=== PATIENT | female | born 1950 | race Caucasian/White ===

== ENCOUNTER 2018-07-28 22:23 | Inpatient (IN) | payer MEDICARE, OTHER ==
[2018-07-28] MEDS ORDERED: Promethazine HCl 25 MG/ML VIAL ONE (22:56)
[2018-07-28] MEDS ORDERED: Morphine 4 MG/ML VIAL ONE (22:56)
[2018-07-28 22:59] LABS: Bilirubin Negative (Negative); Blood, Urine Trace (Negative); Clarity Turbid (Clear); Glucose, Urine (Dipstick) >=1000 mg/dL (Negative); Leukocyte Trace (Negative); Nitrite Negative (Negative); Protein, Urine (Dipstick) Trace mg/dL (Neg-Trace); pH, Urine 5.5 (5.0-9.0)
[2018-07-28 23:00] LABS: Bacteria/HPF 1+ HPF (None Seen); Hyaline Casts/LPF 7-10 HYALINE CAST LPF (0-3 Hyaline); RBC/HPF 0-3 HPF (0-3); Renal Epithelial 0-3 HPF (0-3); Squamous Epithelial 0-3 HPF (0-3)
[2018-07-28 23:09] LABS: #Basophils 0.1 thou/uL (0.0-0.2); #Lymphocytes 1.3 thou/uL (1.20-3.40); #Monocytes 0.5 thou/uL (0.11-0.59); #Neutrophils 10.7 thou/uL (1.40-6.50); %Basophils 0.4 % (0.0-1.0); %Eosinophils 0.2 % (0.0-10.0); %Lymphocytes 10.3 % (21.0-51.0); %Monocytes 4.3 % (0.0-10.0); %Neutrophils 84.7 % (42.0-75.0); Hemoglobin 11.5 g/dL (12.0-16.0); Mean Corpuscular HGB CONC 31.6 g/dL (32.0-36.0); Mean Corpuscular Hemoglobin 25.3 pg (27.0-31.0); Mean Corpuscular Volume 80.1 fL (78.0-98.0); Mean Platelet Volume 7.9 fL (7.4-10.4); Platelet Count 161 thou/uL (130-400); RBC Distribution Width 13.6 % (11.5-14.5); Red Blood Cell (RBC) Count 4.56 mill/uL (4.20-5.40); White Blood Cell (WBC) Count 12.6 thou/uL (4.8-10.8)
[2018-07-28 23:23] LABS: ALT (SGPT) 26 U/L (8-55); AST (SGOT) 28 U/L (5-34); Albumin 3.9 g/dL (3.4-4.8); Alkaline Phosphatase 111 U/L (40-150); Anion Gap 18 mmol/L (10-20); BUN (Urea Nitrogen) 14 mg/dL (9.8-20.1); Bilirubin, Total 0.5 mg/dL (0.2-1.2); Calc. Creatinine Clearance 0 mL/min (70-130); Calcium 9.6 mg/dL (7.8-10.44); Carbon Dioxide 23 mmol/L (23-31); Chloride 99 mmol/L (98-107); Estimated GFR-MDRD 81; Glucose 312 mg/dL (80-115); Lipase 30 U/L (8-78); Potassium 4.5 mmol/L (3.5-5.1); Protein, Total 6.9 g/dL (6.0-8.3); Sodium 135 mmol/L (136-145)
[2018-07-29] MEDS ORDERED: cefTRIAXone\\ROCEPHIN 1 GM VIAL ONE (01:57)
[2018-07-29] MEDS ORDERED: Sodium Chloride 0.9% 100 ML ONE (01:58)
[2018-07-29] MEDS ORDERED: Prevnar 13-Val Conj/PF 0.5 ML SYRINGE IM ONE (06:15)
[2018-07-29] MEDS ORDERED: Sodium Chloride 0.65% Nasal 44 ML BOT EA NARE PRN (07:18)
[2018-07-29] MEDS ORDERED: Artificial Tears 18 DROP/0.9 ML EA EYE PRN (07:18)
[2018-07-29] MEDS ORDERED: Dextrose 5% in Water 1,000 ML IV PRN (07:18)
[2018-07-29] MEDS ORDERED: HumaLOG 300 UNITS/3 ML VIAL SC PRN (07:18)
[2018-07-29] MEDS ORDERED: Eucerin (Mineral Oil/Petrolatum,White) 30 gm Jar TOP PRN (07:18)
[2018-07-29] MEDS ORDERED: Dextrose 50% Abboject 50 ML SYRINGE SLOW IVP PRN (07:18)
[2018-07-29] MEDS ORDERED: Labetalol HCl 100 MG/20 ML VIAL SLOW IVP PRN (07:18)
[2018-07-29] MEDS ORDERED: Bisacodyl 10 MG SUPP PR PRN (07:18)
[2018-07-29] MEDS ORDERED: Acetaminophen 650 MG Suppository PR PRN (07:18)
[2018-07-29] MEDS ORDERED: hydrALAZINE 20 MG/ML VIAL SLOW IVP PRN (07:18)
[2018-07-29] MEDS ORDERED: Morphine 2 MG/ML SYRINGE SLOW IVP PRN (07:18)
--- NOTE | 2018-07-29 07:31 | CT ---
PRELIMINARY REPORT/[facility]/EMERGENCY AFTER HOURS PROCEDURE: EXAM: CT Abdomen and Pelvis With Contrast EXAM DATE/TIME: 07/29/2018 12:30 AM CLINICAL HISTORY: 68 years old, female; Pain and signs and symptoms; Bloating and nausea and vomiting; Abdominal pain; Generalized; Prior surgery; Surgery date: 6+ months; Surgery type: Lap band x2, daniel, failed hernia repair, keith oophorectomy TECHNIQUE: Imaging protocol: Axial computed tomography images of the abdomen and pelvis with intravenous contrast. Coronal reformatted images were created and reviewed. Radiation optimization: All CT scans at this facility use at least one of these dose optimization techniques: automated exposure control; mA and/or kV adjustment per patient size (includes targeted exams where dose is matched to clinical indication); or iterative reconstruction. Contrast material: isovue, gastro Contrast volume: 90 ml Contrast route: iv, oral COMPARISON: No relevant prior studies available. FINDINGS: Lower thorax: No consolidations. ABDOMEN: Liver: No mass. Gallbladder and bile ducts: Cholecystectomy. Trace amount of air in the common bile duct and central biliary ducts. Pancreas: No mass or ductal dilation. Spleen: No mass. Adrenals: No mass. Kidneys and ureters: No hydronephrosis. Stomach and bowel: There is oral contrast in the stomach and small bowel. Lap band around the proximal stomach in proper orientation without evidence of slippage. Dilated loops of small bowel up to 4.3 cm with air-fluid levels. Transition point is likely in a left lower paramidline hernia containing a loop of small bowel and a small amount of fluid. Appendix: No evidence of appendicitis. PELVIS: Bladder: Normal. Reproductive: The ovaries are not visualized. Normal appearance of the uterus. ABDOMEN and PELVIS: Intraperitoneal space: No free air or free fluid. Bones/joints: Subacute/chronic left lateral ninth rib fracture. Soft tissues: Normal appearance of the lap band tubing and port in the left anterior abdomen. Large central to right ventral hernia containing loops of small bowel. Vasculature: Mild atherosclerosis of the aorta without aneurysm. Lymph nodes: No lymphadenopathy. IMPRESSION: 1. Small bowel obstruction up to 4.3 cm with transition point likely within a left para midline ventr al hernia that contains a loop of small bowel and a small amount of fluid. There is an adjacent larger right ventral hernia containing loops of dilated and nondilated bowel. 2. Prior cholecystectomy. Trace pneumobilia. Please correlate with possible prior history of papillotomy. 3. Lap-band around the proximal stomach without evidence of slippage. Thank you for allowing us to participate in the care of your patient. Dictated and Authenticated by: Lashae Ch MD 07/29/2018 1:39 AM Central Time ([place] & [place]) FINAL REPORT CT ABDOMEN AND PELVIS WITH IV AND ORAL CONTRAST PERFORMED ON AN EMERGENCY BASIS: DATE: 07/29/18 TIME: 0043 HOURS HISTORY: Abdominal pain. FINDINGS/IMPRESSION: Agree with the preliminary report by Dr. Ch of [facility]. Small bowel obstruction at or n ear the large ventral abdominal wall hernia. Small amount of free fluid. Other incidental-type findings are as detailed in the original report. CODE QA. Transcribed Date/Time: 07/29/2018 7:58 AM
[2018-07-29] MEDS: Enoxaparin Sodium 40 MG/0.4 ML SYRINGE SC SCH (08:36)
[2018-07-29] MEDS ORDERED: Famotidine/PF 20 mg/2ml Vial SLOW IVP SCH (09:00)
[2018-07-29] MEDS ORDERED: Dofetilide 0.125 MG CAP PO SCH ×3 (10:00→22:50)
--- NOTE | 2018-07-29 11:19 | HP ---
PRIMARY CARE PHYSICIAN: Dr. Pavel Cosby. REASON FOR ADMISSION: Small bowel obstruction. HISTORY OF PRESENT ILLNESS: A 68-year-old female, who has underlying history of morbid obesity. She required two times gastric band surgery. She reports that first time gastric band surgery was complicated by MRSA infection required removal, and subsequently she had another gastric banding about 7 years ago. Since then, she lost almost 250 pounds. The patient also reports that about a week ago she went to [facility] in [place], where she had Watchman procedure done. She was taking Tikosyn as well as Xarelto since then, and during that admission, aspirin was discontinued. The patient reports that she was having frequent fall and that is why her primary care physician and legal support assistant recommended that procedure. Yesterday around 4 p.m., the patient was having acute onset of abdominal pain, which was underneath rib cage, as well as periumbilical diffuse and crampy associated with several times of nausea and vomiting. She was not able to keep anything down. She did not have any bowel movement entire day yesterday. She was also feeling hard feeling in her stomach and that is why she decided to come to emergency room last night around [address] of abdomen and pelvis, which showed small bowel obstruction. The patient reported that last night, she had very scant amount of bowel movement with gas. She denies any fever or chills. She denies any melena or hematochezia. She denies any abdominal distention, but still she is feeling mild soreness in the periumbilical region. The patient has underlying history of atrial fibrillation and that is why she was overnight admitted to telemetry floor. Routine blood test done in the emergency room, which showed leukocytosis and lactic acidosis. In the emergency room, the patient was given Rocephin IV fluid, morphine, and Phenergan, and subsequently, she was admitted to the hospital. REVIEW OF SYSTEMS: CONSTITUTIONAL: Negative for weight loss or gain, ability to conduct usual activities. SKIN: Negative for rash, itching. EYES: Negative for double vision, pain. ENT/MOUTH: Negative for nose bleeding, neck stiffness, pain, tenderness. CARDIOVASCULAR: Negative for palpitations, dyspnea on exertion, orthopnea. RESPIRATORY: Negative for shortness of breath, wheezing, cough, hemoptysis, fever or night sweats. GASTROINTESTINAL: Negative for poor appetite, abdominal pain, heartburn, nausea, vomiting, constipation, or diarrhea. GENITOURINARY: Negative for urgency, frequency, dysuria, nocturia. MUSCULOSKELETAL: Negative for pain, swelling. NEUROLOGIC/PSYCHIATRIC: Negative for anxiety, depression. ALLERGY/IMMUNOLOGIC: Negative for skin rash, bleeding tendency. Please see my HPI for pertinent positive and negative. All other review of systems reviewed and negative except as mentioned in HPI. PAST MEDICAL HISTORY: Morbid obesity; atrial fibrillation, status post Watchman procedure in June 2018; diabetes type 2; hypothyroidism; hypertension; and dyslipidemia. PAST PSYCHIATRIC HISTORY: Anxiety and depression. PAST SURGICAL HISTORY: Gastric lap banding x2, first removed due to MRSA infection, second was placed about 7 years ago; cholecystectomy; oophorectomy; and tonsillectomy. CURRENT HOME MEDICATIONS: 1. Amitriptyline 25 mg p.o. daily. 2. Zebeta 5 mg daily. 3. Cardizem CD 240 mg daily. 4. Dofetilide 500 mcg p.o. b.i.d. 5. Lasix 20 mg daily. 6. Lantus insulin as per home dose. 7. Synthroid 137 mcg p.o. daily. 8. Liothyronine 5 mcg daily. 9. Losartan 50 mg daily. 10. Magnesium oxide 400 mg daily. 11. Metformin 1000 mg b.i.d. 12. Paxil 20 mg daily. 13. Potassium chloride 20 mEq p.o. daily. 14. Xarelto 20 mg daily. 15. Zocor 40 mg p.o. nightly. EMERGENCY ROOM COURSE: The patient is given IV fluid 3 L, Rocephin 1 g, morphine, and Phenergan. SOCIAL HISTORY: The patient lives at home. No history of tobacco, alcohol, or illicit drug abuse. FAMILY HISTORY: No family history of coronary artery disease, stroke, or cancer. ALLERGIES: NO KNOWN DRUG ALLERGIES. PHYSICAL EXAMINATION: VITAL SIGNS: On arrival, blood pressure 153/77, pulse 89, respiratory rate 17, temperature 98.7, and saturation 98% on room air. Weight 113.4 kg. GENERAL: The patient is currently alert and awake, in no obvious acute distress. HEENT: Head; normocephalic, atraumatic. Eyes; pupils round and reactive to light. Extraocular muscle intact. ENT; oropharynx within normal limits. Moist mucous membranes. No oral lesion. No pharyngeal erythema. No exudate. NECK: Supple. No JVD. No thyromegaly. No carotid bruit. No jugular venous distention. LUNGS: Clear to auscultation without any rhonchi or rales. CARDIAC: S1 and S2. Appears regular without any significant murmur. No gallop. No rub. ABDOMEN: Bowel sound unable to hear, but morbid obesity limiting examination. The patient does have periumbilical ventral hernia. EXTREMITIES: Lower extremity, trace bilateral lower extremity edema noted. Good distal pulsation. SKIN: No skin rash. HEMATOLOGICAL SYSTEM: No lymphadenopathy. NEUROLOGIC: Nonfocal examination. The patient moves all 4 limbs. Plantar bilateral flexor. PSYCHIATRIC: Normal affect. SIGNIFICANT LABORATORY DATA: CT of abdomen and pelvis done in the emergency room showing small bowel obstruction up to 4.3 cm with transition point likely within left paramedian ventral hernia, prior cholecystectomy, lap band around proximal stomach without slippage. CBC; WBC 12.6, hemoglobin 11.5, and platelet 161 with left shift. BMP; sodium 135, potassium 4.5, chloride 99, carbon dioxide 23, anion gap 18, BUN 14, creatinine 0.72, glucose 312, calcium 9.6, and lactic acid 4.3. LFT; AST 28, ALT 26, alkaline phosphatase 111, albumin 3.9, and lipase 30. Urinalysis; glucosuria, ketonuria, leukocyte esterase 1+ bacteria. ASSESSMENT AND PLAN: Impression: 1. Acute small bowel obstruction. The patient does have ventral hernia, and currently based on CT of abdomen and pelvis, the patient does have small bowel obstruction. Clinical history is also supportive. The patient will be kept n.p.o. We will consult General Surgery for evaluation. Further plan will defer to them. We will monitor closely in hospital. 2. Lactic acidosis, likely due to underlying small bowel obstruction. The patient will get IV fluid and we will continue with repeating lactic acid level tomorrow. 3. Diabetes type 2, on insulin. We will hold on long-acting insulin. We will only provide short-acting insulin. In case, this patient will need surgery and the patient is n.p.o. at this point, we will also hold metformin as well. 4. Chronic atrial fibrillation, status post Watchman device. The patient is on dofetilide 500 mcg p.o. b.i.d., Cardizem CD 240 mg p.o. daily, and Zebeta 5 mg p.o. daily, which we will continue. The patient is on chronic anticoagulation with Xarelto, which we will hold in case this patient needs surgery. 5. Hypothyroidism. We will continue Synthroid 137 mcg p.o. daily and liothyronine 5 mcg p.o. daily. 6. Anxiety and depression. We will continue amitriptyline 25 mg p.o. daily and Losartan 50 mg p.o. daily. 7. Dyslipidemia. Continue Zocor 40 mg p.o. nightly. 8. Morbid obesity, status post gastric banding. Dietary instruction given. Weight loss education given. 9. Chronic diastolic heart failure, stage C. continue Lasix 20 mg p.o. daily. 10. Hypertension. Continue with Zebeta, Cardizem CD, Lasix, and losartan as per home dosage. 11. Deep venous thrombosis prophylaxis. We will continue with Lovenox 40 mg subcu daily. 12. Gastrointestinal prophylaxis, Pepcid 20 mg IV b.i.d. CODE STATUS: The patient is full code. The patient does not have any surrogate decision maker. DISPOSITION PLAN: Based on clinical course and Cardiology recommendation. Plan of care discussed with the patient in detail. Job ID: [id number]
[2018-07-29] MEDS ORDERED: Meropenem 2 GM in Sodium Chloride 0.9% 100 ML IVPB SCH (14:00)
--- NOTE | 2018-07-29 14:37 | HP ---
HISTORY OF PRESENT ILLNESS: A 68-year-old female, who presents to the hospitalist DNR. Consult submitted for incarcerated ventral hernia. She has had this ventral hernia for some time, it has been repaired twice by Dr. Alexander laparoscopically and recurred. She is followed by Dr. Pavel Cosby. The patient had a laparoscopic adjustable band, weighing 435 pounds prior after the band placement in 2005. She was down to 235 pounds, currently 270. She has had problems with atrial fibrillation, had an ablation with Dr. Villela, who is her digital campaign specialist. This was partially successful, but not completely and underwent a Watchman procedure 3 weeks ago. She reports having had a cardiac catheterization with Dr. Villela 4 weeks ago that was normal, requiring no intervention. She has suffered nausea, vomiting, and obstipation. CAT scan revealed an incarcerated ventral hernia with an obstruction. She has an open cholecystectomy wound and a band port in her midline. She has not had Xarelto in 48 hours. ALLERGIES: NONE. SOCIAL HISTORY: Tobacco, none. Alcohol, none. MEDICATIONS: At home include, 1. Zocor 40 a day. 2. Paxil 20 a day. 3. Amitriptyline 25 a day. 4. Insulin routinely. 5. Xarelto 20 mg a day, not consumed in 48 hours. 6. K-Dur 20 mEq a day. 7. Diltiazem 240 mg a day. 8. Magnesium oxide 400 mg a day. 9. Zebeta 5 mg a day. 10. Metformin 1000 mg b.i.d. 11. Losartan 50 mg a day. 12. Furosemide 20 mg a day . 13. Levothyroxine 137 mcg a day. PAST SURGICAL HISTORY: Laparoscopic adjustable band placement, weight reduction 435 to 235 pounds, currently 270 pounds. She has had incisional hernia repairs x2. She has had an open cholecystectomy many years ago. She is due for colonoscopy. PAST MEDICAL HISTORY: Diabetes mellitus, hypertension, obesity, atrial fibrillation. PHYSICAL EXAMINATION: VITAL SIGNS: Height 5 feet 8 inches, weight 270 pounds, 41 BMI, temperature 98.3, heart rate 77, blood pressure 128/67. HEAD, EYES, EARS, NOSE, AND THROAT: Unremarkable. LUNGS: Clear to auscultation. CARDIAC: Regular rate and rhythm. No murmur or gallop. ABDOMEN: Soft, obese, large pannus, incarcerated ventral hernia about the umbilicus. EXTREMITIES: Unremarkable. LABORATORY DATA: Sodium 135, potassium 4.5, BUN 14, creatinine 0.72, glucose 312 to 131. Hemoglobin 11, white count 12. ASSESSMENT: Incarcerated hernia with bowel obstruction. PLAN: Laparotomy today and procedure as indicated. She understands risks and benefits, and consents. Other medical problems as listed above. Job ID: [id number]
--- NOTE | 2018-07-29 14:49 | PQF ---
DATE: 07-29-18 ATTN: DR. REEMA SARAVIA Please exercise your independent, professional judgment in responding to the clarification form. Clinical indicators are provided on the bottom of this form for your review Please check appropriate box(s): [ ] UTI [ x ] Contaminated urine specimen without UTI [ ] Other diagnosis [ ] Unable to determine In addition, please specify: Present on Admission (POA): [ x ] Yes [ ] No [ ] Unable to determine For continuity of documentation, please document condition throughout progress notes and discharge summary. Thank You. CLINICAL INDICATORS - SIGNS / SYMPTOMS / LABS URINE: 07-28-18: URINE CLARITY: TURBID H URINE GLUCOSE: >=1000 H URINE KETONES: 15 H URINE BLOOD: TRACE H UR LEUKOCYTE ESTERASE: TRACE H URINE WBC: 7-10 H URINE BACTEREMIA: +1 H RISK FACTORS: H&P: HX MORBID OBESITY, A FIB, DM 2, HTN, HYPOTHYROIDISM, DYSLIPIDEMIA TREATMENT: ER: NS IVF, ROCEPHIN IV, NS IVF, NS IVF (This form is maintained as a part of the permanent medical record) 2014 [employer] All Rights Reserved [email or web address] Office: [phone] [facility]
[2018-07-29] MEDS ORDERED: PROPOFOL 200 MG/20 ML VIAL ONE (15:58)
[2018-07-29] MEDS ORDERED: Glycopyrrolate 0.2 MG/ML 5 ML SYRINGE ONE (15:58)
[2018-07-29] MEDS ORDERED: Ondansetron PF 4 MG/2 ML Vial ONE (15:58)
[2018-07-29] MEDS ORDERED: Succinylcholine Chloride 20 MG/ML 10 ml SYRINGE FS ONE (15:58)
[2018-07-29] MEDS ORDERED: Rocuronium Bromide 10 MG/ML (10ML VIAL) ONE (15:58)
[2018-07-29] MEDS ORDERED: Lidocaine 1% PF 5 ML VIAL ONE (15:58)
[2018-07-29] MEDS ORDERED: Fentanyl 250 MCG/5 ML VIAL ONE (16:26)
[2018-07-29] MEDS ORDERED: SUGAMMADEX SODIUM 500 MG/5 ML VIAL ONE (18:25)
[2018-07-29] MEDS ORDERED: Promethazine HCl 25 MG/ML VIAL SLOW IVP PRN (18:57)
[2018-07-29] MEDS ORDERED: Promethazine HCl 25 MG/ML VIAL IM PRN ×2 (18:57→19:12)
[2018-07-29] MEDS ORDERED: Ondansetron HCl/PF 4 MG/2 ML Vial IVP PRN (18:57)
[2018-07-29] MEDS ORDERED: Fentanyl 100 MCG/2 ML VIAL ONE (19:02)
[2018-07-29] MEDS ORDERED: diphenhydrAMINE 50 MG/ML VIAL IVP PRN (19:12)
[2018-07-29] MEDS ORDERED: diphenhydrAMINE 50 MG/ML VIAL IM PRN (19:12)
[2018-07-29] MEDS ORDERED: HYDROmorphone 10 mg/100 ml CADD IVPB PRN (19:12)
[2018-07-29] MEDS ORDERED: Naloxone HCl 0.4 mg/ml Vial IV PRN (19:12)
[2018-07-29] MEDS ORDERED: diphenhydrAMINE 25 MG CAP PO PRN (19:12)
[2018-07-29] MEDS ORDERED: Zolpidem Tartrate 5 MG TAB PO PRN (19:12)
[2018-07-29] MEDS ORDERED: Communication Order-Pharmacy FS SCH (19:15)
--- NOTE | 2018-07-29 19:50 | OP ---
DATE OF PROCEDURE: 07/29/2018 PREOPERATIVE DIAGNOSES: Incarcerated incisional hernia with bowel obstruction, recurrent; obesity, morbid, status post laparoscopic adjustable band, placed 13 years ago with loss of 450 pounds to 270. POSTOPERATIVE DIAGNOSES: Incarcerated incisional hernia with bowel obstruction, recurrent; obesity, morbid, status post laparoscopic adjustable band, placed 13 years ago with loss of 450 pounds to 270. PROCEDURES PERFORMED: Exploratory laparotomy; lysis of adhesions; removal of portions of mesh; extensive lysis of adhesions; repair of one enterotomy; 4 mm, two layers, suture complex incisional hernia repair without mesh; removal of portions of old mesh; Prevena dressing placed on the wound with skin closure with raul loosely. ANESTHESIA: General. Freeman catheter placed at the beginning of the procedure, left in place. DESCRIPTION OF PROCEDURE: The patient was taken to the operating room. Under general anesthesia, abdomen was prepared with ChloraPrep and draped in routine fashion. Incision was made above the umbilicus to below and carried down to the skin and subcutaneous tissue, and the hernia sac identified and dissected free from surrounding tissues. This hernia sac consisted of hernia sac and portions of eventrated mesh. This was dissected free down to healthy fascia. A portion of the mesh was removed in the midline. Extensive adhesiolysis undertaken freeing small bowel adhesions to the hernia sac and mesh and into the abdominal cavity. Adhesiolysis carried out from ligament of Treitz to the terminal ileum. Small bowel was run to and fro four times and a very small enterotomy closed. It was appreciated during the lysis of adhesions. This was closed in two layers with interrupted simple [id number] sutures of 3-0 silk and Lembert sutures of 3-0 silk. Small bowel was inspected. No other enterotomies noted. NG tube was palpated in good position in the stomach. Sponge and instrument counts were correct. Abdominal cavity was irrigated. Irrigant evacuated. Midline fascia closed with continuous locking sutures of #1 PDS incorporating the portion of the old mesh to reinforce fascial closure. The patient tolerated the procedure well. As the skin and subcutaneous tissue was copiously irrigated, meticulous hemostasis was obtained with cautery and skin approximated loosely with raul and Prevena dressing applied. The patient tolerated the procedure well. Job ID: [id number]
[2018-07-29] MEDS ORDERED: Promethazine HCl 25 MG/ML VIAL ONE (20:04)
[2018-07-29] MEDS ORDERED: Atorvastatin Calcium 20 MG TAB PO SCH (21:00)
[2018-07-29] MEDS ORDERED: Ondansetron ODT 8 MG TAB SL PRN (21:10)
[2018-07-29] MEDS ORDERED: Ondansetron PF 4 MG/2 ML Vial IVP SCH (21:15)
[2018-07-29] MEDS: Scopolamine 1.5 mg/72 hour Patch TD SCH (21:53)
[2018-07-29] MEDS: Lactated Ringer's 1,000 ML IV SCH (21:55)
[2018-07-29] MEDS ORDERED: Dofetilide 0.25 MG CAP PO SCH (22:45)
[2018-07-30] MEDS ORDERED: cefTRIAXone\\ROCEPHIN 2 GM in Sodium Chloride 0.9% 100 ML IVPB SCH (02:00)
[2018-07-30] MEDS: Lactated Ringer's 1,000 ML IV SCH ×5 (05:12→19:50)
[2018-07-30 05:52] LABS: #Monocytes 0.7 thou/uL (0.11-0.59); %Basophils 0.2 % (0.0-1.0); %Eosinophils 0.3 % (0.0-10.0); %Lymphocytes 20.9 % (21.0-51.0); %Monocytes 6.9 % (0.0-10.0); %Neutrophils 71.6 % (42.0-75.0); Hemoglobin 11.2 g/dL (12.0-16.0); Mean Corpuscular HGB CONC 30.9 g/dL (32.0-36.0); Mean Corpuscular Hemoglobin 25.9 pg (27.0-31.0); Mean Corpuscular Volume 83.7 fL (78.0-98.0); Mean Platelet Volume 8.2 fL (7.4-10.4); Platelet Count 193 thou/uL (130-400); Red Blood Cell (RBC) Count 4.32 mill/uL (4.20-5.40); White Blood Cell (WBC) Count 9.7 thou/uL (4.8-10.8)
[2018-07-30] MEDS ORDERED: Levothyroxine Sodium 112 MCG TAB PO SCH (06:00)
[2018-07-30] MEDS ORDERED: Levothyroxine Sodium 25 MCG TAB PO SCH (06:00)
[2018-07-30 06:01] LABS: Hemoglobin A1c 7.3 % (4.0-6.0)
[2018-07-30 06:04] LABS: Lactic Acid 1.4 mmol/L (0.5-2.2)
[2018-07-30 06:05] LABS: Phosphorus 3.8 mg/dL (2.3-4.7)
[2018-07-30 06:07] LABS: ALT (SGPT) 18 U/L (8-55); AST (SGOT) 20 U/L (5-34); Albumin 3.1 g/dL (3.4-4.8); Alkaline Phosphatase 95 U/L (40-150); Anion Gap 14 mmol/L (10-20); BUN (Urea Nitrogen) 11 mg/dL (9.8-20.1); Bilirubin, Total 0.5 mg/dL (0.2-1.2); Calc. Creatinine Clearance 170 mL/min (70-130); Calcium 8.4 mg/dL (7.8-10.44); Carbon Dioxide 22 mmol/L (23-31); Chloride 104 mmol/L (98-107); Estimated GFR-MDRD Greater than 90; Globulin 2.4 g/dL (2.4-3.5); Glucose 209 mg/dL (80-115); Magnesium 1.8 mg/dL (1.6-2.6); Potassium 4.7 mmol/L (3.5-5.1); Protein, Total 5.5 g/dL (6.0-8.3); Sodium 135 mmol/L (136-145)
[2018-07-30] MEDS: Diltiazem 125 MG in Sodium Chloride 0.9% 100 ML IVPB SCH ×2 (08:32→19:55)
[2018-07-30] MEDS: Enoxaparin Sodium 40 MG/0.4 ML SYRINGE SC SCH (08:41)
[2018-07-30] MEDS ORDERED: Acetaminophen 500 MG TAB PO PRN (08:54)
[2018-07-30] MEDS ORDERED: Ibuprofen 600 MG TAB PO PRN (08:54)
--- NOTE | 2018-07-30 08:59 | PRG ---
DATE OF SERVICE: 07/30/2018 SUBJECTIVE: Elyssa Lepe is doing well today. NG tube output has been very little. OBJECTIVE: VITAL SIGNS: Temperature 99.1 degrees, heart rate 157, respiratory rate 16, blood pressure 114/61. LUNGS: Clear to auscultation. CARDIAC: Sinus tachycardia, atrial fibrillation. ABDOMEN: Soft. Occasional bowel sounds. Prevena incisional VAC in place. This incisional VAC should be removed on Friday. If the wound is closed beneath, the Wound Care does not need to be consulted; if the canister fills, the canister cannot be replaced, call the operating room or Wound Care secondary if necessary for canister replacement. EXTREMITIES: Unremarkable. LABORATORY DATA: White count 9, hemoglobin 11.2. Basic metabolic profile normal. ASSESSMENT AND PLAN: 1. Chronic atrial fibrillation, status post ablation and Watchman's. We will remove her NG tube. Can resume her medications. I think that she can be anticoagulated beginning tomorrow. We will continue prophylactic Lovenox today. 2. Repair of chronic incisional hernia with chronic obstruction. The patient is doing well. Begin her diet, advance slowly. 3. The patient is mobile with a cane or walker at home. Begin mobility, out of bed, up in a chair as soon as possible. 4. Dr. Cox is covering for me over the [facility], Friday, Friday, Friday, and Friday. The patient should be ready to go home from a surgical standpoint in to 1 to 2 days if her diet progresses as expected. Job ID: [id number]
[2018-07-30] MEDS ORDERED: Non-Formulary Item 1 EACH (Rivaroxaban [Xarelto] 20 MG) PO SCH (09:00)
[2018-07-30] MEDS ORDERED: Furosemide 20 MG TAB PO SCH (09:00)
[2018-07-30] MEDS ORDERED: Liothyronine Sodium 5 MCG TAB PO SCH (09:00)
[2018-07-30] MEDS ORDERED: Bisoprolol Fumarate 5 MG TAB PO SCH (09:00)
[2018-07-30] MEDS ORDERED: Non-Formulary Item 1 EACH (Levothyroxine Sodium [Synthroid] 137 MCG) PO SCH (09:00)
[2018-07-30] MEDS ORDERED: Losartan 25 MG TAB PO SCH (09:00)
[2018-07-30] MEDS ORDERED: PARoxetine 20 MG TAB PO SCH (09:00)
[2018-07-30] MEDS ORDERED: Pantoprazole 40 MG VIAL IVP SCH (09:00)
[2018-07-30] MEDS ORDERED: Famotidine/PF 20 mg/2ml Vial SLOW IVP SCH (09:00)
[2018-07-30] MEDS ORDERED: Magnesium Oxide 400 MG TAB PO SCH (09:00)
[2018-07-30] MEDS ORDERED: Dofetilide 0.125 MG CAP PO SCH ×3 (09:00→21:00)
--- NOTE | 2018-07-30 09:30 | PDOC.PN ---
- Subjective Encounter Start Date: 07/30/18 Encounter Start Time: 07:20 -: old records requested/rev this morning pt has afib with RVR, NG tube removed, started on clear liquid diet , has wound vac in place - Objective Resuscitation Status - Order Detail: 07/29/18 07:14 Resuscitation Status Routine Resuscitation Status: FULL: Full Resuscitation MAR Reviewed: Yes Vital Signs & Weight: Vital Signs (12 hours) Temp Pulse Resp BP Pulse Ox 07/30/18 08:05 99.1 F 157 H 16 114/61 94 L 07/30/18 03:46 98.2 F 118 H 18 137/78 94 L Weight Admit Weight 270 lb 4 oz Weight 279 lb I&O: 07/29/18 07/30/18 07/31/18 06:59 06:59 06:59 Intake Total 1100 Output Total 400 Balance 700 Result Diagrams: 07/30/18 04:48 07/30/18 04:48 Additional Labs: Accuchecks 07/30/18 07/30/18 07/29/18 05:37 01:08 19:03 POC Glucose 249 H 194 H 135 H 07/29/18 11:08 POC Glucose 131 H Radiology Reviewed by me: Yes EKG Reviewed by me: Yes Phys Exam - Physical Examination Constitutional: NAD HEENT: PERRLA, moist MMs, sclera anicteric Neck: no JVD, supple Respiratory: no wheezing, no rales, no rhonchi Cardiovascular: no significant murmur, irregular Gastrointestinal: soft, non-tender, no distention, positive bowel sounds wound vac+ Musculoskeletal: no edema, pulses present Neurological: non-focal, normal sensation Lymphatic: no nodes Psychiatric: normal affect, A&O x 3 Skin: no rash, normal turgor Dx/Plan (1) Ventral hernia with obstruction Code(s): K43.6 - OTHER AND UNSP VENTRAL HERNIA WITH OBSTRUCTION, W/O GANGRENE Status: Acute (2) SBO (small bowel obstruction) Code(s): K56.609 - UNSP INTESTNL OBST, UNSP TO PARTIAL VERSUS COMPLETE OBST Status: Acute (3) Lactic acidosis Code(s): E87.2 - ACIDOSIS Status: Acute (4) Anxiety and depression Code(s): F41.9 - ANXIETY DISORDER, UNSPECIFIED; F32.9 - MAJOR DEPRESSIVE DISORDER, SINGLE EPISODE, UNSPECIFIED Status: Chronic (5) Atrial fibrillation Code(s): I48.91 - UNSPECIFIED ATRIAL FIBRILLATION Status: Chronic (6) Chronic anticoagulation Code(s): Z79.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 Status: Chronic (7) Diabetes type 2, controlled Code(s): E11.9 - TYPE 2 DIABETES MELLITUS WITHOUT COMPLICATIONS Status: Chronic (8) Hypertension Code(s): I10 - ESSENTIAL (PRIMARY) HYPERTENSION Status: Chronic (9) Hypothyroidism Code(s): E03.9 - HYPOTHYROIDISM, UNSPECIFIED Status: Chronic (10) Morbid obesity with BMI of 40.0-44.9, adult Code(s): E66.01 - MORBID (SEVERE) OBESITY DUE TO EXCESS CALORIES; Z68.41 - BODY MASS INDEX (BMI) 40.0-44.9, ADULT Status: Chronic - Plan cont current plan of care, plan discussed w/ family, DVT proph w/lovenox * start cardizem drip * consult cardiology * post operative care as per surgeon * medication reviewed as below * symptomatic treatment. Review of Systems - Review of Systems ENT: negative: Ear Pain, Ear Discharge, Nose Pain, Nose Discharge, Nose Congestion, Mouth Pain, Mouth Swelling, Throat Pain, Throat Swelling, Other Respiratory: negative: Cough, Dry, Shortness of Breath, Hemoptysis, SOB with Excertion, Pleuritic Pain, Sputum, Wheezing Cardiovascular: negative: chest pain, palpitations, orthopnea, paroxysmal nocturnal dyspnea, edema, light headedness, other Gastrointestinal: negative: Nausea, Vomiting, Abdominal Pain, Diarrhea, Constipation, Melena, Hematochezia, Other Genitourinary: negative: Dysuria, Frequency, Incontinence, Hematuria, Retention , Other Musculoskeletal: negative: Neck Pain, Shoulder Pain, Arm Pain, Back Pain, Hand Pain, Leg Pain, Foot Pain, Other - Medications/Allergies Allergies/Adverse Reactions: Allergies Allergy/AdvReac Type Severity Reaction Status Date / Time No Known Allergies Allergy Unverified 07/29/18 10:21 Medications: Current Medications Acetaminophen (Tylenol) 1,000 mg PO Q6H PRN PRN Reason: Moderate to Severe Pain (6-10) Amitriptyline HCl (Elavil) 25 mg PO DAILY [facility] Artificial Tears (Tears Naturale) 2 drop EA EYE PRN PRN PRN Reason: Dry Eyes Dextrose/Water (Dextrose 50%) 25 gm SLOW IVP PRN PRN PRN Reason: Hypoglycemia Diltiazem HCl (Cardizem Cd) 240 mg PO DAILY [facility] Diphenhydramine HCl (Benadryl) 25 mg IVP Q3H PRN PRN Reason: Itching Diphenhydramine HCl (Benadryl) 25 mg PO Q3H PRN PRN Reason: Itching Diphenhydramine HCl (Benadryl) 25 mg IM Q3H PRN PRN Reason: Itching Dofetilide (Tikosyn) 0.5 mg PO BID [facility] Enoxaparin Sodium (Lovenox) 40 mg SC 0900 [facility] Last Admin: 07/30/18 08:41 Dose: 40 mg Glucagon (Glucagon) 1 mg IM PRN PRN PRN Reason: Hypoglycemia Hydralazine HCl (Apresoline) 10 mg SLOW IVP Q4H PRN PRN Reason: SBP > 180 and HR < 70 Hydromorphone HCl (Dilaudid Cadd) 0 mg IVPB INF PRN PRN Reason: Pain Dextrose/Water (D5w) 1,000 mls @ 0 mls/hr IV .Q0M PRN PRN Reason: Hypoglycemia Meropenem 2 gm/ Sodium (Chloride) 100 mls @ 200 mls/hr IVPB WILLCALL [facility] Lactated Ringer's (Lactated Ringer's) 1,000 mls @ 125 mls/hr IV .Q8H [facility] Last Admin: 07/30/18 05:13 Dose: 1,000 mls Diltiazem HCl 125 mg/ Sodium (Chloride) 125 mls @ 5 mls/hr IVPB INF [facility]; Protocol Last Admin: 07/30/18 08:32 Dose: 125 mls Ibuprofen (Motrin) 600 mg PO Q6H PRN PRN Reason: Pain Insulin Human Lispro (Humalog) 0 units SC .MODERATE SLIDING SC PRN PRN Reason: Moderate Correctional Scale Insulin Human Lispro (Humalog) 0 units SC .BEDTIME SLIDING SC PRN PRN Reason: Bedtime Correctional Scale Labetalol HCl (Normodyne) 20 mg SLOW IVP Q4H PRN PRN Reason: SBP > 180 and HR >/= 70 Losartan Potassium (Cozaar) 50 mg PO DAILY [facility] Metformin HCl (Glucophage) 1,000 mg PO BID- [facility] Naloxone HCl (Narcan) 0.2 mg IV Q5MIN PRN PRN Reason: Opiate Reversal Non-Formulary Medication (Rivaroxaban [Xarelto]) 20 mg PO DAILY [facility] Ondansetron HCl (Zofran) 4 mg IVP Q6H PRN PRN Reason: Nausea/Vomiting Ondansetron HCl (Zofran Odt) 8 mg SL BIDPRN PRN PRN Reason: Nausea/Vomiting Paroxetine HCl (Paxil) 20 mg PO DAILY [facility] Polyethylene Glycol (Miralax) 17 gm PO DAILY [facility] Potassium Chloride (K-Dur) 20 meq PO DAILY [facility] Scopolamine (Transderm Scop) 1.5 mg TD Q3D [facility] Last Admin: 07/29/18 21:53 Dose: 1.5 mg Sodium Chloride ([place] Nasal [place] 0.65%) 0 ml EA NARE QIDPRN PRN PRN Reason: Nasal Congestion Sodium Chloride (Flush - Normal Saline) 10 ml IVF Q12HR [facility] Last Admin: 07/29/18 21:55 Dose: Not Given Sodium Chloride (Flush - Normal Saline) 10 ml IVF PRN PRN PRN Reason: Saline Flush Tramadol HCl (Ultram) 50 mg PO Q6H PRN PRN Reason: Pain Tramadol HCl (Ultram) 100 mg PO Q6H PRN PRN Reason: Pain Zolpidem Tartrate (Ambien) 5 mg PO HSPRN PRN PRN Reason: Insomnia
[2018-07-30] MEDS ORDERED: Metoprolol Tartrate 5 MG/5 ML VIAL IVP SCH ×2 (10:00→12:15)
[2018-07-30] MEDS: Dofetilide 0.125 MG CAP PO SCH ×2 (10:15→21:14)
[2018-07-30] MEDS: Losartan 25 MG TAB PO SCH (10:17)
[2018-07-30] MEDS: PARoxetine 20 MG TAB PO SCH (10:18)
[2018-07-30] MEDS: Amitriptyline HCl 25 MG TAB PO SCH (10:18)
[2018-07-30] MEDS: Potassium Chloride 20 MEQ TAB PO SCH (10:19)
[2018-07-30] MEDS: Polyethylene Glycol 3350 17 GM Packet PO SCH (10:19)
[2018-07-30] MEDS: HumaLOG 300 UNITS/3 ML VIAL SC PRN ×2 (10:52→17:41)
--- NOTE | 2018-07-30 13:59 | CON ---
DATE OF CONSULTATION: HISTORY OF PRESENT ILLNESS: This is a 68-year-old woman, who presented with acute abdominal discomfort and underwent emergent surgery. The patient has a history of atrial fibrillation and morbid obesity. She has previously undergone a laparoscopic band surgery. She recently underwent a Watchman procedure. She has been on Xarelto. She presented with acute abdominal discomfort and underwent emergent surgery. The patient this morning went into a rapid heart rhythm. The patient denies having any chest discomfort. PAST MEDICAL HISTORY: 1. Atrial fibrillation. 2. Hypertension. 3. Diabetes mellitus. 4. Morbid obesity. PAST SURGICAL HISTORY: Cholecystectomy and lap band surgery. SOCIAL HISTORY: She is a nonsmoker. FAMILY HISTORY: Strong family history of heart disease. ALLERGIES: NONE. REVIEW OF SYSTEMS: Ten-point system, otherwise unremarkable. PHYSICAL EXAMINATION: GENERAL: Obese woman, in no acute distress. VITAL SIGNS: Blood pressure 114/61. NECK: No jugular venous distention. LUNGS: Clear to auscultation. HEART: Irregular rate and rhythm. Normal S1 and S2. ABDOMEN: Markedly distended. She had a midline scar. EXTREMITIES: Showed no edema. VASCULAR: Radial pulses are 2+. LABORATORY RESULTS: Sodium was 135, potassium 4.7, chloride 104, bicarbonate 22 , BUN 11, and creatinine 0.62. DIAGNOSTIC DATA: Telemetry monitoring revealed rapid atrial fibrillation. IMPRESSION: 1. Status post hernia surgery. 2. Rapid atrial fibrillation. 3. Status post Watchman. 4. Morbid obesity. PLAN: This patient presents with rapid atrial fibrillation. The patient is being restarted on her Tikosyn. We will continue the patient on IV Cardizem. She will also receive IV Lopressor. We will follow this patient with you through her hospitalization. Job ID: [id number] [facility]
[2018-07-30] MEDS: metFORMIN 500 MG TAB PO SCH ×2 (17:36→18:35)
[2018-07-30] MEDS: Ondansetron PF 4 MG/2 ML Vial IVP PRN (20:05)
[2018-07-31] MEDS: Lactated Ringer's 1,000 ML IV SCH ×3 (05:20→20:33)
[2018-07-31] MEDS: metFORMIN 500 MG TAB PO SCH ×2 (08:43→19:06)
[2018-07-31] MEDS: Losartan 25 MG TAB PO SCH (08:50)
[2018-07-31] MEDS: Potassium Chloride 20 MEQ TAB PO SCH (08:50)
[2018-07-31] MEDS: Polyethylene Glycol 3350 17 GM Packet PO SCH (08:51)
[2018-07-31] MEDS: PARoxetine 20 MG TAB PO SCH (08:51)
[2018-07-31] MEDS ORDERED: traMADol HCl 50 MG TAB PO PRN ×2 (08:54)
[2018-07-31] MEDS ORDERED: Rivaroxaban 10 MG TAB PO SCH (09:00)
[2018-07-31] MEDS: Amitriptyline HCl 25 MG TAB PO SCH ×2 (09:03→20:27)
[2018-07-31] MEDS: Dofetilide 0.125 MG CAP PO SCH ×3 (09:03→22:57)
--- NOTE | 2018-07-31 10:00 | PDOC.PN ---
- Subjective Encounter Start Date: 07/31/18 Encounter Start Time: 08:30 Patient seen and examined. No new complaints. No overnight events last night she was hypotensive so cardizem drip was turned off and her rate is controlled, her pain is controlled - Objective Resuscitation Status - Order Detail: 07/29/18 07:14 Resuscitation Status Routine Resuscitation Status: FULL: Full Resuscitation MAR Reviewed: Yes Vital Signs & Weight: Vital Signs (12 hours) Temp Pulse Resp BP BP Pulse Ox 07/31/18 08:49 89 115/62 07/31/18 04:00 98.5 F 85 20 106/55 L 95 07/31/18 00:00 87 90/50 L Weight Admit Weight 270 lb 4 oz Weight 286 lb 7 oz I&O: 07/30/18 07/31/18 08/01/18 06:59 06:59 06:59 Intake Total 4902.6 Output Total 1175 Balance 3727.6 Result Diagrams: 07/30/18 04:48 07/30/18 04:48 Additional Labs: Accuchecks 07/31/18 07/30/18 07/30/18 05:33 20:30 17:14 POC Glucose 183 H 235 H 222 H 07/30/18 10:37 POC Glucose 281 H EKG Reviewed by me: Yes (afib) Phys Exam - Physical Examination Constitutional: NAD HEENT: PERRLA, moist MMs, sclera anicteric Neck: no JVD, supple Respiratory: no wheezing, no rales, no rhonchi Cardiovascular: no significant murmur, irregular Gastrointestinal: soft, non-tender, no distention, positive bowel sounds wound vac+ Musculoskeletal: no edema, pulses present Neurological: non-focal, normal sensation, moves all 4 limbs Lymphatic: no nodes Psychiatric: normal affect Skin: no rash, normal turgor Dx/Plan (1) Ventral hernia with obstruction Code(s): K43.6 - OTHER AND UNSP VENTRAL HERNIA WITH OBSTRUCTION, W/O GANGRENE Status: Acute (2) SBO (small bowel obstruction) Code(s): K56.609 - UNSP INTESTNL OBST, UNSP TO PARTIAL VERSUS COMPLETE OBST Status: Acute (3) Lactic acidosis Code(s): E87.2 - ACIDOSIS Status: Acute (4) Anxiety and depression Code(s): F41.9 - ANXIETY DISORDER, UNSPECIFIED; F32.9 - MAJOR DEPRESSIVE DISORDER, SINGLE EPISODE, UNSPECIFIED Status: Chronic (5) Atrial fibrillation Code(s): I48.91 - UNSPECIFIED ATRIAL FIBRILLATION Status: Chronic (6) Chronic anticoagulation Code(s): Z79.01 - LONGTERM (CURRENT) USE OF ANTICOAGULANTS Status: Chronic (7) Diabetes type 2, controlled Code(s): E11.9 - TYPE 2 DIABETES MELLITUS WITHOUT COMPLICATIONS Status: Chronic (8) Hypertension Code(s): I10 - ESSENTIAL (PRIMARY) HYPERTENSION Status: Chronic (9) Hypothyroidism Code(s): E03.9 - HYPOTHYROIDISM, UNSPECIFIED Status: Chronic (10) Morbid obesity with BMI of 40.0-44.9, adult Code(s): E66.01 - MORBID (SEVERE) OBESITY DUE TO EXCESS CALORIES; Z68.41 - BODY MASS INDEX (BMI) 40.0-44.9, ADULT Status: Chronic - Plan cont current plan of care, PT/OT, social work coordinator * monitor on tele for afib * medication reviewed as below * symptomatic treatment * continue PT and discharge planning * wound care * post operative care as per surgeon. Review of Systems - Review of Systems ENT: negative: Ear Pain, Ear Discharge, Nose Pain, Nose Discharge, Nose Congestion, Mouth Pain, Mouth Swelling, Throat Pain, Throat Swelling, Other Respiratory: negative: Cough, Dry, Shortness of Breath, Hemoptysis, SOB with Excertion, Pleuritic Pain, Sputum, Wheezing Cardiovascular: negative: chest pain, palpitations, orthopnea, paroxysmal nocturnal dyspnea, edema, light headedness, other Gastrointestinal: negative: Nausea, Vomiting, Abdominal Pain, Diarrhea, Constipation, Melena, Hematochezia, Other Genitourinary: negative: Dysuria, Frequency, Incontinence, Hematuria, Retention , Other Musculoskeletal: negative: Neck Pain, Shoulder Pain, Arm Pain, Back Pain, Hand Pain, Leg Pain, Foot Pain, Other - Medications/Allergies Allergies/Adverse Reactions: Allergies Allergy/AdvReac Type Severity Reaction Status Date / Time No Known Allergies Allergy Unverified 07/29/18 10:21 Medications: Current Medications Acetaminophen (Tylenol) 1,000 mg PO Q6H PRN PRN Reason: Moderate to Severe Pain (6-10) Amitriptyline HCl (Elavil) 25 mg PO 1900 [facility] Artificial Tears (Tears Naturale) 2 drop EA EYE PRN PRN PRN Reason: Dry Eyes Dextrose/Water (Dextrose 50%) 25 gm SLOW IVP PRN PRN PRN Reason: Hypoglycemia Diltiazem HCl (Cardizem Cd) 240 mg PO DAILY [facility] Last Admin: 07/31/18 08:49 Dose: 240 mg Diphenhydramine HCl (Benadryl) 25 mg IVP Q3H PRN PRN Reason: Itching Diphenhydramine HCl (Benadryl) 25 mg PO Q3H PRN PRN Reason: Itching Diphenhydramine HCl (Benadryl) 25 mg IM Q3H PRN PRN Reason: Itching Dofetilide (Tikosyn) 0.5 mg PO BID [facility] Last Admin: 07/30/18 21:14 Dose: 0.5 mg Glucagon (Glucagon) 1 mg IM PRN PRN PRN Reason: Hypoglycemia Hydralazine HCl (Apresoline) 10 mg SLOW IVP Q4H PRN PRN Reason: SBP > 180 and HR < 70 Hydromorphone HCl (Dilaudid Cadd) 0 mg IVPB INF PRN PRN Reason: Pain Dextrose/Water (D5w) 1,000 mls @ 0 mls/hr IV .Q0M PRN PRN Reason: Hypoglycemia Meropenem 2 gm/ Sodium (Chloride) 100 mls @ 200 mls/hr IVPB WILLCALL [facility] Lactated Ringer's (Lactated Ringer's) 1,000 mls @ 125 mls/hr IV .Q8H [facility] Last Admin: 07/31/18 05:20 Dose: 1,000 mls Ibuprofen (Motrin) 600 mg PO Q6H PRN PRN Reason: Pain Insulin Human Lispro (Humalog) 0 units SC .MODERATE SLIDING SC PRN PRN Reason: Moderate Correctional Scale Last Admin: 07/30/18 17:41 Dose: 4 unit Insulin Human Lispro (Humalog) 0 units SC .BEDTIME SLIDING SC PRN PRN Reason: Bedtime Correctional Scale Labetalol HCl (Normodyne) 20 mg SLOW IVP Q4H PRN PRN Reason: SBP > 180 and HR >/= 70 Losartan Potassium (Cozaar) 50 mg PO DAILY [facility] Last Admin: 07/31/18 08:50 Dose: 50 mg Metformin HCl (Glucophage) 1,000 mg PO BID-WM [facility] Last Admin: 07/31/18 08:43 Dose: 1,000 mg Naloxone HCl (Narcan) 0.2 mg IV Q5MIN PRN PRN Reason: Opiate Reversal Ondansetron HCl (Zofran) 4 mg IVP Q6H PRN PRN Reason: Nausea/Vomiting Last Admin: 07/30/18 20:05 Dose: 4 mg Ondansetron HCl (Zofran Odt) 8 mg SL BIDPRN PRN PRN Reason: Nausea/Vomiting Paroxetine HCl (Paxil) 20 mg PO DAILY [facility] Last Admin: 07/31/18 08:51 Dose: 20 mg Polyethylene Glycol (Miralax) 17 gm PO DAILY [facility] Last Admin: 07/31/18 08:51 Dose: 17 gm Potassium Chloride (K-Dur) 20 meq PO DAILY [facility] Last Admin: 07/31/18 08:50 Dose: 20 meq Rivaroxaban (Xarelto) 20 mg PO 1900 [facility] Scopolamine (Transderm Scop) 1.5 mg TD Q3D [facility] Last Admin: 07/29/18 21:53 Dose: 1.5 mg Sodium Chloride ([place] Nasal [place] 0.65%) 0 ml EA NARE QIDPRN PRN PRN Reason: Nasal Congestion Sodium Chloride (Flush - Normal Saline) 10 ml IVF Q12HR [facility] Last Admin: 07/31/18 08:52 Dose: 10 ml Sodium Chloride (Flush - Normal Saline) 10 ml IVF PRN PRN PRN Reason: Saline Flush Tramadol HCl (Ultram) 50 mg PO Q6H PRN PRN Reason: Pain Tramadol HCl (Ultram) 100 mg PO Q6H PRN PRN Reason: Pain Zolpidem Tartrate (Ambien) 5 mg PO HSPRN PRN PRN Reason: Insomnia
[2018-07-31] MEDS: Acetaminophen 500 MG TAB PO SCH ×3 (12:18→23:03)
[2018-07-31] MEDS: HumaLOG 300 UNITS/3 ML VIAL SC PRN (12:24)
[2018-07-31] MEDS: Ondansetron PF 4 MG/2 ML Vial IVP PRN (12:43)
[2018-07-31 12:59] VITALS: BMI 43.5
--- NOTE | 2018-07-31 15:09 | PRG ---
DATE OF SERVICE: 07/31/2018 SUBJECTIVE: Ms. Lepe is a 68-year-old morbidly obese woman, who is postoperative day #2, status post exploratory laparotomy, lysis of adhesions, partial excision of previous mesh repair, repair of enterotomy, and incisional hernia repair. The patient is awake and alert today. She reports adequate pain control. She is tolerating clear liquid diet. She is not having any bowel movement yet. OBJECTIVE: VITAL SIGNS: This morning include blood pressure 115/62, pulse 89, respiratory rate is 16, temperature is 97.9 degrees Fahrenheit, oxygen saturation 92% on room air. HEART: Reveals regular rate and rhythm. No murmurs or gallops auscultated. LUNGS: Clear to auscultation bilaterally. Breathing, regular and nonlabored. ABDOMEN: Soft and obese. The patient clearly has no peritoneal signs on examination. Incision is intact and clean. EXTREMITIES: Prevena incisional VAC dressing in place. NEUROLOGIC: Reveals no focal deficits present. IMPRESSION: 1. Postop day #2, status post exploratory laparotomy, repair of enterotomy, and incisional herniorrhaphy. 2. The patient has remained hemodynamically stable. PLAN: 1. 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 analgesics. 2. Increase activity per Physical and Occupational Therapy. 3. Above findings and plan discussed with the patient, who indicates understanding of information given. I have answered her questions. Job ID: [id number]
[2018-07-31] MEDS: Rivaroxaban 10 MG TAB PO SCH (20:27)
[2018-08-01] MEDS: Acetaminophen 500 MG TAB PO SCH ×3 (05:37→19:13)
[2018-08-01] MEDS ORDERED: Non-Formulary Item 1 EACH (Rivaroxaban [Xarelto] 20 MG) PO SCH (09:00)
[2018-08-01] MEDS: Polyethylene Glycol 3350 17 GM Packet PO SCH (09:50)
[2018-08-01] MEDS: Dofetilide 0.125 MG CAP PO SCH ×2 (09:55→22:01)
[2018-08-01] MEDS: Potassium Chloride 20 MEQ TAB PO SCH (09:56)
[2018-08-01] MEDS: metFORMIN 500 MG TAB PO SCH (09:57)
[2018-08-01] MEDS: Losartan 25 MG TAB PO SCH (09:57)
[2018-08-01] MEDS: PARoxetine 20 MG TAB PO SCH (09:57)
[2018-08-01] MEDS: HumaLOG 300 UNITS/3 ML VIAL SC PRN (09:59)
--- NOTE | 2018-08-01 14:20 | PDOC.PN ---
- Subjective Encounter Start Date: 08/01/18 Encounter Start Time: 14:18 Subjective: feels much better. 2-3 BMs since yesterday,soft -: no N/V/Abd pain.care discussed w daughter at bedside - Objective Resuscitation Status - Order Detail: 07/29/18 07:14 Resuscitation Status Routine Resuscitation Status: FULL: Full Resuscitation MAR Reviewed: Yes Vital Signs & Weight: Vital Signs (12 hours) Temp Pulse Pulse Pulse Resp BP BP 08/01/18 13:09 96 91 147/68 H 123/58 L 08/01/18 09:56 84 08/01/18 04:00 98.0 F 84 20 BP Pulse Ox 08/01/18 13:09 08/01/18 09:56 08/01/18 04:00 108/58 L 98 Weight Admit Weight 270 lb 4 oz Weight 285 lb 9.6 oz I&O: 07/31/18 08/01/18 08/02/18 06:59 06:59 06:59 Intake Total 4902.6 640 Output Total 1175 2550 Balance 3727.6 -1910 Result Diagrams: 07/30/18 04:48 07/30/18 04:48 Additional Labs: Accuchecks 08/01/18 08/01/18 07/31/18 11:04 05:38 20:32 POC Glucose 254 H 202 H 222 H 07/31/18 16:55 POC Glucose 223 H Phys Exam - Physical Examination Constitutional: NAD HEENT: PERRLA, moist MMs, sclera anicteric, oral pharynx no lesions Neck: no nodes, no JVD, supple, full ROM Respiratory: no wheezing, no rales, no rhonchi, clear to auscultation bilateral Cardiovascular: RRR, no significant murmur Gastrointestinal: soft, non-tender, no distention, positive bowel sounds midline wound vac in place.extensive brusing on sides of obese abdomen Musculoskeletal: no edema, pulses present Neurological: non-focal, normal sensation, moves all 4 limbs Psychiatric: normal affect, A&O x 3 Skin: no rash Dx/Plan (1) SBO (small bowel obstruction) Code(s): K56.609 - UNSP INTESTNL OBST, UNSP TO PARTIAL VERSUS COMPLETE OBST Status: Acute Comment: S/P Sx.POD #3 form Ex lap,adhesiolysis,eneterotomy & herniorraphy.wound Vac in place (2) Ventral hernia with obstruction Code(s): K43.6 - OTHER AND UNSP VENTRAL HERNIA WITH OBSTRUCTION, W/O GANGRENE Status: Acute Comment: SX as #1 (3) Atrial fibrillation Code(s): I48.91 - UNSPECIFIED ATRIAL FIBRILLATION Status: Chronic Qualifiers: Atrial fibrillation type: paroxysmal Qualified Code(s): I48.0 - Paroxysmal atrial fibrillation (4) Chronic anticoagulation Code(s): Z79.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 cont losartan.cont Cardiazem. restart Bisoprolol if BP better (7) Hypothyroidism Code(s): E03.9 - HYPOTHYROIDISM, UNSPECIFIED Status: Chronic Comment: stable (8) Morbid obesity with BMI of 40.0-44.9, adult Code(s): E66.01 - MORBID (SEVERE) OBESITY DUE TO EXCESS CALORIES; Z68.41 - BODY MASS INDEX (BMI) 40.0-44.9, ADULT Status: Chronic - Plan plan discussed w/ family, continue antibiotics, PT/OT, respiratory therapy, incentive spirometry, DVT proph w/SCDs DC Ibuprofen d/t risk of bleed w Xarelto & DIGNA. -: DC metformin given lacticacidosis on presentation.cont ISS -: cont Empiric ABx. No Cx obtained at admission.UA had bacteria too -: restart statin at home dose. -: am labs.HD stable. Home w HH in next 24-48 hrs if GS clears * .Pt may need rehab if too weak for home as discussed w family. Review of Systems - Review of Systems Constitutional: weakness, malaise. negative: fever, chills, sweats, other ENT: negative: Ear Pain, Ear Discharge, Nose Pain, Nose Discharge, Nose Congestion, Mouth Pain, Mouth Swelling, Throat Pain, Throat Swelling, Other Respiratory: negative: Cough, Dry, Shortness of Breath, Hemoptysis, SOB with Excertion, Pleuritic Pain, Sputum, Wheezing Cardiovascular: negative: chest pain, palpitations, orthopnea, paroxysmal nocturnal dyspnea, edema, light headedness, other Gastrointestinal: Abdominal Pain. negative: Nausea, Vomiting, Diarrhea, Constipation, Melena, Hematochezia, Other Genitourinary: negative: Dysuria, Frequency, Incontinence, Hematuria, Retention , Other Musculoskeletal: negative: Neck Pain, Shoulder Pain, Arm Pain, Back Pain, Hand Pain, Leg Pain, Foot Pain, Other Neurological: negative: Weakness, Numbness, Incoordination, Change in Speech, Confusion, Seizures, Other - Medications/Allergies Allergies/Adverse Reactions: Allergies Allergy/AdvReac Type Severity Reaction Status Date / Time No Known Allergies Allergy Unverified 07/29/18 10:21 Medications: Current Medications Acetaminophen (Tylenol) 1,000 mg PO Q6HR [facility] Last Admin: 08/01/18 12:23 Dose: 1,000 mg Amitriptyline HCl (Elavil) 25 mg PO 1900 [facility] Last Admin: 07/31/18 20:27 Dose: 25 mg Artificial Tears (Tears Naturale) 2 drop EA EYE PRN PRN PRN Reason: Dry Eyes Dextrose/Water (Dextrose 50%) 25 gm SLOW IVP PRN PRN PRN Reason: Hypoglycemia Diltiazem HCl (Cardizem Cd) 240 mg PO DAILY [facility] Last Admin: 08/01/18 09:56 Dose: 240 mg Diphenhydramine HCl (Benadryl) 25 mg IVP Q3H PRN PRN Reason: Itching Diphenhydramine HCl (Benadryl) 25 mg PO Q3H PRN PRN Reason: Itching Diphenhydramine HCl (Benadryl) 25 mg IM Q3H PRN PRN Reason: Itching Dofetilide (Tikosyn) 0.5 mg PO BID [facility] Last Admin: 08/01/18 09:55 Dose: 0.5 mg Glucagon (Glucagon) 1 mg IM PRN PRN PRN Reason: Hypoglycemia Hydralazine HCl (Apresoline) 10 mg SLOW IVP Q4H PRN PRN Reason: SBP > 180 and HR < 70 Dextrose/Water (D5w) 1,000 mls @ 0 mls/hr IV .Q0M PRN PRN Reason: Hypoglycemia Meropenem 2 gm/ Sodium (Chloride) 100 mls @ 200 mls/hr IVPB WILLCALL [facility] Insulin Human Lispro (Humalog) 0 units SC .MODERATE SLIDING SC PRN PRN Reason: Moderate Correctional Scale Last Admin: 08/01/18 09:59 Dose: 4 unit Insulin Human Lispro (Humalog) 0 units SC .BEDTIME SLIDING SC PRN PRN Reason: Bedtime Correctional Scale Last Admin: 07/31/18 20:37 Dose: 2 units Labetalol HCl (Normodyne) 20 mg SLOW IVP Q4H PRN PRN Reason: SBP > 180 and HR >/= 70 Losartan Potassium (Cozaar) 50 mg PO DAILY [facility] Last Admin: 08/01/18 09:57 Dose: 50 mg Naloxone HCl (Narcan) 0.2 mg IV Q5MIN PRN PRN Reason: Opiate Reversal Ondansetron HCl (Zofran) 4 mg IVP Q6H PRN PRN Reason: Nausea/Vomiting Last Admin: 07/31/18 12:43 Dose: 4 mg Ondansetron HCl (Zofran Odt) 8 mg SL BIDPRN PRN PRN Reason: Nausea/Vomiting Paroxetine HCl (Paxil) 20 mg PO DAILY [facility] Last Admin: 08/01/18 09:57 Dose: 20 mg Polyethylene Glycol (Miralax) 17 gm PO DAILY [facility] Last Admin: 08/01/18 09:50 Dose: Not Given Potassium Chloride (K-Dur) 20 meq PO DAILY [facility] Last Admin: 08/01/18 09:56 Dose: 20 meq Rivaroxaban (Xarelto) 20 mg PO 1900 [facility] Last Admin: 07/31/18 20:27 Dose: 20 mg Scopolamine (Transderm Scop) 1.5 mg TD Q3D [facility] Last Admin: 07/29/18 21:53 Dose: 1.5 mg Sodium Chloride ([place] Nasal [place] 0.65%) 0 ml EA NARE QIDPRN PRN PRN Reason: Nasal Congestion Sodium Chloride (Flush - Normal Saline) 10 ml IVF Q12HR [facility] Last Admin: 08/01/18 09:58 Dose: 10 ml Sodium Chloride (Flush - Normal Saline) 10 ml IVF PRN PRN PRN Reason: Saline Flush Tramadol HCl (Ultram) 50 mg PO Q6H PRN PRN Reason: Moderate Pain (4-6) Tramadol HCl (Ultram) 100 mg PO Q6H PRN PRN Reason: Severe Pain (7-10) Zolpidem Tartrate (Ambien) 5 mg PO HSPRN PRN PRN Reason: Insomnia
[2018-08-01] MEDS: Amitriptyline HCl 25 MG TAB PO SCH (20:11)
[2018-08-01] MEDS: Rivaroxaban 10 MG TAB PO SCH (20:11)
[2018-08-01] MEDS: Scopolamine 1.5 mg/72 hour Patch TD SCH (22:02)
--- NOTE | 2018-08-01 22:32 | PRG ---
DATE OF SERVICE: 08/01/2018 This is Samy Zhou PA-C dictating a report for Jerrell Cox DO. SUBJECTIVE: The patient remains on the telemetry floor. She is postop day 3 status post exploratory laparotomy, lysis of adhesions, partial excision of previous mesh repair, repair of enterotomy and incisional hernia repair. The patient did well overnight. States that her pain is controlled. She is tolerating a diet and her bowel function has returned OBJECTIVE: VITAL SIGNS: Temperature is 98.0, heart rate 88, blood pressure 108/59, respirations 16, oxygen saturation is 93% on room air. GENERAL: The patient is resting comfortably in bed. She is awake and conversant and appropriate. LUNGS: Clear to auscultation bilaterally. HEART: Regular rate and rhythm. ABDOMEN: Soft, flat, and nontender. Surgical site is clean, dry, and intact. EXTREMITIES: Neurovascularly intact. LABORATORY DATA: There are no labs or radiographs to review this morning. ASSESSMENT AND PLAN: Continue supportive care including physical and occupational therapy, diet and await placement decision most likely rehab. The patient was evaluated this morning with Dr. Cox. Job ID: [id number]
[2018-08-02] MEDS: Acetaminophen 500 MG TAB PO SCH ×4 (01:16→19:04)
[2018-08-02] MEDS: Levothyroxine Sodium 25 MCG TAB PO SCH (05:47)
[2018-08-02] MEDS: Levothyroxine Sodium 112 MCG TAB PO SCH (05:47)
[2018-08-02 05:54] LABS: #Eosinphils 0.2 thou/uL (0.0-0.7); #Lymphocytes 1.7 thou/uL (1.20-3.40); #Monocytes 0.4 thou/uL (0.11-0.59); #Neutrophils 4.2 thou/uL (1.40-6.50); %Basophils 0.7 % (0.0-1.0); %Eosinophils 2.8 % (0.0-10.0); %Lymphocytes 25.6 % (21.0-51.0); %Monocytes 6.2 % (0.0-10.0); %Neutrophils 64.7 % (42.0-75.0); Hemoglobin 7.8 g/dL (12.0-16.0); Mean Corpuscular HGB CONC 32.1 g/dL (32.0-36.0); Mean Corpuscular Hemoglobin 26.5 pg (27.0-31.0); Mean Corpuscular Volume 82.8 fL (78.0-98.0); Mean Platelet Volume 7.4 fL (7.4-10.4); Platelet Count 159 thou/uL (130-400); Red Blood Cell (RBC) Count 2.95 mill/uL (4.20-5.40); White Blood Cell (WBC) Count 6.5 thou/uL (4.8-10.8)
[2018-08-02] MEDS ORDERED: Levothyroxine 150 MCG TAB PO SCH (06:00)
[2018-08-02 06:09] LABS: Anion Gap 9 mmol/L (10-20); BUN (Urea Nitrogen) 13 mg/dL (9.8-20.1); Calc. Creatinine Clearance 199 mL/min (70-130); Calcium 8.9 mg/dL (7.8-10.44); Carbon Dioxide 28 mmol/L (23-31); Chloride 104 mmol/L (98-107); Estimated GFR-MDRD Greater than 90; Glucose 172 mg/dL (80-115); Potassium 4.7 mmol/L (3.5-5.1); Sodium 136 mmol/L (136-145)
[2018-08-02] MEDS: Dofetilide 0.125 MG CAP PO SCH ×2 (09:08→21:12)
[2018-08-02] MEDS: Furosemide 20 MG TAB PO SCH (09:11)
[2018-08-02] MEDS: PARoxetine 20 MG TAB PO SCH (09:11)
[2018-08-02] MEDS: Potassium Chloride 20 MEQ TAB PO SCH (09:11)
[2018-08-02] MEDS: Polyethylene Glycol 3350 17 GM Packet PO SCH (09:12)
[2018-08-02] MEDS: Bisoprolol Fumarate 5 MG TAB PO SCH (14:01)
[2018-08-02] MEDS: Losartan 25 MG TAB PO SCH (14:01)
--- NOTE | 2018-08-02 14:32 | PDOC.PN ---
- Subjective Encounter Start Date: 08/02/18 Encounter Start Time: 14:28 Subjective: feels much better. walked in hallway w PT -: denies any Abd pain. last BM last morning but passing gas -: no N/V - Objective Resuscitation Status - Order Detail: 07/29/18 07:14 Resuscitation Status Routine Resuscitation Status: FULL: Full Resuscitation MAR Reviewed: Yes Vital Signs & Weight: Vital Signs (12 hours) Temp Pulse Resp BP BP Pulse Ox 08/02/18 09:09 78 121/61 08/02/18 03:27 98.2 F 78 20 120/56 L 97 Weight Admit Weight 270 lb 4 oz Weight 281 lb 11.2 oz I&O: 08/01/18 08/02/18 08/03/18 06:59 06:59 06:59 Intake Total 640 500 Output Total 2550 2100 Balance -1910 -1600 Result Diagrams: 08/02/18 05:22 08/02/18 05:22 Additional Labs: Accuchecks 08/02/18 08/02/18 08/01/18 11:50 05:25 20:18 POC Glucose 235 H 174 H 233 H 08/01/18 17:14 POC Glucose 209 H Laboratory Tests 07/28/18 07/28/18 07/29/18 22:55 22:55 02:35 Hgb 11.5 L Lactic Acid 4.3 H* 3.0 H 07/30/18 07/30/18 08/02/18 04:48 04:48 05:22 Hgb 11.2 L 7.8 L Lactic Acid 1.4 Phys Exam - Physical Examination Constitutional: NAD HEENT: PERRLA, moist MMs, sclera anicteric, oral pharynx no lesions Neck: no nodes, no JVD, supple, full ROM Respiratory: no wheezing, no rales, no rhonchi, clear to auscultation bilateral Cardiovascular: RRR, no significant murmur Gastrointestinal: soft, non-tender, no distention, positive bowel sounds Musculoskeletal: no edema, pulses present Neurological: non-focal, normal sensation, moves all 4 limbs Psychiatric: normal affect, A&O x 3 Skin: no rash Dx/Plan (1) SBO (small bowel obstruction) Code(s): K56.609 - UNSP INTESTNL OBST, UNSP TO PARTIAL VERSUS COMPLETE OBST Status: Acute Comment: S/P Sx.POD #4 form Ex lap,adhesiolysis,eneterotomy & herniorraphy.wound Vac in place (2) Ventral hernia with obstruction Code(s): K43.6 - OTHER AND UNSP VENTRAL HERNIA WITH OBSTRUCTION, W/O GANGRENE Status: Acute Comment: SX as #1 (3) Atrial fibrillation Code(s): I48.91 - UNSPECIFIED ATRIAL FIBRILLATION Status: Chronic Qualifiers: Atrial fibrillation type: paroxysmal Qualified Code(s): I48.0 - Paroxysmal atrial fibrillation Comment: Rate controlled on CCB.Restart BB .Cont Tikosyn. On Xarelto.cont.on tele (4) Chronic anticoagulation Code(s): Z79.01 - QUALITY CONTROL REPRESENTATIVE (CURRENT) USE OF ANTICOAGULANTS Status: Chronic Comment: On Xarelto for a-fib (5) Diabetes type 2, controlled Code(s): E11.9 - TYPE 2 DIABETES MELLITUS WITHOUT COMPLICATIONS Status: Chronic Comment: ISS w accselwyn (6) Hypertension Code(s): I10 - ESSENTIAL (PRIMARY) HYPERTENSION Status: Chronic Comment: Controlled. cont losartan.cont Cardiazem. restart Bisoprolol if BP better (7) Hypothyroidism Code(s): E03.9 - HYPOTHYROIDISM, UNSPECIFIED Status: Chronic Comment: stable (8) Morbid obesity with BMI of 40.0-44.9, adult Code(s): E66.01 - MORBID (SEVERE) OBESITY DUE TO EXCESS CALORIES; Z68.41 - BODY MASS INDEX (BMI) 40.0-44.9, ADULT Status: Chronic - Plan continue antibiotics, PT/OT, respiratory therapy, incentive spirometry, out of bed/ambulate, DVT proph w/SCDs Cont woun dcare and empiric ABx. no Cx obtained since admission -: HD stable -: paulino MELTON tomorrow to Home if Ok w GS.Portable wound vac if needed -: for Ot,PT,wound care.pt has good family support -: AM labs. * . Review of Systems - Review of Systems Constitutional: weakness, malaise. negative: fever, chills, sweats, other Cardiovascular: negative: chest pain, palpitations, orthopnea, paroxysmal nocturnal dyspnea, edema, light headedness, other Gastrointestinal: negative: Nausea, Vomiting, Abdominal Pain, Diarrhea, Constipation, Melena, Hematochezia, Other Genitourinary: negative: Dysuria, Frequency, Incontinence, Hematuria, Retention , Other Musculoskeletal: negative: Neck Pain, Shoulder Pain, Arm Pain, Back Pain, Hand Pain, Leg Pain, Foot Pain, Other Skin: negative: Rash, Lesions, Jarod, Bruising, Other Neurological: negative: Weakness, Numbness, Incoordination, Change in Speech, Confusion, Seizures, Other - Medications/Allergies Allergies/Adverse Reactions: Allergies Allergy/AdvReac Type Severity Reaction Status Date / Time No Known Allergies Allergy Unverified 07/29/18 10:21 Medications: Current Medications Acetaminophen (Tylenol) 1,000 mg PO Q6HR [facility] Last Admin: 08/02/18 14:01 Dose: 1,000 mg Amitriptyline HCl (Elavil) 25 mg PO 1900 [facility] Last Admin: 08/01/18 20:11 Dose: 25 mg Artificial Tears (Tears Naturale) 2 drop EA EYE PRN PRN PRN Reason: Dry Eyes Bisoprolol Fumarate (Zebeta) 5 mg PO DAILY [facility] Last Admin: 08/02/18 14:01 Dose: 5 mg Dextrose/Water (Dextrose 50%) 25 gm SLOW IVP PRN PRN PRN Reason: Hypoglycemia Diltiazem HCl (Cardizem Cd) 240 mg PO DAILY [facility] Last Admin: 08/02/18 09:09 Dose: 240 mg Diphenhydramine HCl (Benadryl) 25 mg IVP Q3H PRN PRN Reason: Itching Diphenhydramine HCl (Benadryl) 25 mg PO Q3H PRN PRN Reason: Itching Diphenhydramine HCl (Benadryl) 25 mg IM Q3H PRN PRN Reason: Itching Dofetilide (Tikosyn) 0.5 mg PO BID [facility] Last Admin: 08/02/18 09:08 Dose: 0.5 mg Furosemide (Lasix) 20 mg PO DAILY [facility] Last Admin: 08/02/18 09:11 Dose: 20 mg Glucagon (Glucagon) 1 mg IM PRN PRN PRN Reason: Hypoglycemia Hydralazine HCl (Apresoline) 10 mg SLOW IVP Q4H PRN PRN Reason: SBP > 180 and HR < 70 Dextrose/Water (D5w) 1,000 mls @ 0 mls/hr IV .Q0M PRN PRN Reason: Hypoglycemia Meropenem 2 gm/ Sodium (Chloride) 100 mls @ 200 mls/hr IVPB WILLCALL [facility] Insulin Human Lispro (Humalog) 0 units SC .MODERATE SLIDING SC PRN PRN Reason: Moderate Correctional Scale Last Admin: 08/01/18 09:59 Dose: 4 unit Insulin Human Lispro (Humalog) 0 units SC .BEDTIME SLIDING SC PRN PRN Reason: Bedtime Correctional Scale Last Admin: 07/31/18 20:37 Dose: 2 units Labetalol HCl (Normodyne) 20 mg SLOW IVP Q4H PRN PRN Reason: SBP > 180 and HR >/= 70 Levothyroxine Sodium (Synthroid) 112 mcg PO 0600 [facility] Last Admin: 08/02/18 05:47 Dose: 112 mcg Levothyroxine Sodium (Synthroid) 25 mcg PO 0600 [facility] Last Admin: 08/02/18 05:47 Dose: 25 mcg Losartan Potassium (Cozaar) 50 mg PO DAILY [facility] Last Admin: 08/02/18 14:01 Dose: 50 mg Naloxone HCl (Narcan) 0.2 mg IV Q5MIN PRN PRN Reason: Opiate Reversal Ondansetron HCl (Zofran) 4 mg IVP Q6H PRN PRN Reason: Nausea/Vomiting Last Admin: 07/31/18 12:43 Dose: 4 mg Ondansetron HCl (Zofran Odt) 8 mg SL BIDPRN PRN PRN Reason: Nausea/Vomiting Paroxetine HCl (Paxil) 20 mg PO DAILY [facility] Last Admin: 08/02/18 09:11 Dose: 20 mg Polyethylene Glycol (Miralax) 17 gm PO DAILY [facility] Last Admin: 08/02/18 09:12 Dose: Not Given Potassium Chloride (K-Dur) 20 meq PO DAILY [facility] Last Admin: 08/02/18 09:11 Dose: 20 meq Rivaroxaban (Xarelto) 20 mg PO 1900 [facility] Last Admin: 08/01/18 20:11 Dose: 20 mg Scopolamine (Transderm Scop) 1.5 mg TD Q3D [facility] Last Admin: 08/01/18 22:02 Dose: 1.5 mg Sodium Chloride ([place] Nasal [place] 0.65%) 0 ml EA NARE QIDPRN PRN PRN Reason: Nasal Congestion Sodium Chloride (Flush - Normal Saline) 10 ml IVF Q12HR [facility] Last Admin: 08/02/18 09:14 Dose: 10 ml Sodium Chloride (Flush - Normal Saline) 10 ml IVF PRN PRN PRN Reason: Saline Flush Tramadol HCl (Ultram) 50 mg PO Q6H PRN PRN Reason: Moderate Pain (4-6) Tramadol HCl (Ultram) 100 mg PO Q6H PRN PRN Reason: Severe Pain (7-10) Zolpidem Tartrate (Ambien) 5 mg PO HSPRN PRN PRN Reason: Insomnia
[2018-08-02 14:35] LABS: Hemoglobin 8.6 g/dL (12.0-16.0)
--- NOTE | 2018-08-02 16:03 | PDOC.EVN ---
Event Note - Event Note Event Note: repeat H/H better. continue to monitor. No overt bleed.cont Xarelto for now
[2018-08-02] MEDS: Rivaroxaban 10 MG TAB PO SCH (21:12)
[2018-08-02] MEDS: Amitriptyline HCl 25 MG TAB PO SCH (21:12)
--- NOTE | 2018-08-02 23:06 | PRG ---
DATE OF SERVICE: 08/02/2018 SUBJECTIVE: This is a 68-year-old female, who remains on the telemetry floor. The patient is postop day #4 post exploratory laparotomy, lysis of adhesions, partial excision of previous mesh repair, repair of enterotomy and incisional hernia repair. The patient had no overnight events. Her pain remains well controlled. The patient continues to tolerate a diet, and denies any nausea or vomiting. The patient with return of bowel function. The patient is sitting up in the chair, in no distress. Voices no complaints. OBJECTIVE: VITAL SIGNS: Temperature 98.2, pulse 78, respirations 16, SpO2 of 97% on room air, blood pressure 121/61. GENERAL: The patient is awake, alert, sitting up in the chair, in no distress. LUNGS: Clear. Good inspiratory and expiratory effort. No respiratory distress. ABDOMEN: Soft, flat, and nontender. Surgical site is clean, dry, and intact with wound VAC in place. The patient with extensive bruising to abdomen. EXTREMITIES: Neurovascularly intact. Mild pedal edema. LABORATORY DATA: Hemoglobin 8.6, hematocrit 27.8, improved from yesterday. DIAGNOSTIC DATA: There are no diagnostics to review. IMPRESSION: Postop day #4, exploratory laparotomy, lysis of adhesions, partial excision of previous mesh repair, repair of enterotomy, and incisional hernia repair. PLAN: Continue supportive care including physical and occupational therapy. Continue regular diet. The patient is pending placement to rehab. The plan was discussed with Dr. Cox, who agrees. Job ID: [id number]
[2018-08-03] MEDS: Acetaminophen 500 MG TAB PO SCH ×3 (00:31→12:10)
[2018-08-03] MEDS: Levothyroxine Sodium 112 MCG TAB PO SCH (06:05)
[2018-08-03] MEDS: Levothyroxine Sodium 25 MCG TAB PO SCH (06:05)
[2018-08-03] MEDS: Bisoprolol Fumarate 5 MG TAB PO SCH (09:17)
[2018-08-03] MEDS: Losartan 25 MG TAB PO SCH (09:17)
[2018-08-03] MEDS: Dofetilide 0.125 MG CAP PO SCH (09:17)
[2018-08-03] MEDS: PARoxetine 20 MG TAB PO SCH (09:17)
[2018-08-03] MEDS: Furosemide 20 MG TAB PO SCH (09:17)
[2018-08-03] MEDS: Polyethylene Glycol 3350 17 GM Packet PO SCH (09:18)
[2018-08-03] MEDS: Potassium Chloride 20 MEQ TAB PO SCH (09:18)
[2018-08-03] MEDS: HumaLOG 300 UNITS/3 ML VIAL SC PRN ×2 (09:19→12:19)
[2018-08-03 12:12] VITALS: TEMP 98
[2018-08-03 12:13] VITALS: BP 111/61
--- NOTE | 2018-08-04 03:10 | DIS ---
DATE OF ADMISSION: 07/29/2018 DATE OF DISCHARGE: 08/03/2018 PRIMARY CARE PHYSICIAN: Dr. Pavel Cosby. DISCHARGE DISPOSITION: [facility] for SNF placement. DISCHARGE DIAGNOSES: 1. Small bowel obstruction status post surgery. 2. Ventral hernia with obstruction status post surgery. 3. Chronic atrial fibrillation, on chronic anticoagulation. 4. Chronic anticoagulation. 5. Diabetes mellitus type 2. 6. Hypertension. 7. Hypothyroidism. 8. Morbid obesity with body mass index of 42. DISCHARGE MEDICATIONS: New medications; 1. Omnicef 300 mg p.o. b.i.d. for 7 more days. 2. Florastor 250 daily for 10 days. Restart home medications as follows; 1. Synthroid 137 mcg daily. 2. Liothyronine 5 mcg daily. 3. Dofetilide 500 mcg b.i.d. 4. Lasix 20 mg daily. 5. Losartan 50 mg daily. 6. Metformin 1000 p.o. b.i.d. 7. Bisoprolol 5 mg daily. 8. Magnesium oxide 400 mg daily. 9. Diltiazem 240 mg daily. 10. Potassium chloride 20 mEq daily. 11. Xarelto 20 mg daily. 12. Lantus at home dosages. 13. Paxil 20 mg daily. 14. Zocor 40 mg daily. 15. Amitriptyline 25 mg daily. IN-HOUSE CONSULTATION: 1. General Surgery, Dr. Uribe and Dr. Cox. 2. Cardiology, Dr. Kendall. PROCEDURES DONE IN HOSPITAL: 1. CT scan of the abdomen and pelvis on 07/28/2018 in the emergency room, which shows findings of small bowel obstruction at 4.3 cm with transition point likely within the left paramidline ventral hernia that contains a loop of small bowel and a small amount of fluid. There is also edges enlarged right ventricle hernia containing loops dilated and nondilated bowel. Prior Lap-Band without evidence of slippage was seen. 2. Abdominal surgery by Dr. Uribe on 07/29/2018. She underwent exploratory laparotomy, lysis of adhesions, removal of portions of mesh, extensive lysis of adhesions. 3. Repair of one enterotomy, 4 mm, 2 layers. 4. Complex incisional hernia repair without mesh and removal of portions of old mesh. HISTORY OF PRESENTING ILLNESS: Ms. Lepe is a 68-year-old female with past medical history of chronic atrial fibrillation, on chronic anticoagulation, as well as morbid obesity. She is status post Watchman device in June 2018, also has a history of diabetes, hypothyroidism, hypertension, dyslipidemia, who presented to the ER with onset of abdominal pain associated with several bouts of nausea, vomiting, and severe constipation. In the emergency room, she had a CT scan of the abdomen and pelvis done, which showed small bowel obstruction and ventral hernia. General surgery was consulted and she was admitted to Medicine team for further evaluation. She was kept n.p.o. and was started on IV fluids. She was found to have lactic acidosis with lactic acid of 4.3 upon presentation. Please see admission history and physical for further details. The patient was otherwise hemodynamically stable upon presentation. H and P was dictated by Dr. Alfaro on 07/29/2018. HOSPITAL COURSE: The patient was seen by Dr. Uribe and was taken to OR the very next day. After the surgery as mentioned above, she had a fairly unremarkable hospital course. Cardiology was also consulted with regard to her resumption of Xarelto, which was held for the surgery. Dr. Kendall saw the patient and restarted her on all of her home medications including the Xarelto, dofetilide, as well as among others. She tolerated this very well. Her H and H was monitored and she had expected drop in her hemoglobin from 11.5 to 8.0 on the day of discharge. By the time of discharge, she is walking in the hallways with a walker and physical therapist. She is eating and drinking without any nausea, vomiting, and diarrhea. She is having irregular bowel movements. Her wound VAC has been removed and her wound sponge has also been removed. She has raul which are clean and healthy looking. She has been cleared for discharge from Cardiology and General Surgery perspective. She chose rehab instead of home with home health for discharge. This was arranged and she was discharged. She was seen and examined prior to discharge. PHYSICAL EXAMINATION: VITAL SIGNS: This morning, temperature 98, pulse of 74, respirations 18, saturating 96% on room air, blood pressure 111/61. GENERAL: No acute distress, sitting up in chair, eating breakfast. Awake, alert, and oriented x3. CHEST: Clear to auscultation bilaterally. Rate and rhythm are regular. ABDOMEN: , morbidly obese, soft, nontender, nondistended. Raul are healthy looking. She has some bruises in various stages of healing in both right and lower abdominal quadrants, which are stable. No hematoma is palpable. DISCHARGE PLAN: Discharge plan was discussed with the patient and her family and they verbalized understanding. They will follow up with primary care physician and General Surgery in the outpatient setting. TIME SPENT: Total time spent in the discharge 36 minutes. Job ID: [id number]
== END 2018-08-03 16:01 | DRG 336 ==
LOC: SCSER 22:23 → 2NO 07-29 02:08
PROVIDERS: ADMIT Emergency Medicine; ATTEND Emergency Medicine
PROC: 0WQF0ZZ Repair Abdominal Wall, Open Approach (ICD-10-PCS; principal; 2018-07-29)
PROC: 0DN80ZZ Release Small Intestine, Open Approach (ICD-10-PCS; 2018-07-29)
PROC: 0WPF0JZ Removal of Synthetic Substitute from Abdominal Wall, Open Approach (ICD-10-PCS; 2018-07-29)
PROC: 0WJG0ZZ Inspection of Peritoneal Cavity, Open Approach (ICD-10-PCS; 2018-07-29)
DX: K56.609 Unspecified intestinal obstruction, unspecified as to partial versus complete obstruction (principal); E87.2 Acidosis; Z68.41 Body mass index [BMI] 40.0-44.9, adult; I50.32 Chronic diastolic (congestive) heart failure; K43.0 Incisional hernia with obstruction, without gangrene; F41.9 Anxiety disorder, unspecified; F32.9 Major depressive disorder, single episode, unspecified; E78.5 Hyperlipidemia, unspecified; E66.01 Morbid (severe) obesity due to excess calories; E11.9 Type 2 diabetes mellitus without complications; Z79.4 Long term (current) use of insulin; E03.9 Hypothyroidism, unspecified; I48.2 Chronic atrial fibrillation; I11.0 Hypertensive heart disease with heart failure
CPT/HCPCS: 36415; 36416; 74177; 80048; 80053; 81003; 81015; 83036; 83605; 83690; 83735; 84100; 85014; 85018; 85025; 93005; 93010; 96361; 96365; 96372; 96375; C9113; J0696; J1650; J2001; J2185; J2270; J2405; J2550; J2704; J3010; J3490; J8499; Q0163; S0028

== ENCOUNTER 2018-08-10 16:09 | Inpatient (IN) | payer MEDICARE ==
[2018-08-10] MEDS ORDERED: traMADol HCl 50 MG TAB PO PRN (17:23)
[2018-08-10] MEDS ORDERED: Dextrose 5% in Water 1,000 ML IV PRN (17:24)
[2018-08-10] MEDS ORDERED: Insulin Regular 300 UNITS/3 ML VIAL SC PRN (17:24)
[2018-08-10] MEDS ORDERED: Dextrose 50% Abboject 50 ML SYRINGE IVP PRN (17:24)
[2018-08-10 17:37] VITALS: BMI 39.9
[2018-08-10] MEDS ORDERED: Prevnar 13-Val Conj/PF 0.5 ML SYRINGE IM ONE (18:15)
[2018-08-10 18:21] LABS: #Eosinphils 0.6 thou/uL (0.0-0.7); #Lymphocytes 2.3 thou/uL (1.20-3.40); #Monocytes 0.6 thou/uL (0.11-0.59); %Basophils 0.5 % (0.0-1.0); %Lymphocytes 24.2 % (21.0-51.0); %Monocytes 5.8 % (0.0-10.0); %Neutrophils 63.6 % (42.0-75.0); Hemoglobin 9.1 g/dL (12.0-16.0); Mean Corpuscular HGB CONC 30.2 g/dL (32.0-36.0); Mean Corpuscular Hemoglobin 25.2 pg (27.0-31.0); Mean Corpuscular Volume 83.4 fL (78.0-98.0); Mean Platelet Volume 6.5 fL (7.4-10.4); Platelet Count 371 thou/uL (130-400); RBC Distribution Width 15.1 % (11.5-14.5); Red Blood Cell (RBC) Count 3.62 mill/uL (4.20-5.40); White Blood Cell (WBC) Count 9.5 thou/uL (4.8-10.8)
[2018-08-10] MEDS ORDERED: Rivaroxaban 10 MG TAB PO SCH (18:30)
[2018-08-10 18:44] LABS: ALT (SGPT) 7 U/L (8-55); AST (SGOT) 13 U/L (5-34); Albumin 3.3 g/dL (3.4-4.8); Alkaline Phosphatase 118 U/L (40-150); Anion Gap 12 mmol/L (10-20); BUN (Urea Nitrogen) 8 mg/dL (9.8-20.1); Bilirubin, Total 0.4 mg/dL (0.2-1.2); Calc. Creatinine Clearance 149 mL/min (70-130); Calcium 9.1 mg/dL (7.8-10.44); Carbon Dioxide 26 mmol/L (23-31); Chloride 103 mmol/L (98-107); Estimated GFR-MDRD 85; Globulin 3.1 g/dL (2.4-3.5); Glucose 96 mg/dL (80-115); Potassium 4.2 mmol/L (3.5-5.1); Protein, Total 6.4 g/dL (6.0-8.3); Sodium 137 mmol/L (136-145)
[2018-08-10] MEDS ORDERED: Enoxaparin Sodium 40 MG/0.4 ML SYRINGE SC SCH (21:00)
[2018-08-10] MEDS: Dofetilide 0.125 MG CAP PO SCH (21:03)
[2018-08-10] MEDS: Insulin Glargine 50 UNITS in Pre-Filled Syringe 1 EACH SC SCH (21:04)
[2018-08-10] MEDS: Ferrous Sulfate 325 MG TAB PO SCH (21:04)
[2018-08-10] MEDS: Magnesium Oxide 400 MG TAB PO SCH (21:04)
[2018-08-10] MEDS: Amitriptyline HCl 25 MG TAB PO SCH (21:04)
[2018-08-10] MEDS: Atorvastatin Calcium 20 MG TAB PO SCH (21:04)
--- NOTE | 2018-08-11 00:07 | HP ---
HISTORY OF PRESENT ILLNESS: Elyssa Lepe is a 68-year-old female, who reports to my office today with wound problems related to recent laparotomy incarcerated incisional hernia repair. The patient initially admitted by the hospitalist, 07/29/2018, seen by me on the same day, undergoing 07/29/2018, exploratory laparotomy, lysis of adhesions, extensive adhesiolysis, repair of one enterotomy, suture complex incisional hernia repair without mesh, removal of portions old mesh. The patient has a history of incarcerated hernia with bowel obstructions in the past, has had a laparoscopic adjustable band placed 13 years ago, has lost 450 pounds to 270 pounds. She is now with a weight of 264 pounds. During that hospitalizations, the patient's hemoglobin dropped from 11.5, she was discharged with a hemoglobin of 8. She was discharged to [facility] in [place]. She was on Xarelto, has had a cardiac ablation for atrial fibrillation and a Watchman procedure and is followed by Dr. Villela in [place]. The patient postoperatively reported to the emergency room at [facility] for wound problems. She had drainage. There apparently, I am told her hemoglobin was stable at 8. Apparently, there was some separation of her wound and was re-stapled due to some bleeding. She was told this was probably a seroma. The patient is morbidly obese, 264 pounds, 5 feet 8 inches, despite her significant weight loss in the past years. The patient presents to my office today and on evaluation her raul removed and she has hematoma in her wound, and it has fallen apart. The fascia is intact in the depths of the wound. She is admitted for wound care to initiate a wound VAC and plan is to discharge back to [facility] or to home. The patient would like to go home from the hospital. As stated above, her Xarelto has been held and we will need to discuss that with Dr. Villela. The patient is also followed by Dr. Cosby. MEDICATIONS: 1. Amitriptyline 25 mg at bedtime. 2. Diltiazem 120 mg a day. 3. Dofetilide a day (Tikosyn). 4. Furosemide 20 mg a day. 5. Insulin glargine 100 units per meal injections b.i.d. 6. Levothyroxine 137 mcg a day. 7. Liothyronine 5 mcg a day. 8. Losartan 50 mg a day. 9. Mag oxide 400 mg daily. 10. Metformin 1000 mg. 11. Paroxetine 20 mg a day. 12. MiraLAX daily. 13. Potassium chloride 20 mEq daily. 14. Xarelto 20 mg a day, held. 15. Florastor 250 mg a day. 16. Simvastatin 40 mg a day. ALLERGIES: NONE. SOCIAL HISTORY: Tobacco, none. Alcohol, none. PAST SURGICAL HISTORY: Laparoscopic adjustable band placement for weight reduction from 430 pounds to 230 pounds. When I saw her in the hospital, she is 270 pounds, now 264 pounds. She has had incisional hernia repairs x2 at the [facility] by Dr. Alexander. She had open cholecystectomy many years ago. She is due for another colonoscopy. PAST MEDICAL HISTORY: Diabetes mellitus, hypertension, obesity, atrial fibrillation status post ablation and Watchman procedure. PHYSICAL EXAMINATION: VITAL SIGNS: 264 pounds, 5 feet 8 inches, 108/48, 87, 97.5 degrees. LUNGS: Clear to auscultation. CARDIAC: Regular rate and rhythm without murmur or gallop. ABDOMEN: Soft, obese, nontender. Midline wound raul removed and there is a large hematoma in the wound. There is no apparent infection. Hematoma evacuated as the wound fell apart after removing the raul wet-to-dry dressings applied. ASSESSMENT/PLAN: 1. Wound dehiscence, superficial fascia is intact. We will plan normal saline wet-to-dry dressing today, admit in to the hospital and consult Wound Care for wound VAC. The patient is interested in going home from the hospital and we will plan that for later in the week. If the patient needs to be in rehab or needs go to [facility] for a period time, that is acceptable. The patient's Xarelto has been held and we will discuss that with Dr. Villela. 2. Obesity. 3. Diabetes mellitus. Job ID: [id number]
[2018-08-11] MEDS: Levothyroxine Sodium 25 MCG TAB PO SCH (05:14)
[2018-08-11] MEDS: Levothyroxine Sodium 112 MCG TAB PO SCH (05:14)
[2018-08-11] MEDS: Acetaminophen 500 MG TAB PO PRN ×3 (05:21→19:10)
[2018-08-11 06:33] LABS: #Eosinphils 0.6 thou/uL (0.0-0.7); #Lymphocytes 2.1 thou/uL (1.20-3.40); #Monocytes 0.4 thou/uL (0.11-0.59); #Neutrophils 4.8 thou/uL (1.40-6.50); %Basophils 0.5 % (0.0-1.0); %Eosinophils 7.1 % (0.0-10.0); %Lymphocytes 26.6 % (21.0-51.0); %Monocytes 5.5 % (0.0-10.0); %Neutrophils 60.2 % (42.0-75.0); Hemoglobin 8.5 g/dL (12.0-16.0); Mean Corpuscular Hemoglobin 25.7 pg (27.0-31.0); Mean Corpuscular Volume 83.1 fL (78.0-98.0); Mean Platelet Volume 6.5 fL (7.4-10.4); Platelet Count 317 thou/uL (130-400); Red Blood Cell (RBC) Count 3.28 mill/uL (4.20-5.40)
[2018-08-11 07:01] LABS: Anion Gap 10 mmol/L (10-20); BUN (Urea Nitrogen) 7 mg/dL (9.8-20.1); Calc. Creatinine Clearance 149 mL/min (70-130); Calcium 8.6 mg/dL (7.8-10.44); Carbon Dioxide 26 mmol/L (23-31); Chloride 104 mmol/L (98-107); Estimated GFR-MDRD 85; Glucose 121 mg/dL (80-115); Potassium 4.4 mmol/L (3.5-5.1); Sodium 136 mmol/L (136-145)
[2018-08-11] MEDS: Liothyronine Sodium 5 MCG TAB PO SCH (07:08)
[2018-08-11] MEDS: metFORMIN 500 MG TAB PO SCH ×2 (08:04→17:27)
[2018-08-11] MEDS ORDERED: Prevnar 13-Val Conj/PF 0.5 ML SYRINGE IM ONE (09:00)
[2018-08-11] MEDS ORDERED: Dofetilide 0.125 MG CAP PO SCH (09:00)
[2018-08-11] MEDS ORDERED: Dofetilide 0.25 MG CAP PO SCH (09:00)
[2018-08-11] MEDS ORDERED: Rivaroxaban 10 MG TAB PO SCH (09:00)
[2018-08-11] MEDS: PARoxetine 20 MG TAB PO SCH (09:11)
[2018-08-11] MEDS: Dofetilide 0.125 MG CAP PO SCH ×2 (09:11→21:07)
[2018-08-11] MEDS: Magnesium Oxide 400 MG TAB PO SCH ×2 (09:12→21:07)
[2018-08-11] MEDS: Furosemide 20 MG TAB PO SCH ×2 (09:12→14:02)
[2018-08-11] MEDS: Potassium Chloride 20 MEQ TAB PO SCH (09:12)
[2018-08-11] MEDS: Saccharomyces boulardii 250 MG CAP PO SCH (09:12)
[2018-08-11] MEDS: Ferrous Sulfate 325 MG TAB PO SCH ×2 (09:12→21:07)
[2018-08-11] MEDS: Polyethylene Glycol 3350 17 GM Packet PO SCH (09:13)
[2018-08-11] MEDS: Losartan 25 MG TAB PO SCH (09:13)
[2018-08-11] MEDS ORDERED: Artificial Tear Sol 15 ML BOT EA EYE PRN (11:35)
--- NOTE | 2018-08-11 11:55 | PDOC.EVN ---
Event Note - Event Note Event Note: Consult #[id number]
[2018-08-11] MEDS ORDERED: Potassium Chloride 20 MEQ TAB PO SCH (12:00)
--- NOTE | 2018-08-11 16:33 | PRG ---
DATE OF SERVICE: 08/11/2018 SUBJECTIVE: Elyssa Lepe is doing well today. OBJECTIVE: VITAL SIGNS: Temperature 98.2, pulse rate 89, blood pressure 118/69. She has no complaints. LUNGS: Clear to auscultation. CARDIAC: Regular rate and rhythm. ABDOMEN: Soft, nontender. LABORATORY DATA: White count 8, hemoglobin 8.5, yesterday hemoglobin was 9.1. Basic metabolic profile is normal. ASSESSMENT AND PLAN: Morbid obesity, status post laparotomy for incarcerated bowel and repair of enterotomy with repair of recurrent incisional hernia without mesh and skin and subcutaneous tissue, superficial wound dehiscence. She had a large hematoma in the wound, but no active bleeding. At this point, I would recommend wound VAC, which has been applied. Once this is approved for home use and outpatient arrangements were made for changes at home with home health, she can be discharged home anticipated in next 24 to 48 hours. I have talked to Dr. Villela, and the patient is status post cardiac ablation for atrial fibrillation as well as a Watchman device and he would prefer that she stay on Xarelto and I think it is safe that we restart that and discontinue her Lovenox. Job ID: [id number]
[2018-08-11] MEDS: Rivaroxaban 10 MG TAB PO SCH (17:27)
--- NOTE | 2018-08-11 19:01 | CON ---
DATE OF CONSULTATION: 08/11/2018 CONSULTING PHYSICIAN: Junior Uribe MD. CONSULTED TEAM: Internal Medicine team. REASON FOR CONSULT: Medical management. CHIEF COMPLAINT: Abdominal surgical site wound dehiscence. HISTORY OF PRESENT ILLNESS: This is a 68-year-old female, who had a recent abdominal surgery done by the surgeon, discharged home, was feeling well. However, the patient noted that she was having some blood on the floor when she went to the restroom and noted that her incisional stitches were coming undone. Of note, the patient has had a significant amount of weight loss from 450 pounds to 264 pounds and remains morbidly obese with significant pressure at the surgical sites due to abdominal girth. The patient notes that she is feeling well currently, not bleeding any more. The patient denies any trauma to the area post surgical intervention and discharge. The patient was admitted to the hospital under surgical team for wound VAC evaluation and possible VAC placement. The patient at that point in time of evaluation, states that she has no complaints. No alleviating or aggravating factors. No other associated symptoms or issues. The patient is seen and examined. No family at bedside. All questions answered. ALLERGIES: NO KNOWN DRUG ALLERGIES. REVIEW OF SYSTEMS: All systems reviewed, pertinent positives in HPI. FAMILY HISTORY: Positive for hypertension, hyperlipidemia, and obesity. PAST MEDICAL HISTORY: Positive for paroxysmal atrial fibrillation, diabetes mellitus type 2, metabolic syndrome, hyperlipidemia, hypertension, borderline congestive heart failure, hypothyroidism, and depression. SOCIAL HISTORY: Nondrinker and nonsmoker. HOME MEDICATIONS: See MAR. PHYSICAL EXAMINATION: VITAL SIGNS: Blood pressure 132/78, pulse of 86, temperature 98.1, respiratory rate of 16, and O2 saturation 100% on room air. GENERAL: The patient is lying in bed, in no acute discomfort. Obese. HEENT: Pupils are equal, round, and reactive to light and accommodation. Oral cavity moist and pink. Extraocular muscles intact. NECK: Supple, mobile, nontender. Thyroid appreciated. PULMONARY: Clear to auscultation bilaterally. No rales, rhonchi, or wheezing appreciated. CARDIOVASCULAR: Regular rate and rhythm. S1 and S2. No murmurs, rubs, or gallops appreciated. ABDOMEN: Positive bowel sounds. Increased girth, rotund. Surgical site appears clean, dry. Slight dried blood at the lower end of the incisional area. No active bleeding noted. EXTREMITIES: 1+ pitting edema in bilateral lower extremities. 2+ peripheral pulses. No cyanosis or clubbing noted. NEUROLOGIC: Cranial nerves 2 through 12 intact. No loss of motor or sensory function. LABORATORY DATA: Reviewed. Images, reviewed. ASSESSMENT: 1. Diabetes mellitus type 2. 2. Hypertension. 3. Paroxysmal atrial fibrillation. 4. Hyperlipidemia. 5. Hypothyroidism. 6. Surgical site dehiscence. PLAN: At this point in time, we will resume home medications. The patient is on appropriate amount of Lantus with sugars running stable. Resume home blood pressure medication. Target blood pressure systolic, 120 to 140. We will resume home thyroid medications as well. The patient has had a Watchman procedure done about a month ago and has been on anticoagulation, Xarelto for a month. She erratically can have her Xarelto discontinued after 45 days per studies which were based on warfarin, so this is extrapolated of course. The patient has been on Xarelto for 30 days and will likely require 15 more days and then switch over to aspirin 81, Plavix 75 aspirin 325. The patient has a revenue cycle consultant outpatient and was advised to follow up with them regarding the switch. The patient's pain right now is well controlled. Wound Care evaluation is being completed for wound VAC placement, which is appropriate. Surgery Team following this. We will follow very closely with you. Repeat blood work for tomorrow. Case and plan discussed with the patient at length from a medical perspective. She understood and agreed with this plan. Thank you very much for the consultation. Job ID: [id number]
[2018-08-11] MEDS ORDERED: Simvastatin 40 MG TAB PO SCH (21:00)
[2018-08-11] MEDS ORDERED: Furosemide 20 MG TAB PO SCH (21:00)
[2018-08-11] MEDS ORDERED: DOFETILIDE 500 MCG PO SCH (21:00)
[2018-08-11] MEDS: Atorvastatin Calcium 20 MG TAB PO SCH (21:07)
[2018-08-11] MEDS: Amitriptyline HCl 25 MG TAB PO SCH (21:07)
[2018-08-11] MEDS: Insulin Glargine 50 UNITS in Pre-Filled Syringe 1 EACH SC SCH (21:10)
[2018-08-12] MEDS: Acetaminophen 500 MG TAB PO PRN (02:54)
[2018-08-12] MEDS ORDERED: Non-Formulary Item 1 EACH (Levothyroxine Sodium [Synthroid] 137 MCG) PO SCH (06:00)
[2018-08-12] MEDS: Levothyroxine Sodium 112 MCG TAB PO SCH (06:15)
[2018-08-12] MEDS: Levothyroxine Sodium 25 MCG TAB PO SCH (06:15)
[2018-08-12 06:54] LABS: #Eosinphils 0.6 thou/uL (0.0-0.7); #Lymphocytes 2.2 thou/uL (1.20-3.40); #Monocytes 0.6 thou/uL (0.11-0.59); #Neutrophils 5.4 thou/uL (1.40-6.50); %Basophils 0.2 % (0.0-1.0); %Lymphocytes 24.8 % (21.0-51.0); %Monocytes 6.8 % (0.0-10.0); %Neutrophils 61.2 % (42.0-75.0); Hemoglobin 8.8 g/dL (12.0-16.0); Mean Corpuscular HGB CONC 30.5 g/dL (32.0-36.0); Mean Corpuscular Hemoglobin 25.7 pg (27.0-31.0); Mean Corpuscular Volume 84.5 fL (78.0-98.0); Mean Platelet Volume 6.7 fL (7.4-10.4); Platelet Count 332 thou/uL (130-400); Red Blood Cell (RBC) Count 3.42 mill/uL (4.20-5.40); White Blood Cell (WBC) Count 8.8 thou/uL (4.8-10.8)
[2018-08-12 07:13] LABS: Anion Gap 11 mmol/L (10-20); BUN (Urea Nitrogen) 12 mg/dL (9.8-20.1); Calc. Creatinine Clearance 135 mL/min (70-130); Carbon Dioxide 28 mmol/L (23-31); Chloride 104 mmol/L (98-107); Estimated GFR-MDRD 76; Glucose 122 mg/dL (80-115); Potassium 4.6 mmol/L (3.5-5.1); Sodium 138 mmol/L (136-145)
[2018-08-12] MEDS: metFORMIN 500 MG TAB PO SCH ×2 (08:57→17:06)
[2018-08-12] MEDS: Dofetilide 0.125 MG CAP PO SCH ×2 (08:58→20:32)
[2018-08-12] MEDS: Potassium Chloride 20 MEQ TAB PO SCH (08:58)
[2018-08-12] MEDS: Multivit, Therapeutic 1 TAB PO SCH (08:58)
[2018-08-12] MEDS: Polyethylene Glycol 3350 17 GM Packet PO SCH (08:59)
[2018-08-12] MEDS: PARoxetine 20 MG TAB PO SCH (08:59)
[2018-08-12] MEDS ORDERED: Non-Formulary Item 1 EACH (Losartan Potassium [Losartan Potassium] 50 MG) PO SCH (09:00)
[2018-08-12] MEDS: Saccharomyces boulardii 250 MG CAP PO SCH (09:00)
[2018-08-12] MEDS ORDERED: PARoxetine 20 MG TAB PO SCH (09:00)
[2018-08-12] MEDS ORDERED: DILTIAZEM HCL 120 MG PO SCH (09:00)
[2018-08-12] MEDS: Ferrous Sulfate 325 MG TAB PO SCH ×2 (09:00→20:31)
[2018-08-12] MEDS ORDERED: Amitriptyline HCl 25 MG TAB PO SCH (09:00)
[2018-08-12] MEDS: Losartan 25 MG TAB PO SCH (09:01)
[2018-08-12] MEDS: Magnesium Oxide 400 MG TAB PO SCH ×2 (09:01→20:31)
[2018-08-12] MEDS: Liothyronine Sodium 5 MCG TAB PO SCH (09:01)
[2018-08-12] MEDS: Furosemide 20 MG TAB PO SCH ×2 (09:01→13:31)
--- NOTE | 2018-08-12 14:12 | PDOC.PN ---
- Subjective Encounter Start Date: 08/12/18 Encounter Start Time: 14:11 Patient seen and examined, no new issues or complaints, sister at bedside, all questions answered. - Objective Vital Signs & Weight: Vital Signs (12 hours) Temp Pulse Resp BP BP BP Pulse Ox 08/12/18 12:00 98.2 F 82 16 113/73 94 L 08/12/18 08:59 73 138/78 08/12/18 08:00 98.1 F 73 18 138/78 95 08/12/18 04:06 97.7 F 81 20 126/71 97 Weight Admit Weight 263 lb Weight 263 lb I&O: 08/11/18 08/12/18 08/13/18 06:59 06:59 06:59 Intake Total 500 1680 Balance 500 1680 Result Diagrams: 08/12/18 06:09 08/12/18 06:09 Additional Labs: Accuchecks 08/12/18 08/12/18 08/12/18 11:02 06:16 01:23 POC Glucose 140 H 127 H 164 H 08/11/18 08/11/18 20:38 15:30 POC Glucose 186 H 146 H Phys Exam - Physical Examination Constitutional: NAD obese HEENT: PERRLA, moist MMs, sclera anicteric Neck: no nodes, no JVD, supple Respiratory: no wheezing, no rales, no rhonchi Cardiovascular: RRR, no significant murmur, no rub Gastrointestinal: soft, non-tender, no distention, positive bowel sounds rotund wound vac in place Musculoskeletal: pulses present, edema present (trace) Dx/Plan (1) Diabetes type 2, controlled Code(s): E11.9 - TYPE 2 DIABETES MELLITUS WITHOUT COMPLICATIONS Status: Chronic Comment: DELTA rees (2) Hypertension Code(s): I10 - ESSENTIAL (PRIMARY) HYPERTENSION Status: Chronic Comment: Controlled. cont losartan.cont Cardiazem. restart Bisoprolol if BP better (3) Hypothyroidism Code(s): E03.9 - HYPOTHYROIDISM, UNSPECIFIED Status: Chronic Comment: stable (4) Morbid obesity with BMI of 40.0-44.9, adult Code(s): E66.01 - MORBID (SEVERE) OBESITY DUE TO EXCESS CALORIES; Z68.41 - BODY MASS INDEX (BMI) 40.0-44.9, ADULT Status: Chronic - Plan * wound vac in place * sugars are within acceptable limits * cont thyroid medications for now * Vitals stable * no changes in medical plan of care for now * surgery following for wound vac * case and plan d/w patient at length, she understood and agreed with this plan.
--- NOTE | 2018-08-12 14:56 | PRG ---
DATE OF SERVICE: 08/12/2018 Elyssa Lepe is doing well today. [facility] has been signed for wound care at home. She lives in [place]. She is going home instead of rehab. Her daughter wanted to keep her here until Friday, but since her wound VAC has been approved and [facility] has been signed, plan is to discharge home tomorrow, at noon. She will follow up in my office in 2 to 3 weeks. She will resume her home medications. Job ID: [id number]
[2018-08-12] MEDS: Rivaroxaban 10 MG TAB PO SCH (17:06)
[2018-08-12] MEDS: Insulin Regular 300 UNITS/3 ML VIAL SC PRN (17:09)
[2018-08-12] MEDS: Atorvastatin Calcium 20 MG TAB PO SCH (20:31)
[2018-08-12] MEDS: Amitriptyline HCl 25 MG TAB PO SCH (20:31)
[2018-08-12] MEDS: Insulin Glargine 50 UNITS in Pre-Filled Syringe 1 EACH SC SCH (20:33)
[2018-08-12 21:47] LABS: Hemoglobin 9.8 g/dL (12.0-16.0)
[2018-08-13] MEDS: Levothyroxine Sodium 25 MCG TAB PO SCH (06:13)
[2018-08-13] MEDS: Levothyroxine Sodium 112 MCG TAB PO SCH (06:13)
[2018-08-13 06:42] LABS: #Eosinphils 0.6 thou/uL (0.0-0.7); #Lymphocytes 2.5 thou/uL (1.20-3.40); #Monocytes 0.6 thou/uL (0.11-0.59); #Neutrophils 5.2 thou/uL (1.40-6.50); %Basophils 0.3 % (0.0-1.0); %Eosinophils 6.8 % (0.0-10.0); %Lymphocytes 28.1 % (21.0-51.0); %Monocytes 6.7 % (0.0-10.0); %Neutrophils 58.1 % (42.0-75.0); Hemoglobin 8.8 g/dL (12.0-16.0); Mean Corpuscular HGB CONC 30.8 g/dL (32.0-36.0); Mean Corpuscular Hemoglobin 25.4 pg (27.0-31.0); Mean Corpuscular Volume 82.4 fL (78.0-98.0); Mean Platelet Volume 6.8 fL (7.4-10.4); Platelet Count 342 thou/uL (130-400); RBC Distribution Width 15.1 % (11.5-14.5); Red Blood Cell (RBC) Count 3.47 mill/uL (4.20-5.40)
[2018-08-13 07:07] LABS: Anion Gap 9 mmol/L (10-20); BUN (Urea Nitrogen) 16 mg/dL (9.8-20.1); Calc. Creatinine Clearance 141 mL/min (70-130); Carbon Dioxide 28 mmol/L (23-31); Chloride 104 mmol/L (98-107); Estimated GFR-MDRD 80; Glucose 134 mg/dL (80-115); Iron 34 ug/dL (50-170); Iron Binding Capacity, Total 249 mcg/dL (265-497); Potassium 4.2 mmol/L (3.5-5.1); Sodium 137 mmol/L (136-145)
[2018-08-13] MEDS: Dofetilide 0.125 MG CAP PO SCH (08:49)
[2018-08-13] MEDS: Saccharomyces boulardii 250 MG CAP PO SCH (08:49)
[2018-08-13] MEDS: Potassium Chloride 20 MEQ TAB PO SCH (08:51)
[2018-08-13] MEDS: Polyethylene Glycol 3350 17 GM Packet PO SCH (08:52)
[2018-08-13] MEDS: PARoxetine 20 MG TAB PO SCH (08:52)
[2018-08-13] MEDS: Furosemide 20 MG TAB PO SCH ×2 (08:52→14:03)
[2018-08-13] MEDS: Liothyronine Sodium 5 MCG TAB PO SCH (08:52)
[2018-08-13] MEDS: Losartan 25 MG TAB PO SCH (08:53)
[2018-08-13] MEDS: metFORMIN 500 MG TAB PO SCH (08:53)
[2018-08-13] MEDS: Magnesium Oxide 400 MG TAB PO SCH (08:54)
[2018-08-13] MEDS: Multivit, Therapeutic 1 TAB PO SCH (08:54)
[2018-08-13] MEDS: Ferrous Sulfate 325 MG TAB PO SCH (08:55)
--- NOTE | 2018-08-13 10:04 | DIS ---
DATE OF ADMISSION: 08/10/2018 DATE OF DISCHARGE: 08/12/2018 DISCHARGE DIAGNOSES: 1. Skin and subcutaneous tissue superficial dehiscence without fascial dehiscence fascia intact. 2. Morbid obesity. 3. Diabetes. 4. Hypertension. 5. Status post, 07/29/2018, incisional hernia repair for incarcerated small bowel enterotomy. No mesh was used. Removal of portions of old mesh. 6. Chronic anticoagulation with Xarelto, which had been held after ER visit noted old hematoma draining from her wound. Discussion with Dr. Villela revealed that he felt that she should continue this and it was restarted in this hospitalization. 7. Chronic anemia. Hemoglobin is stable at 8.8 to 9.2. 8. Diabetes mellitus. 9. Hypertension. 10. Obesity. 11. Atrial fibrillation status post ablation and Watchman procedure. PRIMARY CARE PHYSICIAN: Dr. Cosby. PROCEDURE IN THIS HOSPITALIZATION: Wound care. Arrangement of [facility] Wound [facility] and wound VAC application. Follow up with Dr. Uribe in 2 weeks. HISTORY: A 68-year-old female, status post more than 200-pound weight loss after laparoscopic adjustable band weight reduction from [address] Dickson, and subsequently, at [facility], had 2 incisional hernia repairs laparoscopically failed. She reports now with incarcerated hernia, at last hospitalization undergoing the above-mentioned repair, discharged home postoperatively. She visited the emergency room for drainage, it was old hematoma. She was seen in my office in followup a few days later and she was admitted to the hospital for wound care. After removing her raul and the wound fell apart, fascia was intact, the patient has been discharged home at this time with followup with [facility] and follow up in my office in 2 to 3 weeks. Follow up with Dr. Pavel Cosby and Dr. Villela. MEDICATIONS: The patient will resume her home medications. 1. Amitriptyline. 2. Diltiazem. 3. Dofetilide. 4. Furosemide. 5. Insulin b.i.d. 100 units. 6. Levothyroxine 137 mcg a day. 7. Liothyronine 5 mcg a day. 8. Losartan 50 mg a day. 9. Magnesium oxide 400 mg a day. 10. Metformin 1000 mg a day. 11. Paroxetine 20 mg a day. 12. MiraLAX daily. 13. Potassium chloride 20 mEq a day. 14. Xarelto 20 mg a day. 15. Florastor 250 mg a day. 16. Simvastatin 40 mg a day. Job ID: [id number]
[2018-08-13] MEDS: Insulin Regular 300 UNITS/3 ML VIAL SC PRN (11:47)
--- NOTE | 2018-08-13 12:20 | PDOC.PN ---
- Subjective Encounter Start Date: 08/13/18 Encounter Start Time: 07:00 Patient seen and examined, no new issues or complaints, all questions answered. - Objective Vital Signs & Weight: Vital Signs (12 hours) Temp Pulse Resp BP Pulse Ox 08/13/18 11:53 98.0 F 99 14 125/78 99 08/13/18 08:51 427 H 08/13/18 08:31 98.2 F 89 16 147/79 H 98 08/13/18 04:20 98.2 F 94 16 110/66 98 08/13/18 00:35 98.4 F 100 16 106/66 96 Weight Admit Weight 263 lb Weight 263 lb I&O: 08/12/18 08/13/18 08/14/18 06:59 06:59 06:59 Intake Total 1680 1950 Balance 1680 1950 Result Diagrams: 08/13/18 06:11 08/13/18 06:11 Additional Labs: Accuchecks 08/13/18 08/13/18 08/12/18 10:49 06:00 20:32 POC Glucose 160 H 135 H 156 H 08/12/18 16:02 POC Glucose 173 H Phys Exam - Physical Examination Constitutional: NAD obese HEENT: PERRLA, moist MMs, sclera anicteric Neck: no nodes, no JVD, supple Respiratory: no wheezing, no rales, no rhonchi Cardiovascular: RRR, no significant murmur, no rub, gallop Gastrointestinal: soft, non-tender, positive bowel sounds wound vac in place Musculoskeletal: pulses present, edema present Dx/Plan (1) Diabetes type 2, controlled Code(s): E11.9 - TYPE 2 DIABETES MELLITUS WITHOUT COMPLICATIONS Status: Chronic Comment: DELTA rees (2) Hypertension Code(s): I10 - ESSENTIAL (PRIMARY) HYPERTENSION Status: Chronic Comment: Controlled. cont losartan.cont Cardiazem. restart Bisoprolol if BP better (3) Hypothyroidism Code(s): E03.9 - HYPOTHYROIDISM, UNSPECIFIED Status: Chronic Comment: stable (4) Morbid obesity with BMI of 40.0-44.9, adult Code(s): E66.01 - MORBID (SEVERE) OBESITY DUE TO EXCESS CALORIES; Z68.41 - BODY MASS INDEX (BMI) 40.0-44.9, ADULT Status: Chronic - Plan * cont current plan of care * sugars under control * weight loss advised, dietary options discussed * vitals stable * DC plans per surgery team, being managed appropriately * will follow * case and plan d/w patient at length, she understood and agreed with this plan.
[2018-08-13] MEDS: Acetaminophen 500 MG TAB PO PRN (15:26)
[2018-08-13 16:08] VITALS: BP 122/77; TEMP 97.8
== END 2018-08-13 16:48 | disposition home health service (06) | DRG 920 ==
LOC: SURG A 16:33
PROVIDERS: ADMIT Specialist; ATTEND Specialist
PROC: 2W13X6Z Compression of Abdominal Wall using Pressure Dressing (ICD-10-PCS; principal; 2018-08-11)
DX: T81.31XA Disruption of external operation (surgical) wound, not elsewhere classified, initial encounter (principal); Z68.41 Body mass index [BMI] 40.0-44.9, adult; E66.01 Morbid (severe) obesity due to excess calories; E11.9 Type 2 diabetes mellitus without complications; D64.9 Anemia, unspecified; I10 Essential (primary) hypertension; E03.9 Hypothyroidism, unspecified; I48.0 Paroxysmal atrial fibrillation; Z79.01 Long term (current) use of anticoagulants; Z79.899 Other long term (current) drug therapy; Z79.4 Long term (current) use of insulin; Z90.49 Acquired absence of other specified parts of digestive tract; Z98.84 Bariatric surgery status
CPT/HCPCS: 36415; 36416; 80048; 80053; 82728; 83540; 83550; 85025; 85379; 86850; 86900; 86901; 87045; 87046; 87324; 87449; 87899; 90471; 90670; 93005; 93010; 99211; G0009; G0463; J1815; J1825; J8499

== ENCOUNTER 2018-10-12 06:05 | Inpatient (IN) | payer MEDICARE ==
--- NOTE | 2018-10-08 08:49 | HP ---
HISTORY OF PRESENT ILLNESS: Elyssa Lepe is a 68-year-old female, who presented on 07/29/2018 to hospitalist service for incarcerated ventral hernia. This ventral hernia had been present for extended time, repaired twice by Dr. Alexander laparoscopically and recurred. She is followed by Dr. Pavel Cosby. She had a laparoscopic adjustable band, weighing 435 pounds prior to band placement in 2005. She has lost down to 325 pounds and today in my office, she is 248 pounds. She has a history of atrial fibrillation ablation and followed by Dr. Villela. She has been on Xarelto, but has been recently discontinued. She has had a Watchman procedure earlier this year. Normal cardiac catheterization recently this year. The patient has had a prior open cholecystectomy as well as a band port in her midline. The patient was taken to the operating room on 07/29/2018, where I performed exploratory laparotomy; extensive lysis of adhesions; repair of one enterotomy; 4 mm, 2 layers, suture complex incisional hernia repair without mesh; removal of portions of old mesh and Prevena dressing used. The patient has had a wound about the area where the umbilicus used to be that has had persistent drainage. She was seen in the office today on 10/06/2018 and exploration of the wound revealed that it had a small opening with undermining. The undermining ledges were opened in the office after alcohol prep. She tolerated this well without pain. Old PDS sutures were removed. A large segment of mesh was apparent and removed partially. Plan at this time is to explore her wound and debride the wound, remove foreign bodies and mesh to facilitate wound healing. [facility] in the meantime will continue wound care. ALLERGIES: NONE. SOCIAL HISTORY: Tobacco, none. Alcohol, none. PAST SURGICAL HISTORY: Laparoscopic adjustable band for weight reduction as described above, incisional hernia repairs x2 laparoscopically using mesh at [facility] with Dr. Alexander, open cholecystectomy many years ago, and recent operation as described above. PAST MEDICAL HISTORY: Diabetes mellitus; hypertension; obesity; atrial fibrillation, post ablation Watchman procedure; recent cardiac catheterization, normal; recent cardiac monitoring, normal, this is relatively discontinued. CURRENT MEDICATIONS: 1. Furosemide 20 mg a day. 2. Losartan potassium 50 mg a day. 3. Amitriptyline 25 mg a day. 4. twice a day. 5. Levothyroxine 5 mcg a day. 6. Metformin 1000 mg twice daily. 7. Zebeta 5 mg twice daily. 8. Cardizem 120 mg two tablets once a day. 9. Potassium chloride 20 mEq daily. 10. Xarelto, discontinued. 11. Paxil 20 mg a day. 12. MiraLAX daily. 13. Tramadol as needed for pain. 14. Florastor once a day 250 mg caps. 15. Artificial Tears. 16. Insulin 50 units subcu once a day at bedtime. 17. Levothyroxine once a day. 18. Magnesium oxide. 19. Simvastatin 40 mg a day. 20. Iron twice a day. REVIEW OF SYSTEMS: Noncontributory except as noted above. PHYSICAL EXAMINATION: VITAL SIGNS: Weight 248 pounds, height 68 inches, BMI 37.73, blood pressure 127/68, pulse 84, temperature 98.8 degrees. HEAD, EARS, EYES, NOSE AND THROAT: Unremarkable. LUNGS: Clear to auscultation. CARDIAC: Regular rate and rhythm. No murmur or gallop. ABDOMEN: Obese, soft. Large pannus. Some open wound midline where the umbilicus used to be. Undermining opened sharply after alcohol prep. Old PDS sutures removed. Mesh portions removed. ASSESSMENT: Nonhealing wound. PLAN: Exploration of wound. We would try to avoid laparotomy, but that is always a possibility. Plan is under general anesthesia, explore wound, debris, and mesh. Apply wound VAC. Hopefully, this could be an outpatient, but she will most likely require admission postoperatively and wound VAC care and arrangements. Job ID: [id number]
[2018-10-12] MEDS ORDERED: Fentanyl 100 MCG/2 ML VIAL ONE (06:17)
[2018-10-12] MEDS ORDERED: Bupivacaine HCl 0.5%/Epinephrine 1:200,000/PF 30 ml Vial ONE (06:27)
[2018-10-12] MEDS ORDERED: Lidocaine 2% PF 5 ML VIAL ONE (06:27)
[2018-10-12 06:52] LABS: #Eosinphils 0.2 thou/uL (0.0-0.7); #Lymphocytes 2.6 thou/uL (1.20-3.40); #Monocytes 0.6 thou/uL (0.11-0.59); #Neutrophils 5.1 thou/uL (1.40-6.50); %Basophils 0.2 % (0.0-1.0); %Eosinophils 2.5 % (0.0-10.0); %Lymphocytes 30.1 % (21.0-51.0); %Monocytes 7.4 % (0.0-10.0); %Neutrophils 59.8 % (42.0-75.0); Hemoglobin 9.7 g/dL (12.0-16.0); Mean Corpuscular Hemoglobin 24.3 pg (27.0-31.0); Mean Corpuscular Volume 78.3 fL (78.0-98.0); Mean Platelet Volume 7.7 fL (7.4-10.4); Platelet Count 205 thou/uL (130-400); RBC Distribution Width 15.3 % (11.5-14.5); Red Blood Cell (RBC) Count 4.02 mill/uL (4.20-5.40); White Blood Cell (WBC) Count 8.5 thou/uL (4.8-10.8)
[2018-10-12] MEDS ORDERED: Ketorolac Tromethamine 30 MG/ML VIAL ONE (06:59)
[2018-10-12 07:07] LABS: Anion Gap 13 mmol/L (10-20); BUN (Urea Nitrogen) 12 mg/dL (9.8-20.1); Calc. Creatinine Clearance 138 mL/min (70-130); Calcium 10.2 mg/dL (7.8-10.44); Carbon Dioxide 26 mmol/L (23-31); Chloride 100 mmol/L (98-107); Estimated GFR-MDRD 83; Glucose 169 mg/dL (80-115); Potassium 4.3 mmol/L (3.5-5.1); Sodium 135 mmol/L (136-145)
[2018-10-12] MEDS ORDERED: Ondansetron ODT 4 MG TAB PO PRN (09:42)
[2018-10-12] MEDS ORDERED: Dextrose 5% in Water 1,000 ML IV PRN (09:42)
[2018-10-12] MEDS ORDERED: Ondansetron PF 4 MG/2 ML Vial IVP PRN (09:42)
[2018-10-12] MEDS ORDERED: hydrALAZINE 20 MG/ML VIAL SLOW IVP PRN (09:42)
[2018-10-12] MEDS ORDERED: Lorazepam 2 MG/ML VIAL SLOW IVP PRN (09:42)
[2018-10-12] MEDS ORDERED: Dextrose 50% Abboject 50 ML SYRINGE SLOW IVP PRN (09:42)
[2018-10-12] MEDS ORDERED: HumaLOG 300 UNITS/3 ML VIAL SC PRN (09:42)
[2018-10-12] MEDS ORDERED: Ketorolac Tromethamine 30 MG/ML VIAL IVP PRN (09:48)
[2018-10-12] MEDS ORDERED: Promethazine HCl 25 MG/ML VIAL IM PRN (09:55)
[2018-10-12] MEDS ORDERED: Ondansetron HCl/PF 4 MG/2 ML Vial IVP PRN (09:55)
[2018-10-12] MEDS ORDERED: HYDROmorphone 2 MG/ML VIAL SLOW IVP PRN (09:55)
[2018-10-12] MEDS ORDERED: Promethazine HCl 25 MG/ML VIAL SLOW IVP PRN (09:55)
[2018-10-12] MEDS ORDERED: Sodium Chloride 0.9% (PF) 10 ML VIAL FS PRN (10:20)
[2018-10-12] MEDS: Acetaminophen 1,000 MG in Premix Bag 1 BAG IVPB SCH ×3 (12:04→23:31)
[2018-10-12] MEDS: Sodium Chloride 0.9% 1,000 ML IV SCH ×2 (12:04→20:12)
--- NOTE | 2018-10-12 12:35 | OP ---
DATE OF PROCEDURE: 10/12/2018 PREOPERATIVE DIAGNOSES: Morbid obesity, laparoscopic adjustable band status, nonhealing wound with infected previously placed mesh. POSTOPERATIVE DIAGNOSES: Morbid obesity, laparoscopic adjustable band status, nonhealing wound with infected previously placed mesh. PROCEDURE PERFORMED: Laparotomy. Lysis of adhesions. No enterotomy. Removal of infected mesh. Primary closure of skin, subcutaneous tissues. Debridement. Wound VAC application by Wound Care team. ANESTHESIA: General, local 0.5% Marcaine with epinephrine 30 mL mixed with 2% Xylocaine 10 mL, total volume mixture used, infiltrated about the wound for postoperative pain control. DESCRIPTION OF PROCEDURE: The patient was taken to the operating room where under general anesthesia, abdomen was prepared with with Betadine and draped in routine fashion in supine position. Midline incision was made about the open wound and carried superiorly and inferiorly in midline. Fascia opened. Bowel carefully dissected free from the mesh and surrounding bilaterally freeing it from the abdominal wall. All this required tedious dissection. Fascia then opened as much as necessary to remove infected mesh. Mesh and old suture granulomas were excised using cautery. Once this was completed, abdominal cavity was irrigated. Small bowel inspected closely and no enterotomy sustained. Abdominal cavity irrigated. Subcutaneous tissues irrigated, irrigant evacuated. Sponge, instrument, and needle counts were correct. Midline fascia was closed with continuous suture of interval #1 PDS. Skin and subcutaneous tissues debrided sharply removing infected all thinned out skin edges with the cutting current cautery. Once this was accomplished, fatty tissue freed circumferentially for mobility using cautery removed through the scar. Skin approximated in the midline with several raul and left open superiorly and inferiorly for Wound Care Team to place the wound VAC. The patient tolerated the procedure well. Job ID: [id number]
[2018-10-12] MEDS ORDERED: Lidocaine 1% PF 5 ML VIAL ONE (16:03)
[2018-10-12] MEDS ORDERED: Glycopyrrolate 0.2 MG/ML 5 ML SYRINGE ONE (16:03)
[2018-10-12] MEDS ORDERED: Rocuronium Bromide 10 MG/ML (10ML VIAL) ONE (16:03)
[2018-10-12] MEDS ORDERED: PHENYLEPHRINE-NS 100 MCG/ML 10 ML SYRINGE ONE (16:03)
[2018-10-12] MEDS ORDERED: Dexamethasone 20 MG/5 ML VIAL ONE (16:03)
[2018-10-12] MEDS ORDERED: Ondansetron PF 4 MG/2 ML Vial ONE (16:03)
[2018-10-12] MEDS ORDERED: PROPOFOL 200 MG/20 ML VIAL ONE (16:03)
[2018-10-12] MEDS ORDERED: ePHEDrine 50 MG/ML VIAL ONE (16:03)
[2018-10-12] MEDS ORDERED: Polyethylene Glycol 3350 17 GM Packet PO PRN (18:11)
[2018-10-12] MEDS ORDERED: Acetaminophen ER (8hr) 650 MG TAB PO PRN (18:15)
[2018-10-12] MEDS: Dofetilide 0.125 MG CAP PO SCH (20:01)
[2018-10-12] MEDS ORDERED: Enoxaparin Sodium 40 MG/0.4 ML SYRINGE SC SCH (21:00)
[2018-10-12] MEDS ORDERED: Atorvastatin Calcium 20 MG TAB PO SCH (21:00)
[2018-10-12] MEDS ORDERED: Insulin Glargine 46 UNITS in Pre-Filled Syringe 1 EACH SC SCH (21:00)
[2018-10-13 04:41] LABS: #Eosinphils 0.1 thou/uL (0.0-0.7); #Lymphocytes 1.2 thou/uL (1.20-3.40); #Monocytes 0.4 thou/uL (0.11-0.59); #Neutrophils 6.5 thou/uL (1.40-6.50); %Basophils 0.3 % (0.0-1.0); %Lymphocytes 14.9 % (21.0-51.0); %Neutrophils 78.8 % (42.0-75.0); Mean Corpuscular HGB CONC 31.2 g/dL (32.0-36.0); Mean Corpuscular Hemoglobin 24.8 pg (27.0-31.0); Mean Corpuscular Volume 79.5 fL (78.0-98.0); Mean Platelet Volume 7.7 fL (7.4-10.4); Platelet Count 149 thou/uL (130-400); RBC Distribution Width 15.1 % (11.5-14.5); White Blood Cell (WBC) Count 8.2 thou/uL (4.8-10.8)
[2018-10-13 04:58] LABS: Anion Gap 12 mmol/L (10-20); BUN (Urea Nitrogen) 15 mg/dL (9.8-20.1); Calc. Creatinine Clearance 138 mL/min (70-130); Calcium 8.8 mg/dL (7.8-10.44); Carbon Dioxide 25 mmol/L (23-31); Chloride 102 mmol/L (98-107); Estimated GFR-MDRD 83; Glucose 200 mg/dL (80-115); Potassium 5.1 mmol/L (3.5-5.1); Sodium 134 mmol/L (136-145)
[2018-10-13] MEDS: Sodium Chloride 0.9% 1,000 ML IV SCH (05:41)
[2018-10-13] MEDS: Acetaminophen 1,000 MG in Premix Bag 1 BAG IVPB SCH (05:41)
[2018-10-13] MEDS ORDERED: Levothyroxine Sodium 112 MCG TAB PO SCH (06:00)
[2018-10-13] MEDS ORDERED: Levothyroxine Sodium 50 MCG TAB PO SCH (06:00)
[2018-10-13] MEDS ORDERED: Liothyronine Sodium 5 MCG TAB PO SCH (06:00)
[2018-10-13] MEDS ORDERED: Levothyroxine Sodium 125 MCG TAB PO SCH (06:00)
[2018-10-13] MEDS ORDERED: Ferrous Sulfate 325 MG TAB PO SCH (08:00)
[2018-10-13] MEDS ORDERED: metFORMIN 500 MG TAB PO SCH (08:00)
[2018-10-13] MEDS: Dofetilide 0.125 MG CAP PO SCH (08:52)
[2018-10-13] MEDS ORDERED: PARoxetine 20 MG TAB PO SCH (09:00)
[2018-10-13] MEDS ORDERED: Magnesium Oxide 400 MG TAB PO SCH (09:00)
[2018-10-13] MEDS ORDERED: Lactinex Tablet PO SCH (09:00)
[2018-10-13] MEDS ORDERED: Bisoprolol Fumarate 5 MG TAB PO SCH (09:00)
[2018-10-13] MEDS ORDERED: Ascorbic Acid 500 mg Chewable Tablet PO SCH (09:00)
[2018-10-13] MEDS ORDERED: Furosemide 20 MG TAB PO SCH (09:00)
[2018-10-13] MEDS ORDERED: Clopidogrel Bisulfate 75 MG TAB PO SCH (09:00)
[2018-10-13] MEDS ORDERED: KRILL OIL 500 MG PO SCH (09:00)
[2018-10-13] MEDS ORDERED: Aspirin 81 mg Enteric Coated Tablet PO SCH (09:00)
[2018-10-13] MEDS ORDERED: Pantoprazole 40 MG VIAL IVP SCH (09:00)
[2018-10-13] MEDS ORDERED: Losartan 25 MG TAB PO SCH (09:00)
[2018-10-13] MEDS ORDERED: Multivitamin W/ Minerals 1 TAB PO SCH (09:00)
[2018-10-13 09:53] VITALS: BMI 37.5
[2018-10-13] MEDS ORDERED: Potassium Chloride 20 MEQ TAB PO SCH (12:00)
[2018-10-13 15:21] VITALS: BP 123/66; TEMP 97.5
--- NOTE | 2018-10-13 17:51 | DIS ---
DATE OF ADMISSION: 10/12/2018 DATE OF DISCHARGE: 10/13/2018 DISCHARGE DIAGNOSES: 1. Open wound abdomen with infected mesh and suture. 2. Morbid obesity. 3. History of chronic anticoagulation, but discontinued Xarelto recently, Watchman procedure previously, normal cardiac catheterization earlier this year. 4. History of laparoscopic adjustable band. 5. History of incisional hernia repairs x2 laparoscopically using mesh at [facility] with Dr. Alexander. 6. History of open cholecystectomy on 07/29/2018. 7. Recent exploratory laparotomy. 8. Lysis of adhesions. 9. Removal of portions of mesh. 10. Extensive adhesiolysis. 11. Repair of one enterotomy. 12. Complex incisional hernia repair without mesh, removal of portions of old mesh, Prevena dressing applied for an incarcerated incisional hernia with bowel obstruction. 13. Recent intentional weight loss from 450 pounds to 270 pounds with the adjustable band. HISTORY: A 68-year-old female, presented to my office with a nonhealing wound. Previously, I removed the suture. On this occasion, I appreciated the infected mesh and suture, that she was brought to the operating room, same-day admit for exploration of the wound. The patient underwent exploration leading to a laparotomy, adhesiolysis. There were no enterotomies. There was one serosal partial tear, closed with 3-0 Lembert silk. The old mesh and suture were removed, prolene. Wound closed without mesh. Wound VAC applied. The patient convalesced, tolerated her diet. She has been discharged home at this time removing her Freeman catheter and home with a wound VAC with home health wound VAC changes. She will see me in the office in 2 to 3 weeks. Job ID: [id number]
[2018-10-13] MEDS ORDERED: Amitriptyline HCl 25 MG TAB PO SCH (21:00)
== END 2018-10-13 17:54 | disposition home or self-care (01) | DRG 909 ==
LOC: SDC 06:05 → SURG B 09:42
PROVIDERS: ADMIT Specialist; ATTEND Specialist
PROC: 0WPF0JZ Removal of Synthetic Substitute from Abdominal Wall, Open Approach (ICD-10-PCS; principal; 2018-10-12)
DX: T85.79XA Infection and inflammatory reaction due to other internal prosthetic devices, implants and grafts, initial encounter (principal); I48.91 Unspecified atrial fibrillation; E11.9 Type 2 diabetes mellitus without complications; I10 Essential (primary) hypertension; E66.01 Morbid (severe) obesity due to excess calories; Z79.4 Long term (current) use of insulin; Z90.49 Acquired absence of other specified parts of digestive tract; Z79.899 Other long term (current) drug therapy; Z68.37 Body mass index [BMI] 37.0-37.9, adult; Y83.2 Surgical operation with anastomosis, bypass or graft as the cause of abnormal reaction of the patient, or of later complication, without mention of misadventure at the time of the procedure
CPT/HCPCS: 36415; 36416; 80048; 85025; C9113; J0131; J0670; J0690; J1100; J1650; J1815; J1885; J2001; J2405; J2704; J3010; J3490; J8499

== ENCOUNTER 2018-10-26 15:42 | Emergency (ER) | payer MEDICARE ==
[2018-10-26 16:27] LABS: #Basophils 0.1 thou/uL (0.0-0.2); #Eosinphils 0.2 thou/uL (0.0-0.7); #Lymphocytes 3.1 thou/uL (1.20-3.40); #Monocytes 0.7 thou/uL (0.11-0.59); #Neutrophils 6.6 thou/uL (1.40-6.50); %Basophils 0.7 % (0.0-1.0); %Eosinophils 1.7 % (0.0-10.0); %Lymphocytes 29.1 % (21.0-51.0); %Monocytes 6.1 % (0.0-10.0); %Neutrophils 62.4 % (42.0-75.0); Hemoglobin 10.4 g/dL (12.0-16.0); Mean Corpuscular HGB CONC 30.9 g/dL (32.0-36.0); Mean Corpuscular Hemoglobin 23.5 pg (27.0-31.0); Mean Corpuscular Volume 76.1 fL (78.0-98.0); Mean Platelet Volume 7.1 fL (7.4-10.4); Platelet Count 390 thou/uL (130-400); RBC Distribution Width 15.5 % (11.5-14.5); Red Blood Cell (RBC) Count 4.42 mill/uL (4.20-5.40); White Blood Cell (WBC) Count 10.6 thou/uL (4.8-10.8)
[2018-10-26 16:50] LABS: ALT (SGPT) 10 U/L (8-55); AST (SGOT) 15 U/L (5-34); Albumin 3.7 g/dL (3.4-4.8); Alkaline Phosphatase 163 U/L (40-150); Anion Gap 14 mmol/L (10-20); BUN (Urea Nitrogen) 11 mg/dL (9.8-20.1); Bilirubin, Total 0.4 mg/dL (0.2-1.2); Calc. Creatinine Clearance 0 mL/min (70-130); Carbon Dioxide 24 mmol/L (23-31); Chloride 100 mmol/L (98-107); Estimated GFR-MDRD 78; Glucose 150 mg/dL (80-115); Lipase 19 U/L (8-78); Potassium 5.1 mmol/L (3.5-5.1); Protein, Total 7.7 g/dL (6.0-8.3); Sodium 133 mmol/L (136-145)
== END 2018-10-26 18:55 | disposition left against medical advice (07) ==
LOC: ERS 15:42
DX: Z53.21 Procedure and treatment not carried out due to patient leaving prior to being seen by health care provider (principal)
CPT/HCPCS: 36415; 80053; 83605; 83690; 85025

== ENCOUNTER 2018-10-29 12:44 | Outpatient (CLI) | payer MEDICARE ==
--- NOTE | 2018-10-29 15:29 | HP ---
HISTORY OF PRESENT ILLNESS: Ms. Elyssa Lepe is a very pleasant 68-year-old, who presents to the [facility]ound Center for evaluation of a wound of the abdomen in the midline subsequent to laparotomy, lysis of adhesions, removal of infected mesh, primary closure, and debridement on 10/12/[address] Junior Uribe. Also at the time of surgery, negative-pressure therapy was initiated. Upon discharge from [facility], the patient received dressing changes of the wound VAC three times per week with the assistance of Home Health. The patient now presents to the Wound Center for assistance with wound VAC dressing changes. Previously on 07/29/2018, the patient underwent surgery for incarcerated incisional hernia with bowel obstruction on 07/29/2018, also by Dr. Uribe. The patient's medical history is significant for gastric lap banding x2 as well as incisional hernia repair x2. PAST MEDICAL HISTORY: 1. Hypothyroidism. 2. Obstructive sleep apnea. 3. Paroxysmal atrial fibrillation, status post ablation. 4. Diabetes mellitus. 5. Hypertension. 6. Anemia. PAST SURGICAL HISTORY: 1. Watchman procedure. 2. Gastric lap banding x2. 3. Cholecystectomy. 4. Oophorectomy. 5. Tonsillectomy. 6. Incisional hernia repair x2. 7. Surgery for incarcerated incisional hernia with bowel obstruction, 07/29/2018. 8. Laparotomy, lysis of adhesions, removal of infected mesh, primary closure, and debridement on 10/12/2018. MEDICATIONS: 1. Levothyroxine. 2. Liothyronine. 3. Dofetilide. 4. Losartan. 5. Lasix. 6. Metformin. 7. Magnesium oxide. 8. Bisoprolol. 9. Paroxetine. 10. Plavix. 11. Vitamin B12. 12. Metronidazole. 13. Potassium chloride. 14. Probiotic. 15. Vitamin C. 16. Multivitamin. 17. Vitamin D. 18. Iron. 19. Lantus. 20. Amitriptyline. 21. Aspirin. 22. Simvastatin. 23. Levofloxacin. 24. Tylenol. ALLERGIES: MORPHINE. SOCIAL HISTORY: Social history is negative for tobacco or EtOH use. FAMILY HISTORY: Family history is significant for diabetes mellitus. The patient's grandmother was diagnosed with diabetes mellitus. Family history is also significant for coronary artery disease. The patient's father was diagnosed with coronary artery disease. PHYSICAL EXAMINATION: VITAL SIGNS: Temperature 98.7, pulse 107, respirations 18, blood pressure 112/69. Accu-Chek 141. GENERAL: A 68-year-old female, lying on table in examination room, in no acute distress. HEENT: Normocephalic, atraumatic. NECK: No nuchal rigidity. CHEST: Clear to auscultation. CV: Regular rate and rhythm. ABDOMEN: Soft. A midline abdominal wound is present. The wound edges of the center of the wound are approximated with surgical raul. Granulation tissue is present within the margins of the superior and inferior aspects of the wound, purulent drainage is associated with the wound on exam today. Erythema of the skin surrounding the wound is present and appears to be secondary to irritation of the skin from the drape applied with the wound VAC. No maceration of the skin of the periwound is noted. EXTREMITIES: No clubbing or cyanosis. NEURO: Grossly nonfocal. ASSESSMENT AND PLAN: 1. Midline surgical wound of abdomen as described above. Negative-pressure therapy will be continued with dressing changes of the wound VAC two times per week here in the Wound Center. The patient will be seen by Dr. Uribe in 1 week. I will see Ms. Lepe again in 2 weeks. The patient has been reminded to continue metronidazole and levofloxacin as previously prescribed. CT scan of the abdomen and pelvis obtained on 10/27/2018 with contrast showed no measurable drainable abscess. The patient understands and is in agreement with the preceding treatment plan. 2. Hypothyroidism. 3. Obstructive sleep apnea. 4. Paroxysmal atrial fibrillation. 5. Diabetes mellitus. The patient's Accu-Chek in clinic today is 141. The patient has been told that for optimal wound healing, her blood glucoses should remain below 150. 6. Hypertension. 7. Anemia. Job ID: [id number]
== END 2018-10-29 12:45 | disposition home or self-care (01) ==
LOC: WCC 12:44
PROVIDERS: ATTEND Family Medicine
DX: T81.89XD Other complications of procedures, not elsewhere classified, subsequent encounter (principal); E03.9 Hypothyroidism, unspecified; G47.33 Obstructive sleep apnea (adult) (pediatric); I48.0 Paroxysmal atrial fibrillation; E11.9 Type 2 diabetes mellitus without complications; I10 Essential (primary) hypertension; D64.9 Anemia, unspecified
CPT/HCPCS: 97602; 99203; G0463

== ENCOUNTER 2018-11-05 15:09 | Outpatient (CLI) | payer MEDICARE ==
[~2018-11-05 15:09] MED LIST: Sodium Chloride 0.9% 15 ML NEB ONE
== END 2018-11-05 15:10 | disposition home or self-care (01) ==
LOC: WCC 15:09
PROVIDERS: ATTEND Family Medicine
DX: T81.89XD Other complications of procedures, not elsewhere classified, subsequent encounter (principal)
CPT/HCPCS: 97605; A4218

== ENCOUNTER 2018-11-10 10:51 | Outpatient (CLI) | payer MEDICARE ==
[2018-11-10] MEDS ORDERED: Sodium Chloride 0.9% 15 ML NEB ONE (18:00)
== END 2018-11-10 10:52 | disposition home or self-care (01) ==
LOC: WCC 10:51
PROVIDERS: ATTEND Family Medicine
DX: T81.89XD Other complications of procedures, not elsewhere classified, subsequent encounter (principal)
CPT/HCPCS: 97605; A4218

== ENCOUNTER 2018-11-16 14:23 | Outpatient (CLI) | payer MEDICARE ==
[2018-11-16] MEDS ORDERED: Sodium Chloride 0.9% 15 ML NEB ONE (15:00)
== END 2018-11-16 14:24 | disposition home or self-care (01) ==
LOC: WCC 14:23
PROVIDERS: ATTEND Family Medicine
DX: T81.89XD Other complications of procedures, not elsewhere classified, subsequent encounter (principal)
CPT/HCPCS: A4218

== ENCOUNTER 2018-11-24 14:31 | Outpatient (CLI) | payer MEDICARE ==
[2018-11-24] MEDS ORDERED: Sodium Chloride 0.9% 15 ML NEB ONE ×2 (18:00)
== END 2018-11-24 14:32 | disposition home or self-care (01) ==
LOC: WCC 14:31
PROVIDERS: ATTEND Family Medicine
DX: T81.89XD Other complications of procedures, not elsewhere classified, subsequent encounter (principal)
CPT/HCPCS: 97605; A4218

== ENCOUNTER 2018-11-27 15:06 | Outpatient (CLI) | payer MEDICARE | END 2018-11-27 15:07 | disposition home or self-care (01) | LOC: WCC 15:06 | PROVIDERS: ATTEND Family Medicine | DX: T81.89XD Other complications of procedures, not elsewhere classified, subsequent encounter (principal) | CPT/HCPCS: A4218 ==

== ENCOUNTER 2018-11-30 14:34 | Outpatient (CLI) | payer MEDICARE ==
[2018-11-30] MEDS ORDERED: Sodium Chloride 0.9% 15 ML NEB ONE (15:00)
== END 2018-11-30 14:35 | disposition home or self-care (01) ==
LOC: WCC 14:34
PROVIDERS: ATTEND Family Medicine
DX: T81.89XD Other complications of procedures, not elsewhere classified, subsequent encounter (principal)
CPT/HCPCS: 87045; 87046; 87177; 87427; 87449; A4218

== ENCOUNTER 2018-12-02 11:22 | Outpatient (CLI) | payer MEDICARE | END 2018-12-02 11:23 | disposition home or self-care (01) | LOC: WCC 11:22 | PROVIDERS: ATTEND Family Medicine | DX: T81.89XD Other complications of procedures, not elsewhere classified, subsequent encounter (principal) | CPT/HCPCS: 97605; A4218 ==

== ENCOUNTER 2018-12-03 15:56 | Outpatient (CLI) | payer MEDICARE | END 2018-12-03 15:57 | disposition home or self-care (01) | LOC: WCC 15:56 | PROVIDERS: ATTEND Family Medicine | DX: T81.89XD Other complications of procedures, not elsewhere classified, subsequent encounter (principal) | CPT/HCPCS: 97605; A4218 ==

== ENCOUNTER 2018-12-07 15:09 | Inpatient (IN) | payer MEDICARE ==
[~2018-12-07 15:09] MED LIST changes: +Heparin 1,000 UNITS/ML VIAL ONE; -Sodium Chloride 0.9% 15 ML NEB ONE
[2018-12-07 16:24] LABS: #Basophils 0.1 thou/uL (0.0-0.2); #Eosinphils 0.3 thou/uL (0.0-0.7); #Lymphocytes 2.3 thou/uL (1.20-3.40); #Monocytes 0.6 thou/uL (0.11-0.59); #Neutrophils 6.3 thou/uL (1.40-6.50); %Basophils 0.6 % (0.0-1.0); %Eosinophils 3.3 % (0.0-10.0); %Lymphocytes 24.3 % (21.0-51.0); %Monocytes 5.8 % (0.0-10.0); %Neutrophils 66.1 % (42.0-75.0); Hemoglobin 11.2 g/dL (12.0-16.0); Mean Corpuscular HGB CONC 31.3 g/dL (32.0-36.0); Mean Corpuscular Hemoglobin 23.7 pg (27.0-31.0); Mean Corpuscular Volume 75.9 fL (78.0-98.0); Mean Platelet Volume 8.3 fL (7.4-10.4); Platelet Count 212 thou/uL (130-400); RBC Distribution Width 16.7 % (11.5-14.5); Red Blood Cell (RBC) Count 4.71 mill/uL (4.20-5.40); White Blood Cell (WBC) Count 9.5 thou/uL (4.8-10.8)
[2018-12-07 16:53] LABS: ALT (SGPT) 9 U/L (8-55); AST (SGOT) 16 U/L (5-34); Albumin 4.1 g/dL (3.4-4.8); Alkaline Phosphatase 169 U/L (40-150); Anion Gap 16 mmol/L (10-20); BUN (Urea Nitrogen) 15 mg/dL (9.8-20.1); Bilirubin, Total 0.3 mg/dL (0.2-1.2); Calc. Creatinine Clearance 0 mL/min (70-130); Calcium 10.2 mg/dL (7.8-10.44); Carbon Dioxide 23 mmol/L (23-31); Chloride 102 mmol/L (98-107); Estimated GFR-MDRD 74; Globulin 3.6 g/dL (2.4-3.5); Glucose 148 mg/dL (80-115); Protein, Total 7.7 g/dL (6.0-8.3); Sodium 136 mmol/L (136-145)
[2018-12-07] MEDS ORDERED: Acetaminophen 500 MG TAB ONE (17:05)
[2018-12-07] MEDS ORDERED: ISOVUE-370 76%-LOCM 1 ML ONE (17:06)
[2018-12-07] MEDS ORDERED: Iopamidol 370 76% 50 ML VIAL FS ONE (17:06)
--- NOTE | 2018-12-07 17:54 | CT ---
CT Abdomen Pelvis W Con History: Abdominal fistula Comparison: CT abdomen pelvis October 27, 2018 Findings: Lung bases are clear. No pericardial effusion. Normal angle of the lap band. Liver is unremarkable. Portal vein is patent. Spleen is unremarkable. Normal proximal small bowel rot ation. Pancreas is unremarkable as well as the adrenal glands. No hydronephrosis. No retroperitoneal periaortic adenopathy. The lower midline abdominal wound contains enteric contrast is seen along the overlying bandage. Ther e is a loop of small bowel disease to the wound and likely the source of the contrast indicating an enterocutaneous fistula. There is also small focus of gas within the fistulous tract. No free intraperitoneal gas or fluid. Advanced degenerative changes of the lumbar spine. Impression: 1. 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 2. Exophytic renal hypodensity posterior cortex interpolar left kidney does measure fluid attenuation although some slightly heterogeneous. A nonemergent follow-up renal protocol CT or MRI in 6 months is recommended to evaluate for growth and enhancement characteristics.
[2018-12-07] MEDS ORDERED: Piperacillin/Tazobactam 4.5 GM VIAL ONE (19:09)
[2018-12-07] MEDS ORDERED: Dextrose 5% in Water 1,000 ML IV PRN (20:49)
[2018-12-07] MEDS ORDERED: Dextrose 50% Abboject 50 ML SYRINGE SLOW IVP PRN (20:49)
[2018-12-07 21:54] VITALS: BMI 35.2
[2018-12-07] MEDS: Famotidine/PF 20 mg/2ml Vial SLOW IVP SCH (22:23)
[2018-12-07] MEDS: Sodium Chloride 0.9% 1,000 ML IV SCH (22:24)
[2018-12-07] MEDS: Piperacillin/Tazobactam 3.375 GM in Sodium Chloride 0.9% 100 ML IVPB SCH (23:06)
[2018-12-07] MEDS: Nystatin Powder 15 GM BOT TOP SCH (23:06)
[2018-12-08] MEDS: Acetaminophen 325 MG TAB PO PRN ×2 (03:01→08:49)
[2018-12-08] MEDS: Piperacillin/Tazobactam 3.375 GM in Sodium Chloride 0.9% 100 ML IVPB SCH ×4 (05:30→23:42)
[2018-12-08] MEDS: Levothyroxine Sodium 25 MCG TAB PO SCH (05:31)
[2018-12-08] MEDS: Liothyronine Sodium 5 MCG TAB PO SCH (05:31)
[2018-12-08] MEDS: Levothyroxine Sodium 112 MCG TAB PO SCH (05:31)
[2018-12-08 06:29] LABS: #Eosinphils 0.3 thou/uL (0.0-0.7); #Lymphocytes 2.4 thou/uL (1.20-3.40); #Monocytes 0.5 thou/uL (0.11-0.59); #Neutrophils 4.3 thou/uL (1.40-6.50); %Basophils 0.2 % (0.0-1.0); %Eosinophils 4.6 % (0.0-10.0); %Lymphocytes 31.2 % (21.0-51.0); %Monocytes 6.5 % (0.0-10.0); %Neutrophils 57.4 % (42.0-75.0); Hemoglobin 10.2 g/dL (12.0-16.0); Mean Corpuscular HGB CONC 31.6 g/dL (32.0-36.0); Mean Corpuscular Volume 75.9 fL (78.0-98.0); Mean Platelet Volume 8.6 fL (7.4-10.4); Platelet Count 195 thou/uL (130-400); RBC Distribution Width 16.7 % (11.5-14.5); Red Blood Cell (RBC) Count 4.25 mill/uL (4.20-5.40); White Blood Cell (WBC) Count 7.5 thou/uL (4.8-10.8)
[2018-12-08 06:32] LABS: INR-International Normal Ratio 1.1; Prothrombin Time 13.7 SEC (12.0-14.7)
[2018-12-08 06:53] LABS: ALT (SGPT) 8 U/L (8-55); AST (SGOT) 13 U/L (5-34); Albumin 3.6 g/dL (3.4-4.8); Alkaline Phosphatase 144 U/L (40-150); Anion Gap 12 mmol/L (10-20); BUN (Urea Nitrogen) 13 mg/dL (9.8-20.1); Bilirubin, Total 0.4 mg/dL (0.2-1.2); Calc. Creatinine Clearance 123 mL/min (70-130); Calcium 9.2 mg/dL (7.8-10.44); Carbon Dioxide 24 mmol/L (23-31); Chloride 102 mmol/L (98-107); Estimated GFR-MDRD 78; Glucose 104 mg/dL (80-115); Potassium 4.2 mmol/L (3.5-5.1); Protein, Total 6.6 g/dL (6.0-8.3); Sodium 134 mmol/L (136-145)
--- NOTE | 2018-12-08 07:29 | HP ---
PRIMARY CARE PHYSICIAN: Dr. Pavel Astudillo. REASON FOR ADMISSION: Enterocutaneous fistula. HISTORY OF PRESENT ILLNESS: A 68-year-old female, who has complicated abdominal surgical history, back in July 2018, the patient had small bowel obstruction due to incarcerated incisional hernia, required surgery with exploratory laparotomy, lysis of adhesion and removal of portion of mesh as well as another incisional hernia was repaired and she had no other mesh which was removed at that time. After that surgery, the patient was relatively doing okay. She had another admission in our hospital in October 12, 2018. At that time, the patient required laparotomy, lysis of adhesion, removal of infected mesh, debridement was performed and wound VAC was applied. Subsequently, the patient was following wound care clinic. The patient started seeing Dr. Garcia and he recommended to remove wound VAC and the patient and family member were doing dressing as per wound care team recommendation. For the last 2 to 3 weeks, family member noticed that she had increased drainage. Initially, patient's family member thought that this could be normal as per wound care team told them, but today the patient had regular appointment with wound care clinic and the patient was having material drainage and it was suspected for enterocutaneous fistula. In September admission, they were trying to do CT scan to identify enterocutaneous fistula, but at that time, the patient did not have any enterocutaneous fistula as per October CAT scan. Today, in the emergency room patient had CT abdomen and pelvis and it is showing enterocutaneous fistula. The patient does not have any fever, chills. The patient has burning discomfort around the surgical site and wound site. The patient has increased erythema. The patient also had recently vaginal yeast infection after discharge from October admission. She denies any urinary tract infection symptoms, constipation, melena, hematochezia currently. Two weeks ago patient had followup visit with gynecologic doctor. At that time patient reported blood in stool and that is why patient was referred to [facility] where she had a stool study done. C. diff result is pending , but rest of the study came back negative. There was no full colonoscopy planned. PAST MEDICAL HISTORY: Morbid obesity; history of chronic anticoagulation, which was discontinued recently; history of paroxysmal atrial fibrillation; history of Watchman procedure; history of small-bowel obstruction that required surgery; history of incisional hernia repaired x2. PAST SURGICAL HISTORY: Laparoscopic adjustable band incisional hernia repair x2 by Dr. Alexander, open cholecystectomy in July 2018, laparotomy and removal of adhesion as well as removal of mesh in October 2018. Complex incisional hernia repair without mesh in October 2018. ALLERGY: Morphine. CURRENT HOME MEDICATION: 1. Vitamin C 500 mg daily. 2. Aspirin 81 mg daily. 3. Bisoprolol 5 mg daily. 4. Vitamin D3 3000 units p.o. daily. 5. Plavix 75 mg p.o. daily. 6. Tikosyn 500 mg twice daily. 7. Ferrous sulfate 2 tablets daily. 8. Lasix 20 mg daily. 9. Lantus insulin 46 units at bedtime. 10. Probiotics daily. 11. Synthroid 137 mcg 2 tablets daily. 12. Liothyronine 5 mcg p.o. daily. 13. Losartan 50 mg p.o. daily. 14. Magnesium oxide 400 mg p.o. daily. 15. Metformin 1000 mg twice daily. 16. Multivitamin one tablet p.o. daily. 17. Paxil 20 mg daily. 18. MiraLAX 17 g p.o. daily p.r.n. 19. Zocor 40 mg p.o. at bedtime. 20. Potassium chloride 20 mEq p.o. daily. PAST PSYCHIATRIC HISTORY: Anxiety and depression. FAMILY HISTORY: No strong family history of premature coronary artery disease, stroke, or cancer. SOCIAL HISTORY: The patient currently lives at home with family. No history of tobacco, alcohol, or illicit drug abuse. EMERGENCY ROOM COURSE: The patient has received Zosyn and Tylenol. REVIEW OF SYSTEM: All review of system reviewed and negative except as mentioned in HPI PHYSICAL EXAMINATION: VITAL SIGNS: Currently, blood pressure 106/70, pulse 93, respiratory rate 22, temperature 98.7 saturation 98% on room air, weight 105.6 kg. GENERAL: The patient is currently alert and oriented x3. No acute distress. HEENT: Head; normocephalic, atraumatic. Eyes; pupils round, reactive to light. Extraocular muscle intact. ENT; oropharynx within normal limits. Moist mucous membranes. No pharyngeal erythema. No exudate. No oral thrush. NECK: Supple. No JVD. No thyromegaly. No carotid bruit. LUNGS: Clear to auscultation without any rhonchi or rales. CARDIAC: S1, S2 appears regular without any significant murmur. No gallop. No rub. ABDOMEN: The patient has morbid obesity. The patient does have a midline laparotomy incision with 2 cm defect in superior portion, draining serous fluid with surrounding Arlene infection. EXTREMITIES: No edema. Good distal pulsation. NEUROLOGIC: Nonfocal examination. PSYCHIATRIC: Normal affect. SIGNIFICANT LABORATORY DATA: CT abdomen and pelvis done today showing enterocutaneous fistula, exophytic renal hypodensity, posterior cortex interpolar, left kidney. CBC: WBC 9.5, hemoglobin 11.2, MCV 75.9, platelet 212. Sodium 136, potassium 5.0, chloride 102, carbon dioxide 23, anion gap 16, BUN 15, creatinine 0.78, glucose 148, and calcium 10.2. LFT: AST 16, ALT 9, alkaline phosphatase 169, albumin 4.1. ASSESSMENT AND PLAN: 1. Enterocutaneous fistula. The patient has wound which is draining serous fluid and she has fistulous track. This is most likely consequence of previous surgeries for her hernia repair. The patient will require admission to the hospital. Dr. Garcia will be consulted. Wound Care Team will be consulted for wound care. This patient needs almost every hourly dressing. Wound care, we will defer to Wound Care Team. We will start empiric antibiotic therapy with Zosyn. The patient should be n.p.o. to heal enterocutaneous fistula and that is why we will perform peripherally inserted central catheter line tomorrow and start total parenteral nutrition as patient has yeast infection in abdominal wall and she is at high risk for fungus infection. Given total parenteral nutrition as well as chronic abdominal wound , she will benefit from antifungal therapy as well. While in the hospital, she will remain n.p.o. and during that period we will control electrolytes and diabetes. Surgical part, we will defer to surgeon. 2. Exophytic renal hypodensity seen on CT abdomen and pelvis. At this point this issue will be addressed again as an outpatient basis with renal mass protocol. 3. Diabetes type 2. The patient will be n.p.o. and that is why we will hold on long-acting insulin, but we will cover with insulin as per sliding scale. As the patient had contrast study so that is why we will hold on metformin therapy. 4. Hypertension. Currently blood pressure is on lower side and that is why we will hold on blood pressure medication. If blood pressure permits then we will resume losartan and bisoprolol and Lasix. 5. Hypothyroidism. Continue levothyroxine 137 mcg 2 tablets daily and liothyronine 5 mcg p.o. daily. 6. Paroxysmal atrial fibrillation. Currently the patient is on Plavix, which we will continue. The patient will also continue Tikosyn 500 mcg p.o. b.i.d. 7. Anxiety and depression. We will continue Paxil 20 mg p.o. daily. 8. Dyslipidemia. Continue Zocor 40 mg p.o. at bedtime. 9. Deep venous thrombosis prophylaxis. While in hospital we will continue Lovenox 40 mg subcutaneously daily. 10. Gastrointestinal prophylaxis. The patient will continue Pepcid 20 mg IV b.i.d. 11. Code status addressed with the patient. The patient is full code. The patient's daughter is surrogate decision maker. 12. While in hospital we will also send stool for Clostridium difficile. 13. Tinea infection of her jimi-abdominal wound. We will just treat locally with nystatin powder. Job ID: [id number] MTDD
[2018-12-08] MEDS: Bisoprolol Fumarate 5 MG TAB PO SCH (08:36)
[2018-12-08] MEDS: Ascorbic Acid 500 mg Chewable Tablet PO SCH (08:36)
[2018-12-08] MEDS: Ferrous Sulfate 325 MG TAB PO SCH (08:36)
[2018-12-08] MEDS: PARoxetine 20 MG TAB PO SCH (08:37)
[2018-12-08] MEDS: Aspirin 81 mg Enteric Coated Tablet PO SCH (08:37)
[2018-12-08] MEDS: Dofetilide 0.125 MG CAP PO SCH ×2 (08:37→19:55)
[2018-12-08] MEDS: Magnesium Oxide 400 MG TAB PO SCH (08:38)
[2018-12-08] MEDS: Nystatin Powder 15 GM BOT TOP SCH ×2 (08:39→19:56)
[2018-12-08] MEDS: Famotidine/PF 20 mg/2ml Vial SLOW IVP SCH ×2 (08:39→19:56)
[2018-12-08] MEDS: Enoxaparin Sodium 40 MG/0.4 ML SYRINGE SC SCH (08:39)
[2018-12-08] MEDS: Saccharomyces boulardii 250 MG CAP PO SCH (08:39)
[2018-12-08] MEDS: Potassium Chloride 20 MEQ TAB PO SCH (12:01)
[2018-12-08] MEDS: Sodium Chloride 0.9% 1,000 ML IV SCH ×3 (12:01→23:43)
--- NOTE | 2018-12-08 12:16 | SPC ---
Ultrasound and Fluoroscopic guided left upper extremity PICC placement HISTORY: Needs long-term IV access for TPN administration. FINDINGS: Informed consent obtained prior to the procedure. An appropriate access site was determined with ultrasound guidance. The area was then meticulously pr epped and draped in usual sterile fashion. Skin overlying the left basilic vein anesthetized with 1% buffered lidocaine. Utilizing direct sonogr aphic guidance, vascular access is obtained via the left basilic vein, and an 0.018in guidewire was advanced to the cavoatrial junction. Intravascular length is calculated at 44 cm, and the PICC is cut accordingly. Needle is removed and replaced with a peel-away sheath. The PICC was advanced over the wire. Wire and peel-away sheath were removed. The tip of the catheter overlies the cavoatrial junction. The catheter was accessed and aspirated/flushed easily. Exposure data: 0.1 minutes of fluoroscopic time 775 mGy square centimeter FINDINGS: Technically successful placement of a 44 centimeter dual-lumen 5 Mongolian left upper extremity PICC oxana lawson IMPRESSION: Successful ultrasound guided placement of a left upper extremity PICC.
--- NOTE | 2018-12-08 13:35 | CON ---
DATE OF CONSULTATION: 12/08/2018 CHIEF COMPLAINT: Fistula. HISTORY OF PRESENT ILLNESS: This is a 68-year-old female, who presents with enterocutaneous fistula. I had seen her last week in the office for second opinion on her chronic nonhealing wound. At that point, she had a tunnel on the inferior aspect of her wound. There was some old PDS suture at the base that I removed. She developed bleeding yesterday that led to more enteric contents. They called the office, were told to go to the emergency room. CT scan in the emergency room reveals obvious enterocutaneous fistula. The patient is hemodynamically stable. No signs of bacteremia or sepsis. She has no abdominal pain. She has severe skin discomfort from the drainage. PAST MEDICAL HISTORY: See previous H and P. PAST SURGICAL HISTORY: See previous H and P. PHYSICAL EXAMINATION: VITAL SIGNS: She is afebrile. Vital signs are stable. ABDOMEN: Soft, nontender, except in the area of the wound. There is severe redness and excoriated skin. There is an ostomy bag in place. There are enteric contents in the ostomy bag. IMAGING STUDIES: CT scan as above shows enterocutaneous fistula. ASSESSMENT: Enterocutaneous fistula. PLAN: Admit n.p.o., prolonged bowel rest with TPN. We will follow with you. We will have wound care see her to try to get an ostomy device to fit the enterocutaneous fistula to control the drainage better. Job ID: [id number]
--- NOTE | 2018-12-08 16:23 | PDOC.HOSPP ---
- Subjective Encounter Date: 12/08/18 Encounter Time: 16:15 Subjective: f/u for enterocutaneous fistula on current NPO status, wound care and s/p LUE PICC line placement for TPN. Feels ok overall. - Objective Vital Signs & Weight: Vital Signs (12 hours) Temp Pulse Resp BP Pulse Ox 12/08/18 12:25 97.8 F 73 18 100/63 100 12/08/18 08:00 97.9 F 72 16 102/64 93 L Weight Admit Weight 232 lb Weight 232 lb I&O: 12/07/18 12/08/18 12/09/18 06:59 06:59 06:59 Intake Total 900 Balance 900 Result Diagrams: 12/08/18 05:51 12/08/18 05:51 Additional Labs: Accuchecks 12/08/18 12/08/18 12/08/18 12:05 04:58 00:14 POC Glucose 115 H 114 H 102 Microbiology 12/08/18 01:10 Stool C. difficile GDH Antigen & Toxins - Final Laboratory Tests 12/07/18 12/07/18 16:04 16:04 Hgb 11.2 L Alkaline Phosphatase 169 H Radiology Reviewed by me: Yes (CT abd/pel - + enterocutaneous fistula) Hospitalist ROS - Medication Medications: Active Medications Generic Name Dose Route Start Last Admin Trade Name Freq PRN Reason Stop Dose Admin Acetaminophen 650 mg 12/07/18 20:49 12/08/18 08:49 Tylenol PO 650 mg Q4H PRN Administration Headache/Fever/Mild Pain (1-3) Ascorbic Acid 500 mg 12/08/18 09:00 12/08/18 08:36 Vitamin C PO 500 mg DAILY TRAVON Administration Aspirin 81 mg 12/08/18 09:00 12/08/18 08:37 Ecotrin PO 81 mg DAILY TRAVON Administration Bisoprolol Fumarate 5 mg 12/08/18 09:00 12/08/18 08:36 Zebeta PO 5 mg DAILY TRAVON Administration Cholecalciferol 3,000 units 12/08/18 09:00 12/08/18 08:37 Vitamin D3 PO 3,000 units DAILY TRAVON Administration Dofetilide 0.5 mg 12/08/18 09:00 12/08/18 08:37 Tikosyn PO 0.5 mg BID TRAVON Administration Enoxaparin Sodium 40 mg 12/08/18 09:00 12/08/18 08:39 Lovenox SC 40 mg 0900 TRAVON Administration Famotidine 20 mg 12/07/18 21:00 12/08/18 08:39 Pepcid SLOW IVP 20 mg Q12HR TRAVON Administration Ferrous Sulfate 650 mg 12/08/18 09:00 12/08/18 08:36 Feosol PO 650 mg DAILY TRAVON Administration Piperacillin Sod/Tazobactam 100 mls @ 200 mls/hr 12/07/18 23:59 12/08/18 12: 01 Sod 3.375 gm/ Sodium Chloride IVPB 100 mls Q6HR TRAVON Administration Sodium Chloride 1,000 mls @ 100 mls/hr 12/07/18 20:49 12/08/18 12:01 Normal Saline 0.9% IV 1,000 mls .Q10H TRAVON Administration Levothyroxine Sodium 224 mcg 12/08/18 06:00 12/08/18 05:31 Synthroid PO 224 mcg 0600 TRAVON Administration Levothyroxine Sodium 50 mcg 12/08/18 06:00 12/08/18 05:31 Synthroid PO 50 mcg 0600 TRAVON Administration Liothyronine Sodium 5 mcg 12/08/18 06:00 12/08/18 05:31 Cytomel PO 5 mcg 0600 TRAVON Administration Magnesium Oxide 400 mg 12/08/18 09:00 12/08/18 08:38 Magnesium Oxide PO 400 mg DAILY TRAVON Administration Nystatin 1 gm 12/07/18 21:00 12/08/18 08:39 Mycostatin Powder TOP 1 applic BID TRAVON Administration Paroxetine HCl 20 mg 12/08/18 09:00 12/08/18 08:37 Paxil PO 20 mg DAILY TRAVON Administration Potassium Chloride 20 meq 12/08/18 12:00 12/08/18 12:01 K-Dur PO 20 meq 1200 TRAVON Administration Saccharomyces Boulardii 250 mg 12/08/18 09:00 12/08/18 08:39 Florastor PO 250 mg DAILY TRAVON Administration - Exam General Appearance: NAD, awake alert Eye: PERRL, anicteric sclera ENT: normocephalic atraumatic, no oropharyngeal lesions Neck: supple, symmetric, no JVD, no thyromegaly, no lymphadenopathy Heart: RRR, no murmur, no gallops, no rubs, normal peripheral pulses Respiratory: CTAB, no wheezes, no rales, no ronchi, normal chest expansion Gastrointestinal: soft, non-distended, normal bowel sounds Gastrointestinal - other findings: obese, midline incision with superior defect , + ostomy in place Extremities: no cyanosis, no clubbing Skin: normal turgor Neurological: CN's grossly intact, no focal deficits, no new deficit Psychiatric: normal affect, normal behavior, A&O x 3 Hosp A/P (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 OF INTESTINE Status: Acute Plan: NPO, plan for TPN, local WCT and monitor drainage, Nystatin powder peripherally for edel (2) Diabetes type 2, controlled Code(s): E11.9 - TYPE 2 DIABETES MELLITUS WITHOUT COMPLICATIONS Status: Chronic Plan: ISS, serial accuchecks, Metformin, ADA (3) Microcytic anemia Code(s): D50.9 - IRON DEFICIENCY ANEMIA, UNSPECIFIED Status: Chronic Plan: Chronic, no active blood loss, Feosol 650mg daily (4) Hypothyroidism Code(s): E03.9 - HYPOTHYROIDISM, UNSPECIFIED Status: Chronic Plan: Levothyroxine 274mcg daily - Plan plan discussed w/ family, continue antibiotics, social service worker, out of bed/ ambulate Stable currently s/p LUE PICC line placement for TPN WCT for local care and ostomy mgmt Nystatin pwd topically Continue Zosyn AM lab: BMP, Mg++, PO3, H/H
[2018-12-08] MEDS ORDERED: Pharmacy to MANAGE TPN ELECTROLYTES IVPB PRN (19:44)
[2018-12-08] MEDS: Atorvastatin Calcium 20 MG TAB PO SCH (19:55)
[2018-12-08] MEDS: Amitriptyline HCl 25 MG TAB PO SCH (21:16)
[2018-12-09] MEDS: Levothyroxine Sodium 25 MCG TAB PO SCH (05:01)
[2018-12-09] MEDS: Piperacillin/Tazobactam 3.375 GM in Sodium Chloride 0.9% 100 ML IVPB SCH ×3 (05:01→17:35)
[2018-12-09] MEDS: Levothyroxine Sodium 112 MCG TAB PO SCH (05:01)
[2018-12-09] MEDS: Liothyronine Sodium 5 MCG TAB PO SCH (05:01)
[2018-12-09 05:16] LABS: Hemoglobin 10.3 g/dL (12.0-16.0); Platelet Count 204 thou/uL (130-400)
[2018-12-09 05:37] LABS: Anion Gap 13 mmol/L (10-20); BUN (Urea Nitrogen) 10 mg/dL (9.8-20.1); Calc. Creatinine Clearance 135 mL/min (70-130); Calcium 9.2 mg/dL (7.8-10.44); Carbon Dioxide 22 mmol/L (23-31); Chloride 104 mmol/L (98-107); Estimated GFR-MDRD 88; Glucose 107 mg/dL (80-115); Potassium 4.4 mmol/L (3.5-5.1); Sodium 135 mmol/L (136-145)
[2018-12-09] MEDS: Bisoprolol Fumarate 5 MG TAB PO SCH (08:31)
[2018-12-09] MEDS: Magnesium Oxide 400 MG TAB PO SCH (08:31)
[2018-12-09] MEDS: Ferrous Sulfate 325 MG TAB PO SCH (08:31)
[2018-12-09] MEDS: Ascorbic Acid 500 mg Chewable Tablet PO SCH (08:32)
[2018-12-09] MEDS: Dofetilide 0.125 MG CAP PO SCH ×2 (08:32→20:28)
[2018-12-09] MEDS: Saccharomyces boulardii 250 MG CAP PO SCH (08:32)
[2018-12-09] MEDS: Aspirin 81 mg Enteric Coated Tablet PO SCH (08:32)
[2018-12-09] MEDS: PARoxetine 20 MG TAB PO SCH (08:32)
[2018-12-09] MEDS: Enoxaparin Sodium 40 MG/0.4 ML SYRINGE SC SCH (08:33)
[2018-12-09] MEDS: Famotidine/PF 20 mg/2ml Vial SLOW IVP SCH ×2 (08:34→20:28)
[2018-12-09] MEDS: Nystatin Powder 15 GM BOT TOP SCH ×2 (08:38→20:28)
[2018-12-09] MEDS: Potassium Chloride 20 MEQ TAB PO SCH (12:16)
[2018-12-09] MEDS: Octreotide Acetate 100 MCG/ML VIAL SLOW IVP SCH ×2 (14:55→21:44)
[2018-12-09] MEDS: Multivitamins, Adult 10 ML, Multitrace-5 5 ML in D15W-AA 5% with Lytes 2,000 ML, Fat Em... IV SCH (14:56)
[2018-12-09] MEDS: Sodium Chloride 0.9% 1,000 ML IV SCH ×2 (15:07→22:19)
--- NOTE | 2018-12-09 16:02 | PDOC.GSPN ---
Surgery Progress Note: Subj - Subjective Narrative: Having leakage of the around the ostomy bag. She has no pain, nausea Surgery Progress Note: Obj - Vital signs Vital signs: Vital Signs - Most Recent Temp Pulse Resp BP Pulse Ox 98.6 F 66 20 132/67 96 12/09/18 08:00 12/09/18 08:00 12/09/18 08:00 12/09/18 08:00 12/09/18 08:00 - Physical Exam General: no distress Abdomen: soft, non tender, nondistended Wound: ostomy/colostomy (bag on the EC fistula site) Surgery Progress Note: Results - Labs Result Diagrams: 12/09/18 05:00 12/09/18 05:00 Lab results: Laboratory Results - last 24 hr 12/09/18 12/09/18 12/09/18 05:00 05:00 05:00 Hgb 10.3 L Hct 32.0 L Plt Count 204 Sodium 135 L Potassium 4.4 Chloride 104 Carbon Dioxide 22 L Anion Gap 13 BUN 10 Creatinine 0.67 Estimated GFR (MDRD) 88 Glucose 107 POC Glucose Calcium 9.2 Phosphorus 4.0 Magnesium 2.0 Triglycerides 211 H 12/09/18 12/09/18 05:13 11:14 Hgb Hct Plt Count Sodium Potassium Chloride Carbon Dioxide Anion Gap BUN Creatinine Estimated GFR (MDRD) Glucose POC Glucose 103 134 H Calcium Phosphorus Magnesium Triglycerides Surgery Progress Note: A/P - Problem (1) Enterocutaneous fistula Current Visit: Yes Code(s): K63.2 - FISTULA OF INTESTINE Status: Acute - Plan Plan: Treat with TPN, octreotide and bowel rest -I recommend waiting at least two weeks to re-assess and decide on any surgical procedure -She has mesh still in the wound. This chronic foreign body will probably prevent spontaneous closure. However, waiting for the surrounding inflammatory change to improve would improve outcome. -Will discuss with wound care. Wound vac may be better fistula control
--- NOTE | 2018-12-09 16:11 | PDOC.PALCO ---
Palliative Care Consult - Consult Details Requesting Physician: Dr Alfaro Reason for Consult: symptom management, advance directives assistance Family Members Present: none - Pertinent HPI Patient with extensive abdominal surgical/wound history who presented to her wound care appointment and it was identified that she was having material drainage and suspected for enterocutaneous fistula and was sent to the emergency room. Enterocutaneous fistula was confirmed and patient was admitted. Palliative care consult for assistance with advance directives and symptom management. Initial visit by Faisal Cooper RN with palliative care. - Pertinent PMH Morbid obesity, depression and anxiety, paroxysmal atrial fibrillation, watchman procedure, small bowel obstruction requiring surgery, incisional hernia repair x 2. - Social History Smoking Status: Never smoker Smoking: no tobacco exposure Alcohol Use: none Drug Use History: none Living Situation: with family/parents (lives with family) - Medications MAR Reviewed: Yes - Allergies Allergies/Adverse Reactions: Allergies Allergy/AdvReac Type Severity Reaction Status Date / Time morphine Allergy Verified 12/07/18 21:33 piroxicam Allergy Verified 12/07/18 21:33 - Subjective States "I feel better today" continues with depression and mild weakness ROS: 10 point review negative as per patient with the exception of above. - Objective Vital Signs: Vital Signs - Most Recent Temp Pulse Resp BP Pulse Ox 98.6 F 66 20 132/67 96 12/09/18 08:00 12/09/18 08:00 12/09/18 08:00 12/09/18 08:00 12/09/18 08:00 Palliative Performance Scale: 50 - Physical Exam Constitutional: NAD HEENT: PERRLA, moist MMs, sclera anicteric Respiratory: unlabored breathing Cardiovascular: RRR, no significant murmur Psychiatric: A&O x 3 Deviation from normal: States depression is mild - Problem List (1) Palliative care encounter Code(s): Z51.5 - ENCOUNTER FOR PALLIATIVE CARE Current Visit: Yes Status: Acute (2) Anxiety and depression Code(s): F41.9 - ANXIETY DISORDER, UNSPECIFIED; F32.9 - MAJOR DEPRESSIVE DISORDER, SINGLE EPISODE, UNSPECIFIED Current Visit: No Status: Chronic (3) Morbid obesity with BMI of 40.0-44.9, adult Code(s): E66.01 - MORBID (SEVERE) OBESITY DUE TO EXCESS CALORIES; Z68.41 - BODY MASS INDEX (BMI) 40.0-44.9, ADULT Current Visit: No Status: Chronic - Plan/Recommendations Plan: *Increase Paxil *Communicate to Dr Lucas Astudillo office as he is her primary care and additional antidepressant may be indicated in the future. *Patient requested follow up visit with Palliative Care to discuss discharge and placement options. Will communicate to Faisal Cooper and Team, also communicated to CM on unit. [60] minutes spent on this encounter with >50% of the time in counseling and coordination of care. Thank you for this very appropriate consult.
--- NOTE | 2018-12-09 16:55 | PDOC.HOSPP ---
- Subjective Encounter Date: 12/09/18 Encounter Time: 16:45 Subjective: f/u for enterocutaneous fistula receiving TPN, bowel rest, Octreotide and Zosyn. Feels ok overall. - Objective Vital Signs & Weight: Vital Signs (12 hours) Temp Pulse Resp BP BP Pulse Ox 12/09/18 16:00 98.4 F 103 H 19 181/99 H 12/09/18 08:00 98.6 F 66 20 132/67 96 Weight Admit Weight 232 lb Weight 232 lb I&O: 12/08/18 12/09/18 12/10/18 06:59 06:59 06:59 Intake Total 900 Balance 900 Result Diagrams: 12/09/18 05:00 12/09/18 05:00 Additional Labs: Accuchecks 12/09/18 12/09/18 12/09/18 16:17 11:14 05:13 POC Glucose 146 H 134 H 103 12/09/18 12/08/18 12/08/18 00:29 19:21 16:46 POC Glucose 108 112 H 119 H Microbiology 12/08/18 01:10 Stool C. difficile GDH Antigen & Toxins - Final Laboratory Tests 12/07/18 12/07/18 12/09/18 16:04 16:04 05:00 Hgb 11.2 L Phosphorus 4.0 Magnesium 2.0 Alkaline Phosphatase 169 H Triglycerides 12/09/18 05:00 Hgb Phosphorus Magnesium Alkaline Phosphatase Triglycerides 211 H Hospitalist ROS - Medication Medications: Active Medications Generic Name Dose Route Start Last Admin Trade Name Freq PRN Reason Stop Dose Admin Acetaminophen 650 mg 12/07/18 20:49 12/08/18 08:49 Tylenol PO 650 mg Q4H PRN Administration Headache/Fever/Mild Pain (1-3) Amitriptyline HCl 25 mg 12/08/18 21:00 12/08/18 21:16 Elavil PO 25 mg HS TRAVON Administration Ascorbic Acid 500 mg 12/08/18 09:00 12/09/18 08:32 Vitamin C PO 500 mg DAILY TRAVON Administration Aspirin 81 mg 12/08/18 09:00 12/09/18 08:32 Ecotrin PO 81 mg DAILY TRAVON Administration Atorvastatin Calcium 20 mg 12/08/18 21:00 12/08/18 19:55 Lipitor PO 20 mg HS TRAVON Administration Bisoprolol Fumarate 5 mg 12/08/18 09:00 12/09/18 08:31 Zebeta PO 5 mg DAILY TRAVON Administration Cholecalciferol 3,000 units 12/08/18 09:00 12/09/18 08:32 Vitamin D3 PO 3,000 units DAILY TRAVON Administration Dofetilide 0.5 mg 12/08/18 09:00 12/09/18 08:32 Tikosyn PO 0.5 mg BID TRAVON Administration Enoxaparin Sodium 40 mg 12/08/18 09:00 12/09/18 08:33 Lovenox SC 40 mg 0900 TRAVON Administration Famotidine 20 mg 12/07/18 21:00 12/09/18 08:34 Pepcid SLOW IVP 20 mg Q12HR TRAVON Administration Ferrous Sulfate 650 mg 12/08/18 09:00 12/09/18 08:31 Feosol PO 650 mg DAILY TRAVON Administration Piperacillin Sod/Tazobactam 100 mls @ 200 mls/hr 12/07/18 23:59 12/09/18 12: 15 Sod 3.375 gm/ Sodium Chloride IVPB 100 mls Q6HR TRAVON Administration Sodium Chloride 1,000 mls @ 100 mls/hr 12/07/18 20:49 12/09/18 15:07 Normal Saline 0.9% IV 1,000 mls .Q10H TRAVON Administration Multivitamins 10 ml/ Chromium/ 2,265 mls @ 94.375 mls/hr 12/09/18 14:00 12/09 14:56 Copper/Manganese/Seleni/Zn 5 IV 2,265 mls ml/ Amino Acids/Electrolytes/ 1400 TRAVON Administration Fat Emulsion Intravenous Levothyroxine Sodium 224 mcg 12/08/18 06:00 12/09/18 05:01 Synthroid PO 224 mcg 0600 TRAVON Administration Levothyroxine Sodium 50 mcg 12/08/18 06:00 12/09/18 05:01 Synthroid PO 50 mcg 0600 TRAVON Administration Liothyronine Sodium 5 mcg 12/08/18 06:00 12/09/18 05:01 Cytomel PO 5 mcg 0600 TRAVON Administration Magnesium Oxide 400 mg 12/08/18 09:00 12/09/18 08:31 Magnesium Oxide PO 400 mg DAILY TRAVON Administration Nystatin 1 gm 12/07/18 21:00 12/09/18 08:38 Mycostatin Powder TOP 1 applic BID TRAVON Administration Octreotide Acetate 100 mcg 12/09/18 15:00 12/09/18 14:55 Sandostatin SLOW IVP 100 mcg TID TRAVON Administration Potassium Chloride 20 meq 12/08/18 12:00 12/09/18 12:16 K-Dur PO 20 meq 1200 TRAVON Administration Saccharomyces Sarinadii 250 mg 12/08/18 09:00 12/09/18 08:32 Florastor PO 250 mg DAILY TRAVON Administration - Exam General Appearance: NAD, awake alert Eye: PERRL, anicteric sclera ENT: normocephalic atraumatic, no oropharyngeal lesions Neck: supple, symmetric, no JVD, no thyromegaly Heart: RRR, no murmur, no gallops, no rubs, normal peripheral pulses Respiratory: CTAB, no rales, no ronchi, normal chest expansion, no tachypnea Gastrointestinal: soft, normal bowel sounds Gastrointestinal - other findings: midline surgical wound with superior defect, +ostomy bag in place Extremities: no cyanosis, no clubbing, no edema Skin: normal turgor Neurological: CN's grossly intact, no focal deficits, no new deficit Musculoskeletal: normal tone, normal strength Psychiatric: normal affect, normal behavior, A&O x 3 Hosp A/P (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 OF INTESTINE Status: Acute Plan: Continue NPO, TPN, Octreotide and consider wound vac application (2) Acute metabolic encephalopathy Code(s): G93.41 - METABOLIC ENCEPHALOPATHY Status: Acute Plan: Suspect delirium multifactorial given presentation and co-morbid status, re- orientation techniques, limit psychotropes and pain meds (3) Diabetes type 2, controlled Code(s): E11.9 - TYPE 2 DIABETES MELLITUS WITHOUT COMPLICATIONS Status: Chronic Plan: Continue Lantus 46u daily, ISS, serial accuchecks (4) Microcytic anemia Code(s): D50.9 - IRON DEFICIENCY ANEMIA, UNSPECIFIED Status: Chronic Plan: Continue Feosol 650mg daily (5) Hypothyroidism Code(s): E03.9 - HYPOTHYROIDISM, UNSPECIFIED Status: Chronic - Plan plan discussed w/ family, continue antibiotics, PT/OT, 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
[2018-12-09] MEDS: metFORMIN 500 MG TAB PO SCH (17:35)
[2018-12-09] MEDS: Atorvastatin Calcium 20 MG TAB PO SCH (20:28)
[2018-12-09] MEDS: Amitriptyline HCl 25 MG TAB PO SCH (20:28)
[2018-12-09] MEDS ORDERED: INSULIN GLARGINE HUM REC ANLOG 46 UNIT SC SCH (21:00)
[2018-12-09] MEDS: PRE FILLED SC SCH (21:43)
[2018-12-09] MEDS: INSULIN GLARGINE SC SCH (21:43)
[2018-12-09] MEDS: HumaLOG 300 UNITS/3 ML VIAL SC PRN (21:43)
[2018-12-10] MEDS: Piperacillin/Tazobactam 3.375 GM in Sodium Chloride 0.9% 100 ML IVPB SCH ×4 (00:31→18:02)
[2018-12-10] MEDS: HumaLOG 300 UNITS/3 ML VIAL SC PRN ×3 (01:00→16:15)
[2018-12-10] MEDS: Levothyroxine Sodium 112 MCG TAB PO SCH (05:28)
[2018-12-10] MEDS: Liothyronine Sodium 5 MCG TAB PO SCH (05:28)
[2018-12-10] MEDS: Levothyroxine Sodium 25 MCG TAB PO SCH (05:28)
[2018-12-10 05:44] LABS: Band 2 % (5-11); Eosinophils 10 % (0-10); Hemoglobin 9.4 g/dL (12.0-16.0); Lymphocytes 26 % (21-51); MDiff Complete? YES; Mean Corpuscular HGB CONC 31.2 g/dL (32.0-36.0); Mean Corpuscular Hemoglobin 23.5 pg (27.0-31.0); Mean Corpuscular Volume 75.3 fL (78.0-98.0); Mean Platelet Volume 8.4 fL (7.4-10.4); Monocytes 4 % (0-10); Neutrophil 58 % (42-75); Platelet Count 177 thou/uL (130-400); Platelet Morphology Comment Appears Adequate; RBC Distribution Width 16.4 % (11.5-14.5); Red Blood Cell (RBC) Count 3.99 mill/uL (4.20-5.40); White Blood Cell (WBC) Count 6.8 thou/uL (4.8-10.8)
[2018-12-10 05:57] LABS: Anion Gap 9 mmol/L (10-20); BUN (Urea Nitrogen) 15 mg/dL (9.8-20.1); Calc. Creatinine Clearance 128 mL/min (70-130); Carbon Dioxide 23 mmol/L (23-31); Chloride 104 mmol/L (98-107); Estimated GFR-MDRD 82; Glucose 265 mg/dL (80-115); Magnesium 1.9 mg/dL (1.6-2.6); Potassium 4.4 mmol/L (3.5-5.1); Sodium 132 mmol/L (136-145)
[2018-12-10] MEDS: Saccharomyces boulardii 250 MG CAP PO SCH (08:50)
[2018-12-10] MEDS: metFORMIN 500 MG TAB PO SCH ×2 (08:50→16:01)
[2018-12-10] MEDS: Ferrous Sulfate 325 MG TAB PO SCH (08:50)
[2018-12-10] MEDS: Magnesium Oxide 400 MG TAB PO SCH (08:50)
[2018-12-10] MEDS: PARoxetine 20 MG TAB PO SCH (08:52)
[2018-12-10] MEDS: Aspirin 81 mg Enteric Coated Tablet PO SCH (08:53)
[2018-12-10] MEDS: Losartan 25 MG TAB PO SCH (08:53)
[2018-12-10] MEDS: Dofetilide 0.125 MG CAP PO SCH ×2 (08:53→20:50)
[2018-12-10] MEDS: Clopidogrel Bisulfate 75 MG TAB PO SCH (08:53)
[2018-12-10] MEDS: Bisoprolol Fumarate 5 MG TAB PO SCH (08:53)
[2018-12-10] MEDS: Ascorbic Acid 500 mg Chewable Tablet PO SCH (08:53)
[2018-12-10] MEDS: Sodium Chloride 0.9% 1,000 ML IV SCH (08:53)
[2018-12-10] MEDS: Enoxaparin Sodium 40 MG/0.4 ML SYRINGE SC SCH (08:54)
[2018-12-10] MEDS: Famotidine/PF 20 mg/2ml Vial SLOW IVP SCH ×2 (08:54→20:50)
[2018-12-10] MEDS: Nystatin Powder 15 GM BOT TOP SCH ×2 (08:55→20:54)
[2018-12-10] MEDS: Octreotide Acetate 100 MCG/ML VIAL SLOW IVP SCH ×3 (09:38→20:50)
[2018-12-10] MEDS: Lactinex Tablet PO SCH (11:46)
[2018-12-10] MEDS: Potassium Chloride 20 MEQ TAB PO SCH (11:47)
[2018-12-10] MEDS ORDERED: (Krill Oil [Krill Oil] 500 MG) PO SCH (12:00)
--- NOTE | 2018-12-10 12:25 | PDOC.HOSPP ---
- Subjective Encounter Date: 12/10/18 Encounter Time: 12:15 Subjective: f/u for enterocutaneous fistula on current NPO, Zosyn and wound vac application. Ambulated in halls today. No fever. Less confusion. - Objective Vital Signs & Weight: Vital Signs (12 hours) Temp Pulse Resp BP Pulse Ox 12/10/18 08:00 96 12/10/18 07:18 98.0 F 85 20 132/81 96 Weight Admit Weight 232 lb Weight 232 lb I&O: 12/09/18 12/10/18 12/11/18 06:59 06:59 06:59 Intake Total 1420 4172 Output Total 400 500 Balance 1020 3672 Result Diagrams: 12/10/18 05:15 12/10/18 05:15 Additional Labs: Accuchecks 12/10/18 12/10/18 12/09/18 05:20 00:12 20:35 POC Glucose 265 H 270 H 244 H 12/09/18 16:17 POC Glucose 146 H Microbiology 12/08/18 01:10 Stool C. difficile GDH Antigen & Toxins - Final Laboratory Tests 12/07/18 12/07/18 12/09/18 16:04 16:04 05:00 Hgb 11.2 L Phosphorus 4.0 Magnesium 2.0 Alkaline Phosphatase 169 H Triglycerides 12/09/18 05:00 Hgb Phosphorus Magnesium Alkaline Phosphatase Triglycerides 211 H Hospitalist ROS - Medication Medications: Active Medications Generic Name Dose Route Start Last Admin Trade Name Freq PRN Reason Stop Dose Admin Acetaminophen 650 mg 12/07/18 20:49 12/08/18 08:49 Tylenol PO 650 mg Q4H PRN Administration Headache/Fever/Mild Pain (1-3) Acidophilus 1 tab 12/10/18 12:00 12/10/18 11:46 Floranex PO 1 tab 1200 TRAVON Administration Amitriptyline HCl 25 mg 12/08/18 21:00 12/09/18 20:28 Elavil PO 25 mg HS TRAVON Administration Ascorbic Acid 500 mg 12/08/18 09:00 12/10/18 08:53 Vitamin C PO 500 mg DAILY TRAVON Administration Aspirin 81 mg 12/08/18 09:00 12/10/18 08:53 Ecotrin PO 81 mg DAILY TRAVON Administration Atorvastatin Calcium 20 mg 12/08/18 21:00 12/09/18 20:28 Lipitor PO 20 mg HS TRAVON Administration Bisoprolol Fumarate 5 mg 12/08/18 09:00 12/10/18 08:53 Zebeta PO 5 mg DAILY TRAVON Administration Cholecalciferol 3,000 units 12/08/18 09:00 12/10/18 08:51 Vitamin D3 PO 3,000 units DAILY TRAVON Administration Clopidogrel Bisulfate 75 mg 12/10/18 09:00 12/10/18 08:53 Plavix PO 75 mg 0900 TRAVON Administration Dofetilide 0.5 mg 12/08/18 09:00 12/10/18 08:53 Tikosyn PO 0.5 mg BID TRAVON Administration Enoxaparin Sodium 40 mg 12/08/18 09:00 12/10/18 08:54 Lovenox SC 40 mg 0900 [facility] Administration Famotidine 20 mg 12/07/18 21:00 12/10/18 08:54 Pepcid SLOW IVP 20 mg Q12HR TRAVON Administration Ferrous Sulfate 650 mg 12/08/18 09:00 12/10/18 08:50 Feosol PO 650 mg DAILY TRAVON Administration Piperacillin Sod/Tazobactam 100 mls @ 200 mls/hr 12/07/18 23:59 12/10/18 11: 47 Sod 3.375 gm/ Sodium Chloride IVPB 100 mls Q6HR TRAVON Administration Sodium Chloride 1,000 mls @ 50 mls/hr 12/07/18 20:49 12/10/18 08:53 Normal Saline 0.9% IV Not Given .Q20H [facility] Multivitamins 10 ml/ Chromium/ 2,265 mls @ 94.375 mls/hr 12/09/18 14:00 12/09 14:56 Copper/Manganese/Seleni/Zn 5 IV 2,265 mls ml/ Amino Acids/Electrolytes/ 1400 TRAVON Administration Fat Emulsion Intravenous Insulin Glargine 46 units/ 0.46 mls @ 0 mls/hr 12/09/18 21:00 12/09/18 21:43 Miscellaneous Medication SC 0.46 mls HS TRAVON Administration Insulin Human Lispro 0 units 12/07/18 20:49 12/10/18 05:28 Humalog SC 6 unit .MODERATE SLIDING SC PRN Administration Moderate Correctional Scale Insulin Human Lispro 0 units 12/07/18 20:49 12/10/18 01:00 Humalog SC 3 unit .BEDTIME SLIDING SC PRN Administration Bedtime Correctional Scale Levothyroxine Sodium 224 mcg 12/08/18 06:00 12/10/18 05:28 Synthroid PO 224 mcg 0600 TRAVON Administration Levothyroxine Sodium 50 mcg 12/08/18 06:00 12/10/18 05:28 Synthroid PO 50 mcg 0600 TRAVON Administration Liothyronine Sodium 5 mcg 12/08/18 06:00 12/10/18 05:28 Cytomel PO 5 mcg 0600 TRAVON Administration Losartan Potassium 50 mg 12/10/18 09:00 12/10/18 08:53 Cozaar PO 50 mg 0900 TRAVON Administration Magnesium Oxide 400 mg 12/08/18 09:00 12/10/18 08:50 Magnesium Oxide PO 400 mg DAILY TRAVON Administration Metformin HCl 1,000 mg 12/09/18 17:00 12/10/18 08:50 Glucophage PO 1,000 mg BID-WM TRAVON Administration Nystatin 1 gm 12/07/18 21:00 12/10/18 08:55 Mycostatin Powder TOP 1 applic BID TRAVON Administration Octreotide Acetate 100 mcg 12/09/18 15:00 12/10/18 09:38 Sandostatin SLOW IVP 100 mcg TID TRAVON Administration Paroxetine HCl 30 mg 12/10/18 09:00 12/10/18 08:52 Paxil PO 30 mg DAILY TRAVON Administration Potassium Chloride 20 meq 12/08/18 12:00 12/10/18 11:47 K-Dur PO 20 meq 1200 TRAVON Administration Saccharomyces Boulardii 250 mg 12/08/18 09:00 12/10/18 08:50 Florastor PO 250 mg DAILY TRAVON Administration - Exam General Appearance: NAD, awake alert Eye: PERRL, anicteric sclera ENT: normocephalic atraumatic, no oropharyngeal lesions Neck: supple, symmetric, no JVD, no thyromegaly, no lymphadenopathy Heart: RRR, no murmur, no gallops, no rubs, normal peripheral pulses Respiratory: CTAB, no wheezes, no rales, no ronchi Gastrointestinal: soft, non-distended, normal bowel sounds Gastrointestinal - other findings: wound vac in place Extremities: no cyanosis, no clubbing, no edema Skin: normal turgor Neurological: CN's grossly intact, no focal deficits, no new deficit Musculoskeletal: normal tone Psychiatric: normal affect, A&O x 3 Hosp A/P (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 OF INTESTINE Status: Acute Plan: Continue Wound vac, Zosyn, Octreotide, NPO, TPN and WCT, may need surgical intervention for definitive closure (2) Acute metabolic encephalopathy Code(s): G93.41 - METABOLIC ENCEPHALOPATHY Status: Acute Plan: Mild, improved, serial monitoring (3) Diabetes type 2, controlled Code(s): E11.9 - TYPE 2 DIABETES MELLITUS WITHOUT COMPLICATIONS Status: Chronic (4) Microcytic anemia Code(s): D50.9 - IRON DEFICIENCY ANEMIA, UNSPECIFIED Status: Chronic (5) Hypothyroidism Code(s): E03.9 - HYPOTHYROIDISM, UNSPECIFIED Status: Chronic - Plan plan discussed w/ family, continue antibiotics, 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
[2018-12-10] MEDS ORDERED: Lidocaine 1% w/Epinephrine 1:100K 20 ML VIAL ONE (12:47)
--- NOTE | 2018-12-10 13:24 | PDOC.GSPN ---
Surgery Progress Note: Subj - Subjective Narrative: Wound vac placed this am. Already leaking. No pain Surgery Progress Note: Obj - Vital signs Vital signs: Vital Signs - Most Recent Temp Pulse Resp BP Pulse Ox 98.0 F 85 20 132/81 96 12/10/18 07:18 12/10/18 07:18 12/10/18 07:18 12/10/18 07:18 12/10/18 08:00 - Physical Exam General: no distress Abdomen: soft, appropriately tender Wound: other (the fistula tract is opened up after injection of lidocaine. The underlying pocket is unroofed.) Surgery Progress Note: Results - Labs Result Diagrams: 12/10/18 05:15 12/10/18 05:15 Lab results: Laboratory Results - last 24 hr 12/10/18 12/10/18 12/10/18 05:15 05:15 05:20 WBC 6.8 RBC 3.99 L Hgb 9.4 L Hct 30.0 L MCV 75.3 L MCH 23.5 L MCHC 31.2 L RDW 16.4 H Plt Count 177 MPV 8.4 Neutrophils % (Manual) 58 Band Neuts % (Manual) 2 L Lymphocytes % (Manual) 26 Monocytes % (Manual) 4 Eosinophils % (Manual) 10 Plt Morphology Comment Appears Adequate Sodium 132 L Potassium 4.4 Chloride 104 Carbon Dioxide 23 Anion Gap 9 L BUN 15 Creatinine 0.71 Estimated GFR (MDRD) 82 Glucose 265 H POC Glucose 265 H Calcium 9.0 Phosphorus 3.0 Magnesium 1.9 12/10/18 11:47 WBC RBC Hgb Hct MCV MCH MCHC RDW Plt Count MPV Neutrophils % (Manual) Band Neuts % (Manual) Lymphocytes % (Manual) Monocytes % (Manual) Eosinophils % (Manual) Plt Morphology Comment Sodium Potassium Chloride Carbon Dioxide Anion Gap BUN Creatinine Estimated GFR (MDRD) Glucose POC Glucose 195 H Calcium Phosphorus Magnesium Surgery Progress Note: A/P - Problem (1) Enterocutaneous fistula Current Visit: Yes Code(s): K63.2 - FISTULA OF INTESTINE Status: Acute - Plan Plan: EC fistula on octreotide, tpn, npp -Hopefully being able to pack wound with more sponge will allow for better fistula drainage control. -2 weeks npo/tpn and re-assess
[2018-12-10] MEDS: Multivitamins, Adult 10 ML, Multitrace-5 5 ML in D15W-AA 5% with Lytes 2,000 ML, Fat Em... IV SCH (14:43)
[2018-12-10] MEDS: Atorvastatin Calcium 20 MG TAB PO SCH (20:49)
[2018-12-10] MEDS: Amitriptyline HCl 25 MG TAB PO SCH (20:50)
[2018-12-10] MEDS: PRE FILLED SC SCH (20:55)
[2018-12-10] MEDS: INSULIN GLARGINE SC SCH (20:55)
[2018-12-11] MEDS: Piperacillin/Tazobactam 3.375 GM in Sodium Chloride 0.9% 100 ML IVPB SCH ×4 (00:52→17:42)
[2018-12-11] MEDS: HumaLOG 300 UNITS/3 ML VIAL SC PRN ×3 (00:52→12:10)
[2018-12-11] MEDS: Sodium Chloride 0.9% 1,000 ML IV SCH ×2 (05:31→23:00)
[2018-12-11] MEDS: Levothyroxine Sodium 25 MCG TAB PO SCH (05:32)
[2018-12-11] MEDS: Liothyronine Sodium 5 MCG TAB PO SCH (05:32)
[2018-12-11] MEDS: Levothyroxine Sodium 112 MCG TAB PO SCH (05:32)
[2018-12-11 06:19] LABS: Anion Gap 12 mmol/L (10-20); BUN (Urea Nitrogen) 16 mg/dL (9.8-20.1); Calc. Creatinine Clearance 142 mL/min (70-130); Calcium 8.7 mg/dL (7.8-10.44); Carbon Dioxide 20 mmol/L (23-31); Chloride 106 mmol/L (98-107); Estimated GFR-MDRD Greater than 90; Glucose 179 mg/dL (80-115); Magnesium 1.8 mg/dL (1.6-2.6); Potassium 4.2 mmol/L (3.5-5.1); Sodium 134 mmol/L (136-145)
--- NOTE | 2018-12-11 07:51 | PDOC.GSPN ---
Surgery Progress Note: Subj - Subjective Narrative: She has no complaints. The wound vac seems to be holding. Surgery Progress Note: Obj - Vital signs Vital signs: Vital Signs - Most Recent Temp Pulse Resp BP Pulse Ox 98.6 F 82 17 139/83 98 12/11/18 07:05 12/11/18 07:05 12/11/18 07:05 12/11/18 07:05 12/11/18 07:05 - Physical Exam General: no distress Abdomen: soft, appropriately tender Wound: wound vac (There is blood under the dressing) Surgery Progress Note: Results - Labs Result Diagrams: 12/10/18 05:15 12/11/18 05:40 Lab results: Laboratory Results - last 24 hr 12/10/18 12/10/18 12/11/18 19:18 23:53 05:40 Sodium 134 L Potassium 4.2 Chloride 106 Carbon Dioxide 20 L Anion Gap 12 BUN 16 Creatinine 0.64 Estimated GFR (MDRD) Greater than 90 Glucose 179 H POC Glucose 235 H 235 H Calcium 8.7 Phosphorus 3.0 Magnesium 1.8 12/11/18 05:42 Sodium Potassium Chloride Carbon Dioxide Anion Gap BUN Creatinine Estimated GFR (MDRD) Glucose POC Glucose 199 H Calcium Phosphorus Magnesium Surgery Progress Note: A/P - Problem (1) Enterocutaneous fistula Current Visit: Yes Code(s): K63.2 - FISTULA OF INTESTINE Status: Acute - Plan Plan: EC fistula on octreotide, tpn, npp -Hopefully being able to pack wound with more sponge will allow for better fistula drainage control. -2 weeks npo/tpn and re-assess -Dr. Uribe covering this weekend prn
[2018-12-11] MEDS: Losartan 25 MG TAB PO SCH (09:43)
[2018-12-11] MEDS: metFORMIN 500 MG TAB PO SCH ×2 (09:43→17:42)
[2018-12-11] MEDS: Magnesium Oxide 400 MG TAB PO SCH (09:43)
[2018-12-11] MEDS: Ascorbic Acid 500 mg Chewable Tablet PO SCH (09:43)
[2018-12-11] MEDS: Ferrous Sulfate 325 MG TAB PO SCH (09:44)
[2018-12-11 09:45] LABS: Hemoglobin 9.1 g/dL (12.0-16.0); Mean Corpuscular HGB CONC 30.7 g/dL (32.0-36.0); Mean Corpuscular Hemoglobin 23.3 pg (27.0-31.0); Mean Corpuscular Volume 75.9 fL (78.0-98.0); Mean Platelet Volume 8.8 fL (7.4-10.4); Platelet Count 182 thou/uL (130-400); RBC Distribution Width 16.3 % (11.5-14.5); White Blood Cell (WBC) Count 6.3 thou/uL (4.8-10.8)
[2018-12-11] MEDS: Bisoprolol Fumarate 5 MG TAB PO SCH (09:45)
[2018-12-11] MEDS: Saccharomyces boulardii 250 MG CAP PO SCH (09:45)
[2018-12-11] MEDS: PARoxetine 20 MG TAB PO SCH (09:45)
[2018-12-11] MEDS: Octreotide Acetate 100 MCG/ML VIAL SLOW IVP SCH ×3 (09:47→20:06)
[2018-12-11] MEDS: Dofetilide 0.125 MG CAP PO SCH ×2 (09:47→20:05)
[2018-12-11] MEDS: Famotidine/PF 20 mg/2ml Vial SLOW IVP SCH ×2 (09:47→20:06)
[2018-12-11] MEDS: Enoxaparin Sodium 40 MG/0.4 ML SYRINGE SC SCH (09:48)
[2018-12-11] MEDS: Nystatin Powder 15 GM BOT TOP SCH ×2 (09:48→20:06)
[2018-12-11] MEDS: Aspirin 81 mg Enteric Coated Tablet PO SCH (09:49)
[2018-12-11] MEDS: Clopidogrel Bisulfate 75 MG TAB PO SCH (09:49)
[2018-12-11 11:02] LABS: Eosinophils 13 % (0-10); Hypochromia SLIGHT = 6-15 cells (100X) (0-5/hpf); Lymphocytes 32 % (21-51); MDiff Complete? YES; Microcytosis SLIGHT = 6-15 cells (100X) (0-5/hpf); Monocytes 7 % (0-10); Neutrophil 48 % (42-75); Platelet Morphology Comment Appears Adequate; Polychromasia SLIGHT = 2-3 cells (100X) (0-2/hpf)
[2018-12-11] MEDS: Potassium Chloride 20 MEQ TAB PO SCH (11:59)
[2018-12-11] MEDS: Lactinex Tablet PO SCH (11:59)
--- NOTE | 2018-12-11 14:31 | PDOC.HOSPP ---
- Subjective Encounter Date: 12/11/18 Encounter Time: 14:30 Subjective: f/u for EC fistula on TPN, wound vac, Octreotide and NPO. No new complaints. Ambulated in halls. - Objective Vital Signs & Weight: Vital Signs (12 hours) Temp Pulse Resp BP Pulse Ox 12/11/18 10:00 98 12/11/18 07:05 98.6 F 82 17 139/83 98 Weight Admit Weight 232 lb Weight 232 lb I&O: 12/10/18 12/11/18 12/12/18 06:59 06:59 06:59 Intake Total 4172 6525 Output Total 500 Balance 3672 6525 Result Diagrams: 12/11/18 05:40 12/11/18 05:40 Additional Labs: Accuchecks 12/11/18 12/11/18 12/10/18 11:24 05:42 23:53 POC Glucose 226 H 199 H 235 H 12/10/18 12/10/18 19:18 16:16 POC Glucose 235 H 245 H Microbiology 12/08/18 01:10 Stool C. difficile GDH Antigen & Toxins - Final Laboratory Tests 12/07/18 12/07/18 12/09/18 16:04 16:04 05:00 Hgb 11.2 L Phosphorus 4.0 Magnesium 2.0 Alkaline Phosphatase 169 H Triglycerides 12/09/18 12/09/18 12/10/18 05:00 05:00 05:15 Hgb 10.3 L 9.4 L Phosphorus Magnesium Alkaline Phosphatase Triglycerides 211 H Hospitalist ROS - Medication Medications: Active Medications Generic Name Dose Route Start Last Admin Trade Name Vicenteq PRN Reason Stop Dose Admin Acetaminophen 650 mg 12/07/18 20:49 12/08/18 08:49 Tylenol PO 650 mg Q4H PRN Administration Headache/Fever/Mild Pain (1-3) Acidophilus 1 tab 12/10/18 12:00 12/11/18 11:59 Floranex PO 1 tab 1200 TRAVON Administration Amitriptyline HCl 25 mg 12/08/18 21:00 12/10/18 20:50 Elavil PO 25 mg HS TRAVON Administration Ascorbic Acid 500 mg 12/08/18 09:00 12/11/18 09:43 Vitamin C PO 500 mg DAILY TRAVON Administration Aspirin 81 mg 12/08/18 09:00 12/11/18 09:49 Ecotrin PO Not Given DAILY [facility] Atorvastatin Calcium 20 mg 12/08/18 21:00 12/10/18 20:49 Lipitor PO 20 mg HS TRAVON Administration Bisoprolol Fumarate 5 mg 12/08/18 09:00 12/11/18 09:45 Zebeta PO 5 mg DAILY TRAVON Administration Cholecalciferol 3,000 units 12/08/18 09:00 12/11/18 09:43 Vitamin D3 PO 3,000 units DAILY TRAVON Administration Clopidogrel Bisulfate 75 mg 12/10/18 09:00 12/11/18 09:49 Plavix PO Not Given 0900 TRAVON Dofetilide 0.5 mg 12/08/18 09:00 12/11/18 09:47 Tikosyn PO 0.5 mg BID TRAVON Administration Enoxaparin Sodium 40 mg 12/08/18 09:00 12/11/18 09:48 Lovenox SC Not Given 0900 [facility] Famotidine 20 mg 12/07/18 21:00 12/11/18 09:47 Pepcid SLOW IVP 20 mg Q12HR TRAVON Administration Ferrous Sulfate 650 mg 12/08/18 09:00 12/11/18 09:44 Feosol PO 650 mg DAILY TRAVON Administration Piperacillin Sod/Tazobactam 100 mls @ 200 mls/hr 12/07/18 23:59 12/11/18 11: 59 Sod 3.375 gm/ Sodium Chloride IVPB 100 mls Q6HR TRAVON Administration Sodium Chloride 1,000 mls @ 50 mls/hr 12/07/18 20:49 12/11/18 05:31 Normal Saline 0.9% IV 1,000 mls .Q20H TRAVON Administration Insulin Glargine 46 units/ 0.46 mls @ 0 mls/hr 12/09/18 21:00 12/10/18 20:55 Miscellaneous Medication SC 0.46 mls HS TRAVON Administration Insulin Human Lispro 0 units 12/07/18 20:49 12/11/18 12:10 Humalog SC 4 unit .MODERATE SLIDING SC PRN Administration Moderate Correctional Scale Insulin Human Lispro 0 units 12/07/18 20:49 12/11/18 00:52 Humalog SC 2 unit .BEDTIME SLIDING SC PRN Administration Bedtime Correctional Scale Levothyroxine Sodium 224 mcg 12/08/18 06:00 12/11/18 05:32 Synthroid PO 224 mcg 0600 TRAVON Administration Levothyroxine Sodium 50 mcg 12/08/18 06:00 12/11/18 05:32 Synthroid PO 50 mcg 0600 [facility] Administration Liothyronine Sodium 5 mcg 12/08/18 06:00 12/11/18 05:32 Cytomel PO 5 mcg 0600 TRAVON Administration Losartan Potassium 50 mg 12/10/18 09:00 12/11/18 09:43 Cozaar PO 50 mg 0900 TRA[facility] Administration Magnesium Oxide 400 mg 12/08/18 09:00 12/11/18 09:43 Magnesium Oxide PO 400 mg DAILY TRAVON Administration Metformin HCl 1,000 mg 12/09/18 17:00 12/11/18 09:43 Glucophage PO 1,000 mg BID-WM TRAVON Administration Nystatin 1 gm 12/07/18 21:00 12/11/18 09:48 Mycostatin Powder TOP 1 applic BID TRAVON Administration Octreotide Acetate 100 mcg 12/09/18 15:00 12/11/18 09:47 Sandostatin SLOW IVP 100 mcg TID TRAVON Administration Paroxetine HCl 30 mg 12/10/18 09:00 12/11/18 09:45 Paxil PO 30 mg DAILY TRA[facility]ON Administration Potassium Chloride 20 meq 12/08/18 12:00 12/11/18 11:59 K-Dur PO 20 meq 1200 TRAVON Administration Saccharomyces Boulardii 250 mg 12/08/18 09:00 12/11/18 09:45 Florastor PO 250 mg DAILY TRAVON Administration - Exam General Appearance: NAD, awake alert Eye: PERRL, anicteric sclera ENT: normocephalic atraumatic, no oropharyngeal lesions Neck: supple, symmetric, no JVD, no thyromegaly, no lymphadenopathy Heart: RRR, no murmur, no gallops, no rubs, normal peripheral pulses Respiratory: CTAB, no wheezes, no rales, no ronchi Gastrointestinal: soft, non-distended, normal bowel sounds Gastrointestinal - other findings: wound vac in place, obese Extremities: no cyanosis, no clubbing, no edema Skin: normal turgor Neurological: CN's grossly intact, no focal deficits, no new deficit Musculoskeletal: normal tone, normal strength Psychiatric: normal affect, normal behavior, A&O x 3 Hosp A/P (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 OF INTESTINE Status: Acute Plan: EC fistula tx with NPO, Octreotide, TPN and wound vac for drainage control (2) Acute metabolic encephalopathy Code(s): G93.41 - METABOLIC ENCEPHALOPATHY Status: Acute Plan: Resolved (3) Diabetes type 2, controlled Code(s): E11.9 - TYPE 2 DIABETES MELLITUS WITHOUT COMPLICATIONS Status: Chronic Plan: ISS, increase Lantus 50u sc HS, serial accuchecks (4) Microcytic anemia Code(s): D50.9 - IRON DEFICIENCY ANEMIA, UNSPECIFIED Status: Chronic (5) Hypothyroidism Code(s): E03.9 - HYPOTHYROIDISM, UNSPECIFIED Status: Chronic - Plan continue antibiotics, 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
[2018-12-11] MEDS: [UNRECOGNIZED DRUG - OTHER] IV SCH (17:43)
[2018-12-11] MEDS: SODIUM CHLORIDE IV SCH (17:43)
[2018-12-11] MEDS: POTASSIUM CHLORIDE IV SCH (17:43)
[2018-12-11] MEDS: SODIUM ACETATE IV SCH (17:43)
[2018-12-11] MEDS: Multivitamins, Adult 10 ML, Multitrace-5 5 ML in D15W-AA 5% with Lytes 2,000 ML, Fat Em... IV SCH (19:39)
[2018-12-11] MEDS: Amitriptyline HCl 25 MG TAB PO SCH (20:05)
[2018-12-11] MEDS: Atorvastatin Calcium 20 MG TAB PO SCH (20:05)
[2018-12-11] MEDS: Acetaminophen 325 MG TAB PO PRN (20:12)
[2018-12-11] MEDS: Insulin Glargine 50 UNITS in Pre-Filled Syringe 1 EACH SC SCH (22:30)
[2018-12-12] MEDS: Levothyroxine Sodium 112 MCG TAB PO SCH (05:24)
[2018-12-12] MEDS: Acetaminophen 325 MG TAB PO PRN ×2 (05:24→09:09)
[2018-12-12] MEDS: Levothyroxine Sodium 25 MCG TAB PO SCH (05:24)
[2018-12-12] MEDS: Piperacillin/Tazobactam 3.375 GM in Sodium Chloride 0.9% 100 ML IVPB SCH ×5 (05:24→23:41)
[2018-12-12] MEDS: Liothyronine Sodium 5 MCG TAB PO SCH (05:25)
[2018-12-12] MEDS: HumaLOG 300 UNITS/3 ML VIAL SC PRN ×2 (05:26→12:34)
[2018-12-12] MEDS: Sodium Chloride 0.9% 1,000 ML IV SCH ×2 (05:30→23:48)
[2018-12-12 06:30] LABS: Anion Gap 11 mmol/L (10-20); BUN (Urea Nitrogen) 18 mg/dL (9.8-20.1); Calc. Creatinine Clearance 144 mL/min (70-130); Carbon Dioxide 24 mmol/L (23-31); Chloride 108 mmol/L (98-107); Estimated GFR-MDRD Greater than 90; Glucose 209 mg/dL (80-115); Magnesium 1.9 mg/dL (1.6-2.6); Phosphorus 3.5 mg/dL (2.3-4.7); Potassium 4.5 mmol/L (3.5-5.1); Sodium 138 mmol/L (136-145)
[2018-12-12 06:39] LABS: Eosinophils 7 % (0-10); Hemoglobin 9.1 g/dL (12.0-16.0); Lymphocytes 32 % (21-51); MDiff Complete? YES; Mean Corpuscular HGB CONC 32.2 g/dL (32.0-36.0); Mean Corpuscular Hemoglobin 24.2 pg (27.0-31.0); Mean Corpuscular Volume 75.3 fL (78.0-98.0); Mean Platelet Volume 8.5 fL (7.4-10.4); Monocytes 5 % (0-10); Neutrophil 56 % (42-75); Platelet Count 168 thou/uL (130-400); RBC Distribution Width 16.4 % (11.5-14.5); Red Blood Cell (RBC) Count 3.74 mill/uL (4.20-5.40); White Blood Cell (WBC) Count 7.1 thou/uL (4.8-10.8)
[2018-12-12] MEDS: Dofetilide 0.125 MG CAP PO SCH ×2 (09:07→20:57)
[2018-12-12] MEDS: Aspirin 81 mg Enteric Coated Tablet PO SCH (09:08)
[2018-12-12] MEDS: metFORMIN 500 MG TAB PO SCH ×2 (09:08→17:52)
[2018-12-12] MEDS: Bisoprolol Fumarate 5 MG TAB PO SCH (09:08)
[2018-12-12] MEDS: Losartan 25 MG TAB PO SCH (09:08)
[2018-12-12] MEDS: Ascorbic Acid 500 mg Chewable Tablet PO SCH (09:09)
[2018-12-12] MEDS: Magnesium Oxide 400 MG TAB PO SCH (09:09)
[2018-12-12] MEDS: Ferrous Sulfate 325 MG TAB PO SCH ×2 (09:09→14:05)
[2018-12-12] MEDS: Clopidogrel Bisulfate 75 MG TAB PO SCH (09:09)
[2018-12-12] MEDS: PARoxetine 20 MG TAB PO SCH (09:09)
[2018-12-12] MEDS: Famotidine/PF 20 mg/2ml Vial SLOW IVP SCH ×2 (09:10→21:04)
[2018-12-12] MEDS: Nystatin Powder 15 GM BOT TOP SCH ×2 (09:10→21:05)
[2018-12-12] MEDS: Enoxaparin Sodium 40 MG/0.4 ML SYRINGE SC SCH (09:10)
[2018-12-12] MEDS: Octreotide Acetate 100 MCG/ML VIAL SLOW IVP SCH ×3 (09:10→21:11)
[2018-12-12] MEDS: Saccharomyces boulardii 250 MG CAP PO SCH (09:10)
--- NOTE | 2018-12-12 09:49 | PDOC.HOSPP ---
- Subjective Encounter Date: 12/12/18 Encounter Time: 09:45 Subjective: f/u for EC fistula. pt slept well with no overnight events. reports leaking wound vac yesterday evening that was fixed by the nursing staff. pt has no new complaint and is requesting information about the plan moving forward, specifically if she will complete her x2 wk course of TPN and abx in the hospital or snf or at home with home health assistance. - Objective Vital Signs & Weight: Vital Signs (12 hours) Temp Pulse Resp BP Pulse Ox 12/12/18 07:05 97.9 F 67 17 136/73 98 Weight Admit Weight 105.233 kg Weight 105.233 kg I&O: 12/11/18 12/12/18 12/13/18 06:59 06:59 06:59 Intake Total 6525 1989 Balance 6525 1989 Result Diagrams: 12/12/18 05:15 12/12/18 05:15 Additional Labs: Accuchecks 12/12/18 12/11/18 12/11/18 04:23 19:00 16:43 POC Glucose 198 H 121 H 146 H 12/11/18 11:24 POC Glucose 226 H Microbiology 12/08/18 01:10 Stool C. difficile GDH Antigen & Toxins - Final Laboratory Tests 12/07/18 12/07/18 12/09/18 16:04 16:04 05:00 Hgb 11.2 L Phosphorus 4.0 Magnesium 2.0 Alkaline Phosphatase 169 H Triglycerides 12/09/18 12/09/18 12/10/18 05:00 05:00 05:15 Hgb 10.3 L 9.4 L Phosphorus Magnesium Alkaline Phosphatase Triglycerides 211 H Hospitalist ROS - Review of Systems Constitutional: denies: fever, chills Respiratory: denies: shortness of breath Cardiovascular: denies: chest pain, edema Gastrointestinal: reports: nausea (x1 episode at the begining of her hospitalization), diarrhea (alternating diarrhea and constipation. last BM x1 day ago.), constipation. denies: abdominal pain Skin: reports: rash (redness around wound) - Medication Medications: Active Medications Generic Name Dose Route Start Last Admin Trade Name Freq PRN Reason Stop Dose Admin Acetaminophen 650 mg 12/07/18 20:49 12/12/18 09:09 Tylenol PO 650 mg Q4H PRN Administration Headache/Fever/Mild Pain (1-3) Acidophilus 1 tab 12/10/18 12:00 12/11/18 11:59 Floranex PO 1 tab 1200 TRAVON Administration Amitriptyline HCl 25 mg 12/08/18 21:00 12/11/18 20:05 Elavil PO 25 mg HS TRAVON Administration Ascorbic Acid 500 mg 12/08/18 09:00 12/12/18 09:09 Vitamin C PO 500 mg DAILY TRAVON Administration Aspirin 81 mg 12/08/18 09:00 12/12/18 09:08 Ecotrin PO 81 mg DAILY TRAVON Administration Atorvastatin Calcium 20 mg 12/08/18 21:00 12/11/18 20:05 Lipitor PO 20 mg HS TRAVON Administration Bisoprolol Fumarate 5 mg 12/08/18 09:00 12/12/18 09:08 Zebeta PO 5 mg DAILY TRAVON Administration Cholecalciferol 3,000 units 12/08/18 09:00 12/12/18 09:08 Vitamin D3 PO 3,000 units DAILY TRAVON Administration Clopidogrel Bisulfate 75 mg 12/10/18 09:00 12/12/18 09:09 Plavix PO 75 mg 0900 TRVAON Administration Dofetilide 0.5 mg 12/08/18 09:00 12/12/18 09:07 Tikosyn PO 0.5 mg BID TRAVON Administration Enoxaparin Sodium 40 mg 12/08/18 09:00 12/12/18 09:10 Lovenox SC 40 mg 0900 TRAVON Administration Famotidine 20 mg 12/07/18 21:00 12/12/18 09:10 Pepcid SLOW IVP 20 mg Q12HR TRAVON Administration Ferrous Sulfate 650 mg 12/08/18 09:00 12/12/18 09:09 Feosol PO Not Given DAILY [facility] Piperacillin Sod/Tazobactam 100 mls @ 200 mls/hr 12/07/18 23:59 12/12/18 05: 24 Sod 3.375 gm/ Sodium Chloride IVPB 100 mls Q6HR TRAVON Administration Sodium Chloride 1,000 mls @ 50 mls/hr 12/07/18 20:49 12/12/18 05:30 Normal Saline 0.9% IV 1,000 mls .Q20H TRAVON Administration Sodium Acetate 60 meq/ Sodium 2,346.7021 mls @ 97.779 mls/hr 12/11/18 14:00 12/11/18 17:43 Chloride 30 meq/ Potassium IV 2,346.7021 mls Chloride 20 meq/ Potassium 1400 TRAVON Administration Phosphate 30 mmol/ Calcium Gluconate 10 meq/ Magnesium Sulfate 10 meq/ Multivitamins 10 ml/ Chromium/Copper/ Manganese/Seleni/Zn 5 ml/ Amino Acids/Dextrose/ Fat Emulsion Intravenous Insulin Glargine 50 units/ 0.5 mls @ 0 mls/hr 12/11/18 21:00 12/11/18 22:30 Miscellaneous Medication SC 0.5 mls HS TRAVON Administration As Directed Insulin Human Lispro 0 units 12/07/18 20:49 12/12/18 05:26 Humalog SC 2 unit .MODERATE SLIDING SC PRN Administration Moderate Correctional Scale Insulin Human Lispro 0 units 12/07/18 20:49 12/11/18 00:52 Humalog SC 2 unit .BEDTIME SLIDING SC PRN Administration Bedtime Correctional Scale Levothyroxine Sodium 224 mcg 12/08/18 06:00 12/12/18 05:24 Synthroid PO 224 mcg 0600 TRAVON Administration Levothyroxine Sodium 50 mcg 12/08/18 06:00 12/12/18 05:24 Synthroid PO 50 mcg 0600 TRAVON Administration Liothyronine Sodium 5 mcg 12/08/18 06:00 12/12/18 05:25 Cytomel PO 5 mcg 0600 TRAVON Administration Losartan Potassium 50 mg 12/10/18 09:00 12/12/18 09:08 Cozaar PO 50 mg 0900 TRAVON Administration Magnesium Oxide 400 mg 12/08/18 09:00 12/12/18 09:09 Magnesium Oxide PO 400 mg DAILY TRAVON Administration Metformin HCl 1,000 mg 12/09/18 17:00 12/12/18 09:08 Glucophage PO 1,000 mg BID-WM TRVAON Administration Nystatin 1 gm 12/07/18 21:00 12/12/18 09:10 Mycostatin Powder TOP 1 applic BID TARVON Administration Octreotide Acetate 100 mcg 12/09/18 15:00 12/12/18 09:10 Sandostatin SLOW IVP 100 mcg TID TRAVON Administration Paroxetine HCl 30 mg 12/10/18 09:00 12/12/18 09:09 Paxil PO 30 mg DAILY TRAVON Administration Potassium Chloride 20 meq 12/08/18 12:00 08/30/19 11:59 K-Dur PO 20 meq 1200 TRAVON Administration Saccharomyces Jonatan 250 mg 12/08/18 09:00 12/12/18 09:10 Florastor PO 250 mg DAILY TRAVON Administration - Exam General Appearance: NAD, awake alert General - other findings: talkative Eye: PERRL, anicteric sclera ENT: normocephalic atraumatic, no oropharyngeal lesions, moist mucosa Neck: supple, symmetric, no JVD, no thyromegaly, no lymphadenopathy Heart: RRR, no murmur, no gallops, no rubs, normal peripheral pulses Respiratory: CTAB, no wheezes, no rales, no ronchi, normal chest expansion Gastrointestinal: soft, non-tender, non-distended, no hepatomegaly, no splenomegaly Gastrointestinal - other findings: EC fistula with wound vac applied. 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 Surgery consulted and following. (2) Acute metabolic encephalopathy Code(s): G93.41 - METABOLIC ENCEPHALOPATHY Status: Acute Plan: resolved. (3) Diabetes type 2, controlled Code(s): E11.9 - TYPE 2 DIABETES MELLITUS WITHOUT COMPLICATIONS Status: Chronic (4) Microcytic anemia Code(s): D50.9 - IRON DEFICIENCY ANEMIA, UNSPECIFIED Status: Chronic Plan: ISS (moderate), serial accuchecks (5) Hypothyroidism Code(s): E03.9 - HYPOTHYROIDISM, UNSPECIFIED Status: Chronic Plan: Continue Levothyroxine 274mcg daily - Plan plan discussed w/ family, continue antibiotics, PT/OT, social group worker, out of bed/ambulate Stable currently Continue TPN, NPO, Octreotide WCT for wound vac application and mgmt OOB/ambulate CM for SNF vs options
[2018-12-12] MEDS: Lactinex Tablet PO SCH (12:31)
[2018-12-12] MEDS: Potassium Chloride 20 MEQ TAB PO SCH (12:31)
[2018-12-12] MEDS: SODIUM CHLORIDE IV SCH (14:06)
[2018-12-12] MEDS: POTASSIUM CHLORIDE IV SCH (14:06)
[2018-12-12] MEDS: [UNRECOGNIZED DRUG - OTHER] IV SCH (14:06)
[2018-12-12] MEDS: SODIUM ACETATE IV SCH (14:06)
[2018-12-12] MEDS: Atorvastatin Calcium 20 MG TAB PO SCH (20:57)
[2018-12-12] MEDS: Amitriptyline HCl 25 MG TAB PO SCH (20:57)
[2018-12-12] MEDS: Insulin Glargine 50 UNITS in Pre-Filled Syringe 1 EACH SC SCH (21:09)
[2018-12-13] MEDS: Levothyroxine Sodium 112 MCG TAB PO SCH (05:48)
[2018-12-13] MEDS: Liothyronine Sodium 5 MCG TAB PO SCH (05:48)
[2018-12-13] MEDS: Levothyroxine Sodium 25 MCG TAB PO SCH (05:48)
[2018-12-13] MEDS: Piperacillin/Tazobactam 3.375 GM in Sodium Chloride 0.9% 100 ML IVPB SCH ×4 (05:49→23:29)
[2018-12-13] MEDS: HumaLOG 300 UNITS/3 ML VIAL SC PRN ×3 (05:51→17:24)
[2018-12-13 06:56] LABS: ALT (SGPT) 8 U/L (8-55); AST (SGOT) 10 U/L (5-34); Albumin 3.3 g/dL (3.4-4.8); Alkaline Phosphatase 145 U/L (40-150); Anion Gap 9 mmol/L (10-20); BUN (Urea Nitrogen) 18 mg/dL (9.8-20.1); Bilirubin, Total 0.2 mg/dL (0.2-1.2); Calc. Creatinine Clearance 140 mL/min (70-130); Calcium 8.8 mg/dL (7.8-10.44); Carbon Dioxide 23 mmol/L (23-31); Chloride 107 mmol/L (98-107); Estimated GFR-MDRD Greater than 90; Globulin 2.8 g/dL (2.4-3.5); Glucose 203 mg/dL (80-115); Potassium 4.2 mmol/L (3.5-5.1); Protein, Total 6.1 g/dL (6.0-8.3); Sodium 135 mmol/L (136-145)
[2018-12-13] MEDS: Octreotide Acetate 100 MCG/ML VIAL SLOW IVP SCH ×3 (09:07→20:59)
[2018-12-13] MEDS: Aspirin 81 mg Enteric Coated Tablet PO SCH (09:08)
[2018-12-13] MEDS: Ascorbic Acid 500 mg Chewable Tablet PO SCH (09:08)
[2018-12-13] MEDS: Famotidine/PF 20 mg/2ml Vial SLOW IVP SCH ×2 (09:08→20:53)
[2018-12-13] MEDS: Saccharomyces boulardii 250 MG CAP PO SCH (09:08)
[2018-12-13] MEDS: metFORMIN 500 MG TAB PO SCH ×2 (09:08→17:23)
[2018-12-13] MEDS: Clopidogrel Bisulfate 75 MG TAB PO SCH (09:09)
[2018-12-13] MEDS: PARoxetine 20 MG TAB PO SCH (09:09)
[2018-12-13] MEDS: Magnesium Oxide 400 MG TAB PO SCH (09:09)
[2018-12-13] MEDS: Losartan 25 MG TAB PO SCH (09:09)
[2018-12-13] MEDS: Bisoprolol Fumarate 5 MG TAB PO SCH (09:09)
[2018-12-13] MEDS: Nystatin Powder 15 GM BOT TOP SCH ×2 (09:10→20:57)
[2018-12-13] MEDS: Enoxaparin Sodium 40 MG/0.4 ML SYRINGE SC SCH (09:10)
[2018-12-13] MEDS: Dofetilide 0.125 MG CAP PO SCH ×2 (09:19→20:52)
[2018-12-13] MEDS: Lactinex Tablet PO SCH (12:07)
[2018-12-13] MEDS: Potassium Chloride 20 MEQ TAB PO SCH (12:07)
[2018-12-13] MEDS: Ferrous Sulfate 325 MG TAB PO SCH (14:34)
[2018-12-13] MEDS: SODIUM ACETATE IV SCH (14:35)
[2018-12-13] MEDS: POTASSIUM CHLORIDE IV SCH (14:35)
[2018-12-13] MEDS: [UNRECOGNIZED DRUG - OTHER] IV SCH (14:35)
[2018-12-13] MEDS: SODIUM CHLORIDE IV SCH (14:35)
--- NOTE | 2018-12-13 15:31 | PDOC.HOSPP ---
- Subjective Encounter Date: 12/13/18 Encounter Time: 15:30 Subjective: f/u for enterocutaneous fistula tx with wound vac, TPN, NPO and Zosyn. Feels ok overall and ambulating in halls. No fever or chills. - Objective Vital Signs & Weight: Vital Signs (12 hours) Temp Pulse Resp BP Pulse Ox 12/13/18 08:00 96 12/13/18 07:20 98.0 F 84 18 135/70 96 Weight Admit Weight 232 lb Weight 232 lb I&O: 12/12/18 12/13/18 12/14/18 06:59 06:59 06:59 Intake Total 1989 Balance 1989 Result Diagrams: 12/12/18 05:15 12/13/18 06:33 Additional Labs: Accuchecks 12/13/18 12/13/18 12/12/18 11:52 05:38 19:32 POC Glucose 166 H 219 H 152 H 12/12/18 15:19 POC Glucose 149 H Microbiology 12/08/18 01:10 Stool C. difficile GDH Antigen & Toxins - Final Laboratory Tests 12/07/18 12/07/18 12/09/18 16:04 16:04 05:00 Hgb 11.2 L Phosphorus 4.0 Magnesium 2.0 Alkaline Phosphatase 169 H Triglycerides 12/09/18 12/09/18 12/10/18 05:00 05:00 05:15 Hgb 10.3 L 9.4 L Phosphorus Magnesium Alkaline Phosphatase Triglycerides 211 H Hospitalist ROS - Medication Medications: Active Medications Generic Name Dose Route Start Last Admin Trade Name Freq PRN Reason Stop Dose Admin Acetaminophen 650 mg 12/07/18 20:49 12/12/18 09:09 Tylenol PO 650 mg Q4H PRN Administration Headache/Fever/Mild Pain (1-3) Acidophilus 1 tab 12/10/18 12:00 12/13/18 12:07 Floranex PO 1 tab 1200 TRAVON Administration Amitriptyline HCl 25 mg 12/08/18 21:00 12/12/18 20:57 Elavil PO 25 mg HS TRAVON Administration Ascorbic Acid 500 mg 12/08/18 09:00 12/13/18 09:08 Vitamin C PO 500 mg DAILY TRAVON Administration Aspirin 81 mg 12/08/18 09:00 12/13/18 09:08 Ecotrin PO 81 mg DAILY TRAVON Administration Atorvastatin Calcium 20 mg 12/08/18 21:00 12/12/18 20:57 Lipitor PO 20 mg HS TRAVON Administration Bisoprolol Fumarate 5 mg 12/08/18 09:00 12/13/18 09:09 Zebeta PO 5 mg DAILY TRAVON Administration Cholecalciferol 3,000 units 12/08/18 09:00 12/13/18 09:08 Vitamin D3 PO 3,000 units DAILY TRAVON Administration Clopidogrel Bisulfate 75 mg 12/10/18 09:00 12/13/18 09:09 Plavix PO 75 mg 0900 TRAVON Administration Dofetilide 0.5 mg 12/08/18 09:00 12/13/18 09:19 Tikosyn PO Not Given BID TRAVON Enoxaparin Sodium 40 mg 12/08/18 09:00 12/13/18 09:10 Lovenox SC 40 mg 0900 TRAVON Administration Famotidine 20 mg 12/07/18 21:00 12/13/18 09:08 Pepcid SLOW IVP 20 mg Q12HR TRAVON Administration Ferrous Sulfate 650 mg 12/12/18 14:00 12/13/18 14:34 Feosol PO 650 mg 1400 TRAVON Administration Piperacillin Sod/Tazobactam 100 mls @ 200 mls/hr 12/07/18 23:59 12/13/18 12: 07 Sod 3.375 gm/ Sodium Chloride IVPB 100 mls Q6HR TRAVON Administration Sodium Chloride 1,000 mls @ 50 mls/hr 12/07/18 20:49 12/12/18 23:48 Normal Saline 0.9% IV 1,000 mls .Q20H TRAVON Administration Sodium Acetate 60 meq/ Sodium 2,346.7021 mls @ 97.779 mls/hr 12/11/18 14:00 12/13/18 14:35 Chloride 30 meq/ Potassium IV 2,346.7021 mls Chloride 20 meq/ Potassium 1400 TRAVON Administration Phosphate 30 mmol/ Calcium Gluconate 10 meq/ Magnesium Sulfate 10 meq/ Multivitamins 10 ml/ Chromium/Copper/ Manganese/Seleni/Zn 5 ml/ Amino Acids/Dextrose/ Fat Emulsion Intravenous Insulin Glargine 50 units/ 0.5 mls @ 0 mls/hr 12/11/18 21:00 12/12/18 21:09 Miscellaneous Medication SC 0.5 mls HS TRAVON Administration As Directed Insulin Human Lispro 0 units 12/07/18 20:49 12/13/18 12:09 Humalog SC 2 unit .MODERATE SLIDING SC PRN Administration Moderate Correctional Scale Insulin Human Lispro 0 units 12/07/18 20:49 12/11/18 00:52 Humalog SC 2 unit .BEDTIME SLIDING SC PRN Administration Bedtime Correctional Scale Levothyroxine Sodium 224 mcg 12/08/18 06:00 12/13/18 05:48 Synthroid PO 224 mcg 0600 TRAVON Administration Levothyroxine Sodium 50 mcg 12/08/18 06:00 12/13/18 05:48 Synthroid PO 50 mcg 0600 TRAVON Administration Liothyronine Sodium 5 mcg 12/08/18 06:00 12/13/18 05:48 Cytomel PO 5 mcg 0600 TRAVON Administration Losartan Potassium 50 mg 12/10/18 09:00 12/13/18 09:09 Cozaar PO 50 mg 0900 TRAVON Administration Magnesium Oxide 400 mg 12/08/18 09:00 12/13/18 09:09 Magnesium Oxide PO 400 mg DAILY TRAVON Administration Metformin HCl 1,000 mg 12/09/18 17:00 12/13/18 09:08 Glucophage PO 1,000 mg BID-WM TRAVON Administration Nystatin 1 gm 12/07/18 21:00 12/13/18 09:10 Mycostatin Powder TOP 1 applic BID TRAVON Administration Octreotide Acetate 100 mcg 12/09/18 15:00 12/13/18 14:35 Sandostatin SLOW IVP 100 mcg TID TRAVON Administration Paroxetine HCl 30 mg 12/10/18 09:00 12/13/18 09:09 Paxil PO 30 mg DAILY TRAVON Administration Potassium Chloride 20 meq 12/08/18 12:00 12/13/18 12:07 K-Dur PO 20 meq 1200 TRAVON Administration Saccharomyces Boulardii 250 mg 12/08/18 09:00 12/13/18 09:08 Florastor PO 250 mg DAILY TRAVON Administration - Exam General Appearance: NAD, awake alert Eye: PERRL, anicteric sclera ENT: normocephalic atraumatic, no oropharyngeal lesions Neck: supple, symmetric, no JVD, no thyromegaly Heart: RRR, no murmur, no gallops, no rubs, normal peripheral pulses Respiratory: CTAB, no wheezes, no rales, no ronchi, normal chest expansion Gastrointestinal: soft, non-tender, non-distended, normal bowel sounds, no palpable masses Gastrointestinal - other findings: wound vac in place, obese Extremities: no cyanosis, no clubbing, no edema Skin: normal turgor Neurological: CN's grossly intact, no focal deficits, no new deficit Musculoskeletal: normal tone, normal strength Psychiatric: normal affect, normal behavior, A&O x 3 Hosp A/P (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 OF INTESTINE Status: Acute Plan: Continue NPO, TPN, wound vac application and Zosyn, continue Florastor (2) Acute metabolic encephalopathy Code(s): G93.41 - METABOLIC ENCEPHALOPATHY Status: Acute Plan: Resolved (3) Diabetes type 2, controlled Code(s): E11.9 - TYPE 2 DIABETES MELLITUS WITHOUT COMPLICATIONS Status: Chronic Plan: Continue Lantus, ISS (4) Microcytic anemia Code(s): D50.9 - IRON DEFICIENCY ANEMIA, UNSPECIFIED Status: Chronic (5) Hypothyroidism Code(s): E03.9 - HYPOTHYROIDISM, UNSPECIFIED Status: Chronic - Plan plan discussed w/ family, continue antibiotics, PT/OT, older adult social work specialist, out of bed/ambulate Stable currently Continue TPN, NPO, Octreotide WCT for wound vac application and mgmt OOB/ambulate CM for SNF vs HH options Continue Zosyn another 48h Florastor 250mg daily
[2018-12-13] MEDS: Sodium Chloride 0.9% 1,000 ML IV SCH ×2 (15:42→23:29)
[2018-12-13] MEDS: Amitriptyline HCl 25 MG TAB PO SCH (20:51)
[2018-12-13] MEDS: Atorvastatin Calcium 20 MG TAB PO SCH (20:51)
[2018-12-13] MEDS: Insulin Glargine 50 UNITS in Pre-Filled Syringe 1 EACH SC SCH (20:56)
[2018-12-14] MEDS: Levothyroxine Sodium 112 MCG TAB PO SCH (05:42)
[2018-12-14] MEDS: Liothyronine Sodium 5 MCG TAB PO SCH (05:43)
[2018-12-14] MEDS: Levothyroxine Sodium 25 MCG TAB PO SCH (05:43)
[2018-12-14] MEDS: Piperacillin/Tazobactam 3.375 GM in Sodium Chloride 0.9% 100 ML IVPB SCH ×4 (05:44→23:18)
[2018-12-14] MEDS: HumaLOG 300 UNITS/3 ML VIAL SC PRN ×2 (05:45→17:07)
[2018-12-14] MEDS: metFORMIN 500 MG TAB PO SCH ×2 (08:16→17:06)
[2018-12-14] MEDS: PARoxetine 20 MG TAB PO SCH (08:17)
[2018-12-14] MEDS: Magnesium Oxide 400 MG TAB PO SCH (08:18)
[2018-12-14] MEDS: Saccharomyces boulardii 250 MG CAP PO SCH (08:18)
[2018-12-14] MEDS: Losartan 25 MG TAB PO SCH (08:19)
[2018-12-14] MEDS: Aspirin 81 mg Enteric Coated Tablet PO SCH (08:19)
[2018-12-14] MEDS: Enoxaparin Sodium 40 MG/0.4 ML SYRINGE SC SCH (08:19)
[2018-12-14] MEDS: Famotidine/PF 20 mg/2ml Vial SLOW IVP SCH ×2 (08:20→20:30)
[2018-12-14] MEDS: Bisoprolol Fumarate 5 MG TAB PO SCH (08:20)
[2018-12-14] MEDS: Ascorbic Acid 500 mg Chewable Tablet PO SCH (08:27)
[2018-12-14] MEDS: Clopidogrel Bisulfate 75 MG TAB PO SCH (08:28)
[2018-12-14] MEDS: Dofetilide 0.125 MG CAP PO SCH ×2 (08:28→20:29)
[2018-12-14] MEDS: Nystatin Powder 15 GM BOT TOP SCH ×2 (08:30→20:30)
[2018-12-14] MEDS: Octreotide Acetate 100 MCG/ML VIAL SLOW IVP SCH ×3 (10:42→20:30)
[2018-12-14] MEDS: Acetaminophen 325 MG TAB PO PRN (10:48)
[2018-12-14] MEDS: Sodium Chloride 0.9% 1,000 ML IV SCH (11:04)
[2018-12-14] MEDS: Lactinex Tablet PO SCH (12:02)
[2018-12-14] MEDS: Potassium Chloride 20 MEQ TAB PO SCH (12:02)
[2018-12-14] MEDS: SODIUM ACETATE IV SCH (15:05)
[2018-12-14] MEDS: SODIUM CHLORIDE IV SCH (15:05)
[2018-12-14] MEDS: POTASSIUM CHLORIDE IV SCH (15:05)
[2018-12-14] MEDS: [UNRECOGNIZED DRUG - OTHER] IV SCH (15:05)
[2018-12-14] MEDS: Ferrous Sulfate 325 MG TAB PO SCH (15:24)
--- NOTE | 2018-12-14 16:25 | PDOC.HOSPP ---
- Subjective Encounter Date: 12/14/18 Encounter Time: 16:30 Subjective: f/u for enterocutaneous fistula with wound vac, Zosyn, NPO and TPN. Feels ok overall. Trying to decide disposition site HH vs SNF/Swing bed or Inpt rehab. - Objective Vital Signs & Weight: Vital Signs (12 hours) Temp Pulse Resp BP Pulse Ox 12/14/18 08:00 100 12/14/18 07:35 97.9 F 59 L 20 144/70 H 100 Weight Admit Weight 232 lb Weight 232 lb Result Diagrams: 12/12/18 05:15 12/13/18 06:33 Additional Labs: Accuchecks 12/14/18 12/14/18 12/13/18 11:36 05:44 19:59 POC Glucose 187 H 191 H 170 H 12/13/18 15:45 POC Glucose 172 H Microbiology 12/08/18 01:10 Stool C. difficile GDH Antigen & Toxins - Final Laboratory Tests 12/07/18 12/07/18 12/09/18 16:04 16:04 05:00 Hgb 11.2 L Phosphorus 4.0 Magnesium 2.0 Alkaline Phosphatase 169 H Triglycerides 12/09/18 12/09/18 12/10/18 05:00 05:00 05:15 Hgb 10.3 L 9.4 L Phosphorus Magnesium Alkaline Phosphatase Triglycerides 211 H Hospitalist ROS - Medication Medications: Active Medications Generic Name Dose Route Start Last Admin Trade Name Freq PRN Reason Stop Dose Admin Acetaminophen 650 mg 12/07/18 20:49 12/14/18 10:48 Tylenol PO 650 mg Q4H PRN Administration Headache/Fever/Mild Pain (1-3) Acidophilus 1 tab 12/10/18 12:00 12/14/18 12:02 Floranex PO 1 tab 1200 TRAVON Administration Amitriptyline HCl 25 mg 12/08/18 21:00 12/13/18 20:51 Elavil PO 25 mg HS TRAVON Administration Ascorbic Acid 500 mg 12/08/18 09:00 12/14/18 08:27 Vitamin C PO 500 mg DAILY TRAVON Administration Aspirin 81 mg 12/08/18 09:00 12/14/18 08:19 Ecotrin PO 81 mg DAILY TRAVON Administration Atorvastatin Calcium 20 mg 12/08/18 21:00 12/13/18 20:51 Lipitor PO 20 mg HS TRAVON Administration Bisoprolol Fumarate 5 mg 12/08/18 09:00 12/14/18 08:20 Zebeta PO 5 mg DAILY TRAVON Administration Cholecalciferol 3,000 units 12/08/18 09:00 12/14/18 08:27 Vitamin D3 PO 3,000 units DAILY TRAVON Administration Clopidogrel Bisulfate 75 mg 12/10/18 09:00 12/14/18 08:28 Plavix PO 75 mg 0900 TRAVON Administration Dofetilide 0.5 mg 12/08/18 09:00 12/14/18 08:28 Tikosyn PO 0.5 mg BID TRAVON Administration Enoxaparin Sodium 40 mg 12/08/18 09:00 12/14/18 08:19 Lovenox SC 40 mg 0900 TRAVON Administration Famotidine 20 mg 12/07/18 21:00 12/14/18 08:20 Pepcid SLOW IVP 20 mg Q12HR TRAVON Administration Ferrous Sulfate 650 mg 12/12/18 14:00 12/14/18 15:24 Feosol PO 650 mg 1400 TRAVON Administration Piperacillin Sod/Tazobactam 100 mls @ 200 mls/hr 12/07/18 23:59 12/14/18 12: 02 Sod 3.375 gm/ Sodium Chloride IVPB 100 mls Q6HR TRAVON Administration Sodium Chloride 1,000 mls @ 50 mls/hr 12/07/18 20:49 12/14/18 11:04 Normal Saline 0.9% IV Not Given .Q20H TRAVON Sodium Acetate 60 meq/ Sodium 2,346.7021 mls @ 97.779 mls/hr 12/11/18 14:00 12/14/18 15:05 Chloride 30 meq/ Potassium IV 2,346.7021 mls Chloride 20 meq/ Potassium 1400 TRAVON Administration Phosphate 30 mmol/ Calcium Gluconate 10 meq/ Magnesium Sulfate 10 meq/ Multivitamins 10 ml/ Chromium/Copper/ Manganese/Seleni/Zn 5 ml/ Amino Acids/Dextrose/ Fat Emulsion Intravenous Insulin Glargine 50 units/ 0.5 mls @ 0 mls/hr 12/11/18 21:00 12/13/18 20:56 Miscellaneous Medication SC 0.5 mls HS TRAVON Administration As Directed Insulin Human Lispro 0 units 12/07/18 20:49 12/14/18 05:45 Humalog SC 2 unit .MODERATE SLIDING SC PRN Administration Moderate Correctional Scale Insulin Human Lispro 0 units 12/07/18 20:49 12/11/18 00:52 Humalog SC 2 unit .BEDTIME SLIDING SC PRN Administration Bedtime Correctional Scale Levothyroxine Sodium 224 mcg 12/08/18 06:00 12/14/18 05:42 Synthroid PO 224 mcg 0600 TRAVON Administration Levothyroxine Sodium 50 mcg 12/08/18 06:00 12/14/18 05:43 Synthroid PO 50 mcg 0600 TRAVON Administration Liothyronine Sodium 5 mcg 12/08/18 06:00 12/14/18 05:43 Cytomel PO 5 mcg 0600 TRAVON Administration Losartan Potassium 50 mg 12/10/18 09:00 12/14/18 08:19 Cozaar PO 50 mg 0900 TRAVON Administration Magnesium Oxide 400 mg 12/08/18 09:00 12/14/18 08:18 Magnesium Oxide PO 400 mg DAILY TRAVON Administration Metformin HCl 1,000 mg 12/09/18 17:00 12/14/18 08:16 Glucophage PO 1,000 mg BID-WM TRAVON Administration Nystatin 1 gm 12/07/18 21:00 12/14/18 08:30 Mycostatin Powder TOP 1 applic BID TRAVON Administration Octreotide Acetate 100 mcg 12/09/18 15:00 12/14/18 15:25 Sandostatin SLOW IVP 100 mcg TID TRAVON Administration Paroxetine HCl 30 mg 12/10/18 09:00 12/14/18 08:17 Paxil PO 30 mg DAILY TRAVON Administration Potassium Chloride 20 meq 12/08/18 12:00 12/14/18 12:02 K-Dur PO 20 meq 1200 TRAVON Administration Saccharomyces Boulardii 250 mg 12/08/18 09:00 12/14/18 08:18 Florastor PO 250 mg DAILY TRAVON Administration - Exam General Appearance: NAD, awake alert Eye: PERRL, anicteric sclera ENT: normocephalic atraumatic, no oropharyngeal lesions Neck: supple, symmetric, no JVD, no thyromegaly Heart: RRR, no murmur, no gallops, no rubs, normal peripheral pulses Respiratory: CTAB, no wheezes, no rales, no ronchi, normal chest expansion Gastrointestinal - other findings: wound vac in place Extremities: no cyanosis, no clubbing, no edema Skin: normal turgor Neurological: CN's grossly intact, no focal deficits, no new deficit Musculoskeletal: normal tone, normal strength Psychiatric: normal affect, normal behavior, A&O x 3 Hosp A/P (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 OF INTESTINE Status: Acute Plan: Continue wound vac drainage, NPO, TPN for consevative mgmt, plan for NPO and TPN x 2 weeks per surgery (2) Acute metabolic encephalopathy Code(s): G93.41 - METABOLIC ENCEPHALOPATHY Status: Acute Plan: Resolved (3) Diabetes type 2, controlled Code(s): E11.9 - TYPE 2 DIABETES MELLITUS WITHOUT COMPLICATIONS Status: Chronic (4) Microcytic anemia Code(s): D50.9 - IRON DEFICIENCY ANEMIA, UNSPECIFIED Status: Chronic (5) Hypothyroidism Code(s): E03.9 - HYPOTHYROIDISM, UNSPECIFIED Status: Chronic - Plan plan discussed w/ family, continue antibiotics, PT/OT, social media sr strategy manager, out of bed/ambulate Stable currently Continue TPN, NPO, Octreotide WCT for wound vac application and mgmt OOB/ambulate CM for SNF/HH/Rehab options Continue Zosyn another 48h Florastor 250mg daily
[2018-12-14] MEDS: Amitriptyline HCl 25 MG TAB PO SCH (20:28)
[2018-12-14] MEDS: Atorvastatin Calcium 20 MG TAB PO SCH (20:29)
[2018-12-14] MEDS: Insulin Glargine 50 UNITS in Pre-Filled Syringe 1 EACH SC SCH (20:43)
[2018-12-15] MEDS: Liothyronine Sodium 5 MCG TAB PO SCH (05:43)
[2018-12-15] MEDS: Sodium Chloride 0.9% 1,000 ML IV SCH (05:43)
[2018-12-15] MEDS: Levothyroxine Sodium 112 MCG TAB PO SCH (05:43)
[2018-12-15] MEDS: Levothyroxine Sodium 25 MCG TAB PO SCH (05:43)
[2018-12-15] MEDS: Piperacillin/Tazobactam 3.375 GM in Sodium Chloride 0.9% 100 ML IVPB SCH ×3 (05:44→17:36)
[2018-12-15] MEDS: HumaLOG 300 UNITS/3 ML VIAL SC PRN ×2 (05:45→18:41)
[2018-12-15] MEDS: metFORMIN 500 MG TAB PO SCH ×2 (08:21→16:38)
[2018-12-15] MEDS: Saccharomyces boulardii 250 MG CAP PO SCH (08:21)
[2018-12-15] MEDS: Aspirin 81 mg Enteric Coated Tablet PO SCH (08:22)
[2018-12-15] MEDS: Magnesium Oxide 400 MG TAB PO SCH (08:22)
[2018-12-15] MEDS: Clopidogrel Bisulfate 75 MG TAB PO SCH (08:23)
[2018-12-15] MEDS: PARoxetine 20 MG TAB PO SCH (08:23)
[2018-12-15] MEDS: Bisoprolol Fumarate 5 MG TAB PO SCH (08:24)
[2018-12-15] MEDS: Ascorbic Acid 500 mg Chewable Tablet PO SCH (08:25)
[2018-12-15] MEDS: Dofetilide 0.125 MG CAP PO SCH ×2 (08:26→20:28)
[2018-12-15] MEDS: Losartan 25 MG TAB PO SCH (08:27)
[2018-12-15] MEDS: Famotidine/PF 20 mg/2ml Vial SLOW IVP SCH ×2 (08:28→20:25)
[2018-12-15] MEDS: Enoxaparin Sodium 40 MG/0.4 ML SYRINGE SC SCH (08:32)
[2018-12-15] MEDS: Octreotide Acetate 100 MCG/ML VIAL SLOW IVP SCH ×3 (08:32→20:26)
[2018-12-15] MEDS: Nystatin Powder 15 GM BOT TOP SCH ×2 (08:33→20:26)
--- NOTE | 2018-12-15 08:41 | PDOC.GSPN ---
Surgery Progress Note: Subj - Subjective Narrative: Pt is a 68 yo F, f/u enterocutaneous fistula with a wound vac. She feels ok. Reports diarrhea 5-6 times yesterday, along with a stomach ache. No pain or bowel movements today, slept well through the night. She is ambulatory. She denies nausea, vomiting, SOB, chest pain. Starting using the incentive spirometer. She reports that there has not been drainage from wound vac since Friday evening. Surgery Progress Note: Obj - Vital signs Vital signs: Vital Signs - Most Recent Temp Pulse Resp BP Pulse Ox 97.8 F 76 18 140/77 94 L 12/15/18 07:19 12/15/18 07:19 12/15/18 07:19 12/15/18 07:12/15/18 07:19 - Physical Exam General: no distress Cardiovascular: regular rate and rhythm Respiratory: clear to auscultation Abdomen: appropriately tender Wound: wound vac (no blood under dressing) Surgery Progress Note: Results - Labs Result Diagrams: 12/12/18 05:15 12/13/18 06:33 Lab results: Laboratory Results - last 24 hr 12/14/18 12/15/18 20:24 05:44 POC Glucose 172 H 202 H Surgery Progress Note: A/P - Problem (1) Enterocutaneous fistula Current Visit: Yes Code(s): K63.2 - FISTULA OF INTESTINE Status: Acute Assessment and Plan: Continue wound care and TPN Addendum - Physician - Physician Attestation Date/Time: 12/15/18 1038 To skilled or rehab on tpn. Plan would be TPN, bowel rest for two weeks. Already has minimal output in vac so I suspect this fistula will close without further surgery I personally performed or re-performed the physical examination and medical decision making. I have verified all student documentation or findings, including history, physical exam and/or medical decision making.
[2018-12-15] MEDS: Potassium Chloride 20 MEQ TAB PO SCH (12:04)
[2018-12-15] MEDS: Lactinex Tablet PO SCH (12:05)
[2018-12-15] MEDS ORDERED: SODIUM CHLORIDE IV SCH (14:00)
[2018-12-15] MEDS ORDERED: POTASSIUM PHOSPHATE IV SCH (14:00)
[2018-12-15] MEDS ORDERED: POTASSIUM CHLORIDE IV SCH (14:00)
[2018-12-15] MEDS ORDERED: [UNRECOGNIZED DRUG - OTHER] IV SCH (14:00)
[2018-12-15] MEDS: Ferrous Sulfate 325 MG TAB PO SCH (14:41)
[2018-12-15] MEDS: [UNRECOGNIZED DRUG - OTHER] IV SCH (14:48)
[2018-12-15] MEDS: SODIUM ACETATE IV SCH (14:48)
[2018-12-15] MEDS: POTASSIUM CHLORIDE IV SCH (14:48)
[2018-12-15] MEDS: SODIUM CHLORIDE IV SCH (14:48)
--- NOTE | 2018-12-15 14:56 | PDOC.HOSPP ---
- Subjective Encounter Date: 12/15/18 Encounter Time: 14:50 Subjective: f/u for EC fistula tx with wound vac, NPO, TPN, Octreotide and Zosyn. Feels ok overall. - Objective Vital Signs & Weight: Vital Signs (12 hours) Temp Pulse Resp BP Pulse Ox 12/15/18 08:00 94 L 12/15/18 07:19 97.8 F 76 18 140/77 94 L Weight Admit Weight 232 lb Weight 232 lb I&O: 12/14/18 12/15/18 12/16/18 06:59 06:59 06:59 Intake Total 1419 Balance 1419 Result Diagrams: 12/12/18 05:15 12/13/18 06:33 Additional Labs: Accuchecks 12/15/18 12/15/18 12/14/18 11:43 05:44 20:24 POC Glucose 183 H 202 H 172 H 12/14/18 16:54 POC Glucose 195 H Hospitalist ROS - Medication Medications: Active Medications Generic Name Dose Route Start Last Admin Trade Name Freq PRN Reason Stop Dose Admin Acetaminophen 650 mg 12/07/18 20:49 12/14/18 10:48 Tylenol PO 650 mg Q4H PRN Administration Headache/Fever/Mild Pain (1-3) Acidophilus 1 tab 12/10/18 12:00 12/15/18 12:05 Floranex PO 1 tab 1200 TRAVON Administration Amitriptyline HCl 25 mg 12/08/18 21:00 12/14/18 20:28 Elavil PO 25 mg HS TRAVON Administration Ascorbic Acid 500 mg 12/08/18 09:00 12/15/18 08:25 Vitamin C PO 500 mg DAILY TRAVON Administration Aspirin 81 mg 12/08/18 09:00 12/15/18 08:22 Ecotrin PO 81 mg DAILY TRAVON Administration Atorvastatin Calcium 20 mg 12/08/18 21:00 12/14/18 20:29 Lipitor PO 20 mg HS TRAVON Administration Bisoprolol Fumarate 5 mg 12/08/18 09:00 12/15/18 08:24 Zebeta PO 5 mg DAILY TRAVON Administration Cholecalciferol 3,000 units 12/08/18 09:00 12/15/18 08:23 Vitamin D3 PO 3,000 units DAILY TRAVON Administration Clopidogrel Bisulfate 75 mg 12/10/18 09:00 12/15/18 08:23 Plavix PO 75 mg 0900 TRAVON Administration Dofetilide 0.5 mg 12/08/18 09:00 12/15/18 08:26 Tikosyn PO 0.5 mg BID TRAVON Administration Enoxaparin Sodium 40 mg 12/08/18 09:00 12/15/18 08:32 Lovenox SC 40 mg 0900 TRAVON Administration Famotidine 20 mg 12/07/18 21:00 12/15/18 08:28 Pepcid SLOW IVP 20 mg Q12HR TRAVON Administration Ferrous Sulfate 650 mg 12/12/18 14:00 12/15/18 14:41 Feosol PO 650 mg 1400 TRAVON Administration Piperacillin Sod/Tazobactam 100 mls @ 200 mls/hr 12/07/18 23:59 12/15/18 12: 05 Sod 3.375 gm/ Sodium Chloride IVPB 100 mls Q6HR TRAVON Administration Sodium Chloride 1,000 mls @ 50 mls/hr 12/07/18 20:49 12/15/18 05:43 Normal Saline 0.9% IV 1,000 mls .Q20H TRAVON Administration Insulin Glargine 50 units/ 0.5 mls @ 0 mls/hr 12/11/18 21:00 12/14/18 20:43 Miscellaneous Medication SC 0.5 mls HS TRAVON Administration As Directed Sodium Chloride 90 meq/ 2,331.7021 mls @ 97.154 mls/hr 12/15/18 14:00 14:41 Potassium Chloride 20 meq/ IV 2,331.7021 mls Potassium Phosphate 30 mmol/ 1400 TRAVON Administration Calcium Gluconate 10 meq/ Magnesium Sulfate 10 meq/ Multivitamins 10 ml/ Chromium/ Copper/Manganese/Seleni/Zn 5 ml/ Amino Acids/Dextrose/ Fat Emulsion Intravenous Insulin Human Lispro 0 units 12/07/18 20:49 12/15/18 05:45 Humalog SC 4 unit .MODERATE SLIDING SC PRN Administration Moderate Correctional Scale Insulin Human Lispro 0 units 12/07/18 20:49 12/11/18 00:52 Humalog SC 2 unit .BEDTIME SLIDING SC PRN Administration Bedtime Correctional Scale Levothyroxine Sodium 224 mcg 12/08/18 06:00 12/15/18 05:43 Synthroid PO 224 mcg 0600 TRAVON Administration Levothyroxine Sodium 50 mcg 12/08/18 06:00 12/15/18 05:43 Synthroid PO 50 mcg 0600 TRAVON Administration Liothyronine Sodium 5 mcg 12/08/18 06:00 12/15/18 05:43 Cytomel PO 5 mcg 0600 TRAVON Administration Losartan Potassium 50 mg 12/10/18 09:00 12/15/18 08:27 Cozaar PO 50 mg 0900 TRAVON Administration Magnesium Oxide 400 mg 12/08/18 09:00 12/15/18 08:22 Magnesium Oxide PO 400 mg DAILY TRAVON Administration Metformin HCl 1,000 mg 12/09/18 17:00 12/15/18 08:21 Glucophage PO 1,000 mg BID-WM TRAVON Administration Nystatin 1 gm 12/07/18 21:00 12/15/18 08:33 Mycostatin Powder TOP 1 applic BID TRAVON Administration Octreotide Acetate 100 mcg 12/09/18 15:00 12/15/18 08:32 Sandostatin SLOW IVP 100 mcg TID TRAVON Administration Paroxetine HCl 30 mg 12/10/18 09:00 12/15/18 08:23 Paxil PO 30 mg DAILY TRAVON Administration Potassium Chloride 20 meq 12/08/18 12:00 12/15/18 12:04 K-Dur PO 20 meq 1200 TRAVON Administration Saccharomyces Boulardii 250 mg 12/08/18 09:00 12/15/18 08:21 Florastor PO 250 mg DAILY TRAVON Administration - Exam General Appearance: NAD, awake alert Eye: PERRL, anicteric sclera ENT: normocephalic atraumatic, no oropharyngeal lesions Neck: supple, symmetric, no JVD, no thyromegaly, no lymphadenopathy Heart: RRR, no murmur, no gallops, no rubs, normal peripheral pulses Respiratory: CTAB, no wheezes, no rales, no ronchi, normal chest expansion Gastrointestinal: soft, non-distended, normal bowel sounds Gastrointestinal - other findings: Obese with wound vac in place Extremities: no cyanosis, no clubbing Skin: normal turgor, no lesions Neurological: CN's grossly intact, no focal deficits, no new deficit Musculoskeletal: normal tone, normal strength Psychiatric: normal affect, normal behavior, A&O x 3 Hosp A/P (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 OF INTESTINE Status: Acute Plan: Continue wound vac, Zosyn, NPO and TPN, drainage decreasing progressively (2) Acute metabolic encephalopathy Code(s): G93.41 - METABOLIC ENCEPHALOPATHY Status: Acute Plan: Resolving (3) Diabetes type 2, controlled Code(s): E11.9 - TYPE 2 DIABETES MELLITUS WITHOUT COMPLICATIONS Status: Chronic (4) Microcytic anemia Code(s): D50.9 - IRON DEFICIENCY ANEMIA, UNSPECIFIED Status: Chronic Plan: Monitor H/H trend, Feosol 650mg daily (5) Hypothyroidism Code(s): E03.9 - HYPOTHYROIDISM, UNSPECIFIED Status: Chronic Plan: Continue Levothyroxine 274mcg daily - Plan continue antibiotics, 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
[2018-12-15 20:04] VITALS: BP 127/77; TEMP 98.5
[2018-12-15] MEDS: Atorvastatin Calcium 20 MG TAB PO SCH (20:25)
[2018-12-15] MEDS: Insulin Glargine 50 UNITS in Pre-Filled Syringe 1 EACH SC SCH (20:25)
[2018-12-15] MEDS: Amitriptyline HCl 25 MG TAB PO SCH (20:27)
--- NOTE | 2018-12-15 20:57 | DIS ---
DATE OF ADMISSION: 12/07/2018 DATE OF DISCHARGE: 12/15/2018 DISCHARGE DIAGNOSES: 1. Enterocutaneous fistula. 2. Acute metabolic encephalopathy, resolved. 3. Diabetes mellitus type 2, insulin requiring, stable. 4. Microcytic anemia. Stable. 5. Hypothyroidism. 6. Deconditioning. CONSULTATIONS: Dr. Garcia with General Surgery Service. PERTINENT LABORATORY AND X-RAY FINDINGS: Sodium ranged between 132 to 138, phosphorus ranged between 3.0 to 4.0, magnesium level ranged between 1.8 to 2.0. LFTs within normal limits. Albumin ranged between 3.6 to 4.1, triglycerides 211. CBC showed a hemoglobin ranged between 9.1 to 11.2, MCV 75. C difficile antigen and toxin dated 12/08/2018, negative. CT of the abdomen and pelvis dated 12/07/2018, showed enterocutaneous fistula from adhesed mid small bowel loop with a fistulous tract containing small volume of gas. Exophytic renal hypodensity noted of the left kidney. HOSPITAL COURSE: The patient was initially admitted to the medical floor after presenting with history of small bowel obstruction, status post incarcerated incisional hernia with repair and exploratory laparotomy and lysis of adhesions with removal of portion of mesh. The patient developed enterocutaneous fistula, confirmed on CT imaging of the abdomen as stated previously. The patient apparently had been noted increased drainage from the abdominal wound with associated maceration to the superficial abdominal wall. The patient was evaluated by the General Surgery Service with recommendations for n.p.o. status and initiation of TPN as well as aggressive wound care with wound vacuum application. The patient did receive empiric antibiotic therapy with Zosyn throughout the hospital course in addition to octreotide. The patient's drainage had improved and decreased dramatically by the time of discharge, as well as overall improvement in superficial erythema of the abdominal wall. Due to the patient's complex wound and need for TPN up to 2 weeks, the patient underwent a PICC line placement to the left upper extremity in preparation for long-term IV administration as well as TPN. Due to the patient's overall comorbid status and medical needs, the patient was deemed an appropriate candidate for ongoing inpatient rehabilitation. I have examined the patient at the time of discharge and discussed followup instructions. The patient verbalized understanding and in agreement, ready for discharge to inpatient rehabilitation on 12/15/2018. DISCHARGE MEDICATIONS: 1. Amitriptyline 25 mg 1 to 2 tablets p.o. at bedtime. 2. Vitamin C 500 mg p.o. daily. 3. Enteric-coated aspirin 81 mg p.o. at bedtime. 4. Bisoprolol fumarate 5 mg p.o. daily. 5. Vitamin D3 2000 units p.o. daily. 6. Plavix 75 mg p.o. daily. 7. Dofetilide 500 mcg p.o. b.i.d. 8. Ferrous sulfate 650 mg p.o. daily. 9. Lantus SoloSTAR 46 units subcutaneously at bedtime. 10. Krill oil 500 mg p.o. daily. 11. Levothyroxine 274 mcg daily. 12. Liothyronine 5 mcg p.o. daily. 13. Losartan 50 mg p.o. daily. 14. Magnesium oxide 400 mg p.o. b.i.d. 15. Metformin 1000 mg p.o. b.i.d. 16. Paxil 20 mg p.o. daily. 17. K-Dur 20 mEq p.o. daily. 18. Zocor 40 mg p.o. at bedtime. 19. Octreotide 100 mcg slow IV push t.i.d. FOLLOWUP: The patient will follow up with Dr. Pavel Cosby after discharge from inpatient rehabilitation. The patient will follow up with Dr. Garcia with General Surgery Service within 2 weeks of discharge. CONDITION ON DISCHARGE: Fair. ACTIVITY: Ad marcin. Rolling walker with standby assistance. DIET: TPN daily x2 weeks. CODE STATUS: Full. SPECIAL INSTRUCTIONS: Wound VAC application with daily wound checks by Wound Care Services. DISPOSITION: Discharged to [facility] on 12/15/2018. TIME SPENT: Total time preparing and coordinating discharge, 38 minutes. Job ID: [id number]
--- NOTE | 2018-12-17 05:53 | PQF ---
CRISTAL MELLO CHARLES DO [id number] -A- [id number] CLINICAL DOCUMENTATION CLARIFICATION FORM: POST DISCHARGE Addendum to original discharge summary date: ____ Late entry note date: __ Please query Dr. Garcia regarding EC fistula as it relates to prior hernia repair. Thank you, Dr. Ivy DATE: 12-17-2018 ATTN:Dereck Osullivan Please exercise your independent, professional judgment in responding to the clarification form. Clinical indicators are provided on the bottom of this form for your review Can you please specify if the eneterocutaneous fistula of the intestine is a complication of the previous hernia repair? Please check appropriate box(s): [ ] eneterocutaneous fistula is a complication of the previous hernia repair? [ ] eneterocutaneous fistula is not a complication of the previous hernia repair? [ ] Other diagnosis please specify: [ ] Unable to determine CLINICAL INDICATORS: HP 12/[address] Alfaro Reason for admission: enterecutaneous fistula HP 12/[address] Alfaro has complicated abdominal surgical history back in July 2018 HP 12/[address] Alfaro has SBO due to incarcerated incisional hernia HP 12/[address] Alfaro This is most likely consequence of previous surgeries for her hernia repair DS 12/[address] Ivy history of small bowel obstruction, status post incarcerated incisional hernia wiuth repair and exploratory laparotomy and lysis of adhesions with removal portion of mesh. The patient developed enterocutaneous fistula, confirmed on CT RISK FACTORS: HP 12/07 Dr. Alfaro -History removal of infected mesh HP 12/07 Dr. Alfaro Morbid Obesity HP 12/[address] Alfaro- complicated abdominal surgical history HP 12/[address] Alfaro- DM HP 12/[address] Alfaro- Tinea Infection of her jimi abdominal wound TREATMENT: 12/07 Imaging- CT scan 12/08- PICC placement 12/08- TPN 12/07 MAR- Zosyn IV 4.5 gm (This form is maintained as a part of the permanent medical record) 2014 [email or web address]. All Rights Reserved Rebeka [email or web address] [not provided] MTDD
--- NOTE | 2018-12-17 19:26 | PQF ---
CRISTAL MELLO BRYAN DAVID MD [id number] [facility] [id number] CLINICAL DOCUMENTATION CLARIFICATION FORM: POST DISCHARGE Addendum to original discharge summary date: ____ Late entry note date: __ DATE:12-17-2018 ATTN:Stevie Lane Please exercise your independent, professional judgment in responding to the clarification form. Clinical indicators are provided on the bottom of this form for your review Can you please specify if the eneterocutaneous fistula of the intestine is a complication of the previous hernia repair? Please check appropriate box(s): [ ] eneterocutaneous fistula is a complication of the previous hernia repair? [ ] eneterocutaneous fistula is not a complication of the previous hernia repair? [ ] Other diagnosis please specify: [ ] Unable to determine CLINICAL INDICATORS: HP 12/[address] Alfaro Reason for admission: enterecutaneous fistula HP 12/[address] Alfaro has complicated abdominal surgical history back in July 2018 HP 12/[address] Alfaro has SBO due to incarcerated incisional hernia HP 12/[address] Alfaro This is most likely consequence of previous surgeries for her hernia repair PN 12/[address] Garcia Having leakage of the around the ostomy bag PN 12/[address] Garcia I recommend waiting at least two weeks to re assess and decide on any surgical procedure, she has still mesh in the wound. This chronic foreign body will probably prevent spontaneous closure PN 12/[address] Garcia waiting for the sorrounding inflammatory change to improve would improve outcome DS 12/[address] Ivy history of small bowel obstruction, status post incarcerated incisional hernia with repair and exploratory laparotomy and lysis of adhesions with removal portion of mesh. The patient developed enterocutaneous fistula, confirmed on CT RISK FACTORS: HP 12/07 Dr. Alfaro -History removal of infected mesh HP 12/07 Dr. Alfaro Morbid Obesity HP 12/[address] Alfaro- complicated abdominal surgical history HP 12/[address] Alfaro- DM HP 12/[address] Alfaro- Tinea Infection of her jimi abdominal wound TREATMENT: 12/07 Imaging- CT scan 12/08- PICC placement 12/08- TPN 12/07 MAR- Zosyn IV 4.5 gm (This form is maintained as a part of the permanent medical record) 2014 [email or web address]. All Rights Reserved Rebeka [email or web address] [not provided] MTDD
== END 2018-12-15 20:47 | DRG 393 ==
LOC: ERS 15:09 → T4-A 21:10
PROVIDERS: ADMIT Internal Medicine; ATTEND Internal Medicine
PROC: 02HV33Z Insertion of Infusion Device into Superior Vena Cava, Percutaneous Approach (ICD-10-PCS; principal; 2018-12-08)
PROC: B518YZA Fluoroscopy of Superior Vena Cava using Other Contrast, Guidance (ICD-10-PCS; 2018-12-08)
PROC: B548ZZA Ultrasonography of Superior Vena Cava, Guidance (ICD-10-PCS; 2018-12-08)
PROC: 3E0436Z Introduction of Nutritional Substance into Central Vein, Percutaneous Approach (ICD-10-PCS; 2018-12-08)
DX: K63.2 Fistula of intestine (principal); G93.41 Metabolic encephalopathy; I10 Essential (primary) hypertension; E03.9 Hypothyroidism, unspecified; I48.0 Paroxysmal atrial fibrillation; F41.9 Anxiety disorder, unspecified; F32.9 Major depressive disorder, single episode, unspecified; E66.01 Morbid (severe) obesity due to excess calories; E78.5 Hyperlipidemia, unspecified; D50.9 Iron deficiency anemia, unspecified; Z79.02 Long term (current) use of antithrombotics/antiplatelets; Z79.4 Long term (current) use of insulin; Z79.82 Long term (current) use of aspirin; Z79.899 Other long term (current) drug therapy; Z68.35 Body mass index [BMI] 35.0-35.9, adult; Z93.3 Colostomy status
CPT/HCPCS: 36415; 36416; 36569; 74177; 80048; 80053; 83735; 84100; 84478; 85007; 85014; 85018; 85025; 85027; 85049; 85610; 87324; 87449; 96365; 97602; A4218; C1751; J1644; J1650; J1815; J2001; J2354; J2543; J3475; J3490; J8499; Q9966; Q9967; S0028

== ENCOUNTER 2018-12-23 10:13 | Inpatient (IN) | payer MEDICARE ==
[2018-12-23] MEDS ORDERED: Fentanyl 100 MCG/2 ML VIAL SLOW IVP PRN ×2 (13:05)
[2018-12-23] MEDS ORDERED: hydrALAZINE 20 MG/ML VIAL SLOW IVP PRN (13:05)
[2018-12-23] MEDS ORDERED: Ondansetron PF 4 MG/2 ML Vial IVP PRN (13:05)
[2018-12-23] MEDS ORDERED: Dextrose 5% in Water 1,000 ML IV PRN (13:05)
[2018-12-23] MEDS ORDERED: Promethazine HCl 25 MG/ML VIAL IM PRN (13:05)
[2018-12-23] MEDS ORDERED: Acetaminophen 1,000 MG in Premix Bag 1 BAG IVPB PRN (13:05)
[2018-12-23] MEDS ORDERED: Dextrose 50% Abboject 50 ML SYRINGE SLOW IVP PRN (13:05)
[2018-12-23 13:32] LABS: #Eosinphils 0.3 thou/uL (0.0-0.7); #Lymphocytes 3.3 thou/uL (1.20-3.40); #Monocytes 0.6 thou/uL (0.11-0.59); #Neutrophils 5.4 thou/uL (1.40-6.50); %Basophils 0.2 % (0.0-1.0); %Eosinophils 3.6 % (0.0-10.0); %Lymphocytes 34.1 % (21.0-51.0); %Monocytes 6.1 % (0.0-10.0); Hemoglobin 10.4 g/dL (12.0-16.0); Mean Corpuscular HGB CONC 31.7 g/dL (32.0-36.0); Mean Corpuscular Hemoglobin 24.2 pg (27.0-31.0); Mean Corpuscular Volume 76.5 fL (78.0-98.0); Mean Platelet Volume 9.3 fL (7.4-10.4); Platelet Count 179 thou/uL (130-400); RBC Distribution Width 16.9 % (11.5-14.5); Red Blood Cell (RBC) Count 4.31 mill/uL (4.20-5.40); White Blood Cell (WBC) Count 9.6 thou/uL (4.8-10.8)
[2018-12-23] MEDS ORDERED: Octreotide Acetate 100 MCG/ML VIAL SC SCH (14:00)
[2018-12-23 14:01] LABS: ALT (SGPT) 10 U/L (8-55); AST (SGOT) 17 U/L (5-34); Albumin 3.7 g/dL (3.4-4.8); Alkaline Phosphatase 142 U/L (40-150); Anion Gap 12 mmol/L (10-20); BUN (Urea Nitrogen) 21 mg/dL (9.8-20.1); Bilirubin, Total 0.3 mg/dL (0.2-1.2); Calc. Creatinine Clearance 0 mL/min (70-130); Calcium 9.6 mg/dL (7.8-10.44); Carbon Dioxide 23 mmol/L (23-31); Chloride 104 mmol/L (98-107); Estimated GFR-MDRD 89; Globulin 3.3 g/dL (2.4-3.5); Glucose 132 mg/dL (80-115); Magnesium 1.8 mg/dL (1.6-2.6); Phosphorus 3.9 mg/dL (2.3-4.7); Potassium 4.5 mmol/L (3.5-5.1); Sodium 134 mmol/L (136-145)
[2018-12-23] MEDS: D5 1/2 NS w/20 mEq KCL 1,000 ML IV SCH ×2 (15:59→23:20)
[2018-12-23] MEDS: Enoxaparin Sodium 40 MG/0.4 ML SYRINGE SC SCH (21:36)
[2018-12-23] MEDS: POTASSIUM ACETATE IV SCH (22:54)
[2018-12-23] MEDS: SODIUM ACETATE IV SCH (22:54)
[2018-12-23] MEDS: [UNRECOGNIZED DRUG - OTHER] IV SCH (22:54)
[2018-12-23] MEDS: FAT EMULSION IV SCH (22:54)
[2018-12-24] MEDS: Octreotide Acetate 100 MCG/ML VIAL SC SCH ×3 (01:34→18:23)
[2018-12-24] MEDS ORDERED: LEVOTHYROXINE SODIUM PO SCH (06:00)
[2018-12-24] MEDS: Levothyroxine Sodium 25 MCG TAB PO SCH (06:37)
[2018-12-24] MEDS: Levothyroxine Sodium 112 MCG TAB PO SCH (06:37)
[2018-12-24] MEDS: Liothyronine Sodium 5 MCG TAB PO SCH (06:37)
[2018-12-24] MEDS: HumaLOG 300 UNITS/3 ML VIAL SC PRN ×2 (06:41→16:28)
[2018-12-24 08:46] LABS: ALT (SGPT) 10 U/L (8-55); AST (SGOT) 15 U/L (5-34); Albumin 3.6 g/dL (3.4-4.8); Alkaline Phosphatase 150 U/L (40-150); Anion Gap 11 mmol/L (10-20); BUN (Urea Nitrogen) 17 mg/dL (9.8-20.1); Bilirubin, Total 0.3 mg/dL (0.2-1.2); Calc. Creatinine Clearance 133 mL/min (70-130); Calcium 9.2 mg/dL (7.8-10.44); Carbon Dioxide 24 mmol/L (23-31); Chloride 102 mmol/L (98-107); Estimated GFR-MDRD 89; Globulin 3.1 g/dL (2.4-3.5); Glucose 217 mg/dL (80-115); Magnesium 1.9 mg/dL (1.6-2.6); Phosphorus 3.1 mg/dL (2.3-4.7); Potassium 4.4 mmol/L (3.5-5.1); Protein, Total 6.7 g/dL (6.0-8.3); Sodium 133 mmol/L (136-145)
[2018-12-24] MEDS: Bisoprolol Fumarate 5 MG TAB PO SCH (10:05)
[2018-12-24] MEDS: Losartan 25 MG TAB PO SCH (10:05)
[2018-12-24] MEDS: PARoxetine 20 MG TAB PO SCH (10:06)
[2018-12-24] MEDS: Pantoprazole 40 MG VIAL IVP SCH (10:06)
--- NOTE | 2018-12-24 10:30 | HP ---
CHIEF COMPLAINT: Enterocutaneous fistula. HISTORY OF PRESENT ILLNESS: This is a 68-year-old female with a history of diabetes mellitus, hypertension, morbid obesity, who presents with a history of enterocutaneous fistula. She has had mesh infection and mesh debridements and abdominal washout by Dr. Uribe. She had an open wound postop healing with wound VAC, but developed one small tunnel, this became an enterocutaneous fistula, previously admitted to mt and sent over to rehab; however, her wound care has become too complicated with difficulty controlling the drainage. She is readmitted to the hospital here. PAST MEDICAL HISTORY: Includes hypertension, diabetes mellitus type 2, history of atrial fibrillation, history of Watchman procedure, incisional hernia repair. PAST SURGICAL HISTORY: Multiple surgical history includes laparoscopic gastric band, cholecystectomy, lysis of adhesions, removal of infected mesh, complex hernia repair. SOCIAL HISTORY: Lives at home with family. No smoking, alcohol, or other drugs. REVIEW OF SYSTEMS: Ten-system review of systems otherwise negative unless described above. PHYSICAL EXAMINATION: HEENT: Sclerae are anicteric. Oropharynx is clear. NECK: No lymphadenopathy. CHEST: Clear. HEART: Regular rate. ABDOMEN: Soft, nontender, nondistended. The previous severe excoriated skin around the fistula is much improved. She has wound VAC from the rehab that is not hooked up to the device as of yet. EXTREMITIES: No ischemia or edema to extremities. LABORATORY DATA: White blood cell count is 9, hemoglobin 10, platelet count is 179. Creatinine 0.66. ASSESSMENT: 1. Known enterocutaneous fistula. 2. Diabetes mellitus. 3. Morbid obesity. 4. Atrial fibrillation. PLAN: Readmit. Continue TPN, wound VAC. Job ID: [id number]
[2018-12-24] MEDS ORDERED: ISOVUE-370 76%-LOCM 1 ML ONE (12:33)
--- NOTE | 2018-12-24 13:00 | CT ---
CT Abdomen Pelvis W Con History: Fistula Comparison: CT abdomen and pelvis December 07, 2018 Findings: Lung bases are clear. No pericardial effusion. Similar appearance of the lap band. The liver, pancreas, spleen and adrenal glands are unremarkable. No hydronephrosis. Hypodensity inferior pole left kidney is unremarkable. No free intraperitoneal gas or fluid. Moderate facet arthrosis and degenerative disc space height los s throughout the lumbar spine. There is a enteric contrast extending through the anterior lower abdominal soft tissue wound similar to the prior examination. Impression: 1. Unchanged entercutaneous fistula. 2. Pneumatosis of the cecal apex. Correlation with lactic acid levels. Pneumatosis is not always an o minous imaging finding. 3. Air-fluid levels in the small bowel consistent with ileus. No overt dilatation.
--- NOTE | 2018-12-24 16:45 | PDOC.GSPN ---
Surgery Progress Note: Subj - Subjective Narrative: c/o burning that is mild in RLQ. Wound vac seems to be holding Surgery Progress Note: Obj - Vital signs Vital signs: Vital Signs - Most Recent Temp Pulse Resp BP Pulse Ox 98.6 F 84 18 113/69 95 12/24/18 07:46 12/24/18 07:46 12/24/18 07:46 12/24/18 07:46 12/24/18 08:00 - Physical Exam General: no distress Cardiovascular: regular rate and rhythm Respiratory: clear to auscultation Abdomen: soft, non tender, nondistended Wound: other (The wound vac at the fistula site seems to be holding) Surgery Progress Note: Results - Labs Result Diagrams: 12/23/18 13:20 12/24/18 08:06 Lab results: Laboratory Results - last 24 hr 12/24/18 12/24/18 12/24/18 04:34 08:06 11:17 Sodium 133 L Potassium 4.4 Chloride 102 Carbon Dioxide 24 Anion Gap 11 BUN 17 Creatinine 0.66 Estimated GFR (MDRD) 89 Glucose 217 H POC Glucose 289 H 189 H Calcium 9.2 Phosphorus 3.1 Magnesium 1.9 Total Bilirubin 0.3 AST 15 ALT 10 Alkaline Phosphatase 150 Serum Total Protein 6.7 Albumin 3.6 Globulin 3.1 Albumin/Globulin Ratio 1.2 12/24/18 16:18 Sodium Potassium Chloride Carbon Dioxide Anion Gap BUN Creatinine Estimated GFR (MDRD) Glucose POC Glucose 252 H Calcium Phosphorus Magnesium Total Bilirubin AST ALT Alkaline Phosphatase Serum Total Protein Albumin Globulin Albumin/Globulin Ratio Surgery Progress Note: A/P - Problem (1) Enterocutaneous fistula Current Visit: No Code(s): K63.2 - FISTULA OF INTESTINE Status: Acute - Plan Plan: Doing well. Stable with current management -change tpn per nutrition recs -cont vac management of fistula -suspect a few more weeks of current treatment then re assess
--- NOTE | 2018-12-24 18:12 | CON ---
DATE OF CONSULTATION: PRIMARY CARE PROVIDER: Pavel Cosby MDb CHIEF COMPLAINT: Management of medical comorbidities. HISTORY OF PRESENT ILLNESS: Ms. Lepe is a pleasant 68-year-old lady, who was seen at [facility] on December 24, 2018. She is admitted under the Surgical Service. Hospitalist Service has been consulted for management of medical comorbidities. Ms. Lepe was hospitalized at this facility from December 07 to December 15 of this year for enterocutaneous fistula, acute metabolic encephalopathy, and diabetes mellitus type 2, insulin dependent. She was discharged to [facility] with abdominal wound VAC. She reports that over the last 3 days she has had discharge from the wound VAC. There was difficulty managing her wound VAC at inpatient rehab. She was therefore readmitted to the hospital. She denies any chest pain or shortness of breath. She denies any fevers or chills. She reports mild right lower quadrant discomfort. She denies any nausea or vomiting. REVIEW OF SYSTEMS: All systems were reviewed and found to be negative except for the pertinent positives mentioned above. PAST MEDICAL HISTORY: Morbid obesity, chronic anticoagulation, paroxysmal atrial fibrillation, Watchman procedure, small bowel obstruction that required surgery, incisional hernia, enterocutaneous fistula, abdominal wound requiring wound VAC. PAST SURGICAL HISTORY: Laparoscopic adjustable band incisional hernia repair x2, open cholecystectomy, laparotomy and removal of adhesions as well as removal of mesh and complex incisional hernia repair without mesh. ALLERGIES: MORPHINE. CURRENT MEDICATIONS: As described by Dr. Ivy in his discharge summary dated December 15, 2018. FAMILY HISTORY: No family history of premature coronary artery disease. SOCIAL HISTORY: No history of tobacco use, alcohol use, or recreational drug use. PSYCHIATRIC HISTORY: Anxiety and depression. PHYSICAL EXAMINATION: GENERAL: On examination, Ms. Lepe is awake and alert, not in acute distress. VITAL SIGNS: Blood pressure is 113/69, pulse 84, respiratory rate 18, and oxygen saturation 95% on room air. She is afebrile. EYES: No scleral icterus. No conjunctival pallor. ENT: Moist mucosal membranes. No oropharyngeal erythema or exudates. NECK: Supple, nontender. Trachea is midline. RESPIRATORY: Accessory muscles of breathing are not active. Chest wall movements are symmetric bilaterally. Lungs are clear to auscultation without wheeze, rhonchi, or crepitations. CARDIOVASCULAR: S1 and S2 are heard, regular. Peripheral pulses palpable. ABDOMEN: Soft, nontender. The patient has abdominal wound with wound VAC, bowel sounds are heard. NEUROLOGIC: Cranial nerves II through XII are intact. MUSCULOSKELETAL: Moving all 4 extremities. SKIN: Abdominal wounds present. LYMPHATIC: No cervical lymphadenopathy. PSYCHIATRIC: Normal mood. Normal affect. The patient is oriented to person, place, and time. DIAGNOSTIC DATA: Ms. Lepe's labs and investigations were reviewed. She has mild hyponatremia with sodium 133, normal potassium, normal creatinine, normal LFTs. Normal white count, normal platelet count and microcytic anemia with hemoglobin 10.4, last known hemoglobin was 9.6 on December 21, 2018. ASSESSMENT AND PLAN: Ms. Lepe is a pleasant 68-year-old lady, who was seen at [facility] on December 24, 2018, for management of medical comorbidities. Her problem list includes: 1. Diabetes mellitus, type 2: We will continue her on Lantus insulin. We will start Accu-Cheks and insulin sliding scale. We will continue metformin. We will also start her on hypoglycemia protocol. 2. Paroxysmal atrial fibrillation: We will continue her on dofetilide. 3. Hypothyroidism: Continue Synthroid and liothyronine. 4. The patient is receiving TPN. 5. Wound management per Surgical Team. Many thanks for allowing me to participate in your patient's care. Please feel free to contact me with any questions or concerns. LEVEL OF RISK: Moderate. LEVEL OF COMPLEXITY: Moderate. Job ID: [id number]
[2018-12-24] MEDS ORDERED: INSULIN GLARGINE HUM REC ANLOG 46 UNIT SC SCH (21:00)
[2018-12-24] MEDS: Dofetilide 0.125 MG CAP PO SCH (21:28)
[2018-12-24] MEDS: Atorvastatin Calcium 20 MG TAB PO SCH (21:28)
[2018-12-24] MEDS: Magnesium Oxide 400 MG TAB PO SCH (21:28)
[2018-12-24] MEDS: Aspirin 81 mg Enteric Coated Tablet PO SCH (21:28)
[2018-12-24] MEDS: Enoxaparin Sodium 40 MG/0.4 ML SYRINGE SC SCH (21:28)
[2018-12-24] MEDS: Insulin Glargine 46 UNITS in Pre-Filled Syringe 1 EACH SC SCH (21:31)
[2018-12-24] MEDS: [UNRECOGNIZED DRUG - OTHER] IV SCH (22:57)
[2018-12-24] MEDS: FAT EMULSION IV SCH ×2 (22:57→22:58)
[2018-12-24] MEDS: POTASSIUM CHLORIDE IV SCH (22:57)
[2018-12-24] MEDS: SODIUM ACETATE IV SCH ×2 (22:57→22:58)
[2018-12-24] MEDS: [UNRECOGNIZED DRUG - OTHER] IV SCH (22:58)
[2018-12-24] MEDS: POTASSIUM ACETATE IV SCH (22:58)
[2018-12-25] MEDS: D5 1/2 NS w/20 mEq KCL 1,000 ML IV SCH (02:09)
[2018-12-25] MEDS: Octreotide Acetate 100 MCG/ML VIAL SC SCH ×3 (02:09→17:53)
[2018-12-25] MEDS ORDERED: Octreotide Acetate 100 MCG/ML VIAL SC SCH (02:45)
[2018-12-25] MEDS: Liothyronine Sodium 5 MCG TAB PO SCH (06:04)
[2018-12-25] MEDS: Levothyroxine Sodium 25 MCG TAB PO SCH (06:05)
[2018-12-25] MEDS: Levothyroxine Sodium 112 MCG TAB PO SCH (06:05)
[2018-12-25] MEDS: HumaLOG 300 UNITS/3 ML VIAL SC PRN ×3 (06:06→17:54)
[2018-12-25] MEDS: metFORMIN 500 MG TAB PO SCH ×2 (08:45→17:53)
[2018-12-25] MEDS: Ascorbic Acid 500 mg Chewable Tablet PO SCH (08:47)
[2018-12-25] MEDS: Clopidogrel Bisulfate 75 MG TAB PO SCH (08:47)
[2018-12-25] MEDS: Losartan 25 MG TAB PO SCH (08:47)
[2018-12-25] MEDS: Ferrous Sulfate 325 MG TAB PO SCH (08:48)
[2018-12-25] MEDS: Magnesium Oxide 400 MG TAB PO SCH ×2 (08:48→21:03)
[2018-12-25] MEDS: PARoxetine 20 MG TAB PO SCH (08:48)
[2018-12-25] MEDS: Bisoprolol Fumarate 5 MG TAB PO SCH (08:49)
[2018-12-25] MEDS ORDERED: Krill Oil [Krill Oil] 500 MG PO SCH (09:00)
[2018-12-25] MEDS ORDERED: Famotidine/PF 20 mg/2ml Vial SLOW IVP SCH (09:00)
[2018-12-25] MEDS: Dofetilide 0.125 MG CAP PO SCH ×2 (09:22→21:03)
[2018-12-25] MEDS: Lactinex Tablet PO SCH (09:22)
[2018-12-25] MEDS: Pantoprazole 40 MG VIAL IVP SCH (09:41)
[2018-12-25] MEDS: Vancomycin HCl 25 MG/ML Oral PO SCH ×4 (11:28→21:04)
--- NOTE | 2018-12-25 13:58 | PDOC.HOSPP ---
- Subjective Encounter Date: 12/25/18 Encounter Time: 09:00 Subjective: Pt seen for followup re: C. difficile infection. Diarrhea+. - Objective Vital Signs & Weight: Vital Signs (12 hours) Temp Pulse Resp BP BP Pulse Ox 12/25/18 11:21 98.3 F 76 18 103/57 L 96 12/25/18 08:00 96 12/25/18 07:22 98.3 F 83 20 106/63 96 12/25/18 04:56 98.2 F 82 18 107/69 97 Weight Admit Weight 224 lb 11.2 oz Weight 224 lb 11.2 oz I&O: 12/24/18 12/25/18 12/26/18 06:59 06:59 06:59 Intake Total 1058 1872 Balance 1058 1872 Result Diagrams: 12/23/18 13:20 12/24/18 08:06 Additional Labs: Accuchecks 12/25/18 12/25/18 12/24/18 11:20 04:30 19:38 POC Glucose 212 H 263 H 240 H 12/24/18 16:18 POC Glucose 252 H Labs and MARs reviewed by ri Hospitalist ROS - Review of Systems Cardiovascular: denies: chest pain, palpitations, orthopnea, paroxysmal noc. dyspnea, edema, light headedness Gastrointestinal: reports: diarrhea. denies: nausea, vomiting, abdominal pain, constipation, melena, hematochezia - Medication Medications: Active Medications Generic Name Dose Route Start Last Admin Trade Name Freq PRN Reason Stop Dose Admin Acidophilus 1 tab 12/25/18 09:00 12/25/18 09:22 Floranex PO 1 tab DAILY TRAVON Administration Ascorbic Acid 500 mg 12/25/18 09:00 12/25/18 08:47 Vitamin C PO 500 mg DAILY TRAVON Administration Aspirin 81 mg 12/24/18 21:00 12/24/18 21:28 Ecotrin PO 81 mg HS TRAVON Administration Atorvastatin Calcium 20 mg 12/24/18 21:00 12/24/18 21:28 Lipitor PO 20 mg HS TRAVON Administration Bisoprolol Fumarate 5 mg 12/24/18 09:00 12/25/18 08:49 Zebeta PO 5 mg 0900 TRAVON Administration Cholecalciferol 2,000 units 12/25/18 09:00 12/25/18 08:48 Vitamin D3 PO 2,000 units DAILY TRAVON Administration Clopidogrel Bisulfate 75 mg 12/25/18 09:00 12/25/18 08:47 Plavix PO 75 mg 0900 TRAVON Administration Dofetilide 0.5 mg 12/24/18 21:00 12/25/18 09:22 Tikosyn PO 0.5 mg BID TRAVON Administration Enoxaparin Sodium 40 mg 12/23/18 21:00 12/24/18 21:28 Lovenox SC 40 mg 2100 TRAVON Administration Ferrous Sulfate 650 mg 12/25/18 09:00 12/25/18 08:48 Feosol PO 650 mg DAILY TRAVNO Administration Potassium Chloride/Dextrose/Sod Cl 1,000 mls @ 0 mls/hr 12/23/18 13:15 02:09 D5 1/2 Ns W/20 Meq Kcl IV 1,000 mls .Q0M TRAVON Administration As Directed Fat Emulsion Intravenous 250 2,308.6945 mls @ 96.196 mls/hr 12/24/18 22:00 22:57 ml/ Sodium Acetate 40 meq/ IV 2,308.6945 mls Potassium Chloride 40 meq/ 2200 TRAVON Administration Magnesium Sulfate 15 meq/ Multivitamins 10 ml/ Chromium/ Copper/Manganese/Seleni/Zn 5 ml/ Amino Acids/Electrolytes Insulin Glargine 46 units/ 0.46 mls @ 0 mls/hr 12/24/18 21:00 12/24/18 21:31 Miscellaneous Medication SC 0.46 mls HS TRAVON Administration Insulin Human Lispro 0 units 12/25/18 08:51 12/25/18 12:47 Humalog SC 6 unit .AGGRESSIVE SLIDING PRN Administration Aggressive Correctional Scale Levothyroxine Sodium 224 mcg 12/24/18 06:00 12/25/18 06:05 Synthroid PO 224 mcg 0600 TRAVON Administration Levothyroxine Sodium 50 mcg 12/24/18 06:00 12/25/18 06:05 Synthroid PO 50 mcg 0600 TRAVON Administration Liothyronine Sodium 5 mcg 12/24/18 06:00 12/25/18 06:04 Cytomel PO 5 mcg 0600 TRAVON Administration Losartan Potassium 50 mg 12/24/18 09:00 12/25/18 08:47 Cozaar PO 50 mg DAILY TRAVON Administration Magnesium Oxide 400 mg 12/24/18 21:00 12/25/18 08:48 Magnesium Oxide PO 400 mg BID TRAVON Administration Metformin HCl 1,000 mg 12/25/18 08:00 12/25/18 08:45 Glucophage PO 1,000 mg BID-WM TRAVON Administration Octreotide Acetate 100 mcg 12/24/18 02:00 12/25/18 09:23 Sandostatin SC 100 mcg 0200,1000,1800 TRAVON Administration Paroxetine HCl 20 mg 12/24/18 09:00 12/25/18 08:48 Paxil PO 20 mg DAILY TRAVON Administration Vancomycin HCl 125 mg 12/25/18 09:00 12/25/18 12:46 First Vancomycin PO 01/03/19 21:01 125 mg QID TRAVON Administration - Exam General - other findings: Obese Eye: anicteric sclera ENT: moist mucosa Neck: supple Heart: irregular Respiratory: CTAB Gastrointestinal: soft, non-tender Skin - other findings: abdominal wound Psychiatric: normal affect, normal behavior Hosp A/P (1) Clostridium difficile infection Code(s): A49.8 - OTHER BACTERIAL INFECTIONS OF UNSPECIFIED SITE Status: Acute (2) DM2 (diabetes mellitus, type 2) Status: Chronic (3) Anxiety and depression Code(s): F41.9 - ANXIETY DISORDER, UNSPECIFIED; F32.9 - MAJOR DEPRESSIVE DISORDER, SINGLE EPISODE, UNSPECIFIED Status: Chronic (4) Atrial fibrillation Code(s): I48.91 - UNSPECIFIED ATRIAL FIBRILLATION Status: Chronic Qualifiers: Atrial fibrillation type: paroxysmal Qualified Code(s): I48.0 - Paroxysmal atrial fibrillation (5) Hypertension Code(s): I10 - ESSENTIAL (PRIMARY) HYPERTENSION Status: Chronic (6) Hypothyroidism Code(s): E03.9 - HYPOTHYROIDISM, UNSPECIFIED Status: Chronic - Plan out of bed/ambulate Start enteral vancomyucin, continue Florastor. Discontinue PPI, start Pepcid. Blood sugars high, switch to aggressive insulin sliding scale. HTN controlled. Depression mild, stable. Continue thyroid replacement therapy.
[2018-12-25] MEDS: Atorvastatin Calcium 20 MG TAB PO SCH (21:03)
[2018-12-25] MEDS: Famotidine 20 MG TAB PO SCH (21:03)
[2018-12-25] MEDS: Aspirin 81 mg Enteric Coated Tablet PO SCH (21:03)
[2018-12-25] MEDS: Enoxaparin Sodium 40 MG/0.4 ML SYRINGE SC SCH (21:04)
[2018-12-25] MEDS: FAT EMULSION IV SCH (23:02)
[2018-12-25] MEDS: SODIUM ACETATE IV SCH (23:02)
[2018-12-25] MEDS: Insulin Glargine 46 UNITS in Pre-Filled Syringe 1 EACH SC SCH (23:02)
[2018-12-25] MEDS: [UNRECOGNIZED DRUG - OTHER] IV SCH (23:02)
[2018-12-25] MEDS: POTASSIUM CHLORIDE IV SCH (23:02)
[2018-12-26] MEDS: Octreotide Acetate 100 MCG/ML VIAL SC SCH ×3 (02:10→17:25)
[2018-12-26] MEDS: Levothyroxine Sodium 25 MCG TAB PO SCH (06:06)
[2018-12-26] MEDS: HumaLOG 300 UNITS/3 ML VIAL SC PRN ×2 (06:06→17:26)
[2018-12-26] MEDS: Liothyronine Sodium 5 MCG TAB PO SCH (06:06)
[2018-12-26] MEDS: Levothyroxine Sodium 112 MCG TAB PO SCH (06:06)
[2018-12-26] MEDS: Vancomycin HCl 25 MG/ML Oral PO SCH ×4 (09:16→22:22)
[2018-12-26] MEDS: Dofetilide 0.125 MG CAP PO SCH ×2 (09:17→21:25)
[2018-12-26] MEDS: Lactinex Tablet PO SCH (10:43)
[2018-12-26] MEDS: Bisoprolol Fumarate 5 MG TAB PO SCH (10:43)
[2018-12-26] MEDS: Clopidogrel Bisulfate 75 MG TAB PO SCH (10:44)
[2018-12-26] MEDS: metFORMIN 500 MG TAB PO SCH ×2 (10:44→17:25)
[2018-12-26] MEDS: Famotidine 20 MG TAB PO SCH ×2 (10:45→21:27)
[2018-12-26] MEDS: Ferrous Sulfate 325 MG TAB PO SCH (10:45)
[2018-12-26] MEDS: Losartan 25 MG TAB PO SCH (10:45)
[2018-12-26] MEDS: PARoxetine 20 MG TAB PO SCH (10:45)
[2018-12-26] MEDS: Ascorbic Acid 500 mg Chewable Tablet PO SCH (10:45)
[2018-12-26] MEDS: Magnesium Oxide 400 MG TAB PO SCH ×2 (10:45→21:27)
[2018-12-26] MEDS ORDERED: Insulin Glargine 5 UNITS in Pre-Filled Syringe 1 EACH SC SCH (10:45)
--- NOTE | 2018-12-26 11:35 | PRG ---
DATE OF SERVICE: 12/26/2018 SUBJECTIVE: The patient states she has no pain. She is continuing to drain enteric fluid from the fistula. OBJECTIVE: VITAL SIGNS: Her temperature is 98.2, pulse 93, blood pressure 119/77. GENERAL: She looks good, in no apparent distress. ABDOMEN: Soft, nontender. The dressing was last changed at 2:00 a.m. There is a little bit of enteric fluid on it. ASSESSMENT: Enterocutaneous fistula. PLAN: Continue management. Job ID: [id number]
--- NOTE | 2018-12-26 16:51 | PDOC.HOSPP ---
- Subjective Encounter Date: 12/26/18 Encounter Time: 09:00 Subjective: Pt seen for followup re: c. difficile infection. Has discharge from enterocutaneous fistula. Has diarrhea. - Objective Vital Signs & Weight: Vital Signs (12 hours) Temp Pulse Resp BP Pulse Ox 12/26/18 11:53 98.2 F 93 18 128/79 96 12/26/18 07:59 98.2 F 93 18 119/77 96 Weight Admit Weight 224 lb 11.2 oz Weight 224 lb 11.2 oz I&O: 12/25/18 12/26/18 12/27/18 06:59 06:59 06:59 Intake Total 1058 3444 Balance 1058 3444 Result Diagrams: 12/23/18 13:20 12/24/18 08:06 Additional Labs: Accuchecks 12/26/18 12/26/18 12/25/18 11:48 05:15 20:06 POC Glucose 247 H 218 H 185 H 12/25/18 16:29 POC Glucose 221 H Labs and MARs reviewed by ct Hospitalist ROS - Review of Systems Cardiovascular: denies: chest pain, palpitations, orthopnea, paroxysmal noc. dyspnea, edema, light headedness Gastrointestinal: reports: diarrhea. denies: nausea, vomiting, abdominal pain, constipation, melena, hematochezia Skin: reports: other (discharge from enterocutaneous fistula) - Medication Medications: Active Medications Generic Name Dose Route Start Last Admin Trade Name Freq PRN Reason Stop Dose Admin Acidophilus 1 tab 12/25/18 09:00 12/26/18 10:43 Floranex PO 1 tab DAILY TRAVON Administration Ascorbic Acid 500 mg 12/25/18 09:00 12/26/18 10:45 Vitamin C PO 500 mg DAILY TRAVON Administration Aspirin 81 mg 12/24/18 21:00 12/25/18 21:03 Ecotrin PO 81 mg HS TRAVON Administration Atorvastatin Calcium 20 mg 12/24/18 21:00 12/25/18 21:03 Lipitor PO 20 mg HS TRAVON Administration Bisoprolol Fumarate 5 mg 12/24/18 09:00 12/26/18 10:43 Zebeta PO 5 mg 0900 TRAVON Administration Cholecalciferol 2,000 units 12/25/18 09:00 12/26/18 10:43 Vitamin D3 PO 2,000 units DAILY TRAVON Administration Clopidogrel Bisulfate 75 mg 12/25/18 09:00 12/26/18 10:44 Plavix PO 75 mg 0900 TRAVON Administration Dofetilide 0.5 mg 12/24/18 21:00 12/26/18 09:17 Tikosyn PO 0.5 mg BID TRAVON Administration Enoxaparin Sodium 40 mg 12/23/18 21:00 12/25/18 21:04 Lovenox SC 40 mg 2100 TRAVON Administration Famotidine 20 mg 12/25/18 21:00 12/26/18 10:45 Pepcid PO 20 mg BID TRAVON Administration Ferrous Sulfate 650 mg 12/25/18 09:00 12/26/18 10:45 Feosol PO 650 mg DAILY TRAVON Administration Potassium Chloride/Dextrose/Sod Cl 1,000 mls @ 0 mls/hr 12/23/18 13:15 02:09 D5 1/2 Ns W/20 Meq Kcl IV 1,000 mls .Q0M TRAVON Administration As Directed Fat Emulsion Intravenous 250 2,308.6945 mls @ 96.196 mls/hr 12/24/18 22:00 23:02 ml/ Sodium Acetate 40 meq/ IV 2,308.6945 mls Potassium Chloride 40 meq/ 2200 TRAVON Administration Magnesium Sulfate 15 meq/ Multivitamins 10 ml/ Chromium/ Copper/Manganese/Seleni/Zn 5 ml/ Amino Acids/Electrolytes Insulin Human Lispro 0 units 12/25/18 08:51 12/26/18 06:06 Humalog SC 6 unit .AGGRESSIVE SLIDING PRN Administration Aggressive Correctional Scale Levothyroxine Sodium 224 mcg 12/24/18 06:00 12/26/18 06:06 Synthroid PO 224 mcg 0600 TRAVON Administration Levothyroxine Sodium 50 mcg 12/24/18 06:00 12/26/18 06:06 Synthroid PO 50 mcg 0600 TRAVON Administration Liothyronine Sodium 5 mcg 12/24/18 06:00 12/26/18 06:06 Cytomel PO 5 mcg 0600 TRAVON Administration Losartan Potassium 50 mg 12/24/18 09:00 12/26/18 10:45 Cozaar PO 50 mg DAILY TRAVON Administration Magnesium Oxide 400 mg 12/24/18 21:00 12/26/18 10:45 Magnesium Oxide PO 400 mg BID TRAVON Administration Metformin HCl 1,000 mg 12/25/18 08:00 12/26/18 10:44 Glucophage PO 1,000 mg BID-WM TRAVON Administration Octreotide Acetate 100 mcg 12/24/18 02:00 12/26/18 12:33 Sandostatin SC 100 mcg 0200,1000,1800 TRAVON Administration Paroxetine HCl 20 mg 12/24/18 09:00 12/26/18 10:45 Paxil PO 20 mg DAILY TRAVON Administration Vancomycin HCl 125 mg 12/25/18 09:00 12/26/18 12:33 First Vancomycin PO 01/03/19 21:01 125 mg QID TRAVON Administration - Exam General - other findings: Obesity ENT: moist mucosa Neck: supple Heart: RRR Respiratory: CTAB Gastrointestinal: soft Skin - other findings: enterocutaneous fistula Psychiatric: normal affect, normal behavior Hosp A/P (1) Clostridium difficile infection Code(s): A49.8 - OTHER BACTERIAL INFECTIONS OF UNSPECIFIED SITE Status: Acute (2) DM2 (diabetes mellitus, type 2) Status: Chronic (3) Anxiety and depression Code(s): F41.9 - ANXIETY DISORDER, UNSPECIFIED; F32.9 - MAJOR DEPRESSIVE DISORDER, SINGLE EPISODE, UNSPECIFIED Status: Chronic (4) Atrial fibrillation Code(s): I48.91 - UNSPECIFIED ATRIAL FIBRILLATION Status: Chronic Qualifiers: Atrial fibrillation type: paroxysmal Qualified Code(s): I48.0 - Paroxysmal atrial fibrillation (5) Hypertension Code(s): I10 - ESSENTIAL (PRIMARY) HYPERTENSION Status: Chronic (6) Hypothyroidism Code(s): E03.9 - HYPOTHYROIDISM, UNSPECIFIED Status: Chronic - Plan continue antibiotics, out of bed/ambulate Continue oral vancomyucin and Florastor. Continue Pepcid. Blood sugars high, increase Lantus to 50 units SC HS. HTN controlled. Continue thyroid replacement therapy.
[2018-12-26] MEDS ORDERED: Insulin Glargine 50 UNITS in Pre-Filled Syringe 1 EACH SC SCH (21:00)
[2018-12-26] MEDS: Enoxaparin Sodium 40 MG/0.4 ML SYRINGE SC SCH (21:26)
[2018-12-26] MEDS: Aspirin 81 mg Enteric Coated Tablet PO SCH (21:26)
[2018-12-26] MEDS: Atorvastatin Calcium 20 MG TAB PO SCH (21:26)
[2018-12-26] MEDS: [UNRECOGNIZED DRUG - OTHER] IV SCH (22:23)
[2018-12-26] MEDS: POTASSIUM CHLORIDE IV SCH (22:23)
[2018-12-26] MEDS: SODIUM ACETATE IV SCH (22:23)
[2018-12-26] MEDS: FAT EMULSION IV SCH (22:23)
[2018-12-27] MEDS: Octreotide Acetate 100 MCG/ML VIAL SC SCH ×3 (02:03→17:25)
[2018-12-27] MEDS: Liothyronine Sodium 5 MCG TAB PO SCH (05:51)
[2018-12-27] MEDS: Levothyroxine Sodium 25 MCG TAB PO SCH (05:51)
[2018-12-27] MEDS: Levothyroxine Sodium 112 MCG TAB PO SCH (05:52)
[2018-12-27] MEDS: HumaLOG 300 UNITS/3 ML VIAL SC PRN ×2 (05:59→12:59)
[2018-12-27 06:45] LABS: #Eosinphils 0.4 thou/uL (0.0-0.7); #Monocytes 0.5 thou/uL (0.11-0.59); #Neutrophils 4.6 thou/uL (1.40-6.50); %Basophils 0.3 % (0.0-1.0); %Eosinophils 4.7 % (0.0-10.0); %Lymphocytes 34.9 % (21.0-51.0); %Monocytes 6.3 % (0.0-10.0); %Neutrophils 53.8 % (42.0-75.0); Hemoglobin 10.1 g/dL (12.0-16.0); Mean Corpuscular HGB CONC 32.2 g/dL (32.0-36.0); Mean Corpuscular Hemoglobin 24.5 pg (27.0-31.0); Mean Corpuscular Volume 76.2 fL (78.0-98.0); Mean Platelet Volume 9.8 fL (7.4-10.4); Platelet Count 159 thou/uL (130-400); RBC Distribution Width 16.3 % (11.5-14.5); Red Blood Cell (RBC) Count 4.11 mill/uL (4.20-5.40); White Blood Cell (WBC) Count 8.5 thou/uL (4.8-10.8)
[2018-12-27 07:08] LABS: ALT (SGPT) 7 U/L (8-55); AST (SGOT) 12 U/L (5-34); Albumin 3.4 g/dL (3.4-4.8); Alkaline Phosphatase 132 U/L (40-150); Anion Gap 9 mmol/L (10-20); BUN (Urea Nitrogen) 21 mg/dL (9.8-20.1); Bilirubin, Total 0.3 mg/dL (0.2-1.2); Calc. Creatinine Clearance 129 mL/min (70-130); Carbon Dioxide 28 mmol/L (23-31); Chloride 100 mmol/L (98-107); Estimated GFR-MDRD 86; Globulin 2.8 g/dL (2.4-3.5); Glucose 209 mg/dL (80-115); Potassium 4.8 mmol/L (3.5-5.1); Protein, Total 6.2 g/dL (6.0-8.3); Sodium 132 mmol/L (136-145)
[2018-12-27] MEDS ORDERED: Insulin Glargine 5 UNITS in Pre-Filled Syringe 1 EACH SC SCH (08:30)
[2018-12-27] MEDS: Bisoprolol Fumarate 5 MG TAB PO SCH (09:11)
[2018-12-27] MEDS: Dofetilide 0.125 MG CAP PO SCH ×2 (09:12→20:19)
[2018-12-27] MEDS: Vancomycin HCl 25 MG/ML Oral PO SCH ×4 (09:12→21:23)
[2018-12-27] MEDS: Ascorbic Acid 500 mg Chewable Tablet PO SCH (09:13)
[2018-12-27] MEDS: PARoxetine 20 MG TAB PO SCH (09:13)
[2018-12-27] MEDS: metFORMIN 500 MG TAB PO SCH ×2 (09:13→17:25)
[2018-12-27] MEDS: Magnesium Oxide 400 MG TAB PO SCH ×2 (09:14→20:19)
[2018-12-27] MEDS: Ferrous Sulfate 325 MG TAB PO SCH (09:14)
[2018-12-27] MEDS: Clopidogrel Bisulfate 75 MG TAB PO SCH (09:14)
[2018-12-27] MEDS: Losartan 25 MG TAB PO SCH (09:14)
[2018-12-27] MEDS: Lactinex Tablet PO SCH (09:14)
[2018-12-27] MEDS: Famotidine 20 MG TAB PO SCH ×2 (09:15→20:19)
--- NOTE | 2018-12-27 09:25 | PRG ---
DATE OF SERVICE: 12/27/2018 SUBJECTIVE: She feels really good this morning. She got good night sleep, really minimal pain. She reports that since they changed the amount of suction on her wound VAC that much less is coming out. OBJECTIVE: VITAL SIGNS: On examination, temperature 98.4, pulse 79, and blood pressure 116/64. GENERAL: She looks good. ABDOMEN: Dressing dry. She had a bowel movement. LABORATORY DATA: White count 8.5, H and H of 10 and 31, and platelet count 159. Electrolytes; sodium 132, glucose 209. Liver tests are fine. ASSESSMENT: Enterocutaneous fistula with some improvement. PLAN: Continue nonsurgical therapy. Job ID: [id number]
--- NOTE | 2018-12-27 16:02 | PDOC.HOSPP ---
- Subjective Encounter Date: 12/27/18 Encounter Time: 08:40 Subjective: Pt seen for followup re: clostridium difficile infection. feels better today. had wound vac on overnight. - Objective Vital Signs & Weight: Vital Signs (12 hours) Temp Pulse Resp BP Pulse Ox 12/27/18 12:00 98.3 F 66 18 104/64 99 12/27/18 08:33 98.4 F 79 18 116/64 97 Weight Admit Weight 224 lb 11.2 oz Weight 224 lb 11.2 oz I&O: 12/26/18 12/27/18 12/28/18 06:59 06:59 06:59 Intake Total 3444 1152 Balance 3444 1152 Result Diagrams: 12/27/18 06:13 12/27/18 06:13 Additional Labs: Accuchecks 12/27/18 12/27/18 12/27/18 11:33 05:58 00:56 POC Glucose 215 H 211 H 219 H 12/26/18 12/26/18 21:32 16:19 POC Glucose 225 H 222 H Labs and MARs reviewed by de Hospitalist ROS - Review of Systems Cardiovascular: denies: chest pain, palpitations, orthopnea, paroxysmal noc. dyspnea, edema, light headedness Gastrointestinal: denies: nausea, vomiting, abdominal pain, diarrhea, constipation, melena, hematochezia - Medication Medications: Active Medications Generic Name Dose Route Start Last Admin Trade Name Freq PRN Reason Stop Dose Admin Acidophilus 1 tab 12/25/18 09:00 12/27/18 09:14 Floranex PO 1 tab DAILY TRAVON Administration Ascorbic Acid 500 mg 12/25/18 09:00 12/27/18 09:13 Vitamin C PO 500 mg DAILY TRAVON Administration Aspirin 81 mg 12/24/18 21:00 12/26/18 21:26 Ecotrin PO 81 mg HS TRAVON Administration Atorvastatin Calcium 20 mg 12/24/18 21:00 12/26/18 21:26 Lipitor PO 20 mg HS TRAVON Administration Bisoprolol Fumarate 5 mg 12/24/18 09:00 12/27/18 09:11 Zebeta PO 5 mg 0900 TRAVON Administration Cholecalciferol 2,000 units 12/25/18 09:00 12/27/18 09:13 Vitamin D3 PO 2,000 units DAILY TRAVON Administration Clopidogrel Bisulfate 75 mg 12/25/18 09:00 12/27/18 09:14 Plavix PO 75 mg 0900 TRAVON Administration Dofetilide 0.5 mg 12/24/18 21:00 12/27/18 09:12 Tikosyn PO 0.5 mg BID TRAVON Administration Enoxaparin Sodium 40 mg 12/23/18 21:00 12/26/18 21:26 Lovenox SC 40 mg 2100 TRAVON Administration Famotidine 20 mg 12/25/18 21:00 12/27/18 09:15 Pepcid PO 20 mg BID TRAVON Administration Ferrous Sulfate 650 mg 12/25/18 09:00 12/27/18 09:14 Feosol PO 650 mg DAILY TRAVON Administration Fat Emulsion Intravenous 250 2,308.6945 mls @ 96.196 mls/hr 12/24/18 22:00 22:23 ml/ Sodium Acetate 40 meq/ IV 2,308.6945 mls Potassium Chloride 40 meq/ 2200 TRAVON Administration Magnesium Sulfate 15 meq/ Multivitamins 10 ml/ Chromium/ Copper/Manganese/Seleni/Zn 5 ml/ Amino Acids/Electrolytes Insulin Human Lispro 0 units 12/25/18 08:51 12/27/18 12:59 Humalog SC 6 unit .AGGRESSIVE SLIDING PRN Administration Aggressive Correctional Scale Levothyroxine Sodium 224 mcg 12/24/18 06:00 12/27/18 05:52 Synthroid PO 224 mcg 0600 TRAVON Administration Levothyroxine Sodium 50 mcg 12/24/18 06:00 12/27/18 05:51 Synthroid PO 50 mcg 0600 TRAVON Administration Liothyronine Sodium 5 mcg 12/24/18 06:00 12/27/18 05:51 Cytomel PO 5 mcg 0600 TRAVON Administration Losartan Potassium 50 mg 12/24/18 09:00 12/27/18 09:14 Cozaar PO 50 mg DAILY TRAVON Administration Magnesium Oxide 400 mg 12/24/18 21:00 12/27/18 09:14 Magnesium Oxide PO 400 mg BID TRAVON Administration Metformin HCl 1,000 mg 12/25/18 08:00 12/27/18 09:13 Glucophage PO 1,000 mg BID-WM TARVON Administration Octreotide Acetate 100 mcg 12/24/18 02:00 12/27/18 09:16 Sandostatin SC 100 mcg 0200,1000,1800 TRAVON Administration Paroxetine HCl 20 mg 12/24/18 09:00 12/27/18 09:13 Paxil PO 20 mg DAILY TRAVON Administration Vancomycin HCl 125 mg 12/25/18 09:00 12/27/18 12:59 First Vancomycin PO 01/03/19 21:01 125 mg QID TRAVON Administration - Exam General - other findings: Obese Eye: anicteric sclera ENT: moist mucosa Neck: supple Heart: RRR, no gallops Respiratory: CTAB Gastrointestinal: soft, non-tender Skin - other findings: wounds as documented Musculoskeletal: normal strength Psychiatric: normal affect, normal behavior Hosp A/P (1) Clostridium difficile infection Code(s): A49.8 - OTHER BACTERIAL INFECTIONS OF UNSPECIFIED SITE Status: Acute (2) DM2 (diabetes mellitus, type 2) Status: Chronic (3) Anxiety and depression Code(s): F41.9 - ANXIETY DISORDER, UNSPECIFIED; F32.9 - MAJOR DEPRESSIVE DISORDER, SINGLE EPISODE, UNSPECIFIED Status: Chronic (4) Atrial fibrillation Code(s): I48.91 - UNSPECIFIED ATRIAL FIBRILLATION Status: Chronic Qualifiers: Atrial fibrillation type: paroxysmal Qualified Code(s): I48.0 - Paroxysmal atrial fibrillation (5) Hypertension Code(s): I10 - ESSENTIAL (PRIMARY) HYPERTENSION Status: Chronic (6) Hypothyroidism Code(s): E03.9 - HYPOTHYROIDISM, UNSPECIFIED Status: Chronic - Plan Pt is on oral vancomycin and Florastor will continue. Continue Pepcid. Blood sugars high, increase Lantus to 55 units SC HS. Discontinue D5 1/2 NS. HTN controlled. Continue synthroid.
[2018-12-27] MEDS: Aspirin 81 mg Enteric Coated Tablet PO SCH (20:18)
[2018-12-27] MEDS: Atorvastatin Calcium 20 MG TAB PO SCH (20:18)
[2018-12-27] MEDS: Enoxaparin Sodium 40 MG/0.4 ML SYRINGE SC SCH (20:19)
[2018-12-27] MEDS ORDERED: Insulin Glargine 55 UNITS in Pre-Filled Syringe 1 EACH SC SCH (21:00)
[2018-12-27] MEDS: SODIUM ACETATE IV SCH (22:14)
[2018-12-27] MEDS: [UNRECOGNIZED DRUG - OTHER] IV SCH (22:14)
[2018-12-27] MEDS: POTASSIUM CHLORIDE IV SCH (22:14)
[2018-12-27] MEDS: FAT EMULSION IV SCH (22:14)
[2018-12-28] MEDS: Octreotide Acetate 100 MCG/ML VIAL SC SCH ×3 (02:47→17:28)
[2018-12-28] MEDS: Liothyronine Sodium 5 MCG TAB PO SCH (05:24)
[2018-12-28] MEDS: Levothyroxine Sodium 25 MCG TAB PO SCH (05:24)
[2018-12-28] MEDS: Levothyroxine Sodium 112 MCG TAB PO SCH (05:24)
[2018-12-28] MEDS: HumaLOG 300 UNITS/3 ML VIAL SC PRN ×2 (05:25→11:52)
--- NOTE | 2018-12-28 09:03 | PDOC.GSPN ---
Surgery Progress Note: Subj - Subjective Patient reports: no new complaints, feels better Narrative: This is a 68 y/o F s/p enterocutaneous fistula with positive positive C.diff toxin and antigen. She is on oral vancomycin Surgery Progress Note: Obj - Vital signs Vital signs: Vital Signs - Most Recent Temp Pulse Resp BP Pulse Ox 98.5 F 76 20 113/74 96 12/28/18 07:42 12/28/18 07:42 12/28/18 07:42 12/28/18 07:42 12/28/18 07:42 - Physical Exam General: no distress Cardiovascular: regular rate and rhythm Respiratory: clear to auscultation Abdomen: soft, positive bowel sounds Wound: dressing clean,dry,intact, wound vac Surgery Progress Note: Results - Labs Result Diagrams: 12/27/18 06:13 12/27/18 06:13 Lab results: Laboratory Results - last 24 hr 12/28/18 04:22 POC Glucose 217 H Surgery Progress Note: A/P - Problem (1) Clostridium difficile infection Current Visit: Yes Code(s): A49.8 - OTHER BACTERIAL INFECTIONS OF UNSPECIFIED SITE Status: Acute (2) DM2 (diabetes mellitus, type 2) Current Visit: Yes Status: Chronic Assessment and Plan: Pt's lantus was increased to 55 units (3) Enterocutaneous fistula Current Visit: No Code(s): K63.2 - FISTULA OF INTESTINE Status: Acute - Plan Plan: continue oral vancomycin Addendum - Physician - Physician Attestation Date/Time: 12/28/18 5006 I personally performed or re-performed the physical examination and medical decision making. I have verified all student documentation or findings, including history, physical exam and/or medical decision making. continue tpn, npo. Plan full 2 weeks from 12/23 before any decision for surgery.
[2018-12-28] MEDS: Dofetilide 0.125 MG CAP PO SCH ×2 (09:12→20:25)
[2018-12-28] MEDS: Clopidogrel Bisulfate 75 MG TAB PO SCH (09:13)
[2018-12-28] MEDS: metFORMIN 500 MG TAB PO SCH ×2 (09:13→17:29)
[2018-12-28] MEDS: Ascorbic Acid 500 mg Chewable Tablet PO SCH (09:13)
[2018-12-28] MEDS: Lactinex Tablet PO SCH (09:13)
[2018-12-28] MEDS: PARoxetine 20 MG TAB PO SCH (09:13)
[2018-12-28] MEDS: Ferrous Sulfate 325 MG TAB PO SCH (09:14)
[2018-12-28] MEDS: Famotidine 20 MG TAB PO SCH ×2 (09:14→20:25)
[2018-12-28] MEDS: Bisoprolol Fumarate 5 MG TAB PO SCH (09:14)
[2018-12-28] MEDS: Magnesium Oxide 400 MG TAB PO SCH ×2 (09:15→20:25)
[2018-12-28] MEDS: Losartan 25 MG TAB PO SCH (09:15)
[2018-12-28] MEDS: Vancomycin HCl 25 MG/ML Oral PO SCH ×4 (09:15→20:26)
[2018-12-28] MEDS: Aspirin 81 mg Enteric Coated Tablet PO SCH (20:25)
[2018-12-28] MEDS: Insulin Glargine 60 UNITS in Pre-Filled Syringe SC SCH (20:25)
[2018-12-28] MEDS: Atorvastatin Calcium 20 MG TAB PO SCH (20:25)
[2018-12-28] MEDS: Enoxaparin Sodium 40 MG/0.4 ML SYRINGE SC SCH (20:26)
[2018-12-28] MEDS: [UNRECOGNIZED DRUG - OTHER] IV SCH (22:29)
[2018-12-28] MEDS: FAT EMULSION IV SCH (22:29)
[2018-12-28] MEDS: SODIUM ACETATE IV SCH (22:29)
[2018-12-28] MEDS: POTASSIUM CHLORIDE IV SCH (22:29)
--- NOTE | 2018-12-28 22:48 | PDOC.HOSPP ---
- Subjective Encounter Date: 12/28/18 Encounter Time: 11:45 Subjective: Patient seen and examined for med mngt. No fever or chills. No new complaints. No overnight events - Objective Vital Signs & Weight: Vital Signs (12 hours) Temp Pulse Resp BP Pulse Ox 12/28/18 20:00 98.2 F 80 16 127/81 100 12/28/18 19:33 100 Weight Admit Weight 224 lb 11.2 oz Weight 224 lb 11.2 oz I&O: 12/27/18 12/28/18 12/29/18 06:59 06:59 06:59 Intake Total 1152 1152 1500 Balance 1152 1152 1500 Result Diagrams: 12/29/18 04:36 12/29/18 04:36 Additional Labs: Accuchecks 12/28/18 12/28/18 11:20 04:22 POC Glucose 186 H 217 H Hospitalist ROS - Review of Systems Respiratory: denies: cough, dry, shortness of breath, hemoptysis, SOB with excertion, pleuritic pain, sputum, wheezing, other Cardiovascular: denies: chest pain, palpitations, orthopnea, paroxysmal noc. dyspnea, edema, light headedness, other - Medication Medications: Active Medications Generic Name Dose Route Start Last Admin Trade Name Freq PRN Reason Stop Dose Admin Acidophilus 1 tab 12/25/18 09:00 12/28/18 09:13 Floranex PO 1 tab DAILY TRAVON Administration Ascorbic Acid 500 mg 12/25/18 09:00 12/28/18 09:13 Vitamin C PO 500 mg DAILY TRAVON Administration Aspirin 81 mg 12/24/18 21:00 12/28/18 20:25 Ecotrin PO 81 mg HS TRAVON Administration Atorvastatin Calcium 20 mg 12/24/18 21:00 12/28/18 20:25 Lipitor PO 20 mg HS TRAVON Administration Bisoprolol Fumarate 5 mg 12/24/18 09:00 12/28/18 09:14 Zebeta PO 5 mg 09 TRAVON Administration Cholecalciferol 2,000 units 12/25/18 09:00 12/28/18 09:14 Vitamin D3 PO 2,000 units DAILY TRAVON Administration Clopidogrel Bisulfate 75 mg 12/25/18 09:00 12/28/18 09:13 Plavix PO 75 mg 0900 TRAVON Administration Dofetilide 0.5 mg 12/24/18 21:00 12/28/18 20:25 Tikosyn PO 0.5 mg BID TRAVON Administration Enoxaparin Sodium 40 mg 12/23/18 21:00 12/28/18 20:26 Lovenox SC 40 mg 2100 TRAVON Administration Famotidine 20 mg 12/25/18 21:00 12/28/18 20:25 Pepcid PO 20 mg BID TRAVON Administration Ferrous Sulfate 650 mg 12/25/18 09:00 12/28/18 09:14 Feosol PO 650 mg DAILY TRAVON Administration Fat Emulsion Intravenous 250 2,308.6945 mls @ 96.196 mls/hr 12/24/18 22:00 22:29 ml/ Sodium Acetate 40 meq/ IV 2,308.6945 mls Potassium Chloride 40 meq/ 2200 TRAVON Administration Magnesium Sulfate 15 meq/ Multivitamins 10 ml/ Chromium/ Copper/Manganese/Seleni/Zn 5 ml/ Amino Acids/Electrolytes Insulin Glargine 60 units/ 0.6 mls @ 0 mls/hr 12/28/18 21:00 12/28/18 20:25 Miscellaneous Medication SC 0.6 mls HS TRAVON Administration Insulin Human Lispro 0 units 12/25/18 08:51 12/28/18 11:52 Humalog SC 3 unit .AGGRESSIVE SLIDING PRN Administration Aggressive Correctional Scale Levothyroxine Sodium 224 mcg 12/24/18 06:00 12/28/18 05:24 Synthroid PO 224 mcg 0600 TRAVON Administration Levothyroxine Sodium 50 mcg 12/24/18 06:00 12/28/18 05:24 Synthroid PO 50 mcg 0600 TRAVON Administration Liothyronine Sodium 5 mcg 12/24/18 06:00 12/28/18 05:24 Cytomel PO 5 mcg 0600 TRAVON Administration Losartan Potassium 50 mg 12/24/18 09:00 12/28/18 09:15 Cozaar PO 50 mg DAILY TRAVON Administration Magnesium Oxide 400 mg 12/24/18 21:00 12/28/18 20:25 Magnesium Oxide PO 400 mg BID TRAVON Administration Metformin HCl 1,000 mg 12/25/18 08:00 12/28/18 17:29 Glucophage PO 1,000 mg BID-WM TRAVON Administration Octreotide Acetate 100 mcg 12/24/18 02:00 12/28/18 17:28 Sandostatin SC 100 mcg 0200,1000,1800 TRAVON Administration Paroxetine HCl 20 mg 12/24/18 09:00 12/28/18 09:13 Paxil PO 20 mg DAILY TRAVON Administration Vancomycin HCl 125 mg 12/25/18 09:00 12/28/18 20:26 First Vancomycin PO 01/03/19 21:01 125 mg QID TRAVON Administration - Exam General Appearance: NAD Heart: RRR, no rubs Respiratory: CTAB, no ronchi Gastrointestinal: soft, non-tender, normal bowel sounds Extremities: no edema Hosp A/P (1) DM2 (diabetes mellitus, type 2) Status: Chronic Qualifiers: Chronic kidney disease stage: stage 2 (mild) (2) Hypertension Code(s): I10 - ESSENTIAL (PRIMARY) HYPERTENSION Status: Chronic (3) Hyponatremia Code(s): E87.1 - HYPO-OSMOLALITY AND HYPONATREMIA Status: Acute (4) Obesity (BMI 30.0-34.9) Code(s): E66.9 - OBESITY, UNSPECIFIED Status: Chronic - Plan Cont sliding scale Increase Lantus to 60 units HS On TPN Cont other meds as above BMP in AM
[2018-12-29] MEDS: Octreotide Acetate 100 MCG/ML VIAL SC SCH ×3 (02:47→16:39)
[2018-12-29 05:32] LABS: #Eosinphils 0.4 thou/uL (0.0-0.7); #Lymphocytes 2.6 thou/uL (1.20-3.40); #Monocytes 0.5 thou/uL (0.11-0.59); #Neutrophils 4.5 thou/uL (1.40-6.50); %Basophils 0.5 % (0.0-1.0); %Eosinophils 4.7 % (0.0-10.0); %Lymphocytes 32.3 % (21.0-51.0); %Monocytes 6.6 % (0.0-10.0); Hemoglobin 10.3 g/dL (12.0-16.0); Mean Corpuscular HGB CONC 31.4 g/dL (32.0-36.0); Mean Corpuscular Hemoglobin 24.2 pg (27.0-31.0); Mean Corpuscular Volume 77.1 fL (78.0-98.0); Mean Platelet Volume 10.3 fL (7.4-10.4); Platelet Count 147 thou/uL (130-400); RBC Distribution Width 16.3 % (11.5-14.5); Red Blood Cell (RBC) Count 4.25 mill/uL (4.20-5.40)
[2018-12-29] MEDS: Levothyroxine Sodium 25 MCG TAB PO SCH (06:05)
[2018-12-29] MEDS: Liothyronine Sodium 5 MCG TAB PO SCH (06:05)
[2018-12-29] MEDS: Levothyroxine Sodium 112 MCG TAB PO SCH (06:05)
[2018-12-29] MEDS: HumaLOG 300 UNITS/3 ML VIAL SC PRN ×2 (06:06→11:53)
[2018-12-29 06:24] LABS: Albumin 3.4 g/dL (3.4-4.8); Anion Gap 12 mmol/L (10-20); BUN (Urea Nitrogen) 20 mg/dL (9.8-20.1); Calc. Creatinine Clearance 133 mL/min (70-130); Carbon Dioxide 24 mmol/L (23-31); Chloride 101 mmol/L (98-107); Estimated GFR-MDRD 89; Glucose 194 mg/dL (80-115); Phosphorus 3.8 mg/dL (2.3-4.7); Potassium 4.4 mmol/L (3.5-5.1); Sodium 133 mmol/L (136-145)
[2018-12-29] MEDS: Lactinex Tablet PO SCH (08:46)
[2018-12-29] MEDS: Ferrous Sulfate 325 MG TAB PO SCH (08:47)
[2018-12-29] MEDS: PARoxetine 20 MG TAB PO SCH (08:47)
[2018-12-29] MEDS: Dofetilide 0.125 MG CAP PO SCH ×2 (08:48→20:40)
[2018-12-29] MEDS: Bisoprolol Fumarate 5 MG TAB PO SCH (08:49)
[2018-12-29] MEDS: Famotidine 20 MG TAB PO SCH ×2 (08:49→20:40)
[2018-12-29] MEDS: metFORMIN 500 MG TAB PO SCH ×2 (08:50→15:28)
[2018-12-29] MEDS: Losartan 25 MG TAB PO SCH (08:50)
[2018-12-29] MEDS: Ascorbic Acid 500 mg Chewable Tablet PO SCH (08:50)
[2018-12-29] MEDS: Magnesium Oxide 400 MG TAB PO SCH (08:50)
[2018-12-29] MEDS: Vancomycin HCl 25 MG/ML Oral PO SCH ×4 (08:51→20:41)
[2018-12-29] MEDS: Clopidogrel Bisulfate 75 MG TAB PO SCH (08:51)
--- NOTE | 2018-12-29 20:04 | PDOC.HOSPP ---
- Subjective Encounter Date: 12/29/18 Encounter Time: 17:30 Subjective: Patient seen and examined for med mngt. No new complaints. No overnight events - Objective Vital Signs & Weight: Vital Signs (12 hours) Temp Pulse Resp BP Pulse Ox 12/29/18 11:37 98.4 F 71 14 128/77 94 L Weight Admit Weight 224 lb 11.2 oz Weight 224 lb 11.2 oz I&O: 12/28/18 12/29/18 12/30/18 06:59 06:59 06:59 Intake Total 1152 2652 1652 Balance 1152 2652 1652 Result Diagrams: 12/29/18 04:36 12/29/18 04:36 Additional Labs: Accuchecks 12/29/18 12/29/18 12/29/18 16:39 11:55 05:44 POC Glucose 145 H 172 H 221 H 12/28/18 12/28/18 20:31 17:01 POC Glucose 194 H 192 H Hospitalist ROS - Review of Systems Respiratory: denies: cough, dry, shortness of breath, hemoptysis, SOB with excertion, pleuritic pain, sputum, wheezing, other Cardiovascular: denies: chest pain, palpitations, orthopnea, paroxysmal noc. dyspnea, edema, light headedness, other Gastrointestinal: reports: diarrhea. denies: nausea, vomiting, abdominal pain, constipation, melena, hematochezia, other - Medication Medications: Active Medications Generic Name Dose Route Start Last Admin Trade Name Freq PRN Reason Stop Dose Admin Acidophilus 1 tab 12/25/18 09:00 12/29/18 08:46 Floranex PO 1 tab DAILY TRAVON Administration Ascorbic Acid 500 mg 12/25/18 09:00 12/29/18 08:50 Vitamin C PO 500 mg DAILY TRAVON Administration Aspirin 81 mg 12/24/18 21:00 12/28/18 20:25 Ecotrin PO 81 mg HS TRAVON Administration Atorvastatin Calcium 20 mg 12/24/18 21:00 12/28/18 20:25 Lipitor PO 20 mg HS TRAVON Administration Bisoprolol Fumarate 5 mg 12/24/18 09:00 12/29/18 08:49 Zebeta PO 5 mg 0900 TRAVON Administration Cholecalciferol 2,000 units 12/25/18 09:00 12/29/18 08:48 Vitamin D3 PO 2,000 units DAILY TRAVON Administration Clopidogrel Bisulfate 75 mg 12/25/18 09:00 12/29/18 08:51 Plavix PO 75 mg 0900 TRAVON Administration Dofetilide 0.5 mg 12/24/18 21:00 12/29/18 08:48 Tikosyn PO 0.5 mg BID TRAVON Administration Enoxaparin Sodium 40 mg 12/23/18 21:00 12/28/18 20:26 Lovenox SC 40 mg 2100 TRAVON Administration Famotidine 20 mg 12/25/18 21:00 12/29/18 08:49 Pepcid PO 20 mg BID TRAVON Administration Ferrous Sulfate 650 mg 12/25/18 09:00 12/29/18 08:47 Feosol PO 650 mg DAILY TRAVON Administration Fat Emulsion Intravenous 250 2,308.6945 mls @ 96.196 mls/hr 12/24/18 22:00 22:29 ml/ Sodium Acetate 40 meq/ IV 2,308.6945 mls Potassium Chloride 40 meq/ 2200 TRAVON Administration Magnesium Sulfate 15 meq/ Multivitamins 10 ml/ Chromium/ Copper/Manganese/Seleni/Zn 5 ml/ Amino Acids/Electrolytes Insulin Glargine 60 units/ 0.6 mls @ 0 mls/hr 12/28/18 21:00 12/28/18 20:25 Miscellaneous Medication SC 0.6 mls HS TRAVON Administration Insulin Human Lispro 0 units 12/25/18 08:51 12/29/18 11:53 Humalog SC 3 unit .AGGRESSIVE SLIDING PRN Administration Aggressive Correctional Scale Levothyroxine Sodium 224 mcg 12/24/18 06:00 12/29/18 06:05 Synthroid PO 224 mcg 0600 TRAVON Administration Levothyroxine Sodium 50 mcg 12/24/18 06:00 12/29/18 06:05 Synthroid PO 50 mcg 0600 TRAVON Administration Liothyronine Sodium 5 mcg 12/24/18 06:00 12/29/18 06:05 Cytomel PO 5 mcg 0600 TRAVON Administration Losartan Potassium 50 mg 12/24/18 09:00 12/29/18 08:50 Cozaar PO 50 mg DAILY TRAVON Administration Magnesium Oxide 400 mg 12/24/18 21:00 12/29/18 08:50 Magnesium Oxide PO 400 mg BID TRAVON Administration Metformin HCl 1,000 mg 12/25/18 08:00 12/29/18 15:28 Glucophage PO 1,000 mg BID-WM TRAVON Administration Octreotide Acetate 100 mcg 12/24/18 02:00 12/29/18 16:39 Sandostatin SC 100 mcg 0200,1000,1800 TRAVON Administration Paroxetine HCl 20 mg 12/24/18 09:00 12/29/18 08:47 Paxil PO 20 mg DAILY TRAVON Administration Vancomycin HCl 125 mg 12/25/18 09:00 12/29/18 15:28 First Vancomycin PO 01/03/19 21:01 125 mg QID TRAVON Administration - Exam Heart: RRR, no gallops Respiratory: CTAB, no rales Gastrointestinal: soft, non-distended Extremities: no edema Hosp A/P (1) DM2 (diabetes mellitus, type 2) Status: Chronic Qualifiers: Chronic kidney disease stage: stage 2 (mild) (2) Hypertension Code(s): I10 - ESSENTIAL (PRIMARY) HYPERTENSION Status: Chronic (3) Hyponatremia Code(s): E87.1 - HYPO-OSMOLALITY AND HYPONATREMIA Status: Acute (4) Obesity (BMI 30.0-34.9) Code(s): E66.9 - OBESITY, UNSPECIFIED Status: Chronic (5) Chronic anemia Code(s): D64.9 - ANEMIA, UNSPECIFIED Status: Chronic - Plan DVT proph w/lovenox Cont Lantus 60 units HS with sliding scale Cont Levothyroxine Cont Losartan/Bisoprolol On TPN DC Magnessium due to diarrhea On PO Vancomycin due to C diff Cont other meds as above
[2018-12-29] MEDS: Atorvastatin Calcium 20 MG TAB PO SCH (20:40)
[2018-12-29] MEDS: Aspirin 81 mg Enteric Coated Tablet PO SCH (20:40)
[2018-12-29] MEDS: Insulin Glargine 60 UNITS in Pre-Filled Syringe SC SCH (20:40)
[2018-12-29] MEDS: Magnesium Chloride 64 MG TAB PO SCH (20:40)
[2018-12-29] MEDS: Enoxaparin Sodium 40 MG/0.4 ML SYRINGE SC SCH (20:41)
[2018-12-29] MEDS: [UNRECOGNIZED DRUG - OTHER] IV SCH (22:26)
[2018-12-29] MEDS: POTASSIUM CHLORIDE IV SCH (22:26)
[2018-12-29] MEDS: FAT EMULSION IV SCH (22:26)
[2018-12-29] MEDS: SODIUM ACETATE IV SCH (22:26)
[2018-12-30] MEDS: Octreotide Acetate 100 MCG/ML VIAL SC SCH ×3 (02:58→17:36)
[2018-12-30] MEDS: Levothyroxine Sodium 25 MCG TAB PO SCH (05:59)
[2018-12-30] MEDS: HumaLOG 300 UNITS/3 ML VIAL SC PRN ×2 (06:00→17:36)
[2018-12-30] MEDS: Levothyroxine Sodium 112 MCG TAB PO SCH (06:00)
[2018-12-30] MEDS: Liothyronine Sodium 5 MCG TAB PO SCH (06:00)
[2018-12-30] MEDS: Vancomycin HCl 25 MG/ML Oral PO SCH ×4 (09:13→20:39)
[2018-12-30] MEDS: Lactinex Tablet PO SCH (09:13)
[2018-12-30] MEDS: metFORMIN 500 MG TAB PO SCH ×2 (09:13→17:36)
[2018-12-30] MEDS: Famotidine 20 MG TAB PO SCH ×2 (09:14→20:38)
[2018-12-30] MEDS: Losartan 25 MG TAB PO SCH (09:14)
[2018-12-30] MEDS: Dofetilide 0.125 MG CAP PO SCH ×2 (09:14→20:37)
[2018-12-30] MEDS: PARoxetine 20 MG TAB PO SCH (09:14)
[2018-12-30] MEDS: Clopidogrel Bisulfate 75 MG TAB PO SCH (09:14)
[2018-12-30] MEDS: Ferrous Sulfate 325 MG TAB PO SCH (09:14)
[2018-12-30] MEDS: Bisoprolol Fumarate 5 MG TAB PO SCH (09:15)
[2018-12-30] MEDS: Magnesium Chloride 64 MG TAB PO SCH ×2 (09:15→20:39)
[2018-12-30] MEDS: Ascorbic Acid 500 mg Chewable Tablet PO SCH (09:15)
--- NOTE | 2018-12-30 15:09 | PDOC.HOSPP ---
- Subjective Encounter Date: 12/30/18 Encounter Time: 07:30 Subjective: Patient seen and examined for med mngt. No new complaints. No overnight events - Objective Vital Signs & Weight: Vital Signs (12 hours) Temp Pulse Resp BP Pulse Ox 12/30/18 08:00 97 12/30/18 07:55 98.5 F 82 20 122/82 97 Weight Admit Weight 224 lb 11.2 oz Weight 224 lb 11.2 oz I&O: 12/29/18 12/30/18 12/31/18 06:59 06:59 06:59 Intake Total 2652 2804 Balance 2652 2804 Result Diagrams: 12/29/18 04:36 12/29/18 04:36 Additional Labs: Accuchecks 12/30/18 12/30/18 12/29/18 12:27 04:15 19:50 POC Glucose 134 H 166 H 181 H 12/29/18 16:39 POC Glucose 145 H Hospitalist ROS - Review of Systems Respiratory: denies: cough, dry, shortness of breath, hemoptysis, SOB with excertion, pleuritic pain, sputum, wheezing, other Cardiovascular: denies: chest pain, palpitations, orthopnea, paroxysmal noc. dyspnea, edema, light headedness, other - Medication Medications: Active Medications Generic Name Dose Route Start Last Admin Trade Name Freq PRN Reason Stop Dose Admin Acidophilus 1 tab 12/25/18 09:00 12/30/18 09:13 Floranex PO 1 tab DAILY TRAVON Administration Ascorbic Acid 500 mg 12/25/18 09:00 12/30/18 09:15 Vitamin C PO 500 mg DAILY TRAVON Administration Aspirin 81 mg 12/24/18 21:00 12/29/18 20:40 Ecotrin PO 81 mg HS TRAVON Administration Atorvastatin Calcium 20 mg 12/24/18 21:00 12/29/18 20:40 Lipitor PO 20 mg HS TRAVON Administration Bisoprolol Fumarate 5 mg 12/24/18 09:00 12/30/18 09:15 Zebeta PO 5 mg 0900 TRAVON Administration Cholecalciferol 2,000 units 12/25/18 09:00 12/30/18 09:15 Vitamin D3 PO 2,000 units DAILY TRAVON Administration Clopidogrel Bisulfate 75 mg 12/25/18 09:00 12/30/18 09:14 Plavix PO 75 mg 0900 TRAVON Administration Dofetilide 0.5 mg 12/24/18 21:00 12/30/18 09:14 Tikosyn PO 0.5 mg BID TRAVON Administration Enoxaparin Sodium 40 mg 12/23/18 21:00 12/29/18 20:41 Lovenox SC 40 mg 2100 TRAVON Administration Famotidine 20 mg 12/25/18 21:00 12/30/18 09:14 Pepcid PO 20 mg BID TRAVON Administration Ferrous Sulfate 650 mg 12/25/18 09:00 12/30/18 09:14 Feosol PO 650 mg DAILY TRAVON Administration Fat Emulsion Intravenous 250 2,308.6945 mls @ 96.196 mls/hr 12/24/18 22:00 22:26 ml/ Sodium Acetate 40 meq/ IV 2,308.6945 mls Potassium Chloride 40 meq/ 2200 TRAVON Administration Magnesium Sulfate 15 meq/ Multivitamins 10 ml/ Chromium/ Copper/Manganese/Seleni/Zn 5 ml/ Amino Acids/Electrolytes Insulin Glargine 60 units/ 0.6 mls @ 0 mls/hr 12/28/18 21:00 12/29/18 20:40 Miscellaneous Medication SC 0.6 mls HS TRAVON Administration Insulin Human Lispro 0 units 12/25/18 08:51 12/30/18 06:00 Humalog SC 3 unit .AGGRESSIVE SLIDING PRN Administration Aggressive Correctional Scale Levothyroxine Sodium 224 mcg 12/24/18 06:00 12/30/18 06:00 Synthroid PO 224 mcg 0600 TRAVON Administration Levothyroxine Sodium 50 mcg 12/24/18 06:00 12/30/18 05:59 Synthroid PO 50 mcg 0600 TRAVON Administration Liothyronine Sodium 5 mcg 12/24/18 06:00 12/30/18 06:00 Cytomel PO 5 mcg 0600 TRAVON Administration Losartan Potassium 50 mg 12/24/18 09:00 12/30/18 09:14 Cozaar PO 50 mg DAILY TRAVON Administration Magnesium Chloride 64 mg 12/29/18 21:00 12/30/18 09:15 Slow-Mag PO 64 mg BID TRAVON Administration Metformin HCl 1,000 mg 12/25/18 08:00 12/30/18 09:13 Glucophage PO 1,000 mg BID-WM TRAVON Administration Octreotide Acetate 100 mcg 12/24/18 02:00 12/30/18 10:54 Sandostatin SC 100 mcg 0200,1000,1800 TRAVON Administration Paroxetine HCl 20 mg 12/24/18 09:00 12/30/18 09:14 Paxil PO 20 mg DAILY TRAVON Administration Vancomycin HCl 125 mg 12/25/18 09:00 12/30/18 12:41 First Vancomycin PO 01/03/19 21:01 125 mg QID TRAVON Administration - Exam General Appearance: NAD Extremities: no edema Neurological: no new deficit Hosp A/P (1) DM2 (diabetes mellitus, type 2) Status: Chronic Qualifiers: Chronic kidney disease stage: stage 2 (mild) (2) Hypertension Code(s): I10 - ESSENTIAL (PRIMARY) HYPERTENSION Status: Chronic (3) Hyponatremia Code(s): E87.1 - HYPO-OSMOLALITY AND HYPONATREMIA Status: Acute (4) Obesity (BMI 30.0-34.9) Code(s): E66.9 - OBESITY, UNSPECIFIED Status: Chronic (5) Chronic anemia Code(s): D64.9 - ANEMIA, UNSPECIFIED Status: Chronic - Plan Cont Lantus 60 units HS Cont sliding scale Cont Levothyroxine/Losartan/Bisoprolol On TPN On PO Vancomycin due to C diff Cont other meds as above
--- NOTE | 2018-12-30 15:45 | PDOC.GSPN ---
Surgery Progress Note: Subj - Subjective Patient reports: no new complaints Surgery Progress Note: Obj - Vital signs Vital signs: Vital Signs - Most Recent Temp Pulse Resp BP Pulse Ox 98.5 F 82 20 122/82 97 12/30/18 07:55 12/30/18 07:55 12/30/18 07:55 12/30/18 07:55 12/30/18 08:00 - Physical Exam General: no distress Cardiovascular: regular rate and rhythm Respiratory: clear to auscultation Abdomen: soft Wound: wound vac Surgery Progress Note: Results - Labs Result Diagrams: 12/29/18 04:36 12/29/18 04:36 Lab results: Laboratory Results - last 24 hr 12/30/18 12/30/18 04:15 12:27 POC Glucose 166 H 134 H Surgery Progress Note: A/P - Problem (1) Clostridium difficile infection Current Visit: Yes Code(s): A49.8 - OTHER BACTERIAL INFECTIONS OF UNSPECIFIED SITE Status: Acute (2) DM2 (diabetes mellitus, type 2) Current Visit: Yes Status: Chronic Qualifiers: Chronic kidney disease stage: stage 2 (mild) (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 Stable with current management - tpn per nutrition recs -cont vac management of fistula -suspect a few more weeks of current treatment then re assess
[2018-12-30] MEDS: Atorvastatin Calcium 20 MG TAB PO SCH (20:37)
[2018-12-30] MEDS: Aspirin 81 mg Enteric Coated Tablet PO SCH (20:37)
[2018-12-30] MEDS: Enoxaparin Sodium 40 MG/0.4 ML SYRINGE SC SCH (20:37)
[2018-12-30] MEDS: Insulin Glargine 60 UNITS in Pre-Filled Syringe SC SCH (20:38)
[2018-12-30] MEDS ORDERED: Clopidogrel Bisulfate 75 MG TAB ONE (21:22)
[2018-12-30] MEDS: POTASSIUM CHLORIDE IV SCH (22:11)
[2018-12-30] MEDS: FAT EMULSION IV SCH (22:11)
[2018-12-30] MEDS: SODIUM ACETATE IV SCH (22:11)
[2018-12-30] MEDS: [UNRECOGNIZED DRUG - OTHER] IV SCH (22:11)
[2018-12-31] MEDS: Octreotide Acetate 100 MCG/ML VIAL SC SCH ×3 (02:09→17:36)
[2018-12-31] MEDS: HumaLOG 300 UNITS/3 ML VIAL SC PRN ×3 (05:31→17:37)
[2018-12-31] MEDS: Levothyroxine Sodium 25 MCG TAB PO SCH (05:31)
[2018-12-31] MEDS: Levothyroxine Sodium 112 MCG TAB PO SCH (05:31)
[2018-12-31] MEDS: Liothyronine Sodium 5 MCG TAB PO SCH (05:32)
[2018-12-31] MEDS: Lactinex Tablet PO SCH (09:10)
[2018-12-31] MEDS: metFORMIN 500 MG TAB PO SCH ×2 (09:10→17:36)
[2018-12-31] MEDS: Dofetilide 0.125 MG CAP PO SCH ×2 (09:10→21:02)
[2018-12-31] MEDS: Ferrous Sulfate 325 MG TAB PO SCH (09:10)
[2018-12-31] MEDS: Magnesium Chloride 64 MG TAB PO SCH ×2 (09:10→21:04)
[2018-12-31] MEDS: Losartan 25 MG TAB PO SCH (09:11)
[2018-12-31] MEDS: Ascorbic Acid 500 mg Chewable Tablet PO SCH (09:11)
[2018-12-31] MEDS: Famotidine 20 MG TAB PO SCH ×2 (09:11→21:04)
[2018-12-31] MEDS: PARoxetine 20 MG TAB PO SCH (09:11)
[2018-12-31] MEDS: Clopidogrel Bisulfate 75 MG TAB PO SCH (09:11)
[2018-12-31] MEDS: Bisoprolol Fumarate 5 MG TAB PO SCH (09:11)
[2018-12-31] MEDS: Vancomycin HCl 25 MG/ML Oral PO SCH ×4 (09:11→21:05)
--- NOTE | 2018-12-31 10:58 | PDOC.HOSPP ---
- Subjective Encounter Date: 12/31/18 Encounter Time: 10:30 Subjective: Patient seen and examined for med mngt. No CP or SOB. Diarrhea. No nausea. No new complaints. No overnight events - Objective Vital Signs & Weight: Vital Signs (12 hours) Temp Pulse Resp BP Pulse Ox 12/31/18 08:00 99 12/31/18 07:56 98.6 F 81 20 115/72 99 Weight Admit Weight 224 lb 11.2 oz Weight 224 lb 11.2 oz I&O: 12/30/18 12/31/18 01/01/19 06:59 06:59 06:59 Intake Total 2804 1152 Balance 2804 1152 Result Diagrams: 12/29/18 04:36 12/29/18 04:36 Additional Labs: Accuchecks 12/31/18 12/31/18 12/30/18 05:31 00:15 16:03 POC Glucose 190 H 176 H 166 H 12/30/18 12:27 POC Glucose 134 H Hospitalist ROS - Review of Systems Respiratory: denies: cough, dry, shortness of breath, hemoptysis, SOB with excertion, pleuritic pain, sputum, wheezing, other Cardiovascular: denies: chest pain, palpitations, orthopnea, paroxysmal noc. dyspnea, edema, light headedness, other - Medication Medications: Active Medications Generic Name Dose Route Start Last Admin Trade Name Freq PRN Reason Stop Dose Admin Acidophilus 1 tab 12/25/18 09:00 12/31/18 09:10 Floranex PO 1 tab DAILY TRAVON Administration Ascorbic Acid 500 mg 12/25/18 09:00 12/31/18 09:11 Vitamin C PO 500 mg DAILY TRAVON Administration Aspirin 81 mg 12/24/18 21:00 12/30/18 20:37 Ecotrin PO 81 mg HS TRAVON Administration Atorvastatin Calcium 20 mg 12/24/18 21:00 12/30/18 20:37 Lipitor PO 20 mg HS TRAVON Administration Bisoprolol Fumarate 5 mg 12/24/18 09:00 12/31/18 09:11 Zebeta PO 5 mg 0900 TRAVON Administration Cholecalciferol 2,000 units 12/25/18 09:00 12/31/18 09:11 Vitamin D3 PO 2,000 units DAILY TRAVON Administration Clopidogrel Bisulfate 75 mg 12/25/18 09:00 12/31/18 09:11 Plavix PO 75 mg 0900 TRAVON Administration Dofetilide 0.5 mg 12/24/18 21:00 12/31/18 09:10 Tikosyn PO 0.5 mg BID TRAVON Administration Enoxaparin Sodium 40 mg 12/23/18 21:00 12/30/18 20:37 Lovenox SC 40 mg 2100 TRAVON Administration Famotidine 20 mg 12/25/18 21:00 12/31/18 09:11 Pepcid PO 20 mg BID TRAVON Administration Ferrous Sulfate 650 mg 12/25/18 09:00 12/31/18 09:10 Feosol PO 650 mg DAILY TRAVON Administration Fat Emulsion Intravenous 250 2,308.6945 mls @ 96.196 mls/hr 12/24/18 22:00 22:11 ml/ Sodium Acetate 40 meq/ IV 2,308.6945 mls Potassium Chloride 40 meq/ 2200 TRAVON Administration Magnesium Sulfate 15 meq/ Multivitamins 10 ml/ Chromium/ Copper/Manganese/Seleni/Zn 5 ml/ Amino Acids/Electrolytes Insulin Glargine 60 units/ 0.6 mls @ 0 mls/hr 12/28/18 21:00 12/30/18 20:38 Miscellaneous Medication SC 0.6 mls HS TRAVON Administration Insulin Human Lispro 0 units 12/25/18 08:51 12/31/18 05:31 Humalog SC 3 unit .AGGRESSIVE SLIDING PRN Administration Aggressive Correctional Scale Levothyroxine Sodium 224 mcg 12/24/18 06:00 12/31/18 05:31 Synthroid PO 224 mcg 0600 TRAVON Administration Levothyroxine Sodium 50 mcg 12/24/18 06:00 12/31/18 05:31 Synthroid PO 50 mcg 0600 TRAVON Administration Liothyronine Sodium 5 mcg 12/24/18 06:00 12/31/18 05:32 Cytomel PO 5 mcg 0600 TRAVON Administration Losartan Potassium 50 mg 12/24/18 09:00 12/31/18 09:11 Cozaar PO 50 mg DAILY TRAVON Administration Magnesium Chloride 64 mg 12/29/18 21:00 12/31/18 09:10 Slow-Mag PO 64 mg BID TRAVON Administration Metformin HCl 1,000 mg 12/25/18 08:00 12/31/18 09:10 Glucophage PO 1,000 mg BID-WM TRAVON Administration Octreotide Acetate 100 mcg 12/24/18 02:00 12/31/18 09:11 Sandostatin SC 100 mcg 0200,1000,1800 TRAVON Administration Paroxetine HCl 20 mg 12/24/18 09:00 12/31/18 09:11 Paxil PO 20 mg DAILY TRAVON Administration Vancomycin HCl 125 mg 12/25/18 09:00 12/31/18 09:11 First Vancomycin PO 01/03/19 21:01 125 mg QID TRAVON Administration - Exam General Appearance: NAD Heart: RRR, no rubs Respiratory: CTAB, no rales Gastrointestinal: soft, non-tender, normal bowel sounds Extremities: no edema Hosp A/P (1) DM2 (diabetes mellitus, type 2) Status: Chronic Qualifiers: Chronic kidney disease stage: stage 2 (mild) (2) Hypertension Code(s): I10 - ESSENTIAL (PRIMARY) HYPERTENSION Status: Chronic (3) Hyponatremia Code(s): E87.1 - HYPO-OSMOLALITY AND HYPONATREMIA Status: Acute (4) Obesity (BMI 30.0-34.9) Code(s): E66.9 - OBESITY, UNSPECIFIED Status: Chronic (5) Chronic anemia Code(s): D64.9 - ANEMIA, UNSPECIFIED Status: Chronic - Plan plan discussed w/ family, out of bed/ambulate, DVT proph w/lovenox, DVT proph w/ SCDs Cont Lantus 60 units HS Cont sliding scale Cont Levothyroxine/Losartan/Bisoprolol On TPN On PO Vancomycin Cont other meds as above AM labs
[2018-12-31] MEDS: Atorvastatin Calcium 20 MG TAB PO SCH (21:03)
[2018-12-31] MEDS: Enoxaparin Sodium 40 MG/0.4 ML SYRINGE SC SCH (21:03)
[2018-12-31] MEDS: Aspirin 81 mg Enteric Coated Tablet PO SCH (21:03)
[2018-12-31] MEDS: Insulin Glargine 60 UNITS in Pre-Filled Syringe SC SCH (21:04)
[2018-12-31] MEDS: FAT EMULSION IV SCH (22:33)
[2018-12-31] MEDS: POTASSIUM CHLORIDE IV SCH (22:33)
[2018-12-31] MEDS: SODIUM ACETATE IV SCH (22:33)
[2018-12-31] MEDS: [UNRECOGNIZED DRUG - OTHER] IV SCH (22:33)
[2019-01-01] MEDS: Octreotide Acetate 100 MCG/ML VIAL SC SCH ×3 (02:25→17:25)
[2019-01-01 04:19] LABS: #Eosinphils 0.3 thou/uL (0.0-0.7); #Lymphocytes 2.8 thou/uL (1.20-3.40); #Monocytes 0.5 thou/uL (0.11-0.59); #Neutrophils 4.2 thou/uL (1.40-6.50); %Basophils 0.2 % (0.0-1.0); %Eosinophils 4.3 % (0.0-10.0); %Lymphocytes 35.1 % (21.0-51.0); %Monocytes 6.9 % (0.0-10.0); %Neutrophils 53.5 % (42.0-75.0); Mean Corpuscular HGB CONC 31.6 g/dL (32.0-36.0); Mean Corpuscular Volume 75.9 fL (78.0-98.0); Mean Platelet Volume 9.8 fL (7.4-10.4); Platelet Count 139 thou/uL (130-400); RBC Distribution Width 16.1 % (11.5-14.5); Red Blood Cell (RBC) Count 4.15 mill/uL (4.20-5.40); White Blood Cell (WBC) Count 7.9 thou/uL (4.8-10.8)
[2019-01-01 04:39] LABS: ALT (SGPT) 8 U/L (8-55); AST (SGOT) 14 U/L (5-34); Albumin 3.4 g/dL (3.4-4.8); Alkaline Phosphatase 129 U/L (40-150); Anion Gap 13 mmol/L (10-20); BUN (Urea Nitrogen) 19 mg/dL (9.8-20.1); Bilirubin, Total 0.3 mg/dL (0.2-1.2); Calc. Creatinine Clearance 127 mL/min (70-130); Carbon Dioxide 25 mmol/L (23-31); Chloride 102 mmol/L (98-107); Estimated GFR-MDRD 85; Globulin 3.1 g/dL (2.4-3.5); Glucose 214 mg/dL (80-115); Phosphorus 4.1 mg/dL (2.3-4.7); Potassium 4.9 mmol/L (3.5-5.1); Protein, Total 6.5 g/dL (6.0-8.3); Sodium 135 mmol/L (136-145)
[2019-01-01] MEDS: Levothyroxine Sodium 112 MCG TAB PO SCH (05:40)
[2019-01-01] MEDS: Levothyroxine Sodium 25 MCG TAB PO SCH (05:40)
[2019-01-01] MEDS: Liothyronine Sodium 5 MCG TAB PO SCH (05:41)
[2019-01-01] MEDS: HumaLOG 300 UNITS/3 ML VIAL SC PRN ×3 (06:25→17:24)
[2019-01-01] MEDS: Lactinex Tablet PO SCH (08:42)
[2019-01-01] MEDS: Ascorbic Acid 500 mg Chewable Tablet PO SCH (08:43)
[2019-01-01] MEDS: Clopidogrel Bisulfate 75 MG TAB PO SCH (08:43)
[2019-01-01] MEDS: Losartan 25 MG TAB PO SCH (08:43)
[2019-01-01] MEDS: Famotidine 20 MG TAB PO SCH ×2 (08:43→20:47)
[2019-01-01] MEDS: PARoxetine 20 MG TAB PO SCH (08:43)
[2019-01-01] MEDS: Ferrous Sulfate 325 MG TAB PO SCH (08:44)
[2019-01-01] MEDS: metFORMIN 500 MG TAB PO SCH ×2 (08:44→17:24)
[2019-01-01] MEDS: Bisoprolol Fumarate 5 MG TAB PO SCH (08:44)
[2019-01-01] MEDS: Vancomycin HCl 25 MG/ML Oral PO SCH ×4 (08:45→20:48)
[2019-01-01] MEDS: Dofetilide 0.125 MG CAP PO SCH ×2 (08:45→20:47)
[2019-01-01] MEDS: Magnesium Chloride 64 MG TAB PO SCH ×2 (10:23→20:47)
[2019-01-01] MEDS ORDERED: Acetaminophen 650 MG Suppository PR PRN (13:18)
[2019-01-01] MEDS: Acetaminophen 325 MG TAB PO PRN (14:00)
--- NOTE | 2019-01-01 15:31 | PDOC.GSPN ---
Surgery Progress Note: Subj - Subjective Narrative: More bloated today. Having more nausea Surgery Progress Note: Obj - Vital signs Vital signs: Vital Signs - Most Recent Temp Pulse Resp BP Pulse Ox 98.6 F 79 20 111/73 98 01/01/19 08:00 01/01/19 08:00 01/01/19 08:00 01/01/19 08:00 01/01/19 08:25 - Physical Exam General: no distress Cardiovascular: regular rate and rhythm Respiratory: clear to auscultation Abdomen: soft, tender (mildly and diffusely), other Surgery Progress Note: Results - Labs Result Diagrams: 01/01/19 04:10 01/01/19 04:10 Lab results: Laboratory Results - last 24 hr 01/01/19 01/01/19 01/01/19 04:10 04:10 06:12 WBC 7.9 RBC 4.15 L Hgb 10.0 L Hct 31.5 L MCV 75.9 L MCH 24.0 L MCHC 31.6 L RDW 16.1 H Plt Count 139 MPV 9.8 Neutrophils % 53.5 Lymphocytes % 35.1 Monocytes % 6.9 Eosinophils % 4.3 Basophils % 0.2 Neutrophils # 4.2 Lymphocytes # 2.8 Monocytes # 0.5 Eosinophils # 0.3 Basophils # 0.0 Sodium 135 L Potassium 4.9 Chloride 102 Carbon Dioxide 25 Anion Gap 13 BUN 19 Creatinine 0.69 Estimated GFR (MDRD) 85 Glucose 214 H POC Glucose 202 H Calcium 9.0 Phosphorus 4.1 Magnesium 2.0 Total Bilirubin 0.3 AST 14 ALT 8 Alkaline Phosphatase 129 Serum Total Protein 6.5 Albumin 3.4 Globulin 3.1 Albumin/Globulin Ratio 1.1 L 01/01/19 11:28 WBC RBC Hgb Hct MCV MCH MCHC RDW Plt Count MPV Neutrophils % Lymphocytes % Monocytes % Eosinophils % Basophils % Neutrophils # Lymphocytes # Monocytes # Eosinophils # Basophils # Sodium Potassium Chloride Carbon Dioxide Anion Gap BUN Creatinine Estimated GFR (MDRD) Glucose POC Glucose 177 H Calcium Phosphorus Magnesium Total Bilirubin AST ALT Alkaline Phosphatase Serum Total Protein Albumin Globulin Albumin/Globulin Ratio Surgery Progress Note: A/P - Problem (1) Clostridium difficile infection Current Visit: Yes Code(s): A49.8 - OTHER BACTERIAL INFECTIONS OF UNSPECIFIED SITE Status: Acute (2) DM2 (diabetes mellitus, type 2) Current Visit: Yes Status: Chronic Qualifiers: Chronic kidney disease stage: stage 2 (mild) (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 Stable with current management - tpn per nutrition recs -cont vac management of fistula/re-assess next week -check KUB due to bloating
--- NOTE | 2019-01-01 15:51 | RAD ---
EXAM: 2 views abdomen PROVIDED CLINICAL HISTORY: Abdominal distention COMPARISON: None FINDINGS: Visualized lung bases appear clear. Bowel gas pattern is nonspecific. No radiographically apparent ur inary tract calculi. No evidence for pneumoperitoneum. Postoperative changes of gastric banding redemonstrated. IMPRESSION: Nonspecific bowel gas pattern.
[2019-01-01] MEDS: Atorvastatin Calcium 20 MG TAB PO SCH (20:46)
[2019-01-01] MEDS: Aspirin 81 mg Enteric Coated Tablet PO SCH (20:46)
[2019-01-01] MEDS: Insulin Glargine 60 UNITS in Pre-Filled Syringe SC SCH (20:47)
[2019-01-01] MEDS: Enoxaparin Sodium 40 MG/0.4 ML SYRINGE SC SCH (20:47)
[2019-01-01] MEDS: SODIUM ACETATE IV SCH (22:06)
[2019-01-01] MEDS: POTASSIUM CHLORIDE IV SCH (22:06)
[2019-01-01] MEDS: FAT EMULSION IV SCH (22:06)
[2019-01-01] MEDS: [UNRECOGNIZED DRUG - OTHER] IV SCH (22:06)
[2019-01-02] MEDS: Octreotide Acetate 100 MCG/ML VIAL SC SCH ×3 (01:33→17:43)
[2019-01-02] MEDS: Levothyroxine Sodium 25 MCG TAB PO SCH (06:03)
[2019-01-02] MEDS: Liothyronine Sodium 5 MCG TAB PO SCH (06:03)
[2019-01-02] MEDS: HumaLOG 300 UNITS/3 ML VIAL SC PRN ×2 (06:03→17:43)
[2019-01-02] MEDS: Levothyroxine Sodium 112 MCG TAB PO SCH (06:03)
[2019-01-02] MEDS: Ascorbic Acid 500 mg Chewable Tablet PO SCH (08:58)
[2019-01-02] MEDS: PARoxetine 20 MG TAB PO SCH (08:59)
[2019-01-02] MEDS: Bisoprolol Fumarate 5 MG TAB PO SCH (08:59)
[2019-01-02] MEDS: Losartan 25 MG TAB PO SCH (08:59)
[2019-01-02] MEDS: Dofetilide 0.125 MG CAP PO SCH ×2 (08:59→21:53)
[2019-01-02] MEDS: metFORMIN 500 MG TAB PO SCH ×2 (08:59→17:42)
[2019-01-02] MEDS: Famotidine 20 MG TAB PO SCH ×2 (08:59→21:53)
[2019-01-02] MEDS: Lactinex Tablet PO SCH (08:59)
[2019-01-02] MEDS: Clopidogrel Bisulfate 75 MG TAB PO SCH (08:59)
[2019-01-02] MEDS: Vancomycin HCl 25 MG/ML Oral PO SCH ×4 (09:00→21:53)
[2019-01-02] MEDS: Ferrous Sulfate 325 MG TAB PO SCH (09:00)
[2019-01-02] MEDS: Magnesium Chloride 64 MG TAB PO SCH ×2 (10:28→21:53)
--- NOTE | 2019-01-02 11:24 | PDOC.GSPN ---
Surgery Progress Note: Subj - Subjective Patient reports: no new complaints, feels better (Less nausea today) Surgery Progress Note: Obj - Vital signs Vital signs: Vital Signs - Most Recent Temp Pulse Resp BP Pulse Ox 98.2 F 70 16 103/68 93 L 01/02/19 07:47 01/02/19 07:47 01/02/19 07:47 01/02/19 07:47 01/02/19 07:47 - Physical Exam General: no distress Abdomen: soft, non tender, nondistended Wound: wound vac (skin around the fistula shows no exoriation) Surgery Progress Note: Results - Labs Result Diagrams: 01/01/19 04:10 01/01/19 04:10 Lab results: Laboratory Results - last 24 hr 01/02/19 05:35 POC Glucose 166 H Surgery Progress Note: A/P - Problem (1) Clostridium difficile infection Current Visit: Yes Code(s): A49.8 - OTHER BACTERIAL INFECTIONS OF UNSPECIFIED SITE Status: Acute (2) DM2 (diabetes mellitus, type 2) Current Visit: Yes Status: Chronic Qualifiers: Chronic kidney disease stage: stage 2 (mild) (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 Stable with current management - tpn/octreotide -cont vac management of fistula/re-assess next week -KUB shows no obstruction
--- NOTE | 2019-01-02 13:58 | PDOC.HOSPP ---
- Subjective Encounter Date: 01/02/19 Encounter Time: 13:55 Subjective: Patient seen and examined for med mngt. Diarrhea +. No new complaints. No overnight events - Objective Vital Signs & Weight: Vital Signs (12 hours) Temp Pulse Resp BP Pulse Ox 01/02/19 07:47 98.2 F 70 16 103/68 93 L Weight Admit Weight 224 lb 11.2 oz Weight 224 lb 11.2 oz I&O: 01/01/19 01/02/19 01/03/19 06:59 06:59 06:59 Intake Total 1152 2208 Balance 1152 2208 Result Diagrams: 01/01/19 04:10 01/01/19 04:10 Additional Labs: Accuchecks 01/02/19 01/02/19 01/01/19 11:12 05:35 20:20 POC Glucose 120 H 166 H 158 H 01/01/19 16:04 POC Glucose 170 H Hospitalist ROS - Review of Systems Cardiovascular: denies: chest pain, palpitations, orthopnea, paroxysmal noc. dyspnea, edema, light headedness, other Gastrointestinal: denies: nausea, vomiting, abdominal pain, diarrhea, constipation, melena, hematochezia, other - Medication Medications: Active Medications Generic Name Dose Route Start Last Admin Trade Name Freq PRN Reason Stop Dose Admin Acetaminophen 650 mg 01/01/19 13:18 01/01/19 14:00 Tylenol PO 650 mg Q4H PRN Administration Headache/Fever or Mild Pain Acidophilus 1 tab 12/25/18 09:00 01/02/19 08:59 Floranex PO 1 tab DAILY TRAVON Administration Ascorbic Acid 500 mg 12/25/18 09:00 01/02/19 08:58 Vitamin C PO 500 mg DAILY TRAVON Administration Aspirin 81 mg 12/24/18 21:00 01/01/19 20:46 Ecotrin PO 81 mg HS TRAVON Administration Atorvastatin Calcium 20 mg 12/24/18 21:00 01/01/19 20:46 Lipitor PO 20 mg HS TRAVON Administration Bisoprolol Fumarate 5 mg 12/24/18 09:00 01/02/19 08:59 Zebeta PO 5 mg 0900 TRAVON Administration Cholecalciferol 2,000 units 12/25/18 09:00 01/02/19 08:59 Vitamin D3 PO 2,000 units DAILY TRAVON Administration Clopidogrel Bisulfate 75 mg 12/25/18 09:00 01/02/19 08:59 Plavix PO 75 mg 0900 TRAVON Administration Dofetilide 0.5 mg 12/24/18 21:00 01/02/19 08:59 Tikosyn PO 0.5 mg BID TRAVON Administration Enoxaparin Sodium 40 mg 12/23/18 21:00 01/01/19 20:47 Lovenox SC 40 mg 2100 TRAVON Administration Famotidine 20 mg 12/25/18 21:00 01/02/19 08:59 Pepcid PO 20 mg BID TRAVON Administration Ferrous Sulfate 650 mg 12/25/18 09:00 01/02/19 09:00 Feosol PO 650 mg DAILY TRAVON Administration Fat Emulsion Intravenous 250 2,308.6945 mls @ 96.196 mls/hr 12/24/18 22:00 22:06 ml/ Sodium Acetate 40 meq/ IV 2,308.6945 mls Potassium Chloride 40 meq/ 2200 TRAVON Administration Magnesium Sulfate 15 meq/ Multivitamins 10 ml/ Chromium/ Copper/Manganese/Seleni/Zn 5 ml/ Amino Acids/Electrolytes Insulin Glargine 60 units/ 0.6 mls @ 0 mls/hr 12/28/18 21:00 01/01/19 20:47 Miscellaneous Medication SC 0.6 mls HS TRAVON Administration Insulin Human Lispro 0 units 12/25/18 08:51 01/02/19 06:03 Humalog SC 3 unit .AGGRESSIVE SLIDING PRN Administration Aggressive Correctional Scale Levothyroxine Sodium 224 mcg 12/24/18 06:00 01/02/19 06:03 Synthroid PO 224 mcg 0600 TRAVON Administration Levothyroxine Sodium 50 mcg 12/24/18 06:00 01/02/19 06:03 Synthroid PO 50 mcg 0600 TRAVON Administration Liothyronine Sodium 5 mcg 12/24/18 06:00 01/02/19 06:03 Cytomel PO 5 mcg 0600 TRAVON Administration Losartan Potassium 50 mg 12/24/18 09:00 01/02/19 08:59 Cozaar PO 50 mg DAILY TRAVON Administration Magnesium Chloride 64 mg 12/29/18 21:00 01/02/19 10:28 Slow-Mag PO 64 mg BID TRAVON Administration Metformin HCl 1,000 mg 12/25/18 08:00 01/02/19 08:59 Glucophage PO 1,000 mg BID-WM TRAVON Administration Octreotide Acetate 100 mcg 12/24/18 02:00 01/02/19 10:28 Sandostatin SC 100 mcg 0200,1000,1800 TRAVON Administration Paroxetine HCl 20 mg 12/24/18 09:00 01/02/19 08:59 Paxil PO 20 mg DAILY TRAVON Administration Vancomycin HCl 125 mg 12/25/18 09:00 01/02/19 13:25 First Vancomycin PO 01/03/19 21:01 125 mg QID TRAVON Administration - Exam General Appearance: NAD Heart: RRR, no gallops Respiratory: CTAB, no rales Gastrointestinal: soft, non-tender, normal bowel sounds Extremities: no edema Hosp A/P (1) DM2 (diabetes mellitus, type 2) Status: Chronic Qualifiers: Chronic kidney disease stage: stage 2 (mild) (2) Hypertension Code(s): I10 - ESSENTIAL (PRIMARY) HYPERTENSION Status: Chronic (3) Hyponatremia Code(s): E87.1 - HYPO-OSMOLALITY AND HYPONATREMIA Status: Acute (4) Obesity (BMI 30.0-34.9) Code(s): E66.9 - OBESITY, UNSPECIFIED Status: Chronic (5) Chronic anemia Code(s): D64.9 - ANEMIA, UNSPECIFIED Status: Chronic - Plan Cont Lantus/sliding scale Cont Levothyroxine/Losartan/Bisoprolol On TPN/Octreotide On PO Vancomycin for C diff Cont other meds as above
[2019-01-02] MEDS: Atorvastatin Calcium 20 MG TAB PO SCH (21:53)
[2019-01-02] MEDS: Aspirin 81 mg Enteric Coated Tablet PO SCH (21:53)
[2019-01-02] MEDS: Enoxaparin Sodium 40 MG/0.4 ML SYRINGE SC SCH (21:53)
[2019-01-02] MEDS: Insulin Glargine 60 UNITS in Pre-Filled Syringe SC SCH (21:53)
[2019-01-02] MEDS: POTASSIUM CHLORIDE IV SCH (22:30)
[2019-01-02] MEDS: FAT EMULSION IV SCH (22:30)
[2019-01-02] MEDS: SODIUM ACETATE IV SCH (22:30)
[2019-01-02] MEDS: [UNRECOGNIZED DRUG - OTHER] IV SCH (22:30)
[2019-01-03] MEDS: Octreotide Acetate 100 MCG/ML VIAL SC SCH ×3 (02:15→17:26)
[2019-01-03] MEDS: Levothyroxine Sodium 112 MCG TAB PO SCH (06:44)
[2019-01-03] MEDS: Levothyroxine Sodium 25 MCG TAB PO SCH (06:44)
[2019-01-03] MEDS: Liothyronine Sodium 5 MCG TAB PO SCH (06:44)
[2019-01-03] MEDS: Acetaminophen 325 MG TAB PO PRN (06:51)
[2019-01-03] MEDS: Losartan 25 MG TAB PO SCH (08:50)
[2019-01-03] MEDS: Clopidogrel Bisulfate 75 MG TAB PO SCH (08:51)
[2019-01-03] MEDS: Lactinex Tablet PO SCH (08:51)
[2019-01-03] MEDS: PARoxetine 20 MG TAB PO SCH (08:51)
[2019-01-03] MEDS: Famotidine 20 MG TAB PO SCH ×2 (08:51→21:13)
[2019-01-03] MEDS: Bisoprolol Fumarate 5 MG TAB PO SCH (08:51)
[2019-01-03] MEDS: Ascorbic Acid 500 mg Chewable Tablet PO SCH (08:52)
[2019-01-03] MEDS: metFORMIN 500 MG TAB PO SCH ×2 (08:52→17:24)
[2019-01-03] MEDS: Ferrous Sulfate 325 MG TAB PO SCH (08:52)
[2019-01-03] MEDS: Magnesium Chloride 64 MG TAB PO SCH ×2 (08:53→21:12)
[2019-01-03] MEDS: Vancomycin HCl 25 MG/ML Oral PO SCH ×4 (08:55→21:12)
[2019-01-03] MEDS: Dofetilide 0.125 MG CAP PO SCH ×2 (09:03→21:13)
--- NOTE | 2019-01-03 13:29 | PDOC.HOSPP ---
- Subjective Encounter Date: 01/03/19 Encounter Time: 11:30 Subjective: Patient seen and examined for med mngt. No N/V. Diarrhea +. No new complaints. No overnight events - Objective Vital Signs & Weight: Vital Signs (12 hours) Temp Pulse Resp BP Pulse Ox 01/03/19 08:00 97 01/03/19 07:21 98.2 F 84 16 114/72 97 Weight Admit Weight 224 lb 11.2 oz Weight 224 lb 11.2 oz I&O: 01/02/19 01/03/19 01/04/19 06:59 06:59 06:59 Intake Total 2208 3034 Balance 2208 3034 Result Diagrams: 01/01/19 04:10 01/01/19 04:10 Additional Labs: Accuchecks 01/02/19 01/02/19 20:49 16:10 POC Glucose 160 H 161 H Hospitalist ROS - Review of Systems Cardiovascular: denies: chest pain, palpitations, orthopnea, paroxysmal noc. dyspnea, edema, light headedness, other Gastrointestinal: denies: nausea, vomiting, abdominal pain, diarrhea, constipation, melena, hematochezia, other Genitourinary: denies: dysuria, frequency, incontinence, hematuria, retention, other - Medication Medications: Active Medications Generic Name Dose Route Start Last Admin Trade Name Vicenteq PRN Reason Stop Dose Admin Acetaminophen 650 mg 01/01/19 13:18 01/03/19 06:51 Tylenol PO 650 mg Q4H PRN Administration Headache/Fever or Mild Pain Acidophilus 1 tab 12/25/18 09:00 01/03/19 08:51 Floranex PO 1 tab DAILY TRAVON Administration Ascorbic Acid 500 mg 12/25/18 09:00 01/03/19 08:52 Vitamin C PO 500 mg DAILY TRAVON Administration Aspirin 81 mg 12/24/18 21:00 01/02/19 21:53 Ecotrin PO 81 mg HS TRAVON Administration Atorvastatin Calcium 20 mg 12/24/18 21:00 01/02/19 21:53 Lipitor PO 20 mg HS TRAVON Administration Bisoprolol Fumarate 5 mg 12/24/18 09:00 01/03/19 08:51 Zebeta PO 5 mg 0900 TRAVON Administration Cholecalciferol 2,000 units 12/25/18 09:00 01/03/19 08:50 Vitamin D3 PO 2,000 units DAILY TRAVON Administration Clopidogrel Bisulfate 75 mg 12/25/18 09:00 01/03/19 08:51 Plavix PO 75 mg 0900 TRAVON Administration Dofetilide 0.5 mg 12/24/18 21:00 01/03/19 09:03 Tikosyn PO 0.5 mg BID TRAVON Administration Enoxaparin Sodium 40 mg 12/23/18 21:00 01/02/19 21:53 Lovenox SC 40 mg 2100 TRAVON Administration Famotidine 20 mg 12/25/18 21:00 01/03/19 08:51 Pepcid PO 20 mg BID TRAVON Administration Ferrous Sulfate 650 mg 12/25/18 09:00 01/03/19 08:52 Feosol PO 650 mg DAILY TRAVON Administration Fat Emulsion Intravenous 250 2,308.6945 mls @ 96.196 mls/hr 12/24/18 22:00 22:30 ml/ Sodium Acetate 40 meq/ IV 2,308.6945 mls Potassium Chloride 40 meq/ 2200 TRAVON Administration Magnesium Sulfate 15 meq/ Multivitamins 10 ml/ Chromium/ Copper/Manganese/Seleni/Zn 5 ml/ Amino Acids/Electrolytes Insulin Glargine 60 units/ 0.6 mls @ 0 mls/hr 12/28/18 21:00 01/02/19 21:53 Miscellaneous Medication SC 0.6 mls HS TRAVON Administration Insulin Human Lispro 0 units 12/25/18 08:51 01/02/19 17:43 Humalog SC 3 unit .AGGRESSIVE SLIDING PRN Administration Aggressive Correctional Scale Levothyroxine Sodium 224 mcg 12/24/18 06:00 01/03/19 06:44 Synthroid PO 224 mcg 0600 TRAVON Administration Levothyroxine Sodium 50 mcg 12/24/18 06:00 01/03/19 06:44 Synthroid PO 50 mcg 0600 TRAVON Administration Liothyronine Sodium 5 mcg 12/24/18 06:00 01/03/19 06:44 Cytomel PO 5 mcg 0600 TRAVON Administration Losartan Potassium 50 mg 12/24/18 09:00 01/03/19 08:50 Cozaar PO 50 mg DAILY TRAVON Administration Magnesium Chloride 64 mg 12/29/18 21:00 01/03/19 08:53 Slow-Mag PO 64 mg BID TRAVON Administration Metformin HCl 1,000 mg 12/25/18 08:00 01/03/19 08:52 Glucophage PO 1,000 mg BID-WM TRAVON Administration Octreotide Acetate 100 mcg 12/24/18 02:00 01/03/19 09:04 Sandostatin SC 100 mcg 0200,1000,1800 TRAVON Administration Paroxetine HCl 20 mg 12/24/18 09:00 01/03/19 08:51 Paxil PO 20 mg DAILY TRAVON Administration Vancomycin HCl 125 mg 12/25/18 09:00 01/03/19 13:08 First Vancomycin PO 01/03/19 21:01 125 mg QID TRAVON Administration - Exam General Appearance: NAD Heart: RRR, no gallops Respiratory: CTAB, no rales Gastrointestinal: soft, non-tender, normal bowel sounds Extremities: no edema Hosp A/P (1) DM2 (diabetes mellitus, type 2) Status: Chronic Qualifiers: Chronic kidney disease stage: stage 2 (mild) (2) Hypertension Code(s): I10 - ESSENTIAL (PRIMARY) HYPERTENSION Status: Chronic (3) Hyponatremia Code(s): E87.1 - HYPO-OSMOLALITY AND HYPONATREMIA Status: Acute (4) Obesity (BMI 30.0-34.9) Code(s): E66.9 - OBESITY, UNSPECIFIED Status: Chronic (5) Chronic anemia Code(s): D64.9 - ANEMIA, UNSPECIFIED Status: Chronic - Plan plan discussed w/ family Cont 60 units Lantus daily Cont sliding scale Cont other meds as above On TPN/Octreotide and PO Vancomycin
[2019-01-03] MEDS: HumaLOG 300 UNITS/3 ML VIAL SC PRN (17:26)
[2019-01-03] MEDS: Atorvastatin Calcium 20 MG TAB PO SCH (21:13)
[2019-01-03] MEDS: Aspirin 81 mg Enteric Coated Tablet PO SCH (21:13)
[2019-01-03] MEDS: Enoxaparin Sodium 40 MG/0.4 ML SYRINGE SC SCH (21:13)
[2019-01-03] MEDS: Insulin Glargine 60 UNITS in Pre-Filled Syringe SC SCH (21:14)
[2019-01-03] MEDS: FAT EMULSION IV SCH (22:19)
[2019-01-03] MEDS: POTASSIUM CHLORIDE IV SCH (22:19)
[2019-01-03] MEDS: SODIUM ACETATE IV SCH (22:19)
[2019-01-03] MEDS: [UNRECOGNIZED DRUG - OTHER] IV SCH (22:19)
[2019-01-04] MEDS: Octreotide Acetate 100 MCG/ML VIAL SC SCH ×3 (01:49→17:40)
[2019-01-04] MEDS: Levothyroxine Sodium 25 MCG TAB PO SCH (05:56)
[2019-01-04] MEDS: Levothyroxine Sodium 112 MCG TAB PO SCH (05:57)
[2019-01-04] MEDS: Liothyronine Sodium 5 MCG TAB PO SCH (05:57)
[2019-01-04] MEDS: HumaLOG 300 UNITS/3 ML VIAL SC PRN ×2 (05:58→11:54)
[2019-01-04] MEDS: Dofetilide 0.125 MG CAP PO SCH ×2 (08:59→20:15)
[2019-01-04] MEDS: Ferrous Sulfate 325 MG TAB PO SCH (09:01)
[2019-01-04] MEDS: metFORMIN 500 MG TAB PO SCH ×2 (09:01→17:40)
[2019-01-04] MEDS: PARoxetine 20 MG TAB PO SCH (09:01)
[2019-01-04] MEDS: Lactinex Tablet PO SCH (09:02)
[2019-01-04] MEDS: Clopidogrel Bisulfate 75 MG TAB PO SCH (09:02)
[2019-01-04] MEDS: Ascorbic Acid 500 mg Chewable Tablet PO SCH (09:02)
[2019-01-04] MEDS: Bisoprolol Fumarate 5 MG TAB PO SCH (09:02)
[2019-01-04] MEDS: Famotidine 20 MG TAB PO SCH ×2 (09:02→20:15)
[2019-01-04] MEDS: Losartan 25 MG TAB PO SCH (09:02)
[2019-01-04] MEDS: Magnesium Chloride 64 MG TAB PO SCH ×2 (10:24→20:16)
--- NOTE | 2019-01-04 13:11 | PDOC.GSPN ---
Surgery Progress Note: Subj - Subjective Narrative: Having more difficulty with Vac working to control drainage. Wound care going to try ostomy device again Surgery Progress Note: Obj - Vital signs Vital signs: Vital Signs - Most Recent Temp Pulse Resp BP Pulse Ox 98.5 F 76 16 113/73 95 01/04/19 12:27 01/04/19 12:27 01/04/19 12:27 01/04/19 12:27 01/04/19 12:27 - Physical Exam General: no distress Abdomen: soft, non tender Wound: other (Minimal irritation of skin at fistula site) Surgery Progress Note: Results - Labs Result Diagrams: 01/01/19 04:10 01/01/19 04:10 Lab results: Laboratory Results - last 24 hr 01/04/19 01/04/19 05:58 11:31 POC Glucose 181 H 201 H Surgery Progress Note: A/P - Problem (1) Clostridium difficile infection Current Visit: Yes Code(s): A49.8 - OTHER BACTERIAL INFECTIONS OF UNSPECIFIED SITE Status: Acute (2) DM2 (diabetes mellitus, type 2) Current Visit: Yes Status: Chronic Qualifiers: Chronic kidney disease stage: stage 2 (mild) (3) Enterocutaneous fistula Current Visit: No Code(s): K63.2 - FISTULA OF INTESTINE Status: Acute - Plan Plan: EC fistula -wound care the main issue -try ostomy device -check am labs -octreotide
[2019-01-04] MEDS: Aspirin 81 mg Enteric Coated Tablet PO SCH (20:14)
[2019-01-04] MEDS: Atorvastatin Calcium 20 MG TAB PO SCH (20:14)
[2019-01-04] MEDS: Enoxaparin Sodium 40 MG/0.4 ML SYRINGE SC SCH (20:15)
[2019-01-04] MEDS: SODIUM ACETATE IV SCH (22:24)
[2019-01-04] MEDS: POTASSIUM CHLORIDE IV SCH (22:24)
[2019-01-04] MEDS: [UNRECOGNIZED DRUG - OTHER] IV SCH (22:24)
[2019-01-04] MEDS: FAT EMULSION IV SCH (22:24)
[2019-01-04] MEDS: Insulin Glargine 60 UNITS in Pre-Filled Syringe SC SCH (22:24)
--- NOTE | 2019-01-04 22:29 | PDOC.HOSPP ---
- Subjective Encounter Date: 01/04/19 Encounter Time: 08:00 Subjective: Patient seen and examined for med mngt. No N/V. Diarrhea +. No new complaints. No overnight events - Objective Vital Signs & Weight: Vital Signs (12 hours) Temp Pulse Resp BP BP Pulse Ox 01/04/19 20:00 98.2 F 80 18 124/76 97 01/04/19 15:49 98.3 F 68 16 111/72 98 01/04/19 13:20 98.5 F 69 16 122/78 99 01/04/19 12:27 98.5 F 76 16 113/73 95 Weight Admit Weight 224 lb 11.2 oz Weight 224 lb 11.2 oz I&O: 01/03/19 01/04/19 01/05/19 06:59 06:59 06:59 Intake Total 3034 2554 1152 Balance 3034 2554 1152 Result Diagrams: 01/01/19 04:10 01/01/19 04:10 Additional Labs: Accuchecks 01/04/19 01/04/19 01/04/19 16:38 11:31 05:58 POC Glucose 151 H 201 H 181 H Hospitalist ROS - Review of Systems Respiratory: denies: cough, dry, shortness of breath, hemoptysis, SOB with excertion, pleuritic pain, sputum, wheezing, other Cardiovascular: denies: chest pain, palpitations, orthopnea, paroxysmal noc. dyspnea, edema, light headedness, other - Medication Medications: Active Medications Generic Name Dose Route Start Last Admin Trade Name Freq PRN Reason Stop Dose Admin Acetaminophen 650 mg 01/01/19 13:18 01/03/19 06:51 Tylenol PO 650 mg Q4H PRN Administration Headache/Fever or Mild Pain Acidophilus 1 tab 12/25/18 09:00 01/04/19 09:02 Floranex PO 1 tab DAILY TRAVON Administration Ascorbic Acid 500 mg 12/25/18 09:00 01/04/19 09:02 Vitamin C PO 500 mg DAILY TRAVON Administration Aspirin 81 mg 12/24/18 21:00 01/04/19 20:14 Ecotrin PO 81 mg HS TRAVON Administration Atorvastatin Calcium 20 mg 12/24/18 21:00 01/04/19 20:14 Lipitor PO 20 mg HS TRAVON Administration Bisoprolol Fumarate 5 mg 12/24/18 09:00 01/04/19 09:02 Zebeta PO 5 mg 09 TRAVON Administration Cholecalciferol 2,000 units 12/25/18 09:00 01/04/19 09:01 Vitamin D3 PO 2,000 units DAILY TRAVON Administration Clopidogrel Bisulfate 75 mg 12/25/18 09:00 01/04/19 09:02 Plavix PO 75 mg 0900 TRAVON Administration Dofetilide 0.5 mg 12/24/18 21:00 01/04/19 20:15 Tikosyn PO 0.5 mg BID TRAVON Administration Enoxaparin Sodium 40 mg 12/23/18 21:00 01/04/19 20:15 Lovenox SC 40 mg 2100 TRAVON Administration Famotidine 20 mg 12/25/18 21:00 01/04/19 20:15 Pepcid PO 20 mg BID TRAVON Administration Ferrous Sulfate 650 mg 12/25/18 09:00 01/04/19 09:01 Feosol PO 650 mg DAILY TRAVON Administration Fat Emulsion Intravenous 250 2,308.6945 mls @ 96.196 mls/hr 12/24/18 22:00 22:19 ml/ Sodium Acetate 40 meq/ IV 2,308.6945 mls Potassium Chloride 40 meq/ 2200 TRAVON Administration Magnesium Sulfate 15 meq/ Multivitamins 10 ml/ Chromium/ Copper/Manganese/Seleni/Zn 5 ml/ Amino Acids/Electrolytes Insulin Glargine 60 units/ 0.6 mls @ 0 mls/hr 12/28/18 21:00 01/03/19 21:14 Miscellaneous Medication SC 0.6 mls HS TRAVON Administration Insulin Human Lispro 0 units 12/25/18 08:51 01/04/19 11:54 Humalog SC 6 unit .AGGRESSIVE SLIDING PRN Administration Aggressive Correctional Scale Levothyroxine Sodium 224 mcg 12/24/18 06:00 01/04/19 05:57 Synthroid PO 224 mcg 0600 TRAVON Administration Levothyroxine Sodium 50 mcg 12/24/18 06:00 01/04/19 05:56 Synthroid PO 50 mcg 0600 TRAVON Administration Liothyronine Sodium 5 mcg 12/24/18 06:00 01/04/19 05:57 Cytomel PO 5 mcg 0600 TRAVON Administration Losartan Potassium 50 mg 12/24/18 09:00 01/04/19 09:02 Cozaar PO 50 mg DAILY TRAVON Administration Magnesium Chloride 64 mg 12/29/18 21:00 01/04/19 20:16 Slow-Mag PO 64 mg BID TRAVON Administration Metformin HCl 1,000 mg 12/25/18 08:00 01/04/19 17:40 Glucophage PO 1,000 mg BID-WM TRAVON Administration Octreotide Acetate 100 mcg 12/24/18 02:00 01/04/19 17:40 Sandostatin SC 100 mcg 0200,1000,1800 TRAVON Administration Paroxetine HCl 20 mg 12/24/18 09:00 01/04/19 09:01 Paxil PO 20 mg DAILY TRAVON Administration - Exam General Appearance: NAD Neck: supple, no JVD Heart: RRR, no rubs Respiratory: CTAB, no ronchi Gastrointestinal: soft, non-tender, normal bowel sounds Extremities: no edema Hosp A/P (1) DM2 (diabetes mellitus, type 2) Status: Chronic Qualifiers: Chronic kidney disease stage: stage 2 (mild) (2) Hypertension Code(s): I10 - ESSENTIAL (PRIMARY) HYPERTENSION Status: Chronic (3) Hyponatremia Code(s): E87.1 - HYPO-OSMOLALITY AND HYPONATREMIA Status: Acute (4) Obesity (BMI 30.0-34.9) Code(s): E66.9 - OBESITY, UNSPECIFIED Status: Chronic (5) Chronic anemia Code(s): D64.9 - ANEMIA, UNSPECIFIED Status: Chronic - Plan Cont Lantus with sliding scale On TPN/Octreotide PO Vancomycin Cont other meds as above
[2019-01-05] MEDS: Octreotide Acetate 100 MCG/ML VIAL SC SCH ×3 (01:47→17:27)
[2019-01-05 04:39] LABS: #Eosinphils 0.3 thou/uL (0.0-0.7); #Lymphocytes 3.5 thou/uL (1.20-3.40); #Monocytes 0.6 thou/uL (0.11-0.59); #Neutrophils 4.6 thou/uL (1.40-6.50); %Basophils 0.1 % (0.0-1.0); %Eosinophils 3.6 % (0.0-10.0); %Lymphocytes 38.8 % (21.0-51.0); %Monocytes 6.1 % (0.0-10.0); %Neutrophils 51.4 % (42.0-75.0); Hemoglobin 10.6 g/dL (12.0-16.0); Mean Corpuscular HGB CONC 32.2 g/dL (32.0-36.0); Mean Corpuscular Hemoglobin 24.6 pg (27.0-31.0); Mean Corpuscular Volume 76.3 fL (78.0-98.0); Mean Platelet Volume 9.9 fL (7.4-10.4); Platelet Count 153 thou/uL (130-400); RBC Distribution Width 16.3 % (11.5-14.5); Red Blood Cell (RBC) Count 4.31 mill/uL (4.20-5.40)
[2019-01-05 05:01] LABS: ALT (SGPT) 10 U/L (8-55); AST (SGOT) 15 U/L (5-34); Albumin 3.5 g/dL (3.4-4.8); Alkaline Phosphatase 134 U/L (40-150); Anion Gap 10 mmol/L (10-20); BUN (Urea Nitrogen) 18 mg/dL (9.8-20.1); Bilirubin, Total 0.4 mg/dL (0.2-1.2); Calc. Creatinine Clearance 131 mL/min (70-130); Calcium 9.2 mg/dL (7.8-10.44); Carbon Dioxide 26 mmol/L (23-31); Chloride 103 mmol/L (98-107); Estimated GFR-MDRD 88; Globulin 3.2 g/dL (2.4-3.5); Glucose 203 mg/dL (80-115); Magnesium 1.9 mg/dL (1.6-2.6); Phosphorus 4.1 mg/dL (2.3-4.7); Potassium 4.6 mmol/L (3.5-5.1); Protein, Total 6.7 g/dL (6.0-8.3); Sodium 134 mmol/L (136-145)
[2019-01-05] MEDS: Levothyroxine Sodium 25 MCG TAB PO SCH (06:19)
[2019-01-05] MEDS: Liothyronine Sodium 5 MCG TAB PO SCH (06:19)
[2019-01-05] MEDS: Levothyroxine Sodium 112 MCG TAB PO SCH (06:20)
[2019-01-05] MEDS: HumaLOG 300 UNITS/3 ML VIAL SC PRN ×2 (06:20→17:32)
[2019-01-05] MEDS: Ascorbic Acid 500 mg Chewable Tablet PO SCH (08:05)
[2019-01-05] MEDS: Dofetilide 0.125 MG CAP PO SCH ×2 (08:05→20:50)
[2019-01-05] MEDS: Famotidine 20 MG TAB PO SCH ×2 (08:06→20:50)
[2019-01-05] MEDS: Lactinex Tablet PO SCH (08:06)
[2019-01-05] MEDS: Clopidogrel Bisulfate 75 MG TAB PO SCH (08:06)
[2019-01-05] MEDS: Ferrous Sulfate 325 MG TAB PO SCH (08:06)
[2019-01-05] MEDS: Losartan 25 MG TAB PO SCH (08:06)
[2019-01-05] MEDS: Bisoprolol Fumarate 5 MG TAB PO SCH (08:07)
[2019-01-05] MEDS: PARoxetine 20 MG TAB PO SCH (08:07)
[2019-01-05] MEDS: metFORMIN 500 MG TAB PO SCH ×2 (08:07→17:27)
[2019-01-05] MEDS: Magnesium Chloride 64 MG TAB PO SCH ×2 (09:41→20:51)
--- NOTE | 2019-01-05 14:14 | PDOC.HOSPP ---
- Subjective Encounter Date: 01/05/19 Encounter Time: 12:15 Subjective: no abd pain or nausea is only taking ice chips orally plus meds says wound vac is holding onto the fistula site so far - Objective Vital Signs & Weight: Vital Signs (12 hours) Temp Pulse Resp BP BP Pulse Ox 01/05/19 13:21 98.3 F 80 18 105/68 97 01/05/19 08:17 97 01/05/19 08:00 98.6 F 80 18 117/75 97 Weight Admit Weight 224 lb 11.2 oz Weight 224 lb 11.2 oz I&O: 01/04/19 01/05/19 01/06/19 06:59 06:59 06:59 Intake Total 2554 2404 Output Total 550 Balance 2554 1854 Result Diagrams: 01/05/19 04:29 01/05/19 04:29 Additional Labs: Accuchecks 01/05/19 01/04/19 11:58 16:38 POC Glucose 150 H 151 H Hospitalist ROS - Medication Medications: Active Medications Generic Name Dose Route Start Last Admin Trade Name Freq PRN Reason Stop Dose Admin Acetaminophen 650 mg 01/01/19 13:18 01/03/19 06:51 Tylenol PO 650 mg Q4H PRN Administration Headache/Fever or Mild Pain Acidophilus 1 tab 12/25/18 09:00 01/05/19 08:06 Floranex PO 1 tab DAILY TRAVON Administration Ascorbic Acid 500 mg 12/25/18 09:00 01/05/19 08:05 Vitamin C PO 500 mg DAILY TRAVON Administration Aspirin 81 mg 12/24/18 21:00 01/04/19 20:14 Ecotrin PO 81 mg HS TRAVON Administration Atorvastatin Calcium 20 mg 12/24/18 21:00 01/04/19 20:14 Lipitor PO 20 mg HS TRAVON Administration Bisoprolol Fumarate 5 mg 12/24/18 09:00 01/05/19 08:07 Zebeta PO 5 mg 0900 TRAVON Administration Cholecalciferol 2,000 units 12/25/18 09:00 01/05/19 08:07 Vitamin D3 PO 2,000 units DAILY TRAVON Administration Clopidogrel Bisulfate 75 mg 12/25/18 09:00 01/05/19 08:06 Plavix PO 75 mg 0900 TRAVON Administration Dofetilide 0.5 mg 12/24/18 21:00 01/05/19 08:05 Tikosyn PO 0.5 mg BID TRAVON Administration Enoxaparin Sodium 40 mg 12/23/18 21:00 01/04/19 20:15 Lovenox SC 40 mg 2100 TRAVON Administration Famotidine 20 mg 12/25/18 21:00 01/05/19 08:06 Pepcid PO 20 mg BID TRAVON Administration Ferrous Sulfate 650 mg 12/25/18 09:00 01/05/19 08:06 Feosol PO 650 mg DAILY TRAVON Administration Fat Emulsion Intravenous 250 2,308.6945 mls @ 96.196 mls/hr 12/24/18 22:00 22:24 ml/ Sodium Acetate 40 meq/ IV 2,308.6945 mls Potassium Chloride 40 meq/ 2200 TRAVON Administration Magnesium Sulfate 15 meq/ Multivitamins 10 ml/ Chromium/ Copper/Manganese/Seleni/Zn 5 ml/ Amino Acids/Electrolytes Insulin Glargine 60 units/ 0.6 mls @ 0 mls/hr 12/28/18 21:00 01/04/19 22:24 Miscellaneous Medication SC 0.6 mls HS TRAVON Administration Insulin Human Lispro 0 units 12/25/18 08:51 01/05/19 06:20 Humalog SC 6 unit .AGGRESSIVE SLIDING PRN Administration Aggressive Correctional Scale Levothyroxine Sodium 224 mcg 12/24/18 06:00 01/05/19 06:20 Synthroid PO 224 mcg 0600 TRAVON Administration Levothyroxine Sodium 50 mcg 12/24/18 06:00 01/05/19 06:19 Synthroid PO 50 mcg 0600 TRAVON Administration Liothyronine Sodium 5 mcg 12/24/18 06:00 01/05/19 06:19 Cytomel PO 5 mcg 0600 TRAVON Administration Losartan Potassium 50 mg 12/24/18 09:00 01/05/19 08:06 Cozaar PO 50 mg DAILY TRAVON Administration Magnesium Chloride 64 mg 12/29/18 21:00 01/05/19 09:41 Slow-Mag PO 64 mg BID TRAVON Administration Metformin HCl 1,000 mg 12/25/18 08:00 01/05/19 08:07 Glucophage PO 1,000 mg BID-WM TRAVON Administration Octreotide Acetate 100 mcg 12/24/18 02:00 01/05/19 09:41 Sandostatin SC 100 mcg 0200,1000,1800 TRAVON Administration Paroxetine HCl 20 mg 12/24/18 09:00 01/05/19 08:07 Paxil PO 20 mg DAILY TRAVON Administration - Exam General Appearance: awake alert Eye: PERRL, anicteric sclera ENT: no oropharyngeal lesions, moist mucosa Neck: supple, no JVD Heart: RRR, no murmur Respiratory: no wheezes, no rales Gastrointestinal: soft, non-distended, normal bowel sounds Gastrointestinal - other findings: wound vac to fistula site Extremities: no cyanosis, no edema Neurological: cranial nerve grossly intact, no focal deficits Psychiatric: normal affect, A&O x 3 Hosp A/P (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 difficile colitis Code(s): A04.72 - ENTEROCOLITIS D/T CLOSTRIDIUM DIFFICILE, NOT SPCF RECUR Status: Acute (3) Dyslipidemia Code(s): E78.5 - HYPERLIPIDEMIA, UNSPECIFIED Status: Chronic (4) Chronic anemia Code(s): D64.9 - ANEMIA, UNSPECIFIED Status: Chronic (5) DM2 (diabetes mellitus, type 2) Status: Chronic Qualifiers: Diabetes mellitus alf insulin use: with alf use (6) Obesity (BMI 30.0-34.9) Code(s): E66.9 - OBESITY, UNSPECIFIED Status: Chronic (7) Anxiety and depression Code(s): F41.9 - ANXIETY DISORDER, UNSPECIFIED; F32.9 - MAJOR DEPRESSIVE DISORDER, SINGLE EPISODE, UNSPECIFIED Status: Chronic (8) Atrial fibrillation Code(s): I48.91 - UNSPECIFIED ATRIAL FIBRILLATION Status: Chronic Qualifiers: Atrial fibrillation type: paroxysmal Qualified Code(s): I48.0 - Paroxysmal atrial fibrillation (9) Hypertension Code(s): I10 - ESSENTIAL (PRIMARY) HYPERTENSION Status: Chronic Qualifiers: Hypertension type: essential hypertension Qualified Code(s): I10 - Essential (primary) hypertension (10) Hypothyroidism Code(s): E03.9 - HYPOTHYROIDISM, UNSPECIFIED Status: Chronic Qualifiers: Hypothyroidism type: unspecified Qualified Code(s): E03.9 - Hypothyroidism , unspecified - Plan is on TPN, octreotide, vanc po continue lantus, metformin, cozaar, asp, plavix, lipitor, dofetilide, bisoprolol and synthroid is ambulating in room wound care prior h/o watchman device for afib, gastric band, hernia with mesh placement..inf mesh removal. dc plan per gen surg adv.
[2019-01-05] MEDS: Enoxaparin Sodium 40 MG/0.4 ML SYRINGE SC SCH (20:51)
[2019-01-05] MEDS: Atorvastatin Calcium 20 MG TAB PO SCH (20:51)
[2019-01-05] MEDS: Insulin Glargine 60 UNITS in Pre-Filled Syringe SC SCH (20:51)
[2019-01-05] MEDS: Aspirin 81 mg Enteric Coated Tablet PO SCH (20:51)
[2019-01-05] MEDS: FAT EMULSION IV SCH (22:20)
[2019-01-05] MEDS: POTASSIUM CHLORIDE IV SCH (22:20)
[2019-01-05] MEDS: [UNRECOGNIZED DRUG - OTHER] IV SCH (22:20)
[2019-01-05] MEDS: SODIUM CHLORIDE IV SCH (22:20)
[2019-01-06] MEDS: Octreotide Acetate 100 MCG/ML VIAL SC SCH ×3 (01:28→17:05)
[2019-01-06] MEDS: HumaLOG 300 UNITS/3 ML VIAL SC PRN ×4 (01:39→23:46)
[2019-01-06] MEDS: Liothyronine Sodium 5 MCG TAB PO SCH (05:51)
[2019-01-06] MEDS: Levothyroxine Sodium 112 MCG TAB PO SCH (05:52)
[2019-01-06] MEDS: Levothyroxine Sodium 25 MCG TAB PO SCH (05:52)
[2019-01-06] MEDS: Ferrous Sulfate 325 MG TAB PO SCH (08:16)
[2019-01-06] MEDS: metFORMIN 500 MG TAB PO SCH ×2 (08:16→17:05)
[2019-01-06] MEDS: Dofetilide 0.125 MG CAP PO SCH ×2 (08:17→20:28)
[2019-01-06] MEDS: Famotidine 20 MG TAB PO SCH ×2 (08:17→20:28)
[2019-01-06] MEDS: Ascorbic Acid 500 mg Chewable Tablet PO SCH (08:17)
[2019-01-06] MEDS: Lactinex Tablet PO SCH (08:17)
[2019-01-06] MEDS: Losartan 25 MG TAB PO SCH (08:18)
[2019-01-06] MEDS: Bisoprolol Fumarate 5 MG TAB PO SCH (08:18)
[2019-01-06] MEDS: Clopidogrel Bisulfate 75 MG TAB PO SCH (08:18)
[2019-01-06] MEDS: PARoxetine 20 MG TAB PO SCH (08:18)
[2019-01-06] MEDS: Magnesium Chloride 64 MG TAB PO SCH ×2 (10:05→20:29)
--- NOTE | 2019-01-06 13:38 | PDOC.HOSPP ---
- Subjective Encounter Date: 01/06/19 Encounter Time: 12:00 Subjective: no abd pain or nausea daughter at bedside pt is sitting in chair, is amb in room - Objective Vital Signs & Weight: Vital Signs (12 hours) Temp Pulse Resp BP Pulse Ox 01/06/19 08:26 97 01/06/19 07:32 98.8 F 77 16 109/69 97 Weight Admit Weight 224 lb 11.2 oz Weight 224 lb 11.2 oz I&O: 01/05/19 01/06/19 01/07/19 06:59 06:59 06:59 Intake Total 2404 2860 Output Total 550 625 Balance 1854 2235 Result Diagrams: 01/05/19 04:29 01/05/19 04:29 Additional Labs: Accuchecks 01/06/19 01/06/19 01/05/19 11:46 04:40 19:57 POC Glucose 189 H 170 H 197 H Hospitalist ROS - Medication Medications: Active Medications Generic Name Dose Route Start Last Admin Trade Name Freq PRN Reason Stop Dose Admin Acetaminophen 650 mg 01/01/19 13:18 01/03/19 06:51 Tylenol PO 650 mg Q4H PRN Administration Headache/Fever or Mild Pain Acidophilus 1 tab 12/25/18 09:00 01/06/19 08:17 Floranex PO 1 tab DAILY TRAVON Administration Ascorbic Acid 500 mg 12/25/18 09:00 01/06/19 08:17 Vitamin C PO 500 mg DAILY TRAVON Administration Aspirin 81 mg 12/24/18 21:00 01/05/19 20:51 Ecotrin PO 81 mg HS TRAVON Administration Atorvastatin Calcium 20 mg 12/24/18 21:00 01/05/19 20:51 Lipitor PO 20 mg HS TRAVON Administration Bisoprolol Fumarate 5 mg 12/24/18 09:00 01/06/19 08:18 Zebeta PO 5 mg 0900 TRAVON Administration Cholecalciferol 2,000 units 12/25/18 09:00 01/06/19 08:18 Vitamin D3 PO 2,000 units DAILY TRAVON Administration Clopidogrel Bisulfate 75 mg 12/25/18 09:00 01/06/19 08:18 Plavix PO 75 mg 0900 TRAVON Administration Dofetilide 0.5 mg 12/24/18 21:00 01/06/19 08:17 Tikosyn PO 0.5 mg BID TRAVON Administration Enoxaparin Sodium 40 mg 12/23/18 21:00 01/05/19 20:51 Lovenox SC 40 mg 2100 TRAVON Administration Famotidine 20 mg 12/25/18 21:00 01/06/19 08:17 Pepcid PO 20 mg BID TRAVON Administration Ferrous Sulfate 650 mg 12/25/18 09:00 01/06/19 08:16 Feosol PO 650 mg DAILY TRAVON Administration Insulin Glargine 60 units/ 0.6 mls @ 0 mls/hr 12/28/18 21:00 01/05/19 20:51 Miscellaneous Medication SC 0.6 mls HS TRAVON Administration Fat Emulsion Intravenous 250 2,298.6945 mls @ 95.779 mls/hr 01/05/19 22:00 22:20 ml/ Sodium Chloride 40 meq/ IV 2,298.6945 mls Potassium Chloride 40 meq/ 2200 TRAVON Administration Magnesium Sulfate 15 meq/ Multivitamins 10 ml/ Chromium/ Copper/Manganese/Seleni/Zn 5 ml/ Amino Acids/Electrolytes Insulin Human Lispro 0 units 12/25/18 08:51 01/06/19 05:52 Humalog SC 3 unit .AGGRESSIVE SLIDING PRN Administration Aggressive Correctional Scale Levothyroxine Sodium 224 mcg 12/24/18 06:00 01/06/19 05:52 Synthroid PO 224 mcg 0600 TRAVON Administration Levothyroxine Sodium 50 mcg 12/24/18 06:00 01/06/19 05:52 Synthroid PO 50 mcg 0600 TRAVON Administration Liothyronine Sodium 5 mcg 12/24/18 06:00 01/06/19 05:51 Cytomel PO 5 mcg 0600 TRAVON Administration Losartan Potassium 50 mg 12/24/18 09:00 01/06/19 08:18 Cozaar PO 50 mg DAILY TRAVON Administration Magnesium Chloride 64 mg 12/29/18 21:00 01/06/19 10:05 Slow-Mag PO 64 mg BID TRAVON Administration Metformin HCl 1,000 mg 12/25/18 08:00 01/06/19 08:16 Glucophage PO 1,000 mg BID-WM TRAVON Administration Octreotide Acetate 100 mcg 12/24/18 02:00 01/06/19 10:05 Sandostatin SC 100 mcg 0200,1000,1800 TRAVON Administration Paroxetine HCl 20 mg 12/24/18 09:00 01/06/19 08:18 Paxil PO 20 mg DAILY TRAVON Administration - Exam General Appearance: awake alert Eye: PERRL, anicteric sclera ENT: no oropharyngeal lesions, moist mucosa Neck: supple, no JVD Heart: RRR, no murmur Respiratory: no wheezes, no rales Gastrointestinal: soft, non-distended, normal bowel sounds Gastrointestinal - other findings: enterocut fistula has fluid stool in it Extremities: no clubbing, no edema Neurological: cranial nerve grossly intact, no focal deficits Psychiatric: normal affect, A&O x 3 Hosp A/P (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 difficile colitis Code(s): A04.72 - ENTEROCOLITIS D/T CLOSTRIDIUM DIFFICILE, NOT SPCF RECUR Status: Acute (3) Dyslipidemia Code(s): E78.5 - HYPERLIPIDEMIA, UNSPECIFIED Status: Chronic (4) Chronic anemia Code(s): D64.9 - ANEMIA, UNSPECIFIED Status: Chronic (5) DM2 (diabetes mellitus, type 2) Status: Chronic Qualifiers: Diabetes mellitus long-term insulin use: with long-term use (6) Obesity (BMI 30.0-34.9) Code(s): E66.9 - OBESITY, UNSPECIFIED Status: Chronic (7) Anxiety and depression Code(s): F41.9 - ANXIETY DISORDER, UNSPECIFIED; F32.9 - MAJOR DEPRESSIVE DISORDER, SINGLE EPISODE, UNSPECIFIED Status: Chronic (8) Atrial fibrillation Code(s): I48.91 - UNSPECIFIED ATRIAL FIBRILLATION Status: Chronic Qualifiers: Atrial fibrillation type: paroxysmal Qualified Code(s): I48.0 - Paroxysmal atrial fibrillation (9) Hypertension Code(s): I10 - ESSENTIAL (PRIMARY) HYPERTENSION Status: Chronic Qualifiers: Hypertension type: essential hypertension Qualified Code(s): I10 - Essential (primary) hypertension (10) Hypothyroidism Code(s): E03.9 - HYPOTHYROIDISM, UNSPECIFIED Status: Chronic Qualifiers: Hypothyroidism type: unspecified Qualified Code(s): E03.9 - Hypothyroidism , unspecified - Plan is on TPN, octreotide, vanc po continue lantus, metformin, cozaar, asp, plavix, lipitor, dofetilide, bisoprolol and synthroid is ambulating in room wound care prior h/o watchman device for afib, gastric band, hernia with mesh placement..inf mesh removal. dc plan per gen surg adv. had about 350ml of drainage from ostomy bag over fistula? last 24hrs c.diff is getting better with diarrhea slowly resolving
--- NOTE | 2019-01-06 15:02 | PDOC.GSPN ---
Surgery Progress Note: Subj - Subjective Patient reports: no new complaints Surgery Progress Note: Obj - Vital signs Vital signs: Vital Signs - Most Recent Temp Pulse Resp BP Pulse Ox 98.8 F 77 16 109/69 97 01/06/19 07:32 01/06/19 07:32 01/06/19 07:32 01/06/19 07:32 01/06/19 08:26 - Physical Exam General: no distress Respiratory: clear to auscultation Abdomen: soft, non tender, nondistended Wound: ostomy/colostomy (has a good seal.) Surgery Progress Note: Results - Labs Result Diagrams: 01/05/19 04:29 01/05/19 04:29 Lab results: Laboratory Results - last 24 hr 01/06/19 01/06/19 04:40 11:46 POC Glucose 170 H 189 H Surgery Progress Note: A/P - Problem (1) Clostridium difficile infection Current Visit: Yes Code(s): A49.8 - OTHER BACTERIAL INFECTIONS OF UNSPECIFIED SITE Status: Acute (2) DM2 (diabetes mellitus, type 2) Current Visit: Yes Status: Chronic Qualifiers: Diabetes mellitus extermination inspector insulin use: with care home use (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 -drainage less -surgery next week if not closed
[2019-01-06] MEDS: Enoxaparin Sodium 40 MG/0.4 ML SYRINGE SC SCH (20:28)
[2019-01-06] MEDS: Atorvastatin Calcium 20 MG TAB PO SCH (20:28)
[2019-01-06] MEDS: Aspirin 81 mg Enteric Coated Tablet PO SCH (20:28)
[2019-01-06] MEDS: Insulin Glargine 60 UNITS in Pre-Filled Syringe SC SCH (20:58)
[2019-01-06] MEDS: SODIUM CHLORIDE IV SCH (22:06)
[2019-01-06] MEDS: POTASSIUM CHLORIDE IV SCH (22:06)
[2019-01-06] MEDS: [UNRECOGNIZED DRUG - OTHER] IV SCH (22:06)
[2019-01-06] MEDS: FAT EMULSION IV SCH (22:06)
[2019-01-07] MEDS: Octreotide Acetate 100 MCG/ML VIAL SC SCH ×3 (02:22→17:37)
[2019-01-07] MEDS: Levothyroxine Sodium 112 MCG TAB PO SCH (05:59)
[2019-01-07] MEDS: Levothyroxine Sodium 25 MCG TAB PO SCH (06:00)
[2019-01-07] MEDS: Liothyronine Sodium 5 MCG TAB PO SCH (06:01)
[2019-01-07] MEDS: HumaLOG 300 UNITS/3 ML VIAL SC PRN ×2 (06:02→15:34)
[2019-01-07] MEDS: Ascorbic Acid 500 mg Chewable Tablet PO SCH (08:47)
[2019-01-07] MEDS: Dofetilide 0.125 MG CAP PO SCH ×2 (08:48→20:12)
[2019-01-07] MEDS: metFORMIN 500 MG TAB PO SCH ×2 (08:50→17:31)
[2019-01-07] MEDS: Lactinex Tablet PO SCH (08:51)
[2019-01-07] MEDS: Famotidine 20 MG TAB PO SCH ×2 (08:51→20:12)
[2019-01-07] MEDS: Clopidogrel Bisulfate 75 MG TAB PO SCH (08:52)
[2019-01-07] MEDS: PARoxetine 20 MG TAB PO SCH (08:53)
[2019-01-07] MEDS: Bisoprolol Fumarate 5 MG TAB PO SCH (08:54)
[2019-01-07] MEDS: Ferrous Sulfate 325 MG TAB PO SCH (08:57)
[2019-01-07] MEDS: Losartan 25 MG TAB PO SCH (08:57)
[2019-01-07] MEDS: Acetaminophen 325 MG TAB PO PRN ×3 (08:58→22:53)
[2019-01-07] MEDS: Magnesium Chloride 64 MG TAB PO SCH ×2 (09:00→20:13)
[2019-01-07] MEDS ORDERED: traMADol HCl 50 MG TAB PO PRN (12:48)
--- NOTE | 2019-01-07 12:48 | PDOC.HOSPP ---
- Subjective Encounter Date: 01/07/19 Encounter Time: 12:00 Subjective: no sob or abd pain - Objective Vital Signs & Weight: Vital Signs (12 hours) Temp Pulse Resp BP Pulse Ox 01/07/19 08:00 97 01/07/19 07:30 98.4 F 77 16 109/58 L 97 Weight Admit Weight 224 lb 11.2 oz Weight 224 lb 11.2 oz I&O: 01/06/19 01/07/19 01/08/19 06:59 06:59 06:59 Intake Total 2860 2720 Output Total 625 045 Balance 2235 2385 Result Diagrams: 01/05/19 04:29 01/05/19 04:29 Additional Labs: Accuchecks 01/07/19 01/07/19 01/06/19 11:30 04:05 23:16 POC Glucose 161 H 177 H 153 H 01/06/19 01/06/19 01/05/19 15:58 01:40 16:58 POC Glucose 163 H 185 H 196 H 01/04/19 20:35 POC Glucose 199 H Hospitalist ROS - Medication Medications: Active Medications Generic Name Dose Route Start Last Admin Trade Name Freq PRN Reason Stop Dose Admin Acetaminophen 650 mg 01/01/19 13:18 01/07/19 12:41 Tylenol PO 650 mg Q4H PRN Administration Headache/Fever or Mild Pain Acidophilus 1 tab 12/25/18 09:00 01/07/19 08:51 Floranex PO 1 tab DAILY TRAVON Administration Ascorbic Acid 500 mg 12/25/18 09:00 01/07/19 08:47 Vitamin C PO 500 mg DAILY TRAVON Administration Aspirin 81 mg 12/24/18 21:00 01/06/19 20:28 Ecotrin PO 81 mg HS TRAVON Administration Atorvastatin Calcium 20 mg 12/24/18 21:00 01/06/19 20:28 Lipitor PO 20 mg HS TRAVON Administration Bisoprolol Fumarate 5 mg 12/24/18 09:00 01/07/19 08:54 Zebeta PO 5 mg 09 TRAVON Administration Cholecalciferol 2,000 units 12/25/18 09:00 01/07/19 08:50 Vitamin D3 PO 2,000 units DAILY TRAVON Administration Clopidogrel Bisulfate 75 mg 12/25/18 09:00 01/07/19 08:52 Plavix PO 75 mg 0900 TRAVON Administration Dofetilide 0.5 mg 12/24/18 21:00 01/07/19 08:48 Tikosyn PO 0.5 mg BID TRAVON Administration Enoxaparin Sodium 40 mg 12/23/18 21:00 01/06/19 20:28 Lovenox SC 40 mg 2100 TRAVON Administration Famotidine 20 mg 12/25/18 21:00 01/07/19 08:51 Pepcid PO 20 mg BID TRAVON Administration Ferrous Sulfate 650 mg 12/25/18 09:00 01/07/19 08:57 Feosol PO 650 mg DAILY TRAVON Administration Insulin Glargine 60 units/ 0.6 mls @ 0 mls/hr 12/28/18 21:00 01/06/19 20:58 Miscellaneous Medication SC 0.6 mls HS TRAVON Administration Fat Emulsion Intravenous 250 2,298.6945 mls @ 95.779 mls/hr 01/05/19 22:00 22:06 ml/ Sodium Chloride 40 meq/ IV 2,298.6945 mls Potassium Chloride 40 meq/ 2200 TRAVON Administration Magnesium Sulfate 15 meq/ Multivitamins 10 ml/ Chromium/ Copper/Manganese/Seleni/Zn 5 ml/ Amino Acids/Electrolytes Insulin Human Lispro 0 units 12/25/18 08:51 01/07/19 06:02 Humalog SC 3 unit .AGGRESSIVE SLIDING PRN Administration Aggressive Correctional Scale Levothyroxine Sodium 224 mcg 12/24/18 06:00 01/07/19 05:59 Synthroid PO 224 mcg 0600 TRAVON Administration Levothyroxine Sodium 50 mcg 12/24/18 06:00 01/07/19 06:00 Synthroid PO 50 mcg 0600 TRAVON Administration Liothyronine Sodium 5 mcg 12/24/18 06:00 01/07/19 06:01 Cytomel PO 5 mcg 0600 TRAVON Administration Losartan Potassium 50 mg 12/24/18 09:00 01/07/19 08:57 Cozaar PO 50 mg DAILY TRAVON Administration Magnesium Chloride 64 mg 12/29/18 21:00 01/07/19 09:00 Slow-Mag PO 64 mg BID TRAVON Administration Metformin HCl 1,000 mg 12/25/18 08:00 01/07/19 08:50 Glucophage PO 1,000 mg BID-WM TRAVON Administration Octreotide Acetate 100 mcg 12/24/18 02:00 01/07/19 09:00 Sandostatin SC 100 mcg 0200,1000,1800 TRAVON Administration Paroxetine HCl 20 mg 12/24/18 09:00 01/07/19 08:53 Paxil PO 20 mg DAILY TRAVON Administration - Exam General Appearance: awake alert Eye: PERRL, anicteric sclera ENT: no oropharyngeal lesions, moist mucosa Neck: supple, no JVD Heart: RRR, no murmur Respiratory: no wheezes, no rales Gastrointestinal: soft, non-tender, non-distended, normal bowel sounds Extremities: no cyanosis, no edema Neurological: cranial nerve grossly intact, no focal deficits Psychiatric: normal affect, A&O x 3 Hosp A/P (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 (6) Obesity (BMI 30.0-34.9) Code(s): E66.9 - OBESITY, UNSPECIFIED Status: Chronic (7) Anxiety and depression Code(s): F41.9 - ANXIETY DISORDER, UNSPECIFIED; F32.9 - MAJOR DEPRESSIVE DISORDER, SINGLE EPISODE, UNSPECIFIED Status: Chronic (8) Atrial fibrillation Code(s): I48.91 - UNSPECIFIED ATRIAL FIBRILLATION Status: Chronic Qualifiers: Atrial fibrillation type: paroxysmal Qualified Code(s): I48.0 - Paroxysmal atrial fibrillation (9) Hypertension Code(s): I10 - ESSENTIAL (PRIMARY) HYPERTENSION Status: Chronic Qualifiers: Hypertension type: essential hypertension Qualified Code(s): I10 - Essential (primary) hypertension (10) Hypothyroidism Code(s): E03.9 - HYPOTHYROIDISM, UNSPECIFIED Status: Chronic Qualifiers: Hypothyroidism type: unspecified Qualified Code(s): E03.9 - Hypothyroidism , unspecified - Plan is on TPN, octreotide, vanc po continue lantus, metformin, cozaar, asp, plavix, lipitor, dofetilide, bisoprolol and synthroid is ambulating in room wound care prior h/o watchman device for afib, gastric band, hernia with mesh placement..inf mesh removal. dc plan per gen surg adv. c.diff is getting better with diarrhea slowly resolving
[2019-01-07] MEDS: Ketorolac Tromethamine 30 MG/ML VIAL IVP PRN ×2 (13:03→19:49)
[2019-01-07] MEDS: Aspirin 81 mg Enteric Coated Tablet PO SCH (20:12)
[2019-01-07] MEDS: Atorvastatin Calcium 20 MG TAB PO SCH (20:12)
[2019-01-07] MEDS: Enoxaparin Sodium 40 MG/0.4 ML SYRINGE SC SCH (20:12)
[2019-01-07] MEDS: Insulin Glargine 60 UNITS in Pre-Filled Syringe SC SCH (21:40)
[2019-01-07] MEDS ORDERED: Amitriptyline HCl 25 MG TAB PO PRN (21:53)
[2019-01-07] MEDS: POTASSIUM CHLORIDE IV SCH (22:01)
[2019-01-07] MEDS: SODIUM CHLORIDE IV SCH (22:01)
[2019-01-07] MEDS: [UNRECOGNIZED DRUG - OTHER] IV SCH (22:01)
[2019-01-07] MEDS: FAT EMULSION IV SCH (22:01)
[2019-01-08] MEDS: Octreotide Acetate 100 MCG/ML VIAL SC SCH ×3 (01:46→17:50)
[2019-01-08] MEDS: Levothyroxine Sodium 112 MCG TAB PO SCH (06:09)
[2019-01-08] MEDS: Levothyroxine Sodium 25 MCG TAB PO SCH (06:09)
[2019-01-08] MEDS: Liothyronine Sodium 5 MCG TAB PO SCH (06:10)
[2019-01-08] MEDS: HumaLOG 300 UNITS/3 ML VIAL SC PRN ×3 (06:11→17:49)
[2019-01-08 07:01] LABS: ALT (SGPT) 11 U/L (8-55); AST (SGOT) 15 U/L (5-34); Albumin 3.3 g/dL (3.4-4.8); Alkaline Phosphatase 152 U/L (40-110); Anion Gap 11 mmol/L (10-20); BUN (Urea Nitrogen) 25 mg/dL (9.8-20.1); Bilirubin, Total 0.3 mg/dL (0.2-1.2); Calc. Creatinine Clearance 129 mL/min (70-130); Calcium 8.9 mg/dL (7.8-10.44); Carbon Dioxide 23 mmol/L (23-31); Chloride 106 mmol/L (98-107); Estimated GFR-MDRD 86; Globulin 3.2 g/dL (2.4-3.5); Glucose 162 mg/dL (80-115); Phosphorus 4.7 mg/dL (2.3-4.7); Potassium 4.7 mmol/L (3.5-5.1); Protein, Total 6.5 g/dL (6.0-8.3); Sodium 135 mmol/L (136-145)
[2019-01-08] MEDS: Ascorbic Acid 500 mg Chewable Tablet PO SCH (09:45)
[2019-01-08] MEDS: Bisoprolol Fumarate 5 MG TAB PO SCH (09:45)
[2019-01-08] MEDS: metFORMIN 500 MG TAB PO SCH ×2 (09:45→17:49)
[2019-01-08] MEDS: Dofetilide 0.125 MG CAP PO SCH ×2 (09:46→20:36)
[2019-01-08] MEDS: Famotidine 20 MG TAB PO SCH ×2 (09:46→20:36)
[2019-01-08] MEDS: Ferrous Sulfate 325 MG TAB PO SCH (09:46)
[2019-01-08] MEDS: Clopidogrel Bisulfate 75 MG TAB PO SCH (09:46)
[2019-01-08] MEDS: Lactinex Tablet PO SCH (09:46)
[2019-01-08] MEDS: Magnesium Chloride 64 MG TAB PO SCH ×2 (09:47→20:37)
[2019-01-08] MEDS: PARoxetine 20 MG TAB PO SCH (09:47)
[2019-01-08] MEDS: Losartan 25 MG TAB PO SCH (09:53)
--- NOTE | 2019-01-08 12:39 | PDOC.HOSPP ---
- Subjective Encounter Date: 01/08/19 Encounter Time: 11:40 Subjective: no abd pain or nausea has around 3 episodes of loose stools - Objective Vital Signs & Weight: Vital Signs (12 hours) Temp Pulse Resp BP Pulse Ox 01/08/19 08:00 96 01/08/19 07:50 97.9 F 71 22 H 114/66 96 Weight Admit Weight 224 lb 11.2 oz Weight 224 lb 11.2 oz I&O: 01/07/19 01/08/19 01/09/19 06:59 06:59 06:59 Intake Total 2720 1400 Output Total 335 160 Balance 2385 1240 Result Diagrams: 01/05/19 04:29 01/08/19 06:15 Additional Labs: Accuchecks 01/08/19 01/07/19 01/07/19 04:33 23:46 15:33 POC Glucose 179 H 156 H 185 H Hospitalist ROS - Medication Medications: Active Medications Generic Name Dose Route Start Last Admin Trade Name Freq PRN Reason Stop Dose Admin Acetaminophen 650 mg 01/01/19 13:18 01/07/19 22:53 Tylenol PO 650 mg Q4H PRN Administration Headache/Fever or Mild Pain Acidophilus 1 tab 12/25/18 09:00 01/08/19 09:46 Floranex PO 1 tab DAILY TRAVON Administration Amitriptyline HCl 25 mg 01/07/19 21:53 01/07/19 22:54 Elavil PO 01/08/19 21:54 25 mg ONE PRN Administration Agitation Ascorbic Acid 500 mg 12/25/18 09:00 01/08/19 09:45 Vitamin C PO 500 mg DAILY TRAVON Administration Aspirin 81 mg 12/24/18 21:00 01/07/19 20:12 Ecotrin PO 81 mg HS TRAVON Administration Atorvastatin Calcium 20 mg 12/24/18 21:00 01/07/19 20:12 Lipitor PO 20 mg HS TRAVON Administration Bisoprolol Fumarate 5 mg 12/24/18 09:00 01/08/19 09:45 Zebeta PO 5 mg 09 TRAVON Administration Cholecalciferol 2,000 units 12/25/18 09:00 01/08/19 09:46 Vitamin D3 PO 2,000 units DAILY TRAVON Administration Clopidogrel Bisulfate 75 mg 12/25/18 09:00 01/08/19 09:46 Plavix PO 75 mg 0900 TRAVON Administration Dofetilide 0.5 mg 12/24/18 21:00 01/08/19 09:46 Tikosyn PO 0.5 mg BID TRAVON Administration Enoxaparin Sodium 40 mg 12/23/18 21:00 01/07/19 20:12 Lovenox SC 40 mg 2100 TRAVON Administration Famotidine 20 mg 12/25/18 21:00 01/08/19 09:46 Pepcid PO 20 mg BID TRAVON Administration Ferrous Sulfate 650 mg 12/25/18 09:00 01/08/19 09:46 Feosol PO 650 mg DAILY TRAVON Administration Insulin Glargine 60 units/ 0.6 mls @ 0 mls/hr 12/28/18 21:00 01/07/19 21:40 Miscellaneous Medication SC 0.6 mls HS TRAVON Administration Fat Emulsion Intravenous 250 2,298.6945 mls @ 95.779 mls/hr 01/05/19 22:00 22:01 ml/ Sodium Chloride 40 meq/ IV 2,298.6945 mls Potassium Chloride 40 meq/ 2200 TRAVON Administration Magnesium Sulfate 15 meq/ Multivitamins 10 ml/ Chromium/ Copper/Manganese/Seleni/Zn 5 ml/ Amino Acids/Electrolytes Insulin Human Lispro 0 units 12/25/18 08:51 01/08/19 12:23 Humalog SC 3 unit .AGGRESSIVE SLIDING PRN Administration Aggressive Correctional Scale Ketorolac Tromethamine 15 mg 01/07/19 12:48 01/07/19 19:49 Toradol IVP 01/12/19 12:49 15 mg Q6H PRN Administration Pain Levothyroxine Sodium 224 mcg 12/24/18 06:00 01/08/19 06:09 Synthroid PO 224 mcg 0600 TRAVON Administration Levothyroxine Sodium 50 mcg 12/24/18 06:00 01/08/19 06:09 Synthroid PO 50 mcg 0600 TRAVON Administration Liothyronine Sodium 5 mcg 12/24/18 06:00 01/08/19 06:10 Cytomel PO 5 mcg 0600 TRAVON Administration Losartan Potassium 50 mg 12/24/18 09:00 01/08/19 09:53 Cozaar PO 50 mg DAILY TRAVON Administration Magnesium Chloride 64 mg 12/29/18 21:00 01/08/19 09:47 Slow-Mag PO 64 mg BID TRAVON Administration Metformin HCl 1,000 mg 12/25/18 08:00 01/08/19 09:45 Glucophage PO 1,000 mg BID-WM TRAVON Administration Octreotide Acetate 100 mcg 12/24/18 02:00 01/08/19 09:54 Sandostatin SC 100 mcg 0200,1000,1800 TRAVON Administration Paroxetine HCl 20 mg 12/24/18 09:00 01/08/19 09:47 Paxil PO 20 mg DAILY TRAVON Administration - Exam General Appearance: NAD, awake alert Eye: PERRL, anicteric sclera ENT: no oropharyngeal lesions, moist mucosa Neck: supple, no JVD Heart: RRR, no murmur Respiratory: no wheezes, no rales Gastrointestinal: soft, non-tender, normal bowel sounds Extremities: no cyanosis, no edema Skin: normal turgor, no rashes Neurological: cranial nerve grossly intact, no focal deficits Psychiatric: normal affect, A&O x 3 Hosp A/P (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 difficile colitis Code(s): A04.72 - ENTEROCOLITIS D/T CLOSTRIDIUM DIFFICILE, NOT SPCF RECUR Status: Resolved (3) Dyslipidemia Code(s): E78.5 - HYPERLIPIDEMIA, UNSPECIFIED Status: Chronic (4) Chronic anemia Code(s): D64.9 - ANEMIA, UNSPECIFIED Status: Chronic (5) DM2 (diabetes mellitus, type 2) Status: Chronic Qualifiers: Diabetes mellitus intermediate insulin use: with intermediate use (6) Obesity (BMI 30.0-34.9) Code(s): E66.9 - OBESITY, UNSPECIFIED Status: Chronic (7) Anxiety and depression Code(s): F41.9 - ANXIETY DISORDER, UNSPECIFIED; F32.9 - MAJOR DEPRESSIVE DISORDER, SINGLE EPISODE, UNSPECIFIED Status: Chronic (8) Atrial fibrillation Code(s): I48.91 - UNSPECIFIED ATRIAL FIBRILLATION Status: Chronic Qualifiers: Atrial fibrillation type: paroxysmal Qualified Code(s): I48.0 - Paroxysmal atrial fibrillation (9) Hypertension Code(s): I10 - ESSENTIAL (PRIMARY) HYPERTENSION Status: Chronic Qualifiers: Hypertension type: essential hypertension Qualified Code(s): I10 - Essential (primary) hypertension (10) Hypothyroidism Code(s): E03.9 - HYPOTHYROIDISM, UNSPECIFIED Status: Chronic Qualifiers: Hypothyroidism type: unspecified Qualified Code(s): E03.9 - Hypothyroidism , unspecified - Plan is on TPN, octreotide. continue lantus, metformin, cozaar, asp, plavix, lipitor, dofetilide, bisoprolol and synthroid is ambulating in room wound care prior h/o watchman device for afib, gastric band, hernia with mesh placement..inf mesh removal. dc plan per gen surg adv. off vanc from last 2 days
[2019-01-08] MEDS: Aspirin 81 mg Enteric Coated Tablet PO SCH (20:36)
[2019-01-08] MEDS: Enoxaparin Sodium 40 MG/0.4 ML SYRINGE SC SCH (20:36)
[2019-01-08] MEDS: Atorvastatin Calcium 20 MG TAB PO SCH (20:36)
[2019-01-08] MEDS: Acetaminophen 325 MG TAB PO PRN (20:43)
[2019-01-08] MEDS ORDERED: Amitriptyline HCl 25 MG TAB PO SCH (21:00)
[2019-01-08] MEDS: FAT EMULSION IV SCH (22:01)
[2019-01-08] MEDS: Insulin Glargine 60 UNITS in Pre-Filled Syringe SC SCH (22:01)
[2019-01-08] MEDS: SODIUM CHLORIDE IV SCH (22:01)
[2019-01-08] MEDS: POTASSIUM CHLORIDE IV SCH (22:01)
[2019-01-08] MEDS: [UNRECOGNIZED DRUG - OTHER] IV SCH (22:01)
[2019-01-09] MEDS: Octreotide Acetate 100 MCG/ML VIAL SC SCH ×3 (02:12→18:00)
[2019-01-09] MEDS: Liothyronine Sodium 5 MCG TAB PO SCH (05:25)
[2019-01-09] MEDS: Levothyroxine Sodium 25 MCG TAB PO SCH (05:25)
[2019-01-09] MEDS: Levothyroxine Sodium 112 MCG TAB PO SCH (05:25)
[2019-01-09] MEDS: metFORMIN 500 MG TAB PO SCH ×2 (08:49→18:00)
[2019-01-09] MEDS: Ferrous Sulfate 325 MG TAB PO SCH (08:49)
[2019-01-09] MEDS: Famotidine 20 MG TAB PO SCH ×2 (08:50→20:56)
[2019-01-09] MEDS: Losartan 25 MG TAB PO SCH (08:50)
[2019-01-09] MEDS: PARoxetine 20 MG TAB PO SCH (08:50)
[2019-01-09] MEDS: Lactinex Tablet PO SCH (08:50)
[2019-01-09] MEDS: Dofetilide 0.125 MG CAP PO SCH ×2 (08:50→20:56)
[2019-01-09] MEDS: Bisoprolol Fumarate 5 MG TAB PO SCH (08:51)
[2019-01-09] MEDS: Magnesium Chloride 64 MG TAB PO SCH ×2 (08:52→20:57)
[2019-01-09] MEDS: Clopidogrel Bisulfate 75 MG TAB PO SCH (08:54)
[2019-01-09] MEDS: Ascorbic Acid 500 mg Chewable Tablet PO SCH (08:59)
[2019-01-09] MEDS: Ketorolac Tromethamine 30 MG/ML VIAL IVP PRN ×2 (10:17→22:45)
--- NOTE | 2019-01-09 17:55 | PDOC.HOSPP ---
- Subjective Encounter Date: 01/09/19 Subjective: Pt seen , not in distress has had bowel movement last night , Denies vomiting fever , nausea - Objective Vital Signs & Weight: Vital Signs (12 hours) Temp Pulse Resp BP Pulse Ox 01/09/19 08:18 98.3 F 84 18 108/64 98 01/09/19 08:00 98 Weight Admit Weight 224 lb 11.2 oz Weight 224 lb 11.2 oz I&O: 01/08/19 01/09/19 01/10/19 06:59 06:59 06:59 Intake Total 1400 1330 Output Total 160 230 Balance 1240 1100 Result Diagrams: 01/05/19 04:29 01/08/19 06:15 Additional Labs: Accuchecks 01/09/19 01/09/19 01/09/19 11:36 04:44 00:05 POC Glucose 205 H 146 H 138 H 01/08/19 11:06 POC Glucose 168 H Hospitalist ROS - Review of Systems Eyes: denies: vision change ENT: denies: ear pain Respiratory: denies: cough Cardiovascular: denies: chest pain Gastrointestinal: denies: nausea, vomiting Genitourinary: denies: dysuria Musculoskeletal: denies: neck pain Neurological: denies: weakness - Medication Medications: Active Medications Generic Name Dose Route Start Last Admin Trade Name Vicenteq PRN Reason Stop Dose Admin Acetaminophen 650 mg 01/01/19 13:18 01/08/19 20:43 Tylenol PO 650 mg Q4H PRN Administration Headache/Fever or Mild Pain Acidophilus 1 tab 12/25/18 09:00 01/09/19 08:50 Floranex PO 1 tab DAILY TRAVON Administration Ascorbic Acid 500 mg 12/25/18 09:00 01/09/19 08:59 Vitamin C PO 500 mg DAILY TRAVON Administration Aspirin 81 mg 12/24/18 21:00 01/08/19 20:36 Ecotrin PO 81 mg HS TRAVON Administration Atorvastatin Calcium 20 mg 12/24/18 21:00 01/08/19 20:36 Lipitor PO 20 mg HS TRAVON Administration Bisoprolol Fumarate 5 mg 12/24/18 09:00 01/09/19 08:51 Zebeta PO 5 mg 0900 TRAVON Administration Cholecalciferol 2,000 units 12/25/18 09:00 01/09/19 08:49 Vitamin D3 PO 2,000 units DAILY TRAVON Administration Clopidogrel Bisulfate 75 mg 12/25/18 09:00 01/09/19 08:54 Plavix PO 75 mg 0900 TRAVON Administration Dofetilide 0.5 mg 12/24/18 21:00 01/09/19 08:50 Tikosyn PO 0.5 mg BID TRAVON Administration Enoxaparin Sodium 40 mg 12/23/18 21:00 01/08/19 20:36 Lovenox SC 40 mg 2100 TRAVON Administration Famotidine 20 mg 12/25/18 21:00 01/09/19 08:50 Pepcid PO 20 mg BID TRAVON Administration Ferrous Sulfate 650 mg 12/25/18 09:00 01/09/19 08:49 Feosol PO 650 mg DAILY TRAVON Administration Insulin Glargine 60 units/ 0.6 mls @ 0 mls/hr 12/28/18 21:00 01/08/19 22:01 Miscellaneous Medication SC 0.6 mls HS TRAVON Administration Fat Emulsion Intravenous 250 2,298.6945 mls @ 95.779 mls/hr 01/05/19 22:00 22:01 ml/ Sodium Chloride 40 meq/ IV 2,298.6945 mls Potassium Chloride 40 meq/ 2200 TRAVON Administration Magnesium Sulfate 15 meq/ Multivitamins 10 ml/ Chromium/ Copper/Manganese/Seleni/Zn 5 ml/ Amino Acids/Electrolytes Insulin Human Lispro 0 units 12/25/18 08:51 01/08/19 17:49 Humalog SC 3 unit .AGGRESSIVE SLIDING PRN Administration Aggressive Correctional Scale Ketorolac Tromethamine 15 mg 01/07/19 12:48 01/09/19 10:17 Toradol IVP 01/12/19 12:49 15 mg Q6H PRN Administration Pain Levothyroxine Sodium 224 mcg 12/24/18 06:00 01/09/19 05:25 Synthroid PO 224 mcg 0600 TRAVON Administration Levothyroxine Sodium 50 mcg 12/24/18 06:00 01/09/19 05:25 Synthroid PO 50 mcg 0600 TRAVON Administration Liothyronine Sodium 5 mcg 12/24/18 06:00 01/09/19 05:25 Cytomel PO 5 mcg 0600 TRAVON Administration Losartan Potassium 50 mg 12/24/18 09:00 01/09/19 08:50 Cozaar PO 50 mg DAILY TRAVON Administration Magnesium Chloride 64 mg 12/29/18 21:00 01/09/19 08:52 Slow-Mag PO 64 mg BID TRAVON Administration Metformin HCl 1,000 mg 12/25/18 08:00 01/09/19 08:49 Glucophage PO 1,000 mg BID-WM TRAVON Administration Octreotide Acetate 100 mcg 12/24/18 02:00 01/09/19 09:55 Sandostatin SC 100 mcg 0200,1000,1800 TRAVON Administration Paroxetine HCl 20 mg 12/24/18 09:00 01/09/19 08:50 Paxil PO 20 mg DAILY TRAVON Administration Tramadol HCl 50 mg 01/07/19 12:48 01/08/19 16:22 Ultram PO 50 mg Q6H PRN Administration MODERATE Pain - Exam General Appearance: awake alert Eye: anicteric sclera ENT: normocephalic atraumatic Neck: supple Heart: no murmur Gastrointestinal: negative: non-tender, non-distended Extremities: negative: no cyanosis Neurological: no focal deficits Musculoskeletal: normal strength Psychiatric: normal affect Hosp A/P - Plan Enterocutaneous fistula Continue local care as per Surgery , f/u further plan as per surgery possible surgical intervention if no improvement , Continue NPO , TPN Dyslipidemia Continue statin Chronic anemia currently stable DM2 Continue to monitor blood sugar Anxiety and depression Atrial fibrillation currently HR stable s/p watchman procedure Hypertension Continue cozaar Hypothyroidism DVT/GI Prphylaxis
[2019-01-09] MEDS: Aspirin 81 mg Enteric Coated Tablet PO SCH (20:56)
[2019-01-09] MEDS: Atorvastatin Calcium 20 MG TAB PO SCH (20:56)
[2019-01-09] MEDS: Enoxaparin Sodium 40 MG/0.4 ML SYRINGE SC SCH (20:57)
[2019-01-09] MEDS: Insulin Glargine 60 UNITS in Pre-Filled Syringe SC SCH (20:57)
[2019-01-09] MEDS: FAT EMULSION IV SCH (22:31)
[2019-01-09] MEDS: SODIUM CHLORIDE IV SCH (22:31)
[2019-01-09] MEDS: POTASSIUM CHLORIDE IV SCH (22:31)
[2019-01-09] MEDS: [UNRECOGNIZED DRUG - OTHER] IV SCH (22:31)
[2019-01-10] MEDS: Octreotide Acetate 100 MCG/ML VIAL SC SCH ×2 (01:58→12:02)
[2019-01-10] MEDS: HumaLOG 300 UNITS/3 ML VIAL SC PRN (06:02)
[2019-01-10] MEDS: Levothyroxine Sodium 112 MCG TAB PO SCH (06:02)
[2019-01-10] MEDS: Levothyroxine Sodium 25 MCG TAB PO SCH (06:03)
[2019-01-10] MEDS: Liothyronine Sodium 5 MCG TAB PO SCH (06:03)
[2019-01-10 06:44] LABS: Anion Gap 11 mmol/L (10-20); BUN (Urea Nitrogen) 28 mg/dL (9.8-20.1); Calc. Creatinine Clearance 135 mL/min (70-130); Calcium 9.1 mg/dL (7.8-10.44); Carbon Dioxide 22 mmol/L (23-31); Chloride 104 mmol/L (98-107); Estimated GFR-MDRD Greater than 90; Glucose 139 mg/dL (80-115); Potassium 4.6 mmol/L (3.5-5.1); Sodium 132 mmol/L (136-145)
[2019-01-10 07:58] LABS: #Eosinphils 0.3 thou/uL (0.0-0.7); #Monocytes 0.6 thou/uL (0.11-0.59); #Neutrophils 4.6 thou/uL (1.40-6.50); %Basophils 0.3 % (0.0-1.0); %Eosinophils 3.6 % (0.0-10.0); %Lymphocytes 35.2 % (21.0-51.0); %Monocytes 6.5 % (0.0-10.0); %Neutrophils 54.4 % (42.0-75.0); Hemoglobin 10.2 g/dL (12.0-16.0); MDiff Complete? YES; Mean Corpuscular HGB CONC 32.2 g/dL (32.0-36.0); Mean Corpuscular Volume 74.6 fL (78.0-98.0); Mean Platelet Volume 9.8 fL (7.4-10.4); Microcytosis SLIGHT = 6-15 cells (100X) (0-5/hpf); Platelet Count 155 thou/uL (130-400); RBC Distribution Width 16.3 % (11.5-14.5); Red Blood Cell (RBC) Count 4.22 mill/uL (4.20-5.40); White Blood Cell (WBC) Count 8.5 thou/uL (4.8-10.8)
[2019-01-10] MEDS: metFORMIN 500 MG TAB PO SCH ×2 (08:58→18:09)
[2019-01-10] MEDS: Ascorbic Acid 500 mg Chewable Tablet PO SCH (09:00)
[2019-01-10] MEDS: Ferrous Sulfate 325 MG TAB PO SCH (09:01)
[2019-01-10] MEDS: PARoxetine 20 MG TAB PO SCH (09:02)
[2019-01-10] MEDS: Bisoprolol Fumarate 5 MG TAB PO SCH (09:02)
[2019-01-10] MEDS: Lactinex Tablet PO SCH (09:02)
[2019-01-10] MEDS: Clopidogrel Bisulfate 75 MG TAB PO SCH (09:02)
[2019-01-10] MEDS: Famotidine 20 MG TAB PO SCH ×2 (09:02→20:34)
[2019-01-10] MEDS: Losartan 25 MG TAB PO SCH (09:02)
[2019-01-10] MEDS: Magnesium Chloride 64 MG TAB PO SCH ×2 (09:03→20:35)
[2019-01-10] MEDS: Dofetilide 0.125 MG CAP PO SCH ×2 (09:35→20:33)
[2019-01-10] MEDS: Ketorolac Tromethamine 30 MG/ML VIAL IVP PRN ×2 (10:00→18:09)
--- NOTE | 2019-01-10 11:53 | PDOC.HOSPP ---
- Subjective Encounter Date: 01/10/19 Subjective: Pt seen c.o nausea earlier while changing dressing otherwise denies chest pain , SOB headache - Objective Vital Signs & Weight: Vital Signs (12 hours) Temp Pulse Resp BP Pulse Ox 01/10/19 08:06 98.3 F 71 16 107/67 99 Weight Admit Weight 224 lb 11.2 oz Weight 224 lb 11.2 oz I&O: 01/09/19 01/10/19 01/11/19 06:59 06:59 06:59 Intake Total 1330 2516 Output Total 230 475 Balance 1100 2041 Result Diagrams: 01/10/19 06:01 01/10/19 05:59 Additional Labs: Accuchecks 01/10/19 01/09/19 04:31 19:50 POC Glucose 197 H 146 H Hospitalist ROS - Review of Systems Constitutional: denies: fever Eyes: denies: pain ENT: denies: ear pain Respiratory: denies: cough Cardiovascular: denies: chest pain Gastrointestinal: reports: nausea Genitourinary: reports: frequency Musculoskeletal: denies: neck pain Neurological: denies: weakness - Medication Medications: Active Medications Generic Name Dose Route Start Last Admin Trade Name Freq PRN Reason Stop Dose Admin Acetaminophen 650 mg 01/01/19 13:18 01/08/19 20:43 Tylenol PO 650 mg Q4H PRN Administration Headache/Fever or Mild Pain Acidophilus 1 tab 12/25/18 09:00 01/10/19 09:02 Floranex PO 1 tab DAILY TRAVON Administration Ascorbic Acid 500 mg 12/25/18 09:00 01/10/19 09:00 Vitamin C PO 500 mg DAILY TRAVON Administration Aspirin 81 mg 12/24/18 21:00 01/09/19 20:56 Ecotrin PO 81 mg HS TRAVON Administration Atorvastatin Calcium 20 mg 12/24/18 21:00 01/09/19 20:56 Lipitor PO 20 mg HS TRAVON Administration Bisoprolol Fumarate 5 mg 12/24/18 09:00 01/10/19 09:02 Zebeta PO 5 mg 0900 TRAVON Administration Cholecalciferol 2,000 units 12/25/18 09:00 01/10/19 09:01 Vitamin D3 PO 2,000 units DAILY TRAVON Administration Clopidogrel Bisulfate 75 mg 12/25/18 09:00 01/10/19 09:02 Plavix PO 75 mg 0900 TRAVON Administration Dofetilide 0.5 mg 12/24/18 21:00 01/10/19 09:35 Tikosyn PO Not Given BID TRAVON Enoxaparin Sodium 40 mg 12/23/18 21:00 01/09/19 20:57 Lovenox SC 40 mg 2100 TRAVON Administration Famotidine 20 mg 12/25/18 21:00 01/10/19 09:02 Pepcid PO 20 mg BID TRAVON Administration Ferrous Sulfate 650 mg 12/25/18 09:00 01/10/19 09:01 Feosol PO 650 mg DAILY TRAVON Administration Insulin Glargine 60 units/ 0.6 mls @ 0 mls/hr 12/28/18 21:00 01/09/19 20:57 Miscellaneous Medication SC 0.6 mls HS TRAVON Administration Fat Emulsion Intravenous 250 2,298.6945 mls @ 95.779 mls/hr 01/05/19 22:00 22:31 ml/ Sodium Chloride 40 meq/ IV 2,298.6945 mls Potassium Chloride 40 meq/ 2200 TRAVON Administration Magnesium Sulfate 15 meq/ Multivitamins 10 ml/ Chromium/ Copper/Manganese/Seleni/Zn 5 ml/ Amino Acids/Electrolytes Insulin Human Lispro 0 units 12/25/18 08:51 01/10/19 06:02 Humalog SC 3 unit .AGGRESSIVE SLIDING PRN Administration Aggressive Correctional Scale Ketorolac Tromethamine 15 mg 01/07/19 12:48 01/10/19 10:00 Toradol IVP 01/12/19 12:49 15 mg Q6H PRN Administration Pain Levothyroxine Sodium 224 mcg 12/24/18 06:00 01/10/19 06:02 Synthroid PO 224 mcg 0600 TRAVON Administration Levothyroxine Sodium 50 mcg 12/24/18 06:00 01/10/19 06:03 Synthroid PO 50 mcg 0600 TRAVON Administration Liothyronine Sodium 5 mcg 12/24/18 06:00 01/10/19 06:03 Cytomel PO 5 mcg 0600 TRAVON Administration Losartan Potassium 50 mg 12/24/18 09:00 01/10/19 09:02 Cozaar PO 50 mg DAILY TRAVON Administration Magnesium Chloride 64 mg 12/29/18 21:00 01/10/19 09:03 Slow-Mag PO 64 mg BID TRAVON Administration Metformin HCl 1,000 mg 12/25/18 08:00 01/10/19 08:58 Glucophage PO 1,000 mg BID-WM TRAVON Administration Octreotide Acetate 100 mcg 12/24/18 02:00 01/10/19 01:58 Sandostatin SC 100 mcg 0200,1000,1800 TRAVON Administration Paroxetine HCl 20 mg 12/24/18 09:00 01/10/19 09:02 Paxil PO 20 mg DAILY TRAVON Administration Tramadol HCl 50 mg 01/07/19 12:48 01/08/19 16:22 Ultram PO 50 mg Q6H PRN Administration MODERATE Pain - Exam General Appearance: awake alert Eye: anicteric sclera ENT: normocephalic atraumatic Neck: supple Heart: no murmur Respiratory: CTAB Gastrointestinal: soft Extremities: no cyanosis Neurological: cranial nerve grossly intact Musculoskeletal: normal tone Hosp A/P - Plan Enterocutaneous fistula with C-diff colitis Continue local care as per Surgery , f/u further plan as per surgery possible surgical intervention if no improvement , Continue NPO , TPN Dyslipidemia Continue statin Chronic anemia currently stable DM2 Continue to monitor blood sugar Anxiety and depression Atrial fibrillation s/p watchman procedure continue Tikosyn , bisoprolol Hypertension Continue cozaar Hypothyroidism DVT/GI Prphylaxis Plan Discussed with pt , nursing staff and wound care nurse
[2019-01-10] MEDS ORDERED: Octreotide Acetate 100 MCG/ML VIAL SLOW IVP SCH (18:00)
[2019-01-10] MEDS: Octreotide Acetate 100 MCG/ML VIAL SLOW IVP SCH (18:09)
[2019-01-10] MEDS: Aspirin 81 mg Enteric Coated Tablet PO SCH (20:33)
[2019-01-10] MEDS: Atorvastatin Calcium 20 MG TAB PO SCH (20:33)
[2019-01-10] MEDS: Enoxaparin Sodium 40 MG/0.4 ML SYRINGE SC SCH (20:34)
[2019-01-10] MEDS: Insulin Glargine 60 UNITS in Pre-Filled Syringe SC SCH (20:34)
[2019-01-10] MEDS ORDERED: Amitriptyline HCl 25 MG TAB PO SCH (21:00)
[2019-01-10] MEDS: POTASSIUM CHLORIDE IV SCH (22:33)
[2019-01-10] MEDS: [UNRECOGNIZED DRUG - OTHER] IV SCH (22:33)
[2019-01-10] MEDS: FAT EMULSION IV SCH (22:33)
[2019-01-10] MEDS: SODIUM CHLORIDE IV SCH (22:33)
[2019-01-11] MEDS: Octreotide Acetate 100 MCG/ML VIAL SLOW IVP SCH ×3 (02:08→17:33)
[2019-01-11 06:07] LABS: #Eosinphils 0.2 thou/uL (0.0-0.7); #Lymphocytes 2.8 thou/uL (1.20-3.40); #Monocytes 0.5 thou/uL (0.11-0.59); #Neutrophils 4.5 thou/uL (1.40-6.50); %Basophils 0.2 % (0.0-1.0); %Eosinophils 3.1 % (0.0-10.0); %Lymphocytes 34.7 % (21.0-51.0); %Monocytes 6.2 % (0.0-10.0); %Neutrophils 55.8 % (42.0-75.0); Hemoglobin 10.2 g/dL (12.0-16.0); Mean Corpuscular HGB CONC 31.9 g/dL (32.0-36.0); Mean Corpuscular Hemoglobin 24.3 pg (27.0-31.0); Mean Corpuscular Volume 76.1 fL (78.0-98.0); Mean Platelet Volume 9.9 fL (7.4-10.4); Platelet Count 159 thou/uL (130-400); RBC Distribution Width 16.2 % (11.5-14.5); Red Blood Cell (RBC) Count 4.21 mill/uL (4.20-5.40)
[2019-01-11] MEDS: HumaLOG 300 UNITS/3 ML VIAL SC PRN (06:19)
[2019-01-11] MEDS: Liothyronine Sodium 5 MCG TAB PO SCH (06:19)
[2019-01-11] MEDS: Levothyroxine Sodium 25 MCG TAB PO SCH (06:19)
[2019-01-11] MEDS: Levothyroxine Sodium 112 MCG TAB PO SCH (06:28)
[2019-01-11 06:38] LABS: Anion Gap 10 mmol/L (10-20); BUN (Urea Nitrogen) 22 mg/dL (9.8-20.1); Calc. Creatinine Clearance 139 mL/min (70-130); Calcium 8.9 mg/dL (7.8-10.44); Carbon Dioxide 23 mmol/L (23-31); Chloride 107 mmol/L (98-107); Estimated GFR-MDRD Greater than 90; Glucose 158 mg/dL (80-115); Potassium 4.8 mmol/L (3.5-5.1); Sodium 135 mmol/L (136-145)
[2019-01-11] MEDS ORDERED: Bisacodyl 10 MG SUPP PR PRN (07:44)
[2019-01-11] MEDS ORDERED: Sodium Chloride 0.65% Nasal 44 ML BOT EA NARE PRN (07:44)
[2019-01-11] MEDS ORDERED: Artificial Tears 18 DROP/0.9 ML EA EYE PRN (07:44)
[2019-01-11] MEDS ORDERED: Cepastat Lozenges 1 LOZ PO PRN (07:44)
[2019-01-11] MEDS: Losartan 25 MG TAB PO SCH (09:13)
[2019-01-11] MEDS: Ferrous Sulfate 325 MG TAB PO SCH (09:13)
[2019-01-11] MEDS: Ascorbic Acid 500 mg Chewable Tablet PO SCH (09:14)
[2019-01-11] MEDS: Clopidogrel Bisulfate 75 MG TAB PO SCH (09:14)
[2019-01-11] MEDS: metFORMIN 500 MG TAB PO SCH ×2 (09:14→17:32)
[2019-01-11] MEDS: Lactinex Tablet PO SCH (09:14)
[2019-01-11] MEDS: Bisoprolol Fumarate 5 MG TAB PO SCH (09:14)
[2019-01-11] MEDS: PARoxetine 20 MG TAB PO SCH (09:15)
[2019-01-11] MEDS: Dofetilide 0.125 MG CAP PO SCH ×2 (09:15→21:00)
[2019-01-11] MEDS: Famotidine 20 MG TAB PO SCH ×2 (09:15→21:02)
[2019-01-11] MEDS: Magnesium Chloride 64 MG TAB PO SCH ×2 (09:16→21:03)
--- NOTE | 2019-01-11 10:52 | PDOC.HOSPP ---
- Subjective Encounter Date: 01/11/19 Encounter Time: 09:20 Subjective: Patient seen and examined. No new complaints. No overnight events - Objective Vital Signs & Weight: Vital Signs (12 hours) Temp Pulse Resp BP Pulse Ox 01/11/19 08:07 98.3 F 86 18 106/68 95 01/11/19 04:00 98.4 F 76 18 104/68 98 01/11/19 00:00 98.2 F 76 18 104/60 97 Weight Admit Weight 224 lb 11.2 oz Weight 224 lb 11.2 oz I&O: 01/10/19 01/11/19 01/12/19 06:59 06:59 06:59 Intake Total 2516 2657.8 Output Total 475 70 Balance 2041 2587.8 Result Diagrams: 01/11/19 05:50 01/11/19 05:50 Additional Labs: Accuchecks 01/11/19 01/10/19 01/10/19 05:48 20:17 16:30 POC Glucose 160 H 165 H 150 H 01/10/19 01/09/19 11:48 16:35 POC Glucose 136 H 137 H Hospitalist ROS - Review of Systems Eyes: denies: pain, vision change, conjunctivae inflammation, eyelid inflammation, redness, other ENT: denies: ear pain, ear discharge, nose pain, nose discharge, nose congestion , mouth pain, mouth swelling, throat pain, throat swelling, other Respiratory: denies: cough, dry, shortness of breath, hemoptysis, SOB with excertion, pleuritic pain, sputum, wheezing, other Cardiovascular: denies: chest pain, palpitations, orthopnea, paroxysmal noc. dyspnea, edema, light headedness, other Gastrointestinal: denies: nausea, vomiting, abdominal pain, diarrhea, constipation, melena, hematochezia, other Genitourinary: denies: dysuria, frequency, incontinence, hematuria, retention, other Musculoskeletal: denies: neck pain, shoulder pain, arm pain, back pain, hand pain, leg pain, foot pain, other Skin: denies: rash, lesions, parish, bruising, other - Medication Medications: Active Medications Generic Name Dose Route Start Last Admin Trade Name Freq PRN Reason Stop Dose Admin Acetaminophen 650 mg 01/01/19 13:18 01/08/19 20:43 Tylenol PO 650 mg Q4H PRN Administration Headache/Fever or Mild Pain Acidophilus 1 tab 12/25/18 09:00 01/11/19 09:14 Floranex PO 1 tab DAILY TRAVON Administration Ascorbic Acid 500 mg 12/25/18 09:00 01/11/19 09:14 Vitamin C PO 500 mg DAILY TRAVON Administration Aspirin 81 mg 12/24/18 21:00 01/10/19 20:33 Ecotrin PO 81 mg HS TRAVON Administration Atorvastatin Calcium 20 mg 12/24/18 21:00 01/10/19 20:33 Lipitor PO 20 mg HS TRAVON Administration Bisoprolol Fumarate 5 mg 12/24/18 09:00 01/11/19 09:14 Zebeta PO 5 mg 0900 TRAVON Administration Cholecalciferol 2,000 units 12/25/18 09:00 01/11/19 09:15 Vitamin D3 PO 2,000 units DAILY TRAVON Administration Clopidogrel Bisulfate 75 mg 12/25/18 09:00 01/11/19 09:14 Plavix PO 75 mg 0900 TRAVON Administration Dofetilide 0.5 mg 12/24/18 21:00 01/11/19 09:15 Tikosyn PO 0.5 mg BID TRAVON Administration Enoxaparin Sodium 40 mg 12/23/18 21:00 01/10/19 20:34 Lovenox SC 40 mg 2100 TRAVON Administration Famotidine 20 mg 12/25/18 21:00 01/11/19 09:15 Pepcid PO 20 mg BID TRAVON Administration Ferrous Sulfate 650 mg 12/25/18 09:00 01/11/19 09:13 Feosol PO 650 mg DAILY TRAVON Administration Insulin Glargine 60 units/ 0.6 mls @ 0 mls/hr 12/28/18 21:00 01/10/19 20:34 Miscellaneous Medication SC 0.6 mls HS TRAVON Administration Fat Emulsion Intravenous 250 2,298.6945 mls @ 95.779 mls/hr 01/05/19 22:00 22:33 ml/ Sodium Chloride 40 meq/ IV 2,298.6945 mls Potassium Chloride 40 meq/ 2200 TRAVON Administration Magnesium Sulfate 15 meq/ Multivitamins 10 ml/ Chromium/ Copper/Manganese/Seleni/Zn 5 ml/ Amino Acids/Electrolytes Insulin Human Lispro 0 units 12/25/18 08:51 01/11/19 06:19 Humalog SC 3 unit .AGGRESSIVE SLIDING PRN Administration Aggressive Correctional Scale Ketorolac Tromethamine 15 mg 01/07/19 12:48 01/10/19 18:09 Toradol IVP 01/12/19 12:49 15 mg Q6H PRN Administration Pain Levothyroxine Sodium 224 mcg 12/24/18 06:00 01/11/19 06:28 Synthroid PO 224 mcg 0600 TRAVON Administration Levothyroxine Sodium 50 mcg 12/24/18 06:00 01/11/19 06:19 Synthroid PO 50 mcg 0600 TRAVON Administration Liothyronine Sodium 5 mcg 12/24/18 06:00 01/11/19 06:19 Cytomel PO 5 mcg 0600 TRAVON Administration Losartan Potassium 50 mg 12/24/18 09:00 01/11/19 09:13 Cozaar PO 50 mg DAILY TRAVON Administration Magnesium Chloride 64 mg 12/29/18 21:00 01/11/19 09:16 Slow-Mag PO 64 mg BID TRAVON Administration Metformin HCl 1,000 mg 12/25/18 08:00 01/11/19 09:14 Glucophage PO 1,000 mg BID-WM TRAVON Administration Octreotide Acetate 100 mcg 01/10/19 18:00 01/11/19 02:08 Sandostatin SLOW IVP 100 mcg 0200,1000,1800 TRAVON Administration Paroxetine HCl 20 mg 12/24/18 09:00 01/11/19 09:15 Paxil PO 20 mg DAILY TRAVON Administration Sodium Chloride 10 ml 12/23/18 13:05 01/11/19 02:08 Flush - Normal Saline IVF 10 ml PRN PRN Administration Saline Flush Tramadol HCl 50 mg 01/07/19 12:48 01/08/19 16:22 Ultram PO 50 mg Q6H PRN Administration MODERATE Pain - Exam General Appearance: NAD, awake alert Eye: PERRL, anicteric sclera ENT: normocephalic atraumatic, no oropharyngeal lesions Neck: supple, symmetric, no JVD, no thyromegaly Heart: RRR, no murmur, no gallops, no rubs, normal peripheral pulses Respiratory: CTAB, no wheezes, no rales, no ronchi, normal chest expansion Gastrointestinal: soft, non-tender, no palpable masses, no hepatomegaly, no splenomegaly Gastrointestinal - other findings: obesity, wound noted Extremities: no cyanosis, no clubbing, no edema Skin: normal turgor, no lesions Neurological: cranial nerve grossly intact, normal sensation to touch, no focal deficits Musculoskeletal: normal tone, normal strength, no muscle wasting Psychiatric: normal affect, normal behavior, A&O x 3 Hosp A/P (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 OF INTESTINE Status: Acute (2) Hyponatremia Code(s): E87.1 - HYPO-OSMOLALITY AND HYPONATREMIA Status: Resolved (3) DM2 (diabetes mellitus, type 2) Status: Chronic Qualifiers: Diabetes mellitus regrader insulin use: with regrader use (4) Dyslipidemia Code(s): E78.5 - HYPERLIPIDEMIA, UNSPECIFIED Status: Chronic (5) Obesity (BMI 30.0-34.9) Code(s): E66.9 - OBESITY, UNSPECIFIED Status: Chronic (6) C. difficile colitis Code(s): A04.72 - ENTEROCOLITIS D/T CLOSTRIDIUM DIFFICILE, NOT SPCF RECUR Status: Resolved (7) Anxiety and depression Code(s): F41.9 - ANXIETY DISORDER, UNSPECIFIED; F32.9 - MAJOR DEPRESSIVE DISORDER, SINGLE EPISODE, UNSPECIFIED Status: Chronic (8) Atrial fibrillation Code(s): I48.91 - UNSPECIFIED ATRIAL FIBRILLATION Status: Chronic Qualifiers: Atrial fibrillation type: paroxysmal Qualified Code(s): I48.0 - Paroxysmal atrial fibrillation (9) Diabetes type 2, controlled Code(s): E11.9 - TYPE 2 DIABETES MELLITUS WITHOUT COMPLICATIONS Status: Chronic (10) Hypertension Code(s): I10 - ESSENTIAL (PRIMARY) HYPERTENSION Status: Chronic Qualifiers: Hypertension type: essential hypertension Qualified Code(s): I10 - Essential (primary) hypertension (11) Hypothyroidism Code(s): E03.9 - HYPOTHYROIDISM, UNSPECIFIED Status: Chronic Qualifiers: Hypothyroidism type: unspecified Qualified Code(s): E03.9 - Hypothyroidism , unspecified (12) Microcytic anemia Code(s): D50.9 - IRON DEFICIENCY ANEMIA, UNSPECIFIED Status: Chronic - Plan old records reviewed/req, plan discussed w/ family 01/11/19- I have reviewed entire chart, overall she is medically stable but she has many admission for same issue, this time surgeon planning to repair her enterocuteneous fistula, continue TPN, medication reviewed as above, symptomatic treatment
--- NOTE | 2019-01-11 13:23 | PDOC.GSPN ---
Surgery Progress Note: Subj - Subjective Patient reports: no new complaints (Fistula drainage seems to be controlled with daigle catheter) Surgery Progress Note: Obj - Vital signs Vital signs: Vital Signs - Most Recent Temp Pulse Resp BP Pulse Ox 98.3 F 86 18 106/68 95 01/11/19 08:07 01/11/19 08:07 01/11/19 08:07 01/11/19 08:07 01/11/19 08:07 - Physical Exam General: no distress Abdomen: soft, non tender Surgery Progress Note: Results - Labs Result Diagrams: 01/11/19 05:50 01/11/19 05:50 Lab results: Laboratory Results - last 24 hr 01/11/19 01/11/19 01/11/19 05:48 05:50 05:50 WBC 8.0 RBC 4.21 Hgb 10.2 L Hct 32.0 L MCV 76.1 L MCH 24.3 L MCHC 31.9 L RDW 16.2 H Plt Count 159 MPV 9.9 Neutrophils % 55.8 Lymphocytes % 34.7 Monocytes % 6.2 Eosinophils % 3.1 Basophils % 0.2 Neutrophils # 4.5 Lymphocytes # 2.8 Monocytes # 0.5 Eosinophils # 0.2 Basophils # 0.0 Sodium 135 L Potassium 4.8 Chloride 107 Carbon Dioxide 23 Anion Gap 10 BUN 22 H Creatinine 0.63 Estimated GFR (MDRD) Greater than 90 Glucose 158 H POC Glucose 160 H Calcium 8.9 Surgery Progress Note: A/P - Problem (1) Clostridium difficile infection Current Visit: Yes Code(s): A49.8 - OTHER BACTERIAL INFECTIONS OF UNSPECIFIED SITE Status: Acute (2) DM2 (diabetes mellitus, type 2) Current Visit: Yes Status: Chronic Qualifiers: Diabetes mellitus superintendent marine oil terminal insulin use: with [facility] use (3) Enterocutaneous fistula Current Visit: No Code(s): K63.2 - FISTULA OF INTESTINE Status: Acute - Plan Plan: Drainage controlled for now. -Plan definitive repair on Friday.
[2019-01-11] MEDS: Enoxaparin Sodium 40 MG/0.4 ML SYRINGE SC SCH (21:00)
[2019-01-11] MEDS: Aspirin 81 mg Enteric Coated Tablet PO SCH (21:00)
[2019-01-11] MEDS: Atorvastatin Calcium 20 MG TAB PO SCH (21:00)
[2019-01-11] MEDS: Insulin Glargine 60 UNITS in Pre-Filled Syringe SC SCH (21:02)
[2019-01-11] MEDS: POTASSIUM CHLORIDE IV SCH (22:37)
[2019-01-11] MEDS: [UNRECOGNIZED DRUG - OTHER] IV SCH (22:37)
[2019-01-11] MEDS: FAT EMULSION IV SCH (22:37)
[2019-01-11] MEDS: SODIUM CHLORIDE IV SCH (22:37)
[2019-01-12] MEDS: Octreotide Acetate 100 MCG/ML VIAL SLOW IVP SCH ×3 (01:17→16:16)
[2019-01-12] MEDS: Levothyroxine Sodium 112 MCG TAB PO SCH (05:47)
[2019-01-12] MEDS: Levothyroxine Sodium 25 MCG TAB PO SCH (05:48)
[2019-01-12] MEDS: Liothyronine Sodium 5 MCG TAB PO SCH (05:48)
[2019-01-12] MEDS: HumaLOG 300 UNITS/3 ML VIAL SC PRN (05:48)
[2019-01-12] MEDS: Dofetilide 0.125 MG CAP PO SCH ×2 (09:13→21:01)
[2019-01-12] MEDS: Ferrous Sulfate 325 MG TAB PO SCH (09:14)
[2019-01-12] MEDS: Losartan 25 MG TAB PO SCH (09:14)
[2019-01-12] MEDS: metFORMIN 500 MG TAB PO SCH ×2 (09:14→16:16)
[2019-01-12] MEDS: Lactinex Tablet PO SCH (09:14)
[2019-01-12] MEDS: Famotidine 20 MG TAB PO SCH ×2 (09:15→21:01)
[2019-01-12] MEDS: PARoxetine 20 MG TAB PO SCH (09:15)
[2019-01-12] MEDS: Ascorbic Acid 500 mg Chewable Tablet PO SCH (09:15)
[2019-01-12] MEDS: Bisoprolol Fumarate 5 MG TAB PO SCH (09:15)
[2019-01-12] MEDS: Magnesium Chloride 64 MG TAB PO SCH ×2 (09:15→21:02)
[2019-01-12] MEDS: Clopidogrel Bisulfate 75 MG TAB PO SCH ×2 (09:16→09:19)
--- NOTE | 2019-01-12 10:01 | PDOC.GSPN ---
Surgery Progress Note: Subj - Subjective Patient reports: no new complaints Surgery Progress Note: Obj - Vital signs Vital signs: Vital Signs - Most Recent Temp Pulse Resp BP Pulse Ox 98.6 F 72 16 102/64 97 01/12/19 07:31 01/12/19 07:31 01/12/19 07:31 01/12/19 07:31 01/12/19 07:31 - Physical Exam General: no distress Cardiovascular: regular rate and rhythm Respiratory: clear to auscultation Abdomen: soft, non tender, nondistended Surgery Progress Note: Results - Labs Result Diagrams: 01/11/19 05:50 01/11/19 05:50 Lab results: Laboratory Results - last 24 hr 01/11/19 01/12/19 19:55 04:11 POC Glucose 115 H 173 H Surgery Progress Note: A/P - Problem (1) Clostridium difficile infection Current Visit: Yes Code(s): A49.8 - OTHER BACTERIAL INFECTIONS OF UNSPECIFIED SITE Status: Acute (2) DM2 (diabetes mellitus, type 2) Current Visit: Yes Status: Chronic Qualifiers: Diabetes mellitus supervisor intermediates insulin use: with [facility] use (3) Enterocutaneous fistula Current Visit: No Code(s): K63.2 - FISTULA OF INTESTINE Status: Acute - Plan Plan: Drainage controlled for now. -Plan definitive repair on Friday.
--- NOTE | 2019-01-12 12:10 | PDOC.HOSPP ---
- Subjective Encounter Date: 01/12/19 Encounter Time: 10:00 Subjective: Patient seen and examined. No new complaints. No overnight events - Objective Vital Signs & Weight: Vital Signs (12 hours) Temp Pulse Resp BP Pulse Ox 01/12/19 07:31 98.6 F 72 16 102/64 97 Weight Admit Weight 224 lb 11.2 oz Weight 224 lb 11.2 oz I&O: 01/11/19 01/12/19 01/13/19 06:59 06:59 06:59 Intake Total 2657.8 1332 Output Total 70 50 Balance 2587.8 1282 Result Diagrams: 01/11/19 05:50 01/11/19 05:50 Additional Labs: Accuchecks 01/12/19 01/11/19 01/11/19 04:11 19:55 16:11 POC Glucose 173 H 115 H 149 H 01/11/19 12:33 POC Glucose 143 H Hospitalist ROS - Review of Systems ENT: denies: ear pain, ear discharge, nose pain, nose discharge, nose congestion , mouth pain, mouth swelling, throat pain, throat swelling, other Respiratory: denies: cough, dry, shortness of breath, hemoptysis, SOB with excertion, pleuritic pain, sputum, wheezing, other Cardiovascular: denies: chest pain, palpitations, orthopnea, paroxysmal noc. dyspnea, edema, light headedness, other Gastrointestinal: denies: nausea, vomiting, abdominal pain, diarrhea, constipation, melena, hematochezia, other Genitourinary: denies: dysuria, frequency, incontinence, hematuria, retention, other Musculoskeletal: denies: neck pain, shoulder pain, arm pain, back pain, hand pain, leg pain, foot pain, other Skin: denies: rash, lesions, parish, bruising, other - Medication Medications: Active Medications Generic Name Dose Route Start Last Admin Trade Name Freq PRN Reason Stop Dose Admin Acetaminophen 650 mg 01/01/19 13:18 01/08/19 20:43 Tylenol PO 650 mg Q4H PRN Administration Headache/Fever or Mild Pain Acidophilus 1 tab 12/25/18 09:00 01/12/19 09:14 Floranex PO 1 tab DAILY TRAVON Administration Ascorbic Acid 500 mg 12/25/18 09:00 01/12/19 09:15 Vitamin C PO 500 mg DAILY TRAVON Administration Aspirin 81 mg 12/24/18 21:00 01/11/19 21:00 Ecotrin PO 81 mg HS TRAVON Administration Atorvastatin Calcium 20 mg 12/24/18 21:00 01/11/19 21:00 Lipitor PO 20 mg HS TRAVON Administration Bisoprolol Fumarate 5 mg 12/24/18 09:00 01/12/19 09:15 Zebeta PO 5 mg 0900 TRAVON Administration Cholecalciferol 2,000 units 12/25/18 09:00 01/12/19 09:13 Vitamin D3 PO 2,000 units DAILY TRAVON Administration Clopidogrel Bisulfate 75 mg 12/25/18 09:00 01/12/19 09:19 Plavix PO Not Given 09 [facility] Dofetilide 0.5 mg 12/24/18 21:00 01/12/19 09:13 Tikosyn PO 0.5 mg BID TRAVON Administration Enoxaparin Sodium 40 mg 12/23/18 21:00 01/11/19 21:00 Lovenox SC 40 mg 2100 TRAVON Administration Famotidine 20 mg 12/25/18 21:00 01/12/19 09:15 Pepcid PO 20 mg BID TRAVON Administration Ferrous Sulfate 650 mg 12/25/18 09:00 01/12/19 09:14 Feosol PO 650 mg DAILY TRAVON Administration Insulin Glargine 60 units/ 0.6 mls @ 0 mls/hr 12/28/18 21:00 01/11/19 21:02 Miscellaneous Medication SC 0.6 mls HS TRAVON Administration Fat Emulsion Intravenous 250 2,298.6945 mls @ 95.779 mls/hr 01/05/19 22:00 22:37 ml/ Sodium Chloride 40 meq/ IV 2,298.6945 mls Potassium Chloride 40 meq/ 2200 TRAVON Administration Magnesium Sulfate 15 meq/ Multivitamins 10 ml/ Chromium/ Copper/Manganese/Seleni/Zn 5 ml/ Amino Acids/Electrolytes Insulin Human Lispro 0 units 12/25/18 08:51 01/12/19 05:48 Humalog SC 3 unit .AGGRESSIVE SLIDING PRN Administration Aggressive Correctional Scale Ketorolac Tromethamine 15 mg 01/07/19 12:48 01/10/19 18:09 Toradol IVP 01/12/19 12:49 15 mg Q6H PRN Administration Pain Levothyroxine Sodium 224 mcg 12/24/18 06:00 01/12/19 05:47 Synthroid PO 224 mcg 0600 TRAVON Administration Levothyroxine Sodium 50 mcg 12/24/18 06:00 01/12/19 05:48 Synthroid PO 50 mcg 0600 TRAVON Administration Liothyronine Sodium 5 mcg 12/24/18 06:00 01/12/19 05:48 Cytomel PO 5 mcg 0600 TRAVON Administration Losartan Potassium 50 mg 12/24/18 09:00 01/12/19 09:14 Cozaar PO 50 mg DAILY TRAVON Administration Magnesium Chloride 64 mg 12/29/18 21:00 01/12/19 09:15 Slow-Mag PO 64 mg BID TRAVON Administration Metformin HCl 1,000 mg 12/25/18 08:00 01/12/19 09:14 Glucophage PO 1,000 mg BID-WM TRAVON Administration Octreotide Acetate 100 mcg 01/10/19 18:00 01/12/19 10:20 Sandostatin SLOW IVP 100 mcg 0200,1000,1800 TRAVON Administration Paroxetine HCl 20 mg 12/24/18 09:00 01/12/19 09:15 Paxil PO 20 mg DAILY TRAVON Administration Sodium Chloride 10 ml 12/23/18 13:05 01/11/19 02:08 Flush - Normal Saline IVF 10 ml PRN PRN Administration Saline Flush Tramadol HCl 50 mg 01/07/19 12:48 01/08/19 16:22 Ultram PO 50 mg Q6H PRN Administration MODERATE Pain - Exam General Appearance: NAD, awake alert Eye: PERRL, anicteric sclera ENT: normocephalic atraumatic, no oropharyngeal lesions Neck: supple, symmetric, no JVD, no thyromegaly Heart: RRR, no murmur, no gallops, no rubs Respiratory: CTAB, no wheezes, no rales, no ronchi Gastrointestinal: soft, non-tender, non-distended, normal bowel sounds Gastrointestinal - other findings: enterocutenesous fistula Extremities: no cyanosis, no clubbing, no edema Skin: normal turgor, no lesions Neurological: cranial nerve grossly intact, no focal deficits Musculoskeletal: normal tone, normal strength Psychiatric: normal affect, normal behavior, A&O x 3 Hosp A/P (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 OF INTESTINE Status: Acute (2) Hyponatremia Code(s): E87.1 - HYPO-OSMOLALITY AND HYPONATREMIA Status: Resolved (3) DM2 (diabetes mellitus, type 2) Status: Chronic Qualifiers: Diabetes mellitus ferry terminal agent insulin use: with ferry terminal agent use (4) Dyslipidemia Code(s): E78.5 - HYPERLIPIDEMIA, UNSPECIFIED Status: Chronic (5) Obesity (BMI 30.0-34.9) Code(s): E66.9 - OBESITY, UNSPECIFIED Status: Chronic (6) C. difficile colitis Code(s): A04.72 - ENTEROCOLITIS D/T CLOSTRIDIUM DIFFICILE, NOT SPCF RECUR Status: Resolved (7) Anxiety and depression Code(s): F41.9 - ANXIETY DISORDER, UNSPECIFIED; F32.9 - MAJOR DEPRESSIVE DISORDER, SINGLE EPISODE, UNSPECIFIED Status: Chronic (8) Atrial fibrillation Code(s): I48.91 - UNSPECIFIED ATRIAL FIBRILLATION Status: Chronic Qualifiers: Atrial fibrillation type: paroxysmal Qualified Code(s): I48.0 - Paroxysmal atrial fibrillation (9) Diabetes type 2, controlled Code(s): E11.9 - TYPE 2 DIABETES MELLITUS WITHOUT COMPLICATIONS Status: Chronic (10) Hypertension Code(s): I10 - ESSENTIAL (PRIMARY) HYPERTENSION Status: Chronic Qualifiers: Hypertension type: essential hypertension Qualified Code(s): I10 - Essential (primary) hypertension (11) Hypothyroidism Code(s): E03.9 - HYPOTHYROIDISM, UNSPECIFIED Status: Chronic Qualifiers: Hypothyroidism type: unspecified Qualified Code(s): E03.9 - Hypothyroidism , unspecified (12) Microcytic anemia Code(s): D50.9 - IRON DEFICIENCY ANEMIA, UNSPECIFIED Status: Chronic - Plan old records reviewed/req, plan discussed w/ family 01/11/19- I have reviewed entire chart, overall she is medically stable but she has many admission for same issue, this time surgeon planning to repair her enterocuteneous fistula, continue TPN, medication reviewed as above, symptomatic treatment 01/12/19- tomorrow plan for surgery,, continue TPN, will add amitryptillin 25 mg po bedtime her home meds
[2019-01-12] MEDS: Aspirin 81 mg Enteric Coated Tablet PO SCH (21:00)
[2019-01-12] MEDS: Amitriptyline HCl 25 MG TAB PO SCH (21:00)
[2019-01-12] MEDS: Insulin Glargine 60 UNITS in Pre-Filled Syringe SC SCH (21:01)
[2019-01-12] MEDS: Atorvastatin Calcium 20 MG TAB PO SCH (21:01)
[2019-01-12] MEDS: Enoxaparin Sodium 40 MG/0.4 ML SYRINGE SC SCH (21:01)
[2019-01-12] MEDS: POTASSIUM CHLORIDE IV SCH (22:06)
[2019-01-12] MEDS: [UNRECOGNIZED DRUG - OTHER] IV SCH (22:06)
[2019-01-12] MEDS: SODIUM CHLORIDE IV SCH (22:06)
[2019-01-12] MEDS: FAT EMULSION IV SCH (22:06)
[2019-01-13] MEDS: Octreotide Acetate 100 MCG/ML VIAL SLOW IVP SCH ×3 (01:52→18:13)
[2019-01-13] MEDS: Levothyroxine Sodium 25 MCG TAB PO SCH (06:32)
[2019-01-13] MEDS: Levothyroxine Sodium 112 MCG TAB PO SCH (06:32)
[2019-01-13] MEDS: Liothyronine Sodium 5 MCG TAB PO SCH (06:32)
[2019-01-13] MEDS: Bisoprolol Fumarate 5 MG TAB PO SCH (06:43)
[2019-01-13] MEDS: HumaLOG 300 UNITS/3 ML VIAL SC PRN ×3 (06:44→18:14)
[2019-01-13 07:51] LABS: Anion Gap 13 mmol/L (10-20); BUN (Urea Nitrogen) 23 mg/dL (9.8-20.1); Calc. Creatinine Clearance 124 mL/min (70-130); Calcium 9.4 mg/dL (7.8-10.44); Carbon Dioxide 22 mmol/L (23-31); Chloride 105 mmol/L (98-107); Estimated GFR-MDRD 82; Glucose 176 mg/dL (80-115); Phosphorus 3.8 mg/dL (2.3-4.7); Potassium 4.4 mmol/L (3.5-5.1); Sodium 136 mmol/L (136-145)
[2019-01-13] MEDS: metFORMIN 500 MG TAB PO SCH ×2 (08:39→18:13)
[2019-01-13] MEDS: Ascorbic Acid 500 mg Chewable Tablet PO SCH (08:39)
[2019-01-13] MEDS: Famotidine 20 MG TAB PO SCH ×2 (08:40→21:46)
[2019-01-13] MEDS: Ferrous Sulfate 325 MG TAB PO SCH (08:40)
[2019-01-13] MEDS: Clopidogrel Bisulfate 75 MG TAB PO SCH (08:40)
[2019-01-13] MEDS: PARoxetine 20 MG TAB PO SCH (08:41)
[2019-01-13] MEDS: Lactinex Tablet PO SCH (08:41)
[2019-01-13] MEDS: Magnesium Chloride 64 MG TAB PO SCH ×2 (08:41→21:46)
[2019-01-13] MEDS: Losartan 25 MG TAB PO SCH (09:17)
[2019-01-13] MEDS: Dofetilide 0.125 MG CAP PO SCH ×2 (09:23→21:47)
[2019-01-13] MEDS ORDERED: Ondansetron PF 4 MG/2 ML Vial ONE (11:18)
[2019-01-13] MEDS ORDERED: Glycopyrrolate 0.2 MG/ML 5 ML SYRINGE ONE (11:18)
[2019-01-13] MEDS ORDERED: PROPOFOL 200 MG/20 ML VIAL ONE (11:18)
[2019-01-13] MEDS ORDERED: PHENYLEPHRINE-NS 100 MCG/ML 10 ML SYRINGE ONE (11:18)
[2019-01-13] MEDS ORDERED: Rocuronium Bromide 10 MG/ML (10ML VIAL) ONE (11:18)
[2019-01-13] MEDS ORDERED: Midazolam HCl 2 mg/2 ml Vial ONE (11:40)
[2019-01-13] MEDS ORDERED: Fentanyl 250 MCG/5 ML VIAL ONE (11:40)
[2019-01-13] MEDS ORDERED: cefOXitin 2 GM VIAL ONE ×2 (12:10→14:18)
[2019-01-13] MEDS ORDERED: Sodium Chloride 0.9% 100 ML ONE (12:10)
[2019-01-13] MEDS ORDERED: Promethazine HCl 25 MG/ML VIAL SLOW IVP PRN (15:42)
[2019-01-13] MEDS ORDERED: Ondansetron HCl/PF 4 MG/2 ML Vial IVP PRN (15:42)
[2019-01-13] MEDS ORDERED: Promethazine HCl 25 MG/ML VIAL IM PRN ×2 (15:42→16:24)
[2019-01-13] MEDS ORDERED: Fentanyl 100 MCG/2 ML VIAL ONE (15:56)
[2019-01-13] MEDS ORDERED: Zolpidem Tartrate 5 MG TAB PO PRN (16:24)
[2019-01-13] MEDS ORDERED: Naloxone HCl 0.4 mg/ml Vial IV PRN (16:24)
[2019-01-13] MEDS ORDERED: HYDROmorphone 10 mg/100 ml CADD IV PRN (16:24)
[2019-01-13] MEDS ORDERED: diphenhydrAMINE 50 MG/ML VIAL IM/IV PRN (16:24)
[2019-01-13] MEDS ORDERED: diphenhydrAMINE 25 MG CAP PO PRN (16:24)
[2019-01-13] MEDS ORDERED: HYDROmorphone 0.5 MG/0.5 ML SYRINGE ONE (16:27)
--- NOTE | 2019-01-13 19:52 | PDOC.HOSPP ---
- Subjective Encounter Date: 01/13/19 Encounter Time: 18:10 Subjective: Patient seen postop, family present at bedside. Pain "moderate" abdominal area , better with pillow to abdomen. No CP/SOB - Objective Vital Signs & Weight: Vital Signs (12 hours) Temp Pulse Resp BP Pulse Ox 01/13/19 19:23 93 108/72 100 01/13/19 17:30 97.8 F 77 16 107/68 98 01/13/19 10:40 98.5 F 95 18 113/74 96 01/13/19 08:00 96 Weight Admit Weight 224 lb 11.2 oz Weight 224 lb 11.2 oz I&O: 01/12/19 01/13/19 01/14/19 06:59 06:59 06:59 Intake Total 1332 1285 1269 Output Total 50 95 25 Balance 1282 1190 1244 Result Diagrams: 01/11/19 05:50 01/13/19 06:45 Additional Labs: Accuchecks 01/13/19 01/13/19 01/13/19 18:12 15:48 10:40 POC Glucose 245 H 208 H 213 H 01/13/19 01/12/19 04:20 19:47 POC Glucose 173 H 176 H Hospitalist ROS - Medication Medications: Active Medications Generic Name Dose Route Start Last Admin Trade Name Freq PRN Reason Stop Dose Admin Acetaminophen 650 mg 01/01/19 13:18 01/08/19 20:43 Tylenol PO 650 mg Q4H PRN Administration Headache/Fever or Mild Pain Acidophilus 1 tab 12/25/18 09:00 01/13/19 08:41 Floranex PO Not Given DAILY [facility] Amitriptyline HCl 25 mg 01/12/19 21:00 01/12/19 21:00 Elavil PO 25 mg HS TRAVON Administration Ascorbic Acid 500 mg 12/25/18 09:00 01/13/19 08:39 Vitamin C PO Not Given DAILY [facility] Aspirin 81 mg 12/24/18 21:00 01/12/19 21:00 Ecotrin PO Not Given HS TRAVON Atorvastatin Calcium 20 mg 12/24/18 21:00 01/12/19 21:01 Lipitor PO 20 mg HS TRAVON Administration Bisoprolol Fumarate 5 mg 12/24/18 09:00 01/13/19 06:43 Zebeta PO 5 mg 09 [facility] Administration Cholecalciferol 2,000 units 12/25/18 09:00 01/13/19 08:40 Vitamin D3 PO Not Given DAILY [facility] Clopidogrel Bisulfate 75 mg 12/25/18 09:00 01/13/19 08:40 Plavix PO Not Given 0900 [facility] Dofetilide 0.5 mg 12/24/18 21:00 01/13/19 09:23 Tikosyn PO 0.5 mg BID [facility] Administration Enoxaparin Sodium 40 mg 12/23/18 21:00 01/12/19 21:01 Lovenox SC Not Given 2100 [facility] Famotidine 20 mg 12/25/18 21:00 01/13/19 08:40 Pepcid PO Not Given BID [facility] Ferrous Sulfate 650 mg 12/25/18 09:00 01/13/19 08:40 Feosol PO Not Given DAILY [facility] Insulin Glargine 60 units/ 0.6 mls @ 0 mls/hr 12/28/18 21:00 01/12/19 21:01 Miscellaneous Medication SC 0.6 mls [facility] Administration Fat Emulsion Intravenous 250 2,298.6945 mls @ 95.779 mls/hr 01/05/19 22:00 22:06 ml/ Sodium Chloride 40 meq/ IV 2,298.6945 mls Potassium Chloride 40 meq/ 2200 [facility] Administration Magnesium Sulfate 15 meq/ Multivitamins 10 ml/ Chromium/ Copper/Manganese/Seleni/Zn 5 ml/ Amino Acids/Electrolytes Insulin Human Lispro 0 units 12/25/18 08:51 01/13/19 18:14 Humalog SC 6 unit .AGGRESSIVE SLIDING PRN Administration Aggressive Correctional Scale Levothyroxine Sodium 224 mcg 12/24/18 06:00 01/13/19 06:32 Synthroid PO Not Given 0600 [facility] Levothyroxine Sodium 50 mcg 12/24/18 06:00 01/13/19 06:32 Synthroid PO Not Given 0600 [facility] Liothyronine Sodium 5 mcg 12/24/18 06:00 01/13/19 06:32 Cytomel PO Not Given 0600 [facility] Losartan Potassium 50 mg 12/24/18 09:00 01/13/19 09:17 Cozaar PO Not Given DAILY [facility] Magnesium Chloride 64 mg 12/29/18 21:00 01/13/19 08:41 Slow-Mag PO Not Given BID TRAVON Metformin HCl 1,000 mg 12/25/18 08:00 01/13/19 18:13 Glucophage PO 1,000 mg BID-WM TRAVON Administration Octreotide Acetate 100 mcg 01/10/19 18:00 01/13/19 18:13 Sandostatin SLOW IVP 100 mcg 0200,1000,1800 TRAVON Administration Paroxetine HCl 20 mg 12/24/18 09:00 01/13/19 08:41 Paxil PO Not Given DAILY TRAVON Sodium Chloride 10 ml 12/23/18 13:05 01/11/19 02:08 Flush - Normal Saline IVF 10 ml PRN PRN Administration Saline Flush - Exam General Appearance: awake alert Eye: PERRL ENT: normocephalic atraumatic Neck: supple Heart: RRR Respiratory: CTAB, no wheezes, no rales Gastrointestinal: soft, non-tender Gastrointestinal - other findings: incisions clean and dry Extremities: no clubbing, no edema Skin: no rashes Neurological: no focal deficits Musculoskeletal: no muscle wasting Psychiatric: normal affect Hosp A/P (1) DM2 (diabetes mellitus, type 2) Status: Chronic Qualifiers: Diabetes mellitus superintendent container terminal insulin use: with custodial use (2) Dyslipidemia Code(s): E78.5 - HYPERLIPIDEMIA, UNSPECIFIED Status: Chronic (3) Obesity (BMI 30.0-34.9) Code(s): E66.9 - OBESITY, UNSPECIFIED Status: Chronic (4) C. difficile colitis Code(s): A04.72 - ENTEROCOLITIS D/T CLOSTRIDIUM DIFFICILE, NOT SPCF RECUR Status: Resolved (5) Hyponatremia Code(s): E87.1 - HYPO-OSMOLALITY AND HYPONATREMIA Status: Resolved (6) Enterocutaneous fistula Code(s): K63.2 - FISTULA OF INTESTINE Status: Acute (7) Anxiety and depression Code(s): F41.9 - ANXIETY DISORDER, UNSPECIFIED; F32.9 - MAJOR DEPRESSIVE DISORDER, SINGLE EPISODE, UNSPECIFIED Status: Chronic (8) Atrial fibrillation Code(s): I48.91 - UNSPECIFIED ATRIAL FIBRILLATION Status: Chronic Qualifiers: Atrial fibrillation type: paroxysmal Qualified Code(s): I48.0 - Paroxysmal atrial fibrillation (9) Diabetes type 2, controlled Code(s): E11.9 - TYPE 2 DIABETES MELLITUS WITHOUT COMPLICATIONS Status: Chronic (10) Hypertension Code(s): I10 - ESSENTIAL (PRIMARY) HYPERTENSION Status: Chronic Qualifiers: Hypertension type: essential hypertension Qualified Code(s): I10 - Essential (primary) hypertension (11) Hypothyroidism Code(s): E03.9 - HYPOTHYROIDISM, UNSPECIFIED Status: Chronic Qualifiers: Hypothyroidism type: unspecified Qualified Code(s): E03.9 - Hypothyroidism , unspecified (12) Microcytic anemia Code(s): D50.9 - IRON DEFICIENCY ANEMIA, UNSPECIFIED Status: Chronic - Plan incentive spirometry, DVT proph w/lovenox Endo - elevated BG on TPN; cont ISS and Lantus 60units sq qhs Cards - presently on Tikosyn for PAF, h/o Watchman procedure Microcytic anemia - stable, follow postop lab Mobilize/out of bed POD #0 s/p repair enterocutaneous fistula
[2019-01-13] MEDS: Aspirin 81 mg Enteric Coated Tablet PO SCH (21:46)
[2019-01-13] MEDS: Amitriptyline HCl 25 MG TAB PO SCH (21:47)
[2019-01-13] MEDS: Atorvastatin Calcium 20 MG TAB PO SCH (21:47)
[2019-01-13] MEDS: Enoxaparin Sodium 40 MG/0.4 ML SYRINGE SC SCH (21:47)
[2019-01-13] MEDS: Insulin Glargine 60 UNITS in Pre-Filled Syringe SC SCH (21:49)
[2019-01-13] MEDS: POTASSIUM CHLORIDE IV SCH (22:34)
[2019-01-13] MEDS: [UNRECOGNIZED DRUG - OTHER] IV SCH (22:34)
[2019-01-13] MEDS: SODIUM CHLORIDE IV SCH (22:34)
[2019-01-13] MEDS: FAT EMULSION IV SCH (22:34)
[2019-01-14] MEDS: Octreotide Acetate 100 MCG/ML VIAL SLOW IVP SCH ×3 (02:58→17:56)
[2019-01-14] MEDS ORDERED: Sodium Chloride 0.9% 1,000 ML IV SCH (05:45)
[2019-01-14] MEDS ORDERED: Norepinephrine 8 MG/0.9% NS 250 ML IVPB SCH (06:15)
[2019-01-14 06:16] LABS: Lactic Acid 3.6 mmol/L (0.5-2.2)
--- NOTE | 2019-01-14 06:16 | PDOC.EVN ---
Event Note - Event Note Event Note: pt has developed persistent hypotension, aggressive fluid resuscitation being given ,labs drawn , will need to be followed,will reconcile abt's given possibility for septic shock, will start pressors if no improvement in bp after iv fluids resuscitation, will consult pulmonary for assistance with our pt, surgery has been notify of change in status pt's labs were reviewed, pt has leukocytosis and abt's have been started, hb dropped to 7 given risk for bleeding 2 prbc have been ordered, surgeryis on the case already, hyperkalemia, insulin an calcium has been ordered, pt with recent sx will not start kayexalate for now unless sx agrees. cardiology consulted for junctional tachycardia, hyperglycemia, pt receiving insulin to treat hyperkalemia.
[2019-01-14] MEDS: Norepinephrine 8 MG in Dextrose 5% in Water 242 ML IVPB PRN ×2 (06:23→14:13)
[2019-01-14 06:26] LABS: Troponin I Less than 0.010 ng/mL (< 0.028)
[2019-01-14 06:31] LABS: Anion Gap 11 mmol/L (10-20); BUN (Urea Nitrogen) 36 mg/dL (9.8-20.1); Calc. Creatinine Clearance 78 mL/min (70-130); Calcium 7.7 mg/dL (7.8-10.44); Carbon Dioxide 20 mmol/L (23-31); Chloride 103 mmol/L (98-107); Estimated GFR-MDRD 48; Glucose 448 mg/dL (80-115); Magnesium 2.1 mg/dL (1.6-2.6); Phosphorus 4.6 mg/dL (2.3-4.7); Potassium 6.2 mmol/L (3.5-5.1); Sodium 128 mmol/L (136-145)
[2019-01-14 06:35] LABS: Hemoglobin 7.1 g/dL (12.0-16.0); Mean Corpuscular HGB CONC 30.7 g/dL (32.0-36.0); Mean Corpuscular Hemoglobin 23.9 pg (27.0-31.0); Mean Corpuscular Volume 78.1 fL (78.0-98.0); Mean Platelet Volume 9.8 fL (7.4-10.4); Platelet Count 263 thou/uL (130-400); Red Blood Cell (RBC) Count 2.97 mill/uL (4.20-5.40); White Blood Cell (WBC) Count 23.1 thou/uL (4.8-10.8)
[2019-01-14] MEDS ORDERED: Calcium Gluc 4.6 MEQ/10 ML (100 MG/ML) SLOW IVP SCH (06:44)
[2019-01-14] MEDS ORDERED: Insulin Regular 300 UNITS/3 ML VIAL IVP SCH (06:45)
[2019-01-14] MEDS: Levothyroxine Sodium 112 MCG TAB PO SCH (07:40)
[2019-01-14] MEDS: Ondansetron PF 4 MG/2 ML Vial IVP PRN (07:40)
[2019-01-14] MEDS: Liothyronine Sodium 5 MCG TAB PO SCH (07:41)
[2019-01-14] MEDS: Levothyroxine Sodium 25 MCG TAB PO SCH (07:41)
[2019-01-14 07:47] LABS: Eosinophils 1 % (0-10); Lymphocytes 9 % (21-51); MDiff Complete? YES; Microcytosis SLIGHT = 6-15 cells (100X) (0-5/hpf); Monocytes 8 % (0-10); Neutrophil 82 % (42-75); Platelet Morphology Comment Appears Adequate; Polychromasia SLIGHT = 2-3 cells (100X) (0-2/hpf)
[2019-01-14] MEDS: Dofetilide 0.125 MG CAP PO SCH ×2 (08:59→20:48)
[2019-01-14] MEDS ORDERED: Vancomycin HCl 1 GM in Premix Bag 1 BAG IVPB SCH (09:00)
[2019-01-14] MEDS: Clopidogrel Bisulfate 75 MG TAB PO SCH (09:00)
[2019-01-14] MEDS: Famotidine 20 MG TAB PO SCH ×2 (09:00→20:38)
[2019-01-14] MEDS: PARoxetine 20 MG TAB PO SCH (09:00)
[2019-01-14] MEDS: Lactinex Tablet PO SCH (09:06)
[2019-01-14] MEDS: Ascorbic Acid 500 mg Chewable Tablet PO SCH (09:06)
[2019-01-14] MEDS: Ferrous Sulfate 325 MG TAB PO SCH (09:06)
[2019-01-14] MEDS: Magnesium Chloride 64 MG TAB PO SCH ×2 (09:06→20:48)
[2019-01-14] MEDS: Losartan 25 MG TAB PO SCH (09:06)
[2019-01-14] MEDS: Bisoprolol Fumarate 5 MG TAB PO SCH (09:07)
[2019-01-14] MEDS: Vancomycin HCl 1.5 GM in Sodium Chloride 0.9% 250 ML 300 ML IVPB SCH ×2 (09:07→22:17)
[2019-01-14 10:40] LABS: Anion Gap 16 mmol/L (10-20); BUN (Urea Nitrogen) 37 mg/dL (9.8-20.1); Calc. Creatinine Clearance 57 mL/min (70-130); Calcium 7.7 mg/dL (7.8-10.44); Carbon Dioxide 13 mmol/L (23-31); Chloride 103 mmol/L (98-107); Estimated GFR-MDRD 34; Glucose 423 mg/dL (80-115); Potassium 6.1 mmol/L (3.5-5.1); Sodium 126 mmol/L (136-145)
[2019-01-14 10:41] LABS: Lactic Acid 8.7 mmol/L (0.5-2.2)
--- NOTE | 2019-01-14 10:48 | CON ---
DATE OF CONSULTATION: 01/14/2019 This is 35 minutes critical time. REASON FOR CONSULTATION: ICU stay. 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 She was brought to the ICU earlier today because of hypotension. She is also to have a potassium level of 6.2. 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 It looks like she has been hospitalized since . History and physical from 12/24 indicates she was readmitted to institute TPN and place of wound VAC. PAST MEDICAL HISTORY: 1. Hypertension. 2. Diabetes mellitus type 2. 3. Atrial fibrillation. 4. Watchman procedure. 5. Incisional hernia repair. 6. Adhesiolysis. 7. Cholecystectomy. SOCIAL HISTORY: Nonsmoker, does not consume alcohol. MEDICATIONS: Current inpatient medications 1. Floranex. 2. DuoNeb. 3. Elavil. 4. Ecotrin. 5. Lipitor. 6. Zebeta. 7. Plavix. 8. Tikosyn. 9. Lovenox. 10. Pepcid. 11. Iron sulfate. 12. Glucagon. 13. Dilaudid. 14. Insulin. 15. Synthroid. 16. Cytomel. 17. Cozaar. 18. Octreotide. 19. Zofran. 20. Paxil. 21. Phenergan. 22. Vancomycin. REVIEW OF SYSTEMS: Hard to obtain because the patient is confused. PHYSICAL EXAMINATION: VITAL SIGNS: Heart rate 125, blood pressure currently reading 79/61, currently on a Levophed drip at 10 mcg/minutes, temperature 97.8, pulse 123. GENERAL: She is confused, but does not appear to be in overt distress. HEENT: Unremarkable. NECK: No adenopathy or JVD. CARDIAC: S1, S2. Tachycardic without murmur. LUNGS: Clear to auscultation. ABDOMEN: Distended and quiet. EXTREMITIES: No clubbing or cyanosis. LABORATORY DATA: Sodium 128, potassium 6.2, chloride 103, CO2 of 20, BUN 36, creatinine 1.1, and glucose 448. Lactate earlier today was 3.6. White blood cell count 23.1, hematocrit 23.2, and platelet count 263. ASSESSMENT: 1. Presumed septic shock versus hypovolemic shock. 2. Severe hyperkalemia. 3. Hyperglycemia. PLAN: 1. The patient is currently on Levophed drip. She has been given blood to correct the anemia. She has been started on meropenem and vancomycin. I will go ahead and recheck potassium level with a heparinized BNP. If the potassium level still high, then we will need Nephrology consultation for emergent dialysis or kayexalate rectally. 2. Continue Levophed as needed. Job ID: [id number] [facility]ITALJonny
[2019-01-14] MEDS: Acetaminophen 1,000 MG in Premix Bag 1 BAG IVPB SCH ×3 (10:54→23:19)
--- NOTE | 2019-01-14 12:59 | OP ---
DATE OF PROCEDURE: 01/13/2019 PREOPERATIVE DIAGNOSES: Enterocutaneous fistula, incisional hernia. POSTOPERATIVE DIAGNOSES: Enterocutaneous fistula, incisional hernia. PROCEDURES PERFORMED: Exploratory laparotomy, extensive lysis of adhesions, small bowel resection and primary anastomosis, incisional hernia repair with Strattice biologic mesh. ANESTHESIA: General. ESTIMATED BLOOD LOSS: 400 mL. COMPLICATIONS: None. FINDINGS: There was an area of approximately a foot and half of small bowel fused to the posterior mesh and enterocutaneous fistula site. This was all removed. No other areas of retained mesh or bowel injury were found. DESCRIPTION OF PROCEDURE: The patient was taken to the operating room and laid supine on the operating room table. After general anesthetic was obtained, the abdomen was prepped and draped in a sterile fashion. A Freeman catheter had been placed. A midline incision was made. An elliptical incision was used to ellipse out the previous enterocutaneous site. Cautery was used to raise flaps down to the muscle. The abdominal cavity was entered up high in the abdomen, and then, the abdominal cavity was carefully entered going down towards the fistula site. All posterior abdominal wall adhesions were taken down. There was an area of dense adhesions in the area of the enterocutaneous fistula, where sharply the small bowel area removed from the posterior abdominal wall. This 1.5 foot of small bowel adherent to the posterior abdominal wall and the area of fistula was all appeared chronically damaged from the inflammatory cascade. A CHRISTINA 75 stapler was fired across the small intestine proximal and distal to this. The Impact LigaSure was used to take the mesentery. A few bleeders on this mesenteric excision line were oversewn using silk suture. Small bowel proximal and distal were able to brought together in an antimesenteric fashion and a [id number] anastomosis was performed. The common enterotomy was closed using a TA60 stapler. The crotches, corners, and mesenteric defect were all oversewn using silk sutures. There was no evidence of ischemia along the staple line. The small bowel was then run all the way to the cecum and all the way proximal to ligament of Treitz with no further injury. There were dense adhesions in the upper abdomen as well, so the lap gastric band and its port were not removed. The muscle and residual fascia were all removed back to good tissue. Flaps were then raised anterior to the muscle to each flank and the anterior fascia released a centimeter lateral to the rectus sheath in order to bring the muscle back in the middle. Strattice mesh was brought into the sterile field and placed in an underlay fashion. A U-stitch of Prolene was used to sew it circumferentially to the posterior fascia. The fascia then was able to be closed under no tension in the midline using running PDS suture. The subcutaneous tissues were irrigated copiously. There were multiple small bleeders in this area that were all cauterized. After meticulous hemostasis was obtained, 2-round 19 drains were brought out through separate stab incisions, sewn to the skin using silk suture. The midline skin and subcutaneous tissues were approximated using interrupted Vicryl suture, followed by running 4-0 Monocryl and Dermabond. The patient was sent to recovery room in stable condition. All instrument counts, needle counts, and lap counts were correct. Job ID: [id number] MTDD
[2019-01-14] MEDS: MEROPENEM 1 GM/50 ML 1 GM in Premix Bag 1 BAG IVPB SCH ×2 (13:26→22:50)
--- NOTE | 2019-01-14 13:51 | CON ---
DATE OF CONSULTATION: 01/14/2019 REASON FOR CONSULTATION: Tachycardia. HISTORY OF PRESENT ILLNESS: Ms. Lepe is a pleasant 68-year-old white female, who comes to the hospital for an enterocutaneous fistula. She had this closed yesterday and eventually had to be brought into the ICU for hypotension. Her potassium level is 6.2 and is somewhat confused secondary to Dilaudid ACCOUNTANT for pain. Cardiology has been consulted as she became tachycardic. An EKG was done and showed what appeared to be junctional tachycardia. PAST MEDICAL HISTORY: 1. Hypertension. 2. Type 2 diabetes. 3. History of atrial fibrillation. 4. Watchman device in place. 5. Incisional hernia repair. 6. Adhesiolysis. 7. Cholecystectomy. SOCIAL HISTORY: No alcohol, tobacco, or drugs. OUTPATIENT MEDICATIONS: 1. Metformin. 2. Simvastatin 40 mg q.h.s. 3. Potassium chloride 20 mEq a day. 4. Paroxetine. 5. Octreotide. 6. Magnesium sulfate. 7. Mag oxide. 8. Losartan 50 mg daily. 9. Liothyronine 5 mcg a day. 10. Levothyroxine two tablets daily. 11. Probiotic. 12. Krill oil. 13. Lantus insulin. 14. Ferrous sulfate. 15. Intralipid. 16. Dofetilide 500 mcg b.i.d. 17. Clinimix. 18. Plavix 75 mg a day. 19. Vitamin D3. 20. Bisoprolol 5 mg a day. 21. Aspirin 81 a day. 22. Vitamin C. 23. Amitriptyline. 24. Acetaminophen. ALLERGIES: PIROXICAM AND MORPHINE. FAMILY HISTORY: Noncontributory. REVIEW OF SYSTEMS: Unobtainable as the patient is confused. PHYSICAL EXAMINATION: VITAL SIGNS: Temperature 98.1, respiratory rate 14, satting 97% on 2 L nasal cannula, heart rate is 100 to 116. GENERAL: Awake and alert, but confused. HEENT: Normocephalic and atraumatic. NECK: Supple. LUNGS: Clear. CARDIOVASCULAR: S1 and S2. Tachycardic in the 110s to 120s. ABDOMEN: Soft, positive bowel sounds. EXTREMITIES: 1+ edema. SKIN: Warm and dry. LABORATORY DATA: Laboratory work was reviewed. White count up to 23,000. Hemoglobin dropped from 10 down to 7.1 today. Chemistries were reviewed. Sodium 126, potassium 6.4, BUN of 37, creatinine 1.5, up from 1.1. Lactic acid was high at 8.7. Troponin is negative x1. ASSESSMENT AND PLAN: 1. Tachycardia. EKG looks like sinus tachycardia or an atrial tachycardia, not junctional rhythm. Continue dofetilide. Continue on medications. 2. Agree with blood transfusions. 3. We will get an echocardiogram. 4. Continue telemetry monitoring after coming out of the ER. Thank you for letting us participate in the care of your patient. We will follow. Job ID: [id number]
[2019-01-14] MEDS ORDERED: Meropenem 1 GM in Sodium Chloride 0.9% 100 ML IVPB SCH (14:00)
--- NOTE | 2019-01-14 14:46 | PRG ---
DATE OF SERVICE: 01/14/2019 SUBJECTIVE: Ms. Lepe is postop day 1 small bowel resection and hernia repair. Ms. Lepe was found to be tachycardic and hypotensive this morning. She was transferred to the unit by the medical service. Dr. Henriquez was consulted and has seen her as well. Ms. Lepe is complaining of nausea this morning. She is on Levophed titrating to maintain a systolic blood pressure over 90. Her urine output was marginal overnight. Her drain output was moderate amount. Her hemoglobin came back as 7, that is down from 10 preop. Her sugars have been very high. OBJECTIVE: VITAL SIGNS: Pulse 118, blood pressure 112/64, O2 saturation 100%. Urine output again marginal 3400/300 overnight. Drain output total was 205. CHEST: Coarse. HEART: Increased rate. ABDOMEN: Soft, appropriately tender. Midline wound is healing well. JPs are sanguineous. LABORATORY DATA: Sodium 126, potassium 6, creatinine 1.53, sugar on that is 423. White blood cell count is 23, hemoglobin is 7, platelet count is 263. ASSESSMENT: Postoperative day 1, small bowel resection and incisional hernia repair. PLAN: Unsure of source of this acidosis. She is getting Kayexalate for her high potassium. Her creatinine did bump slightly to 1.53. She is making urine, although in small amounts. She certainly did have a moderate amount of blood loss during surgery, and continues to have a moderate amount of drain output, so I agree with the blood transfusion. To check free cortisol level. She certainly is set up for adrenal insufficiency given her long hospitalization. Job ID: [id number]
[2019-01-14] MEDS: HumaLOG 300 UNITS/3 ML VIAL SC PRN (16:58)
--- NOTE | 2019-01-14 17:07 | PDOC.HOSPP ---
- Subjective Encounter Date: 01/14/19 Encounter Time: 17:03 Subjective: Events noted, excellent cross cover appreciated. More awake, able to tell me her name/hospital/city/year. Some intermittent difficulties persist with confusion but on the whole better than this morning. Potassium recheck planned for 6pm, s/p Kayexelate enema. No nausea or vomiting. Needing less pressors. Echo just completed. Pain controlled on IV tylenol. - Objective Vital Signs & Weight: Vital Signs (12 hours) Temp Pulse Pulse Resp BP BP Pulse Ox 01/14/19 13:21 99.1 F 110 H 16 92/63 100 01/14/19 13:06 99.2 F 110 H 22 H 100/64 95 01/14/19 12:52 98.1 F 108 H 14 100/64 100 01/14/19 12:00 98.1 F 01/14/19 09:51 97.8 F 122 H 17 101/58 L 100 01/14/19 09:36 97.7 F 126 H 22 H 77/54 L 100 01/14/19 07:22 100 01/14/19 07:00 98.4 F 01/14/19 06:00 98.5 F 01/14/19 05:55 121 H 84/54 L 01/14/19 05:30 130 H 77/50 L 01/14/19 05:10 98.9 F 133 H 82/52 L 01/14/19 05:05 132 H 79/52 L Weight Admit Weight 224 lb 11.2 oz Weight 224 lb 11.2 oz Most Recent Monitor Data Heart Rate from ECG 108 NIBP 104/71 NIBP BP-Mean 82 Respiration from ECG 19 SpO2 100 I&O: 01/13/19 01/14/19 01/15/19 06:59 06:59 06:59 Intake Total 1285 1269 50 Output Total 95 505 45 Balance 1190 764 5 Result Diagrams: 01/14/19 05:42 01/14/19 10:12 Additional Labs: Accuchecks 01/14/19 01/13/19 01/13/19 04:50 20:11 18:12 POC Glucose 387 H 291 H 245 H Hospitalist ROS - Medication Medications: Active Medications Generic Name Dose Route Start Last Admin Trade Name Freq PRN Reason Stop Dose Admin Acetaminophen 650 mg 01/01/19 13:18 01/08/19 20:43 Tylenol PO 650 mg Q4H PRN Administration Headache/Fever or Mild Pain Acidophilus 1 tab 12/25/18 09:00 01/14/19 09:06 Floranex PO Not Given DAILY [facility] Amitriptyline HCl 25 mg 01/12/19 21:00 01/13/19 21:47 Elavil PO 25 mg HS TRAVON Administration Ascorbic Acid 500 mg 12/25/18 09:00 01/14/19 09:06 Vitamin C PO Not Given DAILY [facility] Aspirin 81 mg 12/24/18 21:00 01/13/19 21:46 Ecotrin PO 81 mg HS [facility] Administration Atorvastatin Calcium 20 mg 12/24/18 21:00 01/13/19 21:47 Lipitor PO 20 mg HS [facility] Administration Bisoprolol Fumarate 5 mg 12/24/18 09:00 01/14/19 09:07 Zebeta PO Not Given 0900 [facility] Cholecalciferol 2,000 units 12/25/18 09:00 01/14/19 09:07 Vitamin D3 PO Not Given DAILY [facility] Clopidogrel Bisulfate 75 mg 12/25/18 09:00 01/14/19 09:00 Plavix PO 75 mg 0900 [facility] Administration Dofetilide 0.5 mg 12/24/18 21:00 01/14/19 08:59 Tikosyn PO 0.5 mg BID [facility] Administration Enoxaparin Sodium 40 mg 12/23/18 21:00 01/13/19 21:47 Lovenox SC 40 mg 2100 [facility] Administration Famotidine 20 mg 12/25/18 21:00 01/14/19 09:00 Pepcid PO 20 mg BID [facility] Administration Ferrous Sulfate 650 mg 12/25/18 09:00 01/14/19 09:06 Feosol PO Not Given DAILY [facility] Insulin Glargine 60 units/ 0.6 mls @ 0 mls/hr 12/28/18 21:00 01/13/19 21:49 Miscellaneous Medication SC 0.6 mls HS TRAVON Administration Norepinephrine Bitartrate 8 mg 250 mls @ 0 mls/hr 01/14/19 06:11 01/14/19 14: 13 / Dextrose/Water IVPB 250 mls INF PRN Administration TO MAINTAIN MAP > 65 Protocol As Directed Meropenem 1 gm/ Device 50 mls @ 100 mls/hr 01/14/19 14:00 01/14/19 13:26 IVPB 50 mls Q8HR TRAVON Administration Vancomycin HCl 1.5 gm/ Sodium 300 mls @ 200 mls/hr 01/14/19 09:00 01/14/19 09 :07 Chloride IVPB 300 mls Q12HR TRAVON Administration Acetaminophen 1,000 mg/ Device 100 mls @ 400 mls/hr 01/14/19 12:00 01/14/19 10:54 IVPB 01/15/19 06:14 100 mls Q6HR TRAVON Administration Insulin Human Lispro 0 units 12/25/18 08:51 01/14/19 16:58 Humalog SC 11 unit .AGGRESSIVE SLIDING PRN Administration Aggressive Correctional Scale Levothyroxine Sodium 224 mcg 12/24/18 06:00 01/14/19 07:40 Synthroid PO Not Given 0600 TRAVON Levothyroxine Sodium 50 mcg 12/24/18 06:00 01/14/19 07:41 Synthroid PO Not Given 0600 TRAVON Liothyronine Sodium 5 mcg 12/24/18 06:00 01/14/19 07:41 Cytomel PO Not Given 0600 TRAVON Magnesium Chloride 64 mg 12/29/18 21:00 01/14/19 09:06 Slow-Mag PO Not Given BID TRAVON Octreotide Acetate 100 mcg 01/10/19 18:00 01/14/19 11:09 Sandostatin SLOW IVP 100 mcg 0200,1000,1800 TRAVON Administration Ondansetron HCl 4 mg 01/13/19 16:24 01/14/19 07:40 Zofran IVP 4 mg Q6H PRN Administration Nausea/Vomiting Paroxetine HCl 20 mg 12/24/18 09:00 01/14/19 09:00 Paxil PO 20 mg DAILY TRAVON Administration Sodium Chloride 10 ml 12/23/18 13:05 01/11/19 02:08 Flush - Normal Saline IVF 10 ml PRN PRN Administration Saline Flush - Exam General Appearance: awake alert General - other findings: Pleasant, awake Eye: anicteric sclera ENT: moist mucosa Neck: supple Heart - other findings: tachycardic/regular Respiratory - other findings: Decent aeration bilaterally Gastrointestinal - other findings: Incisions clean and dry; nontender Extremities - other findings: trace bilateral edema Skin: no rashes Neurological: no focal deficits Musculoskeletal - other findings: Globally deconditioned Psychiatric - other findings: Oriented to year ""; "hospital" [facility]/P (1) DM2 (diabetes mellitus, type 2) Status: Chronic Qualifiers: Diabetes mellitus adjunct faculty for medical terminology insulin use: with adjunct faculty for medical terminology use (2) Dyslipidemia Code(s): E78.5 - HYPERLIPIDEMIA, UNSPECIFIED Status: Chronic (3) Obesity (BMI 30.0-34.9) Code(s): E66.9 - OBESITY, UNSPECIFIED Status: Chronic (4) C. difficile colitis Code(s): A04.72 - ENTEROCOLITIS D/T CLOSTRIDIUM DIFFICILE, NOT SPCF RECUR Status: Resolved (5) Hyponatremia Code(s): E87.1 - HYPO-OSMOLALITY AND HYPONATREMIA Status: Resolved (6) Enterocutaneous fistula Code(s): K63.2 - FISTULA OF INTESTINE Status: Acute (7) Anxiety and depression Code(s): F41.9 - ANXIETY DISORDER, UNSPECIFIED; F32.9 - MAJOR DEPRESSIVE DISORDER, SINGLE EPISODE, UNSPECIFIED Status: Chronic (8) Atrial fibrillation Code(s): I48.91 - UNSPECIFIED ATRIAL FIBRILLATION Status: Chronic Qualifiers: Atrial fibrillation type: paroxysmal Qualified Code(s): I48.0 - Paroxysmal atrial fibrillation (9) Diabetes type 2, controlled Code(s): E11.9 - TYPE 2 DIABETES MELLITUS WITHOUT COMPLICATIONS Status: Chronic (10) Hypertension Code(s): I10 - ESSENTIAL (PRIMARY) HYPERTENSION Status: Chronic Qualifiers: Hypertension type: essential hypertension Qualified Code(s): I10 - Essential (primary) hypertension (11) Hypothyroidism Code(s): E03.9 - HYPOTHYROIDISM, UNSPECIFIED Status: Chronic Qualifiers: Hypothyroidism type: unspecified Qualified Code(s): E03.9 - Hypothyroidism , unspecified (12) Microcytic anemia Code(s): D50.9 - IRON DEFICIENCY ANEMIA, UNSPECIFIED Status: Chronic (13) Hyperkalemia Code(s): E87.5 - HYPERKALEMIA Status: Acute (14) Postoperative hypovolemic shock Code(s): T81.19XA - OTHER POSTPROCEDURAL SHOCK, INITIAL ENCOUNTER Status: Acute (15) Leukocytosis Code(s): D72.829 - ELEVATED WHITE BLOOD CELL COUNT, UNSPECIFIED Status: Acute - Plan POD #1 s/p repair enterocutaneous fistula Endo - markedly elevated BG this afternoon, confirmed with bedside nurse that basal insulin received last night; covering with sliding scale but will consider insulin infusion if persists; presently Lantus 60units sq qhs and aggressive Humalog SS; cortisol level pending Cards - presently on Tikosyn for PAF, h/o Watchman procedure, echo completed, appreciate Dr. Dwyer's evaluation. Tachycardia overnight felt to be sinus or atrial in etiology, not junctional Heme -Microcytic anemia at baseline with superimposed postoperative anemia, blood transfusion in progress with recheck of lab pending Renal - Hyperkalemia with poor urine output, s/p kayexelate enema, repeat lab pending at 6pm to reassess ID - Leukocytosis noted, empiric meropenam and vancomycin on board, lactic acidosis noted Generally favor hypovolemic shock with profound lactic acidosis, poor physiologic reserve on a background of major surgery and protracted hospital course. Discussed with Dr. Garcia
[2019-01-14 17:42] LABS: Bilirubin Negative (Negative); Blood, Urine Trace (Negative); Clarity Turbid (Clear); Glucose, Urine (Dipstick) 50 mg/dL (Negative); Leukocyte 250 Leu/uL (Negative); Nitrite Negative (Negative); Protein, Urine (Dipstick) 50 mg/dL (Neg-Trace); Squamous Epithelial 0-3 HPF (0-3); Urobilinogen Normal mg/dL (Less than 2)
[2019-01-14 18:04] LABS: Calcium Oxalate Crystals 3+ HPF (None Seen)
[2019-01-14 18:05] LABS: Bacteria/HPF None Seen HPF (None Seen); Mucous/LPF 2+ LPF (<2+)
[2019-01-14] MEDS ORDERED: Magnesium 2 GM/50 ML 2 GM in Premix Bag 1 BAG IVPB SCH (20:30)
[2019-01-14] MEDS ORDERED: Clopidogrel Bisulfate 75 MG TAB ONE (20:31)
--- NOTE | 2019-01-14 20:36 | EKG ---
Test Reason : STAT Blood Pressure : / mmHG Vent. Rate : 130 BPM Atrial Rate : 129 BPM P-R Int : 000 ms QRS Dur : 082 ms QT Int : 326 ms P-R-T Axes : 000 -16 061 degrees QTc Int : 479 ms Accelerated Junctional rhythm with retrograde conduction Septal infarct (cited on or before 31-JUL-2018) Abnormal ECG When compared with ECG of 12-AUG-2018 21:02, (Unconfirmed) Junctional rhythm has replaced Sinus rhythm Confirmed by SHILO NOWAK, STommy ([id number]) on 01/14/2019 8:35:56 PM Referred By: JULIANN Confirmed By:DR. Souleymane LAO MD
[2019-01-14] MEDS: Aspirin 81 mg Enteric Coated Tablet PO SCH (20:38)
[2019-01-14] MEDS: Amitriptyline HCl 25 MG TAB PO SCH (20:38)
[2019-01-14] MEDS: Atorvastatin Calcium 20 MG TAB PO SCH (20:38)
[2019-01-14] MEDS: Enoxaparin Sodium 40 MG/0.4 ML SYRINGE SC SCH (20:38)
[2019-01-14] MEDS: Insulin Glargine 60 UNITS in Pre-Filled Syringe SC SCH (20:43)
[2019-01-14 20:50] LABS: Potassium 5.4 mmol/L (3.5-5.1)
[2019-01-14] MEDS ORDERED: Amiodarone 150 MG, Admixture Fee 1 EACH in Dextrose 5% in Water 100 ML IVPB SCH (21:45)
[2019-01-14] MEDS: Amiodarone 450 MG, Admixture Fee 1 EACH in Dextrose 5% in Water 250 ML IVPB SCH (22:06)
[2019-01-15] MEDS: HumaLOG 300 UNITS/3 ML VIAL SC PRN ×2 (00:19→16:03)
[2019-01-15] MEDS: Norepinephrine 8 MG in Dextrose 5% in Water 242 ML IVPB PRN (00:55)
[2019-01-15] MEDS: Octreotide Acetate 100 MCG/ML VIAL SLOW IVP SCH ×3 (00:58→17:58)
[2019-01-15] MEDS: MEROPENEM 1 GM/50 ML 1 GM in Premix Bag 1 BAG IVPB SCH ×3 (04:57→21:21)
[2019-01-15] MEDS: Acetaminophen 1,000 MG in Premix Bag 1 BAG IVPB SCH (04:57)
[2019-01-15 05:18] LABS: #Basophils 0.1 thou/uL (0.0-0.2); #Eosinphils 0.2 thou/uL (0.0-0.7); #Lymphocytes 4.6 thou/uL (1.20-3.40); #Monocytes 1.9 thou/uL (0.11-0.59); #Neutrophils 14.3 thou/uL (1.40-6.50); %Basophils 0.3 % (0.0-1.0); %Eosinophils 0.9 % (0.0-10.0); %Lymphocytes 21.8 % (21.0-51.0); %Monocytes 8.8 % (0.0-10.0); %Neutrophils 68.2 % (42.0-75.0); Hemoglobin 6.9 g/dL (12.0-16.0); Mean Corpuscular HGB CONC 32.9 g/dL (32.0-36.0); Mean Corpuscular Hemoglobin 26.8 pg (27.0-31.0); Mean Corpuscular Volume 81.5 fL (78.0-98.0); Mean Platelet Volume 9.1 fL (7.4-10.4); Platelet Count 173 thou/uL (130-400); RBC Distribution Width 16.7 % (11.5-14.5); Red Blood Cell (RBC) Count 2.59 mill/uL (4.20-5.40); White Blood Cell (WBC) Count 20.9 thou/uL (4.8-10.8)
[2019-01-15 05:34] LABS: Anion Gap 13 mmol/L (10-20); BUN (Urea Nitrogen) 48 mg/dL (9.8-20.1); Calc. Creatinine Clearance 53 mL/min (70-130); Calcium 7.9 mg/dL (7.8-10.44); Carbon Dioxide 18 mmol/L (23-31); Chloride 102 mmol/L (98-107); Estimated GFR-MDRD 31; Glucose 158 mg/dL (80-115); Lactic Acid 1.7 mmol/L (0.5-2.2); Potassium 4.8 mmol/L (3.5-5.1); Sodium 128 mmol/L (136-145)
[2019-01-15] MEDS: Liothyronine Sodium 5 MCG TAB PO SCH (05:51)
[2019-01-15] MEDS: Levothyroxine Sodium 25 MCG TAB PO SCH (05:51)
[2019-01-15] MEDS: Levothyroxine Sodium 112 MCG TAB PO SCH (05:51)
[2019-01-15] MEDS: Amiodarone 450 MG, Admixture Fee 1 EACH in Dextrose 5% in Water 250 ML IVPB SCH ×2 (07:26→21:56)
[2019-01-15] MEDS ORDERED: Acetaminophen 1,000 MG in Premix Bag 1 BAG IVPB PRN (08:35)
[2019-01-15] MEDS: Lactinex Tablet PO SCH (08:46)
[2019-01-15] MEDS: Ferrous Sulfate 325 MG TAB PO SCH (08:46)
[2019-01-15] MEDS: PARoxetine 20 MG TAB PO SCH (08:47)
[2019-01-15] MEDS: Famotidine 20 MG TAB PO SCH ×2 (08:47→20:21)
[2019-01-15] MEDS: Ascorbic Acid 500 mg Chewable Tablet PO SCH (08:47)
[2019-01-15] MEDS: Dofetilide 0.125 MG CAP PO SCH ×2 (08:48→20:20)
[2019-01-15] MEDS: Bisoprolol Fumarate 5 MG TAB PO SCH (08:48)
[2019-01-15] MEDS: Vancomycin HCl 1.5 GM in Sodium Chloride 0.9% 250 ML 300 ML IVPB SCH ×2 (08:49→21:19)
--- NOTE | 2019-01-15 09:36 | PRG ---
DATE OF SERVICE: 01/15/2019 SUBJECTIVE: Ms. Lepe remains in the CCU on a Levophed drip. She is much more awake and alert than she was yesterday. OBJECTIVE: VITAL SIGNS: Temperature 98.2, pulse 80, blood pressure 115/57. She is on a Levophed drip at 2 mcg/minute. She is also on amiodarone drip. HEENT: Unremarkable. NECK: No adenopathy. No JVD. LUNGS: Clear. CARDIAC: S1 and S2. Regular. ABDOMEN: Morbidly obese, slightly tender along the left side. EXTREMITIES: Edematous. LABORATORY DATA: Sodium 128, potassium 4.8, chloride 102, CO2 of 18, BUN 48, creatinine 1.6, glucose 158. White blood cell count 20, hematocrit 21.1, and platelet count 173. Her lactate level is down to 1.7. Cortisol is 40.7. ASSESSMENT: 1. Lactic acidosis secondary to blood loss-this problem has improved. 2. Anemia due to blood loss. 3. Hypotension, which is probably secondary to hypovolemia from blood loss. PLAN: We will give her 2 more units of blood. Hopefully, she can be weaned off the Levophed drip. Her potassium corrected with one dose of Kayexalate. Job ID: [id number]
[2019-01-15] MEDS: Magnesium Chloride 64 MG TAB PO SCH ×2 (09:59→20:20)
[2019-01-15] MEDS: Fentanyl 100 MCG/2 ML VIAL SLOW IVP PRN (12:17)
[2019-01-15] MEDS: Clopidogrel Bisulfate 75 MG TAB PO SCH (12:23)
--- NOTE | 2019-01-15 12:52 | PDOC.GSPN ---
Surgery Progress Note: Subj - Subjective Narrative: Feels better today. Complaining of nausea but no vomitting. Up on side of bed now. Weaning off levophed Surgery Progress Note: Obj - Vital signs Vital signs: Vital Signs - Most Recent Temp Pulse Resp BP Pulse Ox 98.6 F 76 20 96/56 L 98 01/15/19 12:40 01/15/19 12:40 01/15/19 12:40 01/15/19 12:40 01/15/19 12:40 - Physical Exam General: no distress Respiratory: coarse breath sounds Abdomen: soft, appropriately tender, distended Wound: healing well Surgery Progress Note: Results - Labs Result Diagrams: 01/15/19 04:54 01/15/19 04:54 Lab results: Laboratory Results - last 24 hr 01/13/19 01/14/19 01/14/19 13:07 07:06 07:47 WBC RBC Hgb Hct MCV MCH MCHC RDW Plt Count MPV Neutrophils % Lymphocytes % Monocytes % Eosinophils % Basophils % Neutrophils # Lymphocytes # Monocytes # Eosinophils # Basophils # Sodium Potassium Chloride Carbon Dioxide Anion Gap BUN Creatinine Estimated GFR (MDRD) Glucose POC Glucose 133 H 359 H Lactic Acid Calcium Blood Type A POSITIVE Antibody Screen NEGATIVE Crossmatch See Detail 01/14/19 01/14/19 01/15/19 08:04 20:45 00:20 WBC RBC Hgb Hct MCV MCH MCHC RDW Plt Count MPV Neutrophils % Lymphocytes % Monocytes % Eosinophils % Basophils % Neutrophils # Lymphocytes # Monocytes # Eosinophils # Basophils # Sodium Potassium Chloride Carbon Dioxide Anion Gap BUN Creatinine Estimated GFR (MDRD) Glucose POC Glucose 362 H 218 H 208 H Lactic Acid Calcium Blood Type Antibody Screen Crossmatch 01/15/19 01/15/19 01/15/19 04:54 04:54 04:54 WBC 20.9 H RBC 2.59 L Hgb 6.9 L Hct 21.1 L MCV 81.5 MCH 26.8 L MCHC 32.9 RDW 16.7 H Plt Count 173 MPV 9.1 Neutrophils % 68.2 Lymphocytes % 21.8 Monocytes % 8.8 Eosinophils % 0.9 Basophils % 0.3 Neutrophils # 14.3 H Lymphocytes # 4.6 H Monocytes # 1.9 H Eosinophils # 0.2 Basophils # 0.1 Sodium 128 L Potassium 4.8 Chloride 102 Carbon Dioxide 18 L Anion Gap 13 BUN 48 H Creatinine 1.65 H Estimated GFR (MDRD) 31 Glucose 158 H POC Glucose Lactic Acid 1.7 Calcium 7.9 Blood Type Antibody Screen Crossmatch 01/15/19 10:56 WBC RBC Hgb Hct MCV MCH MCHC RDW Plt Count MPV Neutrophils % Lymphocytes % Monocytes % Eosinophils % Basophils % Neutrophils # Lymphocytes # Monocytes # Eosinophils # Basophils # Sodium Potassium Chloride Carbon Dioxide Anion Gap BUN Creatinine Estimated GFR (MDRD) Glucose POC Glucose 140 H Lactic Acid Calcium Blood Type Antibody Screen Crossmatch Surgery Progress Note: A/P - Problem (1) Clostridium difficile infection Current Visit: Yes Code(s): A49.8 - OTHER BACTERIAL INFECTIONS OF UNSPECIFIED SITE Status: Acute (2) DM2 (diabetes mellitus, type 2) Current Visit: Yes Status: Chronic Qualifiers: Diabetes mellitus 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 I suspect diffuse oozing from her subcutaneous pocket -on Clears, advance once nausea improved -begin to mobilize -Urine output improving.
--- NOTE | 2019-01-15 17:43 | PRG ---
DATE OF SERVICE: 01/15/2019 SUBJECTIVE: The patient is seen and examined at bedside. She is in ICU bed C10. She had nonsustained ventricular tachycardia last night and she was started on amiodarone. Her blood pressure is still running on the lower side and she is still requiring 2 mg of Levophed. OBJECTIVE: VITAL SIGNS: Blood pressure is 113/49, temperature is 98.5, 75, and respirations are 19. HEENT: Head is atraumatic and normocephalic. HEENT: Her sclerae are nonicteric. Oral mucosa is moist. LUNGS: Breath sounds diminished at both bases. HEART: S1, S2, somewhat irregular. No S3. No S4. ABDOMEN: Obese, soft. The drains are in place. The patient is getting blood transfusion during my visit. NEUROLOGICAL: She is able to move all 4 extremities. There is no motor or deficits. LABORATORY DATA: Labs showed white count of 20.9, hemoglobin 6.9, hematocrit 21.1, platelet count is 173,000. Sodium is 128, potassium 4.8, chloride 102, CO2 of 18, BUN 48, and creatinine 1.65. Glycemia is ranging from 140-218, calcium 7.9, and lactic acid is 1.9. IMPRESSION: 1. Clostridium difficile colitis, status post completion of oral vancomycin. 2. Diabetes mellitus. 3. Enterocutaneous fistula. 4. Hyponatremia, recurrent. 5. Atrial fibrillation, chronic. 6. Hypothyroidism. 7. Microcytic anemia. 8. Hyperkalemia, resolved. 9. Postoperative hypovolemic shock. We will continue vancomycin and meropenem. We will try to restrict her oral fluid intake to 1200 mL orally per 24 hours. We will continue her current regimen for diabetes with 60 units of insulin Lantus at bedtime and aggressive sliding scale. She will continue on Tikosyn for paroxysmal atrial fibrillation and she will get packed red blood cells ordered by general surgeon. Job ID: [id number]
--- NOTE | 2019-01-15 18:48 | EKG ---
Test Reason : Blood Pressure : / mmHG Vent. Rate : 136 BPM Atrial Rate : 127 BPM P-R Int : 000 ms QRS Dur : 088 ms QT Int : 336 ms P-R-T Axes : 000 -21 073 degrees QTc Int : 505 ms Atrial fibrillation with rapid ventricular response Anteroseptal infarct (cited on or before 31-JUL-2018) Abnormal ECG When compared with ECG of 14-JAN-2019 05:10, Atrial fibrillation has replaced Junctional rhythm Confirmed by SHILO NOWAK, STommy ([id number]) on 01/15/2019 6:48:34 PM Referred By: MIKE Confirmed By:DR. Souleymane LAO MD
[2019-01-15] MEDS: Ondansetron PF 4 MG/2 ML Vial IVP PRN (20:20)
[2019-01-15] MEDS: Aspirin 81 mg Enteric Coated Tablet PO SCH (20:21)
[2019-01-15] MEDS: Atorvastatin Calcium 20 MG TAB PO SCH (20:21)
[2019-01-15] MEDS: Amitriptyline HCl 25 MG TAB PO SCH (20:21)
[2019-01-15] MEDS: Enoxaparin Sodium 40 MG/0.4 ML SYRINGE SC SCH (20:21)
[2019-01-15] MEDS: Insulin Glargine 60 UNITS in Pre-Filled Syringe SC SCH (20:22)
[2019-01-15 20:51] LABS: Vancomycin, Trough 25.8 ug/mL
[2019-01-15] MEDS: Acetaminophen 500 MG TAB PO PRN (21:15)
[2019-01-16] MEDS: Octreotide Acetate 100 MCG/ML VIAL SLOW IVP SCH ×3 (03:14→18:13)
[2019-01-16 05:41] LABS: #Eosinphils 0.4 thou/uL (0.0-0.7); #Lymphocytes 2.5 thou/uL (1.20-3.40); #Monocytes 0.7 thou/uL (0.11-0.59); #Neutrophils 7.1 thou/uL (1.40-6.50); %Basophils 0.2 % (0.0-1.0); %Eosinophils 3.7 % (0.0-10.0); %Lymphocytes 23.4 % (21.0-51.0); %Monocytes 6.5 % (0.0-10.0); %Neutrophils 66.2 % (42.0-75.0); Band 2 % (5-11); Elliptocytes SLIGHT = 2-5 cells (100X) (0-1/hpf); Eosinophils 2 % (0-10); Hemoglobin 7.2 g/dL (12.0-16.0); Lymphocytes 18 % (21-51); MDiff Complete? YES; Mean Corpuscular HGB CONC 34.1 g/dL (32.0-36.0); Mean Corpuscular Hemoglobin 28.4 pg (27.0-31.0); Mean Corpuscular Volume 83.3 fL (78.0-98.0); Mean Platelet Volume 8.6 fL (7.4-10.4); Monocytes 1 % (0-10); Neutrophil 77 % (42-75); Nucleated RBC 1 % (0); Platelet Count 113 thou/uL (130-400); Platelet Morphology Comment Appears Decreased; RBC Distribution Width 16.4 % (11.5-14.5); Red Blood Cell (RBC) Count 2.52 mill/uL (4.20-5.40); White Blood Cell (WBC) Count 10.8 thou/uL (4.8-10.8)
[2019-01-16 05:44] LABS: Anion Gap 8 mmol/L (10-20); BUN (Urea Nitrogen) 27 mg/dL (9.8-20.1); Calc. Creatinine Clearance 123 mL/min (70-130); Calcium 7.8 mg/dL (7.8-10.44); Carbon Dioxide 24 mmol/L (23-31); Chloride 106 mmol/L (98-107); Estimated GFR-MDRD 82; Glucose 113 mg/dL (80-115); Potassium 4.1 mmol/L (3.5-5.1); Sodium 134 mmol/L (136-145)
[2019-01-16] MEDS: MEROPENEM 1 GM/50 ML 1 GM in Premix Bag 1 BAG IVPB SCH ×3 (06:19→23:05)
[2019-01-16] MEDS: Levothyroxine Sodium 25 MCG TAB PO SCH (06:20)
[2019-01-16] MEDS: Levothyroxine Sodium 112 MCG TAB PO SCH (06:20)
[2019-01-16] MEDS: Liothyronine Sodium 5 MCG TAB PO SCH (06:20)
[2019-01-16] MEDS: Dofetilide 0.125 MG CAP PO SCH (08:27)
[2019-01-16] MEDS: Lactinex Tablet PO SCH (08:28)
[2019-01-16] MEDS: Famotidine 20 MG TAB PO SCH ×2 (08:28→20:16)
[2019-01-16] MEDS: Ferrous Sulfate 325 MG TAB PO SCH (08:28)
[2019-01-16] MEDS: Ascorbic Acid 500 mg Chewable Tablet PO SCH (08:28)
[2019-01-16] MEDS: Magnesium Chloride 64 MG TAB PO SCH ×2 (08:28→20:20)
[2019-01-16] MEDS: PARoxetine 20 MG TAB PO SCH (08:28)
[2019-01-16] MEDS: Clopidogrel Bisulfate 75 MG TAB PO SCH (08:34)
[2019-01-16] MEDS: Vancomycin HCl 1 GM in Premix Bag 1 BAG IVPB SCH ×2 (08:35→20:20)
[2019-01-16] MEDS: Bisoprolol Fumarate 5 MG TAB PO SCH (09:41)
--- NOTE | 2019-01-16 09:49 | PRG ---
DATE OF SERVICE: 01/16/2019 SUBJECTIVE: Ms. Lepe feels much better today. She is alert and much more comfortable. She is off the pressors. She denies any significant nausea. OBJECTIVE: VITAL SIGNS: Her blood pressure is 109/80, her heart rate is 74, and respirations are 24. Urine output is much improved 3095 for the day. SENTHIL drains are much less at 150 for the day, becoming more serous. ABDOMEN: Her abdomen is soft. It is minimally distended. There is some mild erythema in the most dependent part of the midline incision. The SENTHIL drains are serosanguineous. LABORATORY DATA: Her white count is 10, her hemoglobin is 7.2, and platelet count is 113. Sodium is 134, creatinine is down to normal 0.71. Her glucose is 113. ASSESSMENT: Postop small-bowel resection for fistula and hernia repair, much improved clinically and on labs. PLAN: She is still on the amiodarone drip. Would prefer her not to go to telemetry due to her limited physical nature and need for more active physical therapy. Okay to transfer to [facility]. Job ID: [id number]
[2019-01-16] MEDS: Amiodarone 450 MG, Admixture Fee 1 EACH in Dextrose 5% in Water 250 ML IVPB SCH (13:21)
--- NOTE | 2019-01-16 13:51 | PRG ---
DATE OF SERVICE: 01/16/2019 SUBJECTIVE: The patient is sitting in the chair. She looks significantly better. She feels better. Her Levophed was stopped and her blood pressure is maintaining in good range. She was switched to full liquid diet by Dr. Garcia this morning. OBJECTIVE: VITAL SIGNS: Her blood pressure is 89/55, pulse is 71, respiratory rate is 16, and temperature is 98.5. HEENT: Her sclerae are nonicteric. Conjunctivae are palish. Oral mucosa is slightly dry. NECK: Supple and obese. LUNGS: Breath sounds diminished at both bases. HEART: S1 and S2, somewhat irregular. No S3. No S4. ABDOMEN: Obese. Two drains on both sides present and draining bloody fluid. NEUROLOGIC: She follows my commands. She moves her all 4 extremities. LABORATORY DATA: White count of 10.8, hemoglobin 7.2, hematocrit 21.0, platelet count is 113,000. Sodium of 134, potassium 4.1, chloride 106, CO2 of 24, BUN 27, creatinine 0.71, glycemia is ranging from 107 to 150, calcium 7.8. Blood culture came back for 1 out 2 Micrococcus species, which is probably contamination. Urine culture, no growth. IMPRESSION: 1. Clostridium difficile colitis, status post completion of oral vancomycin. 2. Enterocutaneous fistula, status post exploratory laparotomy, extensive lysis of adhesions, small-bowel resection and primary anastomosis, incisional hernia repair with Strattice biologic mesh. 3. Diabetes mellitus type 2, relatively well controlled. 4. Hyponatremia, improved. 5. Atrial fibrillation, chronic, rate controlled. 6. Hypotension. The patient is off Levophed drip and her blood pressure is borderline. We will try to avoid vasopressors as much as we can. 7. Hyperkalemia, resolved. 8. Hypothyroidism. 9. Postoperative hypovolemic shock. The patient is still on amiodarone drip. Cardiology is going to make decision about changing her to oral amiodarone. She was changed to full liquid diet per Dr. Garcia this morning. We will continue her meropenem and vancomycin at this point and she is doing significantly better clinically. Job ID: [id number]
[2019-01-16] MEDS: Fentanyl 100 MCG/2 ML VIAL SLOW IVP PRN (16:52)
--- NOTE | 2019-01-16 17:10 | PDOC.CPN ---
- Subjective Date: 01/16/19 Time: 17:08 Interval history: Pt sitting up. Doing well. No symptoms - Objective Allergies/Adverse Reactions: Allergies Allergy/AdvReac Type Severity Reaction Status Date / Time piroxicam Allergy Unknown Verified 12/23/18 14:25 morphine AdvReac Mild Verified 12/23/18 14:25 Visit Medications: Current Medications Acetaminophen (Tylenol) 650 mg WA Q4H PRN PRN Reason: Headache/Fever or Pain Acetaminophen (Tylenol) 1,000 mg PO Q6H PRN PRN Reason: FEVER/MILD PAIN Last Admin: 01/15/19 21:15 Dose: 1,000 mg Hydrocodone Bitart/Acetaminophen ([place] 7.5/325) 1 tab PO Q6H PRN PRN Reason: Mild Pain (1-3) Acidophilus (Floranex) 1 tab PO DAILY [facility] Last Admin: 01/16/19 08:28 Dose: 1 tab Albuterol/Ipratropium (Duoneb) 3 ml NEB Q4H PRN PRN Reason: Wheezing Amitriptyline HCl (Elavil) 25 mg PO HS [facility] Last Admin: 01/15/19 20:21 Dose: 25 mg Artificial Tears (Tears Naturale) 2 drop EA EYE PRN PRN PRN Reason: Dry Eyes Ascorbic Acid (Vitamin C) 500 mg PO DAILY [facility] Last Admin: 01/16/19 08:28 Dose: 500 mg Aspirin (Ecotrin) 81 mg PO HS [facility] Last Admin: 01/15/19 20:21 Dose: 81 mg Atorvastatin Calcium (Lipitor) 20 mg PO HS [facility] Last Admin: 01/15/19 20:21 Dose: 20 mg Bisacodyl (Dulcolax) 10 mg [place] DAILYPRN PRN PRN Reason: Constipation Bisoprolol Fumarate (Zebeta) 5 mg PO 0900 [facility] Last Admin: 01/16/19 09:41 Dose: 5 mg Cholecalciferol (Vitamin D3) 2,000 units PO DAILY [facility] Last Admin: 01/16/19 08:33 Dose: 2,000 units Clopidogrel Bisulfate (Plavix) 75 mg PO 0900 [facility] Last Admin: 01/16/19 08:34 Dose: Not Given Dextrose/Water (Dextrose 50%) 25 gm SLOW IVP PRN PRN PRN Reason: Hypoglycemia Diphenhydramine HCl (Benadryl) 25 mg IM/IV Q3H PRN PRN Reason: Itching Diphenhydramine HCl (Benadryl) 25 mg PO Q3H PRN PRN Reason: Itching Enoxaparin Sodium (Lovenox) 40 mg SC 2100 [facility] Last Admin: 01/15/19 20:21 Dose: 40 mg Famotidine (Pepcid) 20 mg PO BID [facility] Last Admin: 01/16/19 08:28 Dose: 20 mg Fentanyl (Sublimaze) 50 mcg SLOW IVP Q2H PRN PRN Reason: Breakthrough Pain Last Admin: 01/16/19 16:52 Dose: 50 mcg Ferrous Sulfate (Feosol) 650 mg PO DAILY [facility] Last Admin: 01/16/19 08:28 Dose: 650 mg Glucagon (Glucagon) 1 mg IM PRN PRN PRN Reason: Hypoglycemia Dextrose/Water (D5w) 1,000 mls @ 0 mls/hr IV .Q0M PRN PRN Reason: Hypoglycemia Insulin Glargine 60 units/ (Miscellaneous Medication) 0.6 mls @ 0 mls/hr SC [facility] Last Admin: 01/15/19 20:22 Dose: Not Given Norepinephrine Bitartrate 8 mg (/ Dextrose/Water) 250 mls @ 0 mls/hr IVPB INF PRN; Protocol PRN Reason: TO MAINTAIN MAP > 65 Last Admin: 01/15/19 00:55 Dose: 250 mls Meropenem 1 gm/ Device 50 mls @ 100 mls/hr IVPB Q8HR [facility] Last Admin: 01/16/19 13:23 Dose: 50 mls Amiodarone HCl 450 mg/Miscellaneous Medication 1 each/ Dextrose/Water 259 mls @ 0 mls/hr IVPB INF TRAVON; Protocol Last Admin: 01/16/19 13:21 Dose: 259 mls Vancomycin HCl 1 gm/ Device 200 mls @ 200 mls/hr IVPB Q12HR [facility] Last Admin: 01/16/19 08:35 Dose: 200 mls Insulin Human Lispro (Humalog) 0 units SC .AGGRESSIVE SLIDING PRN PRN Reason: Aggressive Correctional Scale Last Admin: 01/15/19 16:03 Dose: 3 unit Levothyroxine Sodium (Synthroid) 224 mcg PO 0600 [facility] Last Admin: 01/16/19 06:20 Dose: 224 mcg Levothyroxine Sodium (Synthroid) 50 mcg PO 0600 [facility] Last Admin: 01/16/19 06:20 Dose: 50 mcg Liothyronine Sodium (Cytomel) 5 mcg PO 0600 [facility] Last Admin: 01/16/19 06:20 Dose: 5 mcg Magnesium Chloride (Slow-Mag) 64 mg PO BID [facility] Last Admin: 01/16/19 08:28 Dose: 64 mg Miscellaneous Medication (Pharmacy To Dose) 0 each IVPB ASDIR [facility] Naloxone HCl (Narcan) 0.2 mg IV Q5MIN PRN PRN Reason: RR <8 or pt obtun/unarousable Octreotide Acetate (Sandostatin) 100 mcg SLOW IVP 0200,1000,1800 [facility] Last Admin: 01/16/19 09:39 Dose: 100 mcg Ondansetron HCl (Zofran) 4 mg IVP Q6H PRN PRN Reason: Nausea/Vomiting Last Admin: 01/15/19 20:20 Dose: 4 mg Paroxetine HCl (Paxil) 20 mg PO DAILY [facility] Last Admin: 01/16/19 08:28 Dose: 20 mg Promethazine HCl (Phenergan) 12.5 mg IM Q4H PRN PRN Reason: Nausea/Vomiting Sodium Chloride ([place] Nas[place] 0.65%) 0 ml EA NARE QIDPRN PRN PRN Reason: Nasal Congestion Sodium Chloride (Flush - Normal Saline) 10 ml IVF PRN PRN PRN Reason: Saline Flush Throat Lozenges (Cepastat Lozenges) 1 sulaiman PO Q2H PRN PRN Reason: Sore Throat Vital Signs & Weight: Vital Signs Temp Pulse Pulse BP BP Pulse Ox 01/16/19 15:01 70 66 94/49 L 119/52 L 01/16/19 12:00 98.5 F 01/16/19 07:10 96 01/16/19 07:00 98.2 F Admit Weight 224 lb 11.2 oz Weight 220 lb 7.396 oz - Physical Exam General: alert & oriented x3 HEENT: normocephaly Neck: supple neck, midline trachea, no masses Cardiac: no murmur, regular rate, regular rhythm Lungs: normal exam Neuro: grossly intact Abdomen: soft Extremities: no clubbing, no edema Skin: rash Musculoskeletal: no pain - Labs Result Diagrams: 01/16/19 05:04 01/16/19 05:04 Troponin/CKMB Troponin I Less than 0.010 ng/mL (< 0.028) 01/14/19 05:42 - Assessment/Plan Assessment/Plan: Afib WCT Sepsis Hypotension Long discussion with pt and daughter Concerned about dofetilide and amio combined Recommend stopping dofetilide Family confirmed with EP doctor, Dr. Hook, to stop dofetilide Recommend continuing amiodarone for now Watchman in place No need for ACT
--- NOTE | 2019-01-16 19:30 | PRG ---
DATE OF SERVICE: 01/16/2019 SUBJECTIVE: Elyssa eLpe has no complaints. OBJECTIVE: VITAL SIGNS: Heart rates in the 60s, blood pressure 91/51, respiratory rates in the teens. LUNGS: Clear. HEART: Regular rhythm. ABDOMEN: Nontender. She still has drains in place. LABORATORY DATA: White count 10.8, hemoglobin 7.2, platelets 113. Sodium 134, potassium 4.1, chloride 106, bicarb 24, BUN 27, creatinine 0.71. Intake and outputs negative 2739. IMPRESSION: Status post exploratory laparotomy, lysis of adhesions, small bowel resection, incisional hernia repair with biologic mesh. She clinically appears to be stable. She still has drains in her lower abdomen. Ms. Lepe was complaining about the things that she could feel down low since she has significant abdominal girth and could not see these drains. She appears to be progressing nicely. She may be a candidate to move off the intermediate care unit. She has been transfused with this illness, but her hemoglobin appears to be stable. She might benefit from another unit of packed cells since her hemoglobin is only 7.2 and likely will fall with blood draws. We will continue to follow. Job ID: [id number]
[2019-01-16] MEDS: Amitriptyline HCl 25 MG TAB PO SCH (20:16)
[2019-01-16] MEDS: Atorvastatin Calcium 20 MG TAB PO SCH (20:16)
[2019-01-16] MEDS: Aspirin 81 mg Enteric Coated Tablet PO SCH (20:16)
[2019-01-16] MEDS: Enoxaparin Sodium 40 MG/0.4 ML SYRINGE SC SCH (20:19)
[2019-01-16] MEDS: Insulin Glargine 60 UNITS in Pre-Filled Syringe SC SCH (20:44)
[2019-01-17] MEDS: Octreotide Acetate 100 MCG/ML VIAL SLOW IVP SCH ×3 (02:43→17:41)
[2019-01-17 05:36] LABS: #Eosinphils 0.4 thou/uL (0.0-0.7); #Monocytes 0.7 thou/uL (0.11-0.59); #Neutrophils 6.4 thou/uL (1.40-6.50); %Basophils 0.2 % (0.0-1.0); %Eosinophils 3.4 % (0.0-10.0); %Lymphocytes 34.8 % (21.0-51.0); %Monocytes 6.2 % (0.0-10.0); %Neutrophils 55.4 % (42.0-75.0); Hemoglobin 7.7 g/dL (12.0-16.0); Mean Corpuscular HGB CONC 33.7 g/dL (32.0-36.0); Mean Corpuscular Volume 83.1 fL (78.0-98.0); Mean Platelet Volume 8.6 fL (7.4-10.4); Platelet Count 115 thou/uL (130-400); RBC Distribution Width 16.5 % (11.5-14.5); Red Blood Cell (RBC) Count 2.75 mill/uL (4.20-5.40); White Blood Cell (WBC) Count 11.6 thou/uL (4.8-10.8)
[2019-01-17 05:52] LABS: Anion Gap 7 mmol/L (10-20); BUN (Urea Nitrogen) 15 mg/dL (9.8-20.1); Calc. Creatinine Clearance 154 mL/min (70-130); Calcium 7.6 mg/dL (7.8-10.44); Carbon Dioxide 24 mmol/L (23-31); Chloride 107 mmol/L (98-107); Estimated GFR-MDRD Greater than 90; Glucose 65 mg/dL (80-115); Potassium 3.8 mmol/L (3.5-5.1); Sodium 134 mmol/L (136-145)
[2019-01-17] MEDS: MEROPENEM 1 GM/50 ML 1 GM in Premix Bag 1 BAG IVPB SCH ×3 (05:58→22:33)
[2019-01-17] MEDS: Amiodarone 450 MG, Admixture Fee 1 EACH in Dextrose 5% in Water 250 ML IVPB SCH ×2 (06:06→20:33)
[2019-01-17] MEDS: Levothyroxine Sodium 25 MCG TAB PO SCH (06:15)
[2019-01-17] MEDS: Levothyroxine Sodium 112 MCG TAB PO SCH (06:15)
[2019-01-17] MEDS: Liothyronine Sodium 5 MCG TAB PO SCH (06:16)
--- NOTE | 2019-01-17 08:34 | PDOC.CPN ---
- Subjective Date: 01/17/19 Time: 11:45 Interval history: Feels better overall. BP more stable. On Abx - Objective Allergies/Adverse Reactions: Allergies Allergy/AdvReac Type Severity Reaction Status Date / Time piroxicam Allergy Unknown Verified 12/23/18 14:25 morphine AdvReac Mild Verified 12/23/18 14:25 Visit Medications: Current Medications Acetaminophen (Tylenol) 650 mg NM Q4H PRN PRN Reason: Headache/Fever or Pain Acetaminophen (Tylenol) 1,000 mg PO Q6H PRN PRN Reason: FEVER/MILD PAIN Last Admin: 01/15/19 21:15 Dose: 1,000 mg Hydrocodone Bitart/Acetaminophen ([place] 7.5/325) 1 tab PO Q6H PRN PRN Reason: Mild Pain (1-3) Acidophilus (Floranex) 1 tab PO DAILY [facility] Last Admin: 01/16/19 08:28 Dose: 1 tab Albuterol/Ipratropium (Duoneb) 3 ml NEB Q4H PRN PRN Reason: Wheezing Amitriptyline HCl (Elavil) 25 mg PO HS [facility] Last Admin: 01/16/19 20:16 Dose: 25 mg Artificial Tears (Tears Naturale) 2 drop EA EYE PRN PRN PRN Reason: Dry Eyes Ascorbic Acid (Vitamin C) 500 mg PO DAILY [facility] Last Admin: 01/16/19 08:28 Dose: 500 mg Aspirin (Ecotrin) 81 mg PO HS [facility] Last Admin: 01/16/19 20:16 Dose: 81 mg Atorvastatin Calcium (Lipitor) 20 mg PO HS [facility] Last Admin: 01/16/19 20:16 Dose: 20 mg Bisacodyl (Dulcolax) 10 mg NM DAILYPRN PRN PRN Reason: Constipation Bisoprolol Fumarate (Zebeta) 5 mg PO 0900 [facility] Last Admin: 01/16/19 09:41 Dose: 5 mg Cholecalciferol (Vitamin D3) 2,000 units PO DAILY [facility] Last Admin: 01/16/19 08:33 Dose: 2,000 units Clopidogrel Bisulfate (Plavix) 75 mg PO 0900 [facility] Last Admin: 01/16/19 08:34 Dose: Not Given Dextrose/Water (Dextrose 50%) 25 gm SLOW IVP PRN PRN PRN Reason: Hypoglycemia Diphenhydramine HCl (Benadryl) 25 mg IM/IV Q3H PRN PRN Reason: Itching Diphenhydramine HCl (Benadryl) 25 mg PO Q3H PRN PRN Reason: Itching Enoxaparin Sodium (Lovenox) 40 mg SC 2100 [facility] Last Admin: 01/16/19 20:19 Dose: 40 mg Famotidine (Pepcid) 20 mg PO BID [facility] Last Admin: 01/16/19 20:16 Dose: 20 mg Fentanyl (Sublimaze) 50 mcg SLOW IVP Q2H PRN PRN Reason: Breakthrough Pain Last Admin: 01/16/19 16:52 Dose: 50 mcg Ferrous Sulfate (Feosol) 650 mg PO DAILY [facility] Last Admin: 01/16/19 08:28 Dose: 650 mg Glucagon (Glucagon) 1 mg IM PRN PRN PRN Reason: Hypoglycemia Dextrose/Water (D5w) 1,000 mls @ 0 mls/hr IV .Q0M PRN PRN Reason: Hypoglycemia Insulin Glargine 60 units/ (Miscellaneous Medication) 0.6 mls @ 0 mls/hr SC [facility] Last Admin: 01/16/19 20:44 Dose: 0.6 mls Norepinephrine Bitartrate 8 mg (/ Dextrose/Water) 250 mls @ 0 mls/hr IVPB INF PRN; Protocol PRN Reason: TO MAINTAIN MAP > 65 Last Admin: 01/15/19 00:55 Dose: 250 mls Meropenem 1 gm/ Device 50 mls @ 100 mls/hr IVPB Q8HR [facility] Last Admin: 01/17/19 05:58 Dose: 50 mls Amiodarone HCl 450 mg/Miscellaneous Medication 1 each/ Dextrose/Water 259 mls @ 0 mls/hr IVPB INF TRAVON; Protocol Last Admin: 01/17/19 06:06 Dose: 259 mls Vancomycin HCl 1 gm/ Device 200 mls @ 200 mls/hr IVPB Q12HR [facility] Last Admin: 01/16/19 20:20 Dose: 200 mls Insulin Human Lispro (Humalog) 0 units SC .AGGRESSIVE SLIDING PRN PRN Reason: Aggressive Correctional Scale Last Admin: 01/15/19 16:03 Dose: 3 unit Levothyroxine Sodium (Synthroid) 224 mcg PO 0600 [facility] Last Admin: 01/17/19 06:15 Dose: 224 mcg Levothyroxine Sodium (Synthroid) 50 mcg PO 0600 [facility] Last Admin: 01/17/19 06:15 Dose: 50 mcg Liothyronine Sodium (Cytomel) 5 mcg PO 0600 [facility] Last Admin: 01/17/19 06:16 Dose: 5 mcg Magnesium Chloride (Slow-Mag) 64 mg PO BID [facility] Last Admin: 01/16/19 20:20 Dose: 64 mg Miscellaneous Medication (Pharmacy To Dose) 0 each IVPB ASDIR [facility] Naloxone HCl (Narcan) 0.2 mg IV Q5MIN PRN PRN Reason: RR <8 or pt obtun/unarousable Octreotide Acetate (Sandostatin) 100 mcg SLOW IVP 0200,1000,1800 [facility] Last Admin: 01/17/19 02:43 Dose: 100 mcg Ondansetron HCl (Zofran) 4 mg IVP Q6H PRN PRN Reason: Nausea/Vomiting Last Admin: 01/15/19 20:20 Dose: 4 mg Paroxetine HCl (Paxil) 20 mg PO DAILY [facility] Last Admin: 01/16/19 08:28 Dose: 20 mg Promethazine HCl (Phenergan) 12.5 mg IM Q4H PRN PRN Reason: Nausea/Vomiting Sodium Chloride ([place] Nasal [place] 0.65%) 0 ml EA NARE QIDPRN PRN PRN Reason: Nasal Congestion Sodium Chloride (Flush - Normal Saline) 10 ml IVF PRN PRN PRN Reason: Saline Flush Last Admin: 01/17/19 06:16 Dose: 10 ml Throat Lozenges (Cepastat Lozenges) 1 sulaiman PO Q2H PRN PRN Reason: Sore Throat Last Admin: 01/16/19 18:10 Dose: 1 sulaiman Vital Signs & Weight: Vital Signs Temp 01/17/19 07:15 98.7 F 01/17/19 03:54 98.0 F 01/16/19 23:50 98.3 F Admit Weight 224 lb 11.2 oz Weight 244 lb 1.6 oz - Physical Exam General: alert & oriented x3 HEENT: normocephaly Neck: supple neck, no masses Cardiac: regular rate, regular rhythm Lungs: clear to auscultation Neuro: grossly intact - Labs Result Diagrams: 01/17/19 05:15 01/17/19 05:15 Troponin/CKMB Troponin I Less than 0.010 ng/mL (< 0.028) 01/14/19 05:42 - Telemetry Sinus rhythms and dysrhythmias: sinus rhythm - Assessment/Plan Assessment/Plan: Afib WCT Sepsis Hypotension 01/18 REC On amio IV and continue May need EP input on Wednesday 01/17 REC Long discussion with pt and daughter Concerned about dofetilide and amio combined Recommend stopping dofetilide Family confirmed with EP doctor, Dr. Hook, to stop dofetilide Recommend continuing amiodarone for now Watchman in place No need for ACT
[2019-01-17] MEDS: Bisoprolol Fumarate 5 MG TAB PO SCH (09:22)
[2019-01-17] MEDS: PARoxetine 20 MG TAB PO SCH (09:23)
[2019-01-17] MEDS: Ferrous Sulfate 325 MG TAB PO SCH (09:23)
[2019-01-17] MEDS: Magnesium Chloride 64 MG TAB PO SCH ×2 (09:23→20:23)
[2019-01-17] MEDS: Clopidogrel Bisulfate 75 MG TAB PO SCH (09:23)
[2019-01-17] MEDS: Ascorbic Acid 500 mg Chewable Tablet PO SCH (09:23)
[2019-01-17] MEDS: Famotidine 20 MG TAB PO SCH ×2 (09:23→20:22)
[2019-01-17] MEDS: Lactinex Tablet PO SCH (09:23)
[2019-01-17] MEDS: Vancomycin HCl 1 GM in Premix Bag 1 BAG IVPB SCH ×2 (09:24→21:15)
[2019-01-17] MEDS: HumaLOG 300 UNITS/3 ML VIAL SC PRN (12:10)
--- NOTE | 2019-01-17 13:04 | PRG ---
DATE OF SERVICE: 01/17/2019 SUBJECTIVE: The patient is seen and examined at the bedside. The patient's daughter is present in the room during my visit. OBJECTIVE: VITAL SIGNS: Blood pressure is 93/58, heart rate is 70, respiratory rate 23, O2 saturation is 97%, temperature is 97.4, maximal temperature is 98.4 for the last 24 hours. HEENT: Her pupils are responding to light properly. Sclerae are nonicteric. Conjunctivae somewhat palish. NECK: Supple. LUNGS: Breath sounds diminished at both bases. HEART: S1, S2, regular, no S3, no S4. ABDOMEN: Obese. Two drains on both sides present, draining bloody fluid. Incision in the midline looks slightly erythematous in the lower part. The area is somewhat tender to palpation. Bowel sounds present. EXTREMITIES: No peripheral edema. NEUROLOGIC: She follows my commands. She moves her all 4 extremities. LABORATORY DATA: Showed white count of 11.6, hematocrit 22.9, hemoglobin 7.7, platelet count is 115. Sodium of 134, potassium 3.8, chloride 107 CO2 of 24 BUN 15, creatinine 0.56, glucose 65. Glycemia is ranging from 69 to 183. Microbiology, no new findings. Urine culture negative. IMPRESSION: 1. Clostridium difficile colitis, status post completion of oral vancomycin. 2. Enterocutaneous fistula, status post exploratory laparotomy, extensive lysis of adhesions, small-bowel resection and primary anastomosis, incisional hernia repair with Strattice biologic mesh. 3. Diabetes mellitus type 2 with some hypoglycemia in the morning. 4. Hyponatremia, improved. 5. Atrial fibrillation, chronic, rate controlled. 6. Hypotension. This is still an issue, although she is off vasopressors, but her systolic blood pressure is running in the 90s. 7. Hyperkalemia, resolved. 8. Hypothyroidism. 9. Postoperative hypovolemic shock. PLAN: Program Or Project Administrator stopped Tikosyn and she is going to continue on amiodarone. Apparently, she is going to have studies done by frame bander on Friday. We are going to continue her vancomycin and meropenem. General surgeon will make decision about advancing her diet. At this point, she is on clear liquids, tolerating without any problems. Her hemoglobin is somewhat better than what it was yesterday and the day before. Her platelet count is borderline. I will review her diabetic regimen and we will make some adjustment as needed since we see some hypoglycemia this morning. I will cut back on her insulin appropriately and we will continue PT. Job ID: [id number]
[2019-01-17] MEDS: Acetaminophen 500 MG TAB PO PRN (13:34)
--- NOTE | 2019-01-17 18:17 | PRG ---
DATE OF SERVICE: 01/17/2019 SUBJECTIVE: Elyssa Lepe was in good spirit. She had no complaints. OBJECTIVE: VITAL SIGNS: Blood pressure 108/52, heart rate 68, respiratory rate 16. LUNGS: Clear. HEART: Regular rhythm. ABDOMEN: Soft and nontender. Intake and outputs, negative 20. LABORATORY STUDIES: White count 11.6, hemoglobin 7.7, platelets 115,000. Sodium 134, potassium 3.8, chloride 107, bicarb 24, BUN 15, creatinine 0.56. IMPRESSION: Status post exploratory laparotomy with lysis of adhesions, small bowel resection, and incisional hernia repair. She appears to be clinically stable. She spent more time out of bed yesterday, and plan is to increase that time today. Job ID: [id number]
[2019-01-17] MEDS: Enoxaparin Sodium 40 MG/0.4 ML SYRINGE SC SCH (20:21)
[2019-01-17] MEDS: Aspirin 81 mg Enteric Coated Tablet PO SCH (20:22)
[2019-01-17] MEDS: Amitriptyline HCl 25 MG TAB PO SCH (20:23)
[2019-01-17] MEDS: Atorvastatin Calcium 20 MG TAB PO SCH (20:23)
[2019-01-17] MEDS: Insulin Glargine 60 UNITS in Pre-Filled Syringe SC SCH (20:30)
[2019-01-17 20:52] LABS: Vancomycin, Trough 18.6 ug/mL
[2019-01-17] MEDS: HYDROcodone/Acetaminophen 7.5/325 mg Tablet PO PRN (22:13)
[2019-01-18] MEDS: Octreotide Acetate 100 MCG/ML VIAL SLOW IVP SCH ×3 (02:39→17:50)
[2019-01-18 05:21] LABS: #Eosinphils 0.3 thou/uL (0.0-0.7); #Lymphocytes 2.6 thou/uL (1.20-3.40); #Monocytes 0.6 thou/uL (0.11-0.59); #Neutrophils 5.5 thou/uL (1.40-6.50); %Basophils 0.4 % (0.0-1.0); %Eosinophils 3.7 % (0.0-10.0); %Lymphocytes 28.7 % (21.0-51.0); %Neutrophils 60.3 % (42.0-75.0); Hemoglobin 6.9 g/dL (12.0-16.0); Mean Corpuscular HGB CONC 33.9 g/dL (32.0-36.0); Mean Corpuscular Hemoglobin 28.7 pg (27.0-31.0); Mean Corpuscular Volume 84.5 fL (78.0-98.0); Mean Platelet Volume 8.2 fL (7.4-10.4); Platelet Count 127 thou/uL (130-400); RBC Distribution Width 17.3 % (11.5-14.5); White Blood Cell (WBC) Count 9.1 thou/uL (4.8-10.8)
[2019-01-18 05:37] LABS: Anion Gap 8 mmol/L (10-20); BUN (Urea Nitrogen) 9 mg/dL (9.8-20.1); Calc. Creatinine Clearance 177 mL/min (70-130); Calcium 7.6 mg/dL (7.8-10.44); Carbon Dioxide 25 mmol/L (23-31); Chloride 107 mmol/L (98-107); Estimated GFR-MDRD Greater than 90; Glucose 68 mg/dL (80-115); Sodium 136 mmol/L (136-145)
[2019-01-18] MEDS: MEROPENEM 1 GM/50 ML 1 GM in Premix Bag 1 BAG IVPB SCH (05:45)
[2019-01-18] MEDS: Liothyronine Sodium 5 MCG TAB PO SCH (05:46)
[2019-01-18] MEDS: Levothyroxine Sodium 25 MCG TAB PO SCH (05:47)
[2019-01-18] MEDS: Levothyroxine Sodium 112 MCG TAB PO SCH (05:49)
[2019-01-18] MEDS ORDERED: Furosemide 40 MG/4 ML VIAL SLOW IVP SCH (09:00)
[2019-01-18] MEDS: HYDROcodone/Acetaminophen 7.5/325 mg Tablet PO PRN (09:42)
[2019-01-18] MEDS: Vancomycin HCl 1 GM in Premix Bag 1 BAG IVPB SCH (09:43)
[2019-01-18] MEDS: Famotidine 20 MG TAB PO SCH ×2 (09:44→20:08)
[2019-01-18] MEDS: Ascorbic Acid 500 mg Chewable Tablet PO SCH (09:44)
[2019-01-18] MEDS: PARoxetine 20 MG TAB PO SCH (09:44)
[2019-01-18] MEDS: Ferrous Sulfate 325 MG TAB PO SCH (09:44)
[2019-01-18] MEDS: Lactinex Tablet PO SCH (09:44)
[2019-01-18] MEDS: Clopidogrel Bisulfate 75 MG TAB PO SCH (09:45)
[2019-01-18] MEDS: Magnesium Chloride 64 MG TAB PO SCH ×2 (09:46→20:09)
--- NOTE | 2019-01-18 09:56 | PRG ---
DATE OF SERVICE: 01/18/2019 SUBJECTIVE: The patient remains in IMCU. She is feeling much better, had no acute complaints. OBJECTIVE: VITAL SIGNS: Temperature is 96.8, pulse 68, blood pressure 114/64, and O2 saturation 100%. HEENT: Unremarkable. NECK: No adenopathy or JVD. LUNGS: Fairly clear anteriorly. CARDIAC: S1 and S2. Regular. ABDOMEN: Soft. EXTREMITIES: No edema. LABORATORY DATA: White blood cell count 9.1, hematocrit 20.3, and platelet count 127. Sodium 136, potassium 4, chloride 107, CO2 of 25, BUN 9, creatinine 0.5, and glucose 68. She continues to be on amiodarone drip. ASSESSMENT: 1. Status post exploratory laparotomy for adhesiolysis, repair of fistula. 2. Anemia. PLAN: I will leave this up to the Surgery and Internal Medicine teams, but the patient probably needs some more blood. Some of this may be related to extensive fluid received and diuresis would be another option. Her respiratory status is stable. Job ID: [id number]
[2019-01-18] MEDS: Bisoprolol Fumarate 5 MG TAB PO SCH (10:06)
--- NOTE | 2019-01-18 11:59 | PDOC.GSPN ---
Surgery Progress Note: Subj - Subjective Patient reports: no new complaints, feels better, tolerating liquids well Surgery Progress Note: Obj - Vital signs Vital signs: Vital Signs - Most Recent Temp Pulse Resp BP Pulse Ox 97.9 F 67 20 129/68 100 01/18/19 11:26 01/17/19 13:32 01/15/19 15:30 01/17/19 13:32 01/18/19 08:00 - Physical Exam General: no distress Respiratory: clear to auscultation Abdomen: soft, non tender Wound: healing well (the erythema around the midline incision is improved) Surgery Progress Note: Results - Labs Result Diagrams: 01/18/19 04:50 01/18/19 04:50 Lab results: Laboratory Results - last 24 hr 01/18/19 01/18/19 01/18/19 04:50 04:50 06:36 WBC 9.1 RBC 2.40 L Hgb 6.9 L Hct 20.3 L MCV 84.5 MCH 28.7 MCHC 33.9 RDW 17.3 H Plt Count 127 L MPV 8.2 Neutrophils % 60.3 Lymphocytes % 28.7 Monocytes % 7.0 Eosinophils % 3.7 Basophils % 0.4 Neutrophils # 5.5 Lymphocytes # 2.6 Monocytes # 0.6 H Eosinophils # 0.3 Basophils # 0.0 Sodium 136 Potassium 4.0 Chloride 107 Carbon Dioxide 25 Anion Gap 8 L BUN 9 L Creatinine 0.54 L Estimated GFR (MDRD) Greater than 90 Glucose 68 L POC Glucose 69 L Calcium 7.6 L Blood Type Antibody Screen Crossmatch 01/18/19 01/18/19 09:44 11:16 WBC RBC Hgb Hct MCV MCH MCHC RDW Plt Count MPV Neutrophils % Lymphocytes % Monocytes % Eosinophils % Basophils % Neutrophils # Lymphocytes # Monocytes # Eosinophils # Basophils # Sodium Potassium Chloride Carbon Dioxide Anion Gap BUN Creatinine Estimated GFR (MDRD) Glucose POC Glucose 149 H Calcium Blood Type A POSITIVE Antibody Screen NEGATIVE Crossmatch See Detail Surgery Progress Note: A/P - Problem (1) Clostridium difficile infection Current Visit: Yes Code(s): A49.8 - OTHER BACTERIAL INFECTIONS OF UNSPECIFIED SITE Status: Acute (2) DM2 (diabetes mellitus, type 2) Current Visit: Yes Status: Chronic Qualifiers: Diabetes mellitus manager long term care insulin use: with manager long term care use (3) Enterocutaneous fistula Current Visit: No Code(s): K63.2 - FISTULA OF INTESTINE Status: Acute - Plan Plan: Doing well -advance to GI soft -add norco for pain -needs to be more active -decide later in week senior care or home -drains to stay in till next week
[2019-01-18] MEDS ORDERED: Milk Of Magnesia 30 ML UDCUP PO SCH (12:00)
--- NOTE | 2019-01-18 13:39 | CON ---
DATE OF CONSULTATION: 01/18/2019 HISTORY OF PRESENT ILLNESS: I am seeing Ms. 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 Her problems are; 1. Recurrent atrial arrhythmias. a. History of persistent atrial fibrillation status post pulmonary venous isolation procedure x2 by Dr. Escamilla, most recently in May 2018. b. Recurrent atypical atrial flutter, clinically well suppressed with Tikosyn upon to admission. c. Currently on IV amiodarone. Hence, recurrent atrial flutter is seen perioperatively after of GI fistula repair. 2. Nonsustained ventricular wide-complex tachycardia, possibly ventricular tachycardia versus aberrancy conducted 1:1 atypical atrial flutter. 3. History of Watchman device placement with Xarelto discontinued. Currently on aspirin and Plavix only. 4. Preserved LVEF at 55% to 60%, mild MR, mild TR, mild left atrial enlargement, and diastolic dysfunction on echo 01/14/2019. 5. Enterocutaneous fistula status post exploratory laparotomy and extensive lysis of adhesions, small bowel resection and primary anastomosis, incisional hernia repair. 6. Type 2 diabetes. 7. Morbid obesity. 8. Hypovolemic shock, not resolving. 9. History of hypothyroidism. ALLERGIES: PIROXICAM AND MORPHINE. MEDICATIONS: At home included; 1. Paroxetine. 2. Amitriptyline. 3. Insulin. 4. Potassium chloride. 5. Magnesium oxide. 6. Metformin. 7. Losartan. 8. Dofetilide 500 mcg twice a day. 9. Liothyronine. 10. Levothyroxine. 11. Simvastatin. 12. Krill oil. 13. Cholecalciferol. 14. Ascorbic acid. 15. Lactobacillus. 16. Ferrous sulfate. 17. Bisoprolol. 18. Tylenol. 19. Aspirin. 20. Clopidogrel. SUBJECTIVE: Ms. Lepe is here with status post enterocutaneous fistula repair on the January 11. Postoperatively, she was noted to be in atrial flutter and also was hypertensive. Eventually, the dofetilide was stopped and the amiodarone was continued IV. While on dofetilide, the patient has had a short wide-complex arrhythmia as noted above on telemetry strips, but self-terminated. The patient was not symptomatic in that regard. She feels fairly not in the bed recovering from the surgery. She denies PND, orthopnea, or lower extremity edema. At this time, no fever, chills, or cough. These even standing up has lower blood pressures. Rest of the 12-point review of system otherwise unremarkable. PAST MEDICAL HISTORY: As above. SOCIAL HISTORY: The patient denied smoking, EtOH, or drug abuse. FAMILY HISTORY: Not contributory. PAST SURGICAL HISTORY: Significant for multiple laparoscopic gastric banding for morbid obesity, cholecystectomy, lysis of adhesions, removed infected mesh, and complex hernia repair. OBJECTIVE DATA: VITAL SIGNS: Blood pressure is 89/52, heart rate 64, and respirations 18. The patient is afebrile at 96.8 degrees Fahrenheit. GENERAL: This is a morbidly obese woman, in no apparent distress. NECK: Supple. Jugular veins difficult to visualize. CHEST: Coarse without crackles. HEART: Sounds are regular to rate and rhythm. No murmur or gallop. ABDOMEN: Benign. Bowel sounds positive. EXTREMITIES: Lower extremities without edema, clubbing, or cyanosis. DATABASE: The EKG is reviewed revealing an atypical atrial flutter with 2:1 AV conduction with rapid ventricular rate around 150. Also telemetry with a nonsustained ventricular tachycardia. Wide-complex tachycardia was noted. LABORATORY DATA: White cell count 9.1, hemoglobin 6.9, and platelet count is 127. Sodium 136, potassium 4, BUN is 9, and creatinine 0.5. ASSESSMENT AND PLAN: 1. Ms. Lepe is a 68-year-old woman with history of recurrent atrial arrhythmias, who underwent repeat ablation by a doctor out of town, who eventually placed her on Tikosyn for suppression of her recurrent atrial arrhythmias. She had recurrences perioperatively and eventually required IV amiodarone for suppression. On IV amiodarone, the rates are well controlled and she is maintaining sinus rhythm. Tikosyn has been discontinued to avoid excessive QT prolongation. She also has history of Watchman device placement, which per verbal history has been found adequate on a subsequent testing and she was told to stop Xarelto many months ago, still on aspirin and Plavix regimen, albeit over six months now since Watchman device is placed. a. I. She has significant anemia, which although significant stabilizing around 6.9 up to 7.7 range. II. She is also still recovering from her abdominal surgery and she is still on clear liquid diet. III. My plan regarding the atrial flutter, I think amiodarone seems to be working adequately. I agree with stopping Tikosyn to avoid excessive QT prolongation and potential for ventricular arrhythmias with this combination. Eventually, we might want to proceed with p.o. amiodarone taper, but for now hence the recent abdominal surgery, we will hold off on that until she can resume regular diet. 2. History of Watchman device seems to be adequately positioned according to patient's report. The transesophageal echocardiogram will be requested. She might need to quit Plavix if excessive bleeding is suspected, which might likely to be nonreasonable. 3. Wide-complex tachycardia with preserved left ventricular ejection fraction. No obvious coronary ischemia is suspected. I also cannot rule out that this actually was a one-to-one and aberrancy conducted atrial flutter, which is not on usual IV amiodarone administration. a. Currently is not recurrent monitor. b. We discussed these issues with the family. The patient saw Dr. Gomez and will follow up with you. Thank you for allowing me to participate in the care of this patient. Job ID: [id number]
--- NOTE | 2019-01-18 13:53 | PRG ---
DATE OF SERVICE: 01/18/2019 SUBJECTIVE: The patient is seen and examined at the bedside. She is feeling somewhat better today. She is able to keep all her clear liquid diet down. There is no nausea. She has some abdominal discomfort in the right side of the abdomen, but that is minor comparing to what she had before. OBJECTIVE: VITAL SIGNS: Heart rate 67, respiratory rate is 19, O2 saturation is 100%. Her temperature is 97.9. HEENT: Her pupils are responding to light properly. Sclerae are nonicteric. Oral mucosa is palish. Conjunctivae are palish. NECK: Supple. LUNGS: Breath sounds diminished at both bases. HEART: S1 and S2. Regular. No S3. No S4. ABDOMEN: Obese. Incision looks good in the midline. She has 2 drains on both sides draining bloody fluid. Bowel sounds present, somewhat sluggish. EXTREMITIES: 1+ peripheral edema, similar bilaterally on the lower extremities. NEUROLOGIC: She follows my commands. She moves her all 4 extremities. There are no any motor or sensory deficits. LABORATORY DATA: Showed white count of 9.1, hemoglobin 6.9, hematocrit 20.3, platelet count 127. Sodium of 136, potassium 4.0, chloride 107, CO2 of 25, BUN 9, creatinine 0.54. Glycemia is ranging from 69 to 158. IMPRESSION: 1. Clostridium difficile colitis, status post completion of oral vancomycin. 2. Enterocutaneous fistula, status post exploratory laparotomy, extensive lysis of adhesions, small bowel resection and primary anastomosis, and incisional hernia repair with Strattice biologic mesh. 3. Diabetes mellitus, type 2. We have some hypoglycemia in the morning. We will cut back on her dose of long-acting insulin to 50 units from 60 she is currently on. 4. Hyponatremia, improved. 5. Atrial fibrillation, chronic. 6. Hypotension. The patient is maintaining blood pressure in the 90s most of the time without any vasopressors. 7. Hyperkalemia, resolved. 8. Hypothyroidism. 9. Postoperative hypovolemic shock, resolved. PLAN: We will cut back on her long-acting insulin to 50 units once a day. 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 We will switch her to p.o. most likely tomorrow or after tomorrow when she tolerates her oral soft diet, which she was just put on by Dr. Garcia. She is switched from vancomycin and meropenem to p.o. Levaquin, and her diet was just advanced. We will continue PT. Job ID: [id number]
[2019-01-18] MEDS: Atorvastatin Calcium 20 MG TAB PO SCH (20:08)
[2019-01-18] MEDS: Enoxaparin Sodium 40 MG/0.4 ML SYRINGE SC SCH (20:09)
[2019-01-18] MEDS: Amitriptyline HCl 25 MG TAB PO SCH (20:09)
[2019-01-18] MEDS: Aspirin 81 mg Enteric Coated Tablet PO SCH (20:09)
[2019-01-18] MEDS: Insulin Glargine 50 UNITS in Pre-Filled Syringe 1 EACH SC SCH (20:10)
[2019-01-18] MEDS: Acetaminophen 500 MG TAB PO PRN (23:04)
[2019-01-19] MEDS: Amiodarone 450 MG, Admixture Fee 1 EACH in Dextrose 5% in Water 250 ML IVPB SCH (02:28)
[2019-01-19] MEDS: Octreotide Acetate 100 MCG/ML VIAL SLOW IVP SCH ×3 (02:29→17:21)
[2019-01-19] MEDS: Levothyroxine Sodium 112 MCG TAB PO SCH (05:18)
[2019-01-19] MEDS: Liothyronine Sodium 5 MCG TAB PO SCH (05:19)
[2019-01-19] MEDS: Levothyroxine Sodium 25 MCG TAB PO SCH (05:19)
[2019-01-19 05:34] LABS: #Eosinphils 0.4 thou/uL (0.0-0.7); #Lymphocytes 2.5 thou/uL (1.20-3.40); #Monocytes 0.6 thou/uL (0.11-0.59); #Neutrophils 6.4 thou/uL (1.40-6.50); %Basophils 0.1 % (0.0-1.0); %Eosinophils 3.7 % (0.0-10.0); %Lymphocytes 25.6 % (21.0-51.0); %Monocytes 5.6 % (0.0-10.0); %Neutrophils 65.1 % (42.0-75.0); Hemoglobin 7.9 g/dL (12.0-16.0); Mean Corpuscular HGB CONC 33.5 g/dL (32.0-36.0); Mean Corpuscular Hemoglobin 28.5 pg (27.0-31.0); Mean Platelet Volume 8.1 fL (7.4-10.4); Platelet Count 154 thou/uL (130-400); Red Blood Cell (RBC) Count 2.76 mill/uL (4.20-5.40); White Blood Cell (WBC) Count 9.9 thou/uL (4.8-10.8)
[2019-01-19 05:52] LABS: Anion Gap 9 mmol/L (10-20); BUN (Urea Nitrogen) 7 mg/dL (9.8-20.1); Calc. Creatinine Clearance 174 mL/min (70-130); Calcium 7.6 mg/dL (7.8-10.44); Carbon Dioxide 28 mmol/L (23-31); Chloride 103 mmol/L (98-107); Estimated GFR-MDRD Greater than 90; Glucose 76 mg/dL (80-115); Potassium 3.8 mmol/L (3.5-5.1); Sodium 136 mmol/L (136-145)
[2019-01-19] MEDS: Magnesium Chloride 64 MG TAB PO SCH ×2 (09:22→21:31)
[2019-01-19] MEDS: PARoxetine 20 MG TAB PO SCH (09:23)
[2019-01-19] MEDS: Acetaminophen 500 MG TAB PO PRN ×2 (09:23→16:08)
[2019-01-19] MEDS: Ferrous Sulfate 325 MG TAB PO SCH (09:23)
[2019-01-19] MEDS: Lactinex Tablet PO SCH (09:23)
[2019-01-19] MEDS: Ascorbic Acid 500 mg Chewable Tablet PO SCH (09:24)
[2019-01-19] MEDS: Famotidine 20 MG TAB PO SCH ×2 (09:24→21:30)
[2019-01-19] MEDS: Amiodarone 200 MG TAB PO SCH ×2 (09:24→21:12)
[2019-01-19] MEDS: Clopidogrel Bisulfate 75 MG TAB PO SCH (09:24)
--- NOTE | 2019-01-19 10:24 | PRG ---
DATE OF SERVICE: 01/19/2019 SUBJECTIVE: The patient seems to be doing well. She is up out of bed. OBJECTIVE: VITAL SIGNS: Temperature 96.8, pulse 67, blood pressure 83/44, and O2 saturation 95%. HEENT: Unremarkable. NECK: No JVD. LUNGS: Clear. CARDIAC: S1 and S2. Regular. ABDOMEN: Soft. LABORATORY DATA: White blood cell count 9.9, hematocrit 23.4, platelet count 154. Sodium 136, potassium 3.8, chloride 103, CO2 of 28, BUN 7, creatinine 0.5, and glucose 76. ASSESSMENT: 1. Status post exploratory laparotomy. 2. Anemia. PLAN: Once she is off the amiodarone drip, she is stable for transfer to the floor. Her anemia seems to be improved and she is no longer requiring transfusion. Job ID: [id number]
--- NOTE | 2019-01-19 11:08 | PDOC.GSPN ---
Surgery Progress Note: Subj - Subjective Patient reports: no new complaints (She tolerated the GI soft diet) Surgery Progress Note: Obj - Vital signs Vital signs: Vital Signs - Most Recent Temp Pulse Resp BP Pulse Ox 96.8 F L 67 20 129/68 96 01/19/19 03:39 01/17/19 13:32 01/15/19 15:30 01/17/19 13:32 01/19/19 07:41 - Physical Exam General: no distress Abdomen: soft, non tender, nondistended, positive bowel sounds Wound: healing well (The skin vac is removed. The wound is healing well) Surgery Progress Note: Results - Labs Result Diagrams: 01/19/19 05:14 01/19/19 03:30 Lab results: Laboratory Results - last 24 hr 01/19/19 01/19/19 01/19/19 03:30 05:14 05:30 WBC 9.9 RBC 2.76 L Hgb 7.9 L Hct 23.4 L MCV 85.0 MCH 28.5 MCHC 33.5 RDW 17.0 H Plt Count 154 MPV 8.1 Neutrophils % 65.1 Lymphocytes % 25.6 Monocytes % 5.6 Eosinophils % 3.7 Basophils % 0.1 Neutrophils # 6.4 Lymphocytes # 2.5 Monocytes # 0.6 H Eosinophils # 0.4 Basophils # 0.0 Sodium 136 Potassium 3.8 Chloride 103 Carbon Dioxide 28 Anion Gap 9 L BUN 7 L Creatinine 0.54 L Estimated GFR (MDRD) Greater than 90 Glucose 76 L POC Glucose 81 Calcium 7.6 L Surgery Progress Note: A/P - Problem (1) Clostridium difficile infection Current Visit: Yes Code(s): A49.8 - OTHER BACTERIAL INFECTIONS OF UNSPECIFIED SITE Status: Acute (2) DM2 (diabetes mellitus, type 2) Current Visit: Yes Status: Chronic (3) Enterocutaneous fistula Current Visit: No Code(s): K63.2 - FISTULA OF INTESTINE Status: Acute - Plan Plan: Slow improvement -Needs to ambulate in [place] today -Decide in next 48 hours home vs rehab
--- NOTE | 2019-01-19 11:09 | PDOC.CPN ---
- Subjective Date: 01/19/19 Time: 08:00 Interval history: Patient feels well today. no new cardiac concerns or complaints. Recovering from recent GI operation. Tubes remain in place. on IV amio gtt. - Review of Systems Respiratory: denies: cough, congestion, shortness of breath, exercise intolerance Cardiovascular: denies: chest pain, palpitation, edema, paroxysmal nocturnal dyspnea, orthopnea - Objective Allergies/Adverse Reactions: Allergies Allergy/AdvReac Type Severity Reaction Status Date / Time piroxicam Allergy Unknown Verified 12/23/18 14:25 morphine AdvReac Mild Verified 12/23/18 14:25 Visit Medications: Current Medications Acetaminophen (Tylenol) 650 mg OR Q4H PRN PRN Reason: Headache/Fever or Pain Acetaminophen (Tylenol) 1,000 mg PO Q6H PRN PRN Reason: FEVER/MILD PAIN Last Admin: 01/19/19 09:23 Dose: 1,000 mg Hydrocodone Bitart/Acetaminophen ([place] 7.5/325) 1 tab PO Q6H PRN PRN Reason: Mild Pain (1-3) Last Admin: 01/18/19 09:42 Dose: 1 tab Acidophilus (Floranex) 1 tab PO DAILY [facility] Last Admin: 01/19/19 09:23 Dose: 1 tab Albuterol/Ipratropium (Duoneb) 3 ml NEB Q4H PRN PRN Reason: Wheezing Amiodarone HCl (Cordarone) 400 mg PO BID [facility] Last Admin: 01/19/19 09:24 Dose: Not Given Amitriptyline HCl (Elavil) 25 mg PO HS [facility] Last Admin: 01/18/19 20:09 Dose: 25 mg Artificial Tears (Tears Naturale) 2 drop EA EYE PRN PRN PRN Reason: Dry Eyes Ascorbic Acid (Vitamin C) 500 mg PO DAILY [facility] Last Admin: 01/19/19 09:24 Dose: 500 mg Aspirin (Ecotrin) 81 mg PO HS [facility] Last Admin: 01/18/19 20:09 Dose: 81 mg Atorvastatin Calcium (Lipitor) 20 mg PO HS [facility] Last Admin: 01/18/19 20:08 Dose: 20 mg Bisacodyl (Dulcolax) 10 mg OR DAILYPRN PRN PRN Reason: Constipation Cholecalciferol (Vitamin D3) 2,000 units PO DAILY [facility] Last Admin: 01/19/19 09:23 Dose: 2,000 units Clopidogrel Bisulfate (Plavix) 75 mg PO 0900 [facility] Last Admin: 01/19/19 09:24 Dose: 75 mg Dextrose/Water (Dextrose 50%) 25 gm SLOW IVP PRN PRN PRN Reason: Hypoglycemia Diphenhydramine HCl (Benadryl) 25 mg IM/IV Q3H PRN PRN Reason: Itching Diphenhydramine HCl (Benadryl) 25 mg PO Q3H PRN PRN Reason: Itching Enoxaparin Sodium (Lovenox) 40 mg SC 2100 [facility] Last Admin: 01/18/19 20:09 Dose: 40 mg Famotidine (Pepcid) 20 mg PO BID [facility] Last Admin: 01/19/19 09:24 Dose: 20 mg Fentanyl (Sublimaze) 50 mcg SLOW IVP Q2H PRN PRN Reason: Breakthrough Pain Last Admin: 01/16/19 16:52 Dose: 50 mcg Ferrous Sulfate (Feosol) 650 mg PO DAILY [facility] Last Admin: 01/19/19 09:23 Dose: 650 mg Glucagon (Glucagon) 1 mg IM PRN PRN PRN Reason: Hypoglycemia Dextrose/Water (D5w) 1,000 mls @ 0 mls/hr IV .Q0M PRN PRN Reason: Hypoglycemia Insulin Glargine 50 units/ (Miscellaneous Medication) 0.5 mls @ 0 mls/hr SC HS [facility] Last Admin: 01/18/19 20:10 Dose: 0.5 mls Insulin Human Lispro (Humalog) 0 units SC .AGGRESSIVE SLIDING PRN PRN Reason: Aggressive Correctional Scale Last Admin: 01/17/19 12:10 Dose: 3 unit Levofloxacin (Levaquin) 500 mg PO 0600 [facility] Last Admin: 01/19/19 05:18 Dose: 500 mg Levothyroxine Sodium (Synthroid) 224 mcg PO 0600 [facility] Last Admin: 01/19/19 05:18 Dose: 224 mcg Levothyroxine Sodium (Synthroid) 50 mcg PO 0600 [facility] Last Admin: 01/19/19 05:19 Dose: 50 mcg Liothyronine Sodium (Cytomel) 5 mcg PO 0600 [facility] Last Admin: 01/19/19 05:19 Dose: 5 mcg Magnesium Chloride (Slow-Mag) 64 mg PO BID [facility] Last Admin: 01/19/19 09:22 Dose: 64 mg Naloxone HCl (Narcan) 0.2 mg IV Q5MIN PRN PRN Reason: RR <8 or pt obtun/unarousable Octreotide Acetate (Sandostatin) 100 mcg SLOW IVP 0200,1000,1800 [facility] Last Admin: 01/19/19 09:23 Dose: 100 mcg Ondansetron HCl (Zofran) 4 mg IVP Q6H PRN PRN Reason: Nausea/Vomiting Last Admin: 01/15/19 20:20 Dose: 4 mg Paroxetine HCl (Paxil) 20 mg PO DAILY [facility] Last Admin: 01/19/19 09:23 Dose: 20 mg Promethazine HCl (Phenergan) 12.5 mg IM Q4H PRN PRN Reason: Nausea/Vomiting Sodium Chloride ([place] Nasal [place] 0.65%) 0 ml EA NARE QIDPRN PRN PRN Reason: Nasal Congestion Sodium Chloride (Flush - Normal Saline) 10 ml IVF PRN PRN PRN Reason: Saline Flush Last Admin: 01/17/19 06:16 Dose: 10 ml Throat Lozenges (Cepastat Lozenges) 1 sulaiman PO Q2H PRN PRN Reason: Sore Throat Last Admin: 01/16/19 18:10 Dose: 1 sulaiman Vital Signs & Weight: Vital Signs Temp Pulse Ox 01/19/19 07:41 96 01/19/19 03:39 96.8 F L 01/18/19 23:55 98.6 F Admit Weight 224 lb 11.2 oz Weight 240 lb 1 oz - Physical Exam General: alert & oriented x3, appears well, no apparent distress HEENT: mucus membranes moist, normocephaly Neck: supple neck, midline trachea Cardiac: no murmur Lungs: clear to auscultation, normal breath sounds Neuro: grossly intact, no lateralizing findings - Labs Result Diagrams: 01/19/19 05:14 01/19/19 03:30 Troponin/CKMB Troponin I Less than 0.010 ng/mL (< 0.028) 01/14/19 05:42 - Telemetry Sinus rhythms and dysrhythmias: sinus rhythm - Assessment/Plan Assessment/Plan: 1. Recurrent atrial arrhythmias. a. History of persistent atrial fibrillation status post pulmonary venous isolation procedure x2 by Dr. Escamilla, most recently in May 2018. b. Recurrent atypical atrial flutter, clinically well suppressed with Tikosyn upon to admission. c. Currently on IV amiodarone. Hence, recurrent atrial flutter was seen perioperatively after of GI fistula repair. 2. Nonsustained ventricular wide-complex tachycardia, possibly ventricular tachycardia versus aberrancy conducted 1:1 atypical atrial flutter. 3. History of Watchman device placement with Xarelto discontinued. Currently on aspirin and Plavix only. 4. Preserved LVEF at 55% to 60%, mild MR, mild TR, mild left atrial enlargement , and diastolic dysfunction on echo 01/14/2019. 5. Enterocutaneous fistula status post exploratory laparotomy and extensive lysis of adhesions, small bowel resection and primary anastomosis, incisional hernia repair. 6. Type 2 diabetes. 7. Morbid obesity. 8. Hypovolemic shock, not resolving. 9. History of hypothyroidism. Continue IV amiodarone. Will transition to PO once GI function normalizes post op. DAPT with ASA and plavix post EDWINA closure in past.
[2019-01-19] MEDS ORDERED: Milk Of Magnesia 30 ML UDCUP PO SCH (11:15)
--- NOTE | 2019-01-19 12:06 | PRG ---
DATE OF SERVICE: 01/19/2019 SUBJECTIVE: The patient is seen and examined at the bedside. She is feeling better every day, but she has some discomfort, which is in the right flank when she sits up. OBJECTIVE: VITAL SIGNS: Blood pressure is 112/66, pulse 71, respiratory rate is 23, O2 saturation is 100. HEENT: Head is atraumatic and normocephalic. Sclerae are nonicteric. Oral mucosa is moist. NECK: Supple. Obese. LUNGS: Breath sounds slightly diminished at both bases. No rales. Few crackles present. HEART: S1 and S2 normal. No S3. No S4. ABDOMEN: Obese. The incision in the midline is healing properly. Two drains on both sides of the abdomen in place and draining bloody fluid. Bowel sounds are present. EXTREMITIES: No clubbing or cyanosis. There is 1+ peripheral edema, similar, bilaterally on both lower extremities. NEUROLOGIC: She is awake and alert, oriented x4. There are no any motor deficits. LABORATORY DATA: Labs showed a white count of 9.9, hemoglobin 7.9, hematocrit 23.4, platelet count is 154,000. Sodium of 136, potassium 3.8, chloride 103, CO2 of 28, BUN of 7, creatinine of 0.54, glycemia is ranging from 81 to 173, calcium is 7.6. IMPRESSION: 1. Clostridium difficile colitis, status post completion of oral vancomycin course. 2. Enterocutaneous fistula, status post exploratory laparotomy, excision and lysis of adhesions, small bowel resection and primary anastomosis, and incisional hernia repair. 3. Diabetes mellitus, type 2, improved. 4. Hyponatremia, improved. 5. Atrial fibrillation, paroxysmal. 6. Hypotension, somewhat better, but still not in her normal level. 7. Hyperkalemia, resolved. 8. Hypothyroidism, on supplementation. 9. Postoperative hypovolemic shock, resolved, although the blood pressure is still borderline. DISCUSSION: The patient was started on soft diet, so Cardiology most likely will change her IV drip of amiodarone to p.o. and we will continue her 50 units of long-acting insulin once a day along with sliding scale. We will continue her Levaquin p.o. and continue physical therapy. Job ID: [id number]
--- NOTE | 2019-01-19 12:44 | PQF ---
CLINICAL DOCUMENTATION IMPROVEMENT CLARIFICATION FORM: ICD-10 Updated PLEASE DO AN ADDENDUM TO THE PROGRESS NOTE WITH ANY DOCUMENTATION UPDATES OR ADDITIONS AND CARRY THROUGH TO DC SUMMARY. THANK YOU. DATE: 01/19/2019 ATTN: Dr. Gomez Please exercise your independent, professional judgment in responding to the clarification form. Clinical indicators are provided on the bottom of this form for your review Please check appropriate box(s): [ x ] Acute Renal Failure (ARF) / Acute Kidney Injury (DIGNA) [ ] Other Etiology or underlying conditions related to the diagnosis of ARF/ DIGNA: [ ] Other diagnosis [ ] Unable to determine In addition, please specify: Present on Admission (POA): [ ] Yes [x ] No [ ] Unable to determine For continuity of documentation, please document condition throughout progress notes and discharge summary. Thank You. CLINICAL INDICATORS - SIGNS / SYMPTOMS / LABS 12/23 01/13 01/14 @ 0542 01/15@ 0454 01/17 LABS: Creatinine 0.66 0.71 1.13 1.65 0.56 PN 01/16 (Parrent) creatinine 1.53 Her creatinine did bump slightly to 1.53. She is making urine, although in small amounts. RISKS: 01/14 (Becerra) Postoperative hypovolemic shock TEATMENT: Event Note 01/14: pt has developed persistent hypotension, aggressive fluid resuscitation being given Order 01/14: NS 1,000 ml IV Bolus National Kidney Foundation Guidelines for CKD Staging Stage I Kidney damage with normal or increased GFR GFR > 90 Stage II Kidney damage with mildly decreased GFR GFR 60-89 Stage III Kidney damage with moderately decreased GFR GFR 30-59 Stage IV Kidney damage with severely decreased GFR GFR 16-29 Stage V Kidney failure GFR<15 ESRD End Stage Renal Disease On dialysis Acute Renal Failure/Acute Kidney Failure defined as: Increases in SCr by (>) 0.3 mg/dl within 48 hours OR- Increases in SCr by (>) 1.5 times baseline, known or presumed to have occurred within the prior 7 days OR- Urine volume < 0.5 ml/kg/hour for 6 hours (KDIGO supplement 2012 for RIFLE/ANTONIO criteria) Thank you, Beverley (This form is maintained as a part of the permanent medical record) 2014 [employer]. All Rights Reserved Beverley Jarrett RN, BSN [email or web address] Office: [phone] [facility] HOS[facility]ITALJonny
--- NOTE | 2019-01-19 13:52 | PQF ---
CLINICAL DOCUMENTATION IMPROVEMENT CLARIFICATION FORM: ICD-10 Updated PLEASE DO AN ADDENDUM TO THE PROGRESS NOTE WITH ANY DOCUMENTATION UPDATES OR ADDITIONS AND CARRY THROUGH TO DC SUMMARY. THANK YOU. DATE: 01/19/2019; 01/20/2019; 01/21/2019 ATTN: Dr. Garcia Please exercise your independent, professional judgment in responding to the clarification form. Clinical indicators are provided on the bottom of this form for your review Please check appropriate box(s): [ ] Acute blood loss anemia [ x] Post-op anemia related to acute blood loss [ ] Other diagnosis [ ] Unable to determine In addition, please specify: Present on Admission (POA): [ ] Yes [ x ] No [ ] Unable to determine For continuity of documentation, please document condition throughout progress notes and discharge summary. Thank You. CLINICAL INDICATORS - SIGNS / SYMPTOMS / LABS / RESULTS AND LOCATION IN EMR 01/15 (Jose) Hgb 6.9 Hct 21.1 POD 2 Transfuse 2 more units. I suspect diffuse oozing from her subcutaneous pocket 01/15 (Martinez) Anemia due to blood loss. RISKS: Operative Note 01/13: Exploratory laparotomy, extensive lysis of adhesions, small bowel resection and primary anastomosis, incisional hernia repair with mesh. EBL 400ml 01/14 (Mariam) Postoperative hypovolemic shock TREATMENT: 01/15 (Jose) Transfuse 2 more units. I suspect diffuse oozing from her subcutaneous pocket Order 01/15: 2 PRBC Thank you, Beverley (This form is maintained as a part of the permanent medical record) 2014 [employer] All Rights Reserved Beverley Jarrett RN, BSN [email or web address] Office: [phone] [facility]
--- NOTE | 2019-01-19 14:41 | PQF ---
CLINICAL DOCUMENTATION IMPROVEMENT CLARIFICATION FORM: ICD-10 Updated PLEASE DO AN ADDENDUM TO THE PROGRESS NOTE WITH ANY DOCUMENTATION UPDATES OR ADDITIONS AND CARRY THROUGH TO DC SUMMARY. THANK YOU. DATE: 01/19/2019; 01/20/2019;01/21/2019 ATTN: Dr. Garcia Please exercise your independent, professional judgment in responding to the clarification form. Clinical indicators are provided on the bottom of this form for your review Please check appropriate box(s) to clarify if the following diagnosis has been ruled in or ruled out: SEPSIS [ ] Ruled in diagnosis [ ] Continue to treat [ ] Resolved [ X ] Ruled out diagnosis [ ] Cannot rule out diagnosis [ ] Other diagnosis [ ] Unable to determine In addition, please specify: Present on Admission (POA): [ ] Yes [ X ] No [ ] Unable to determine For continuity of documentation, please document condition throughout progress notes and discharge summary. Thank You. CLINICAL INDICATORS - SIGNS / SYMPTOMS / LABS 01/14 (Martinez) VS: Heart rate 125, BP currently reading 79/61 Labs: Lactate earlier today 3.6 White blood cell count 23.1 Asses: Presumed septic shock vs hypovolemic shock. Severe hyperkalemia Hyperglycemia 01/16-01/17 (Garett) Sepsis Hypotension 01/18 (Jason) Postoperative hypovolemic shock, resolved. RISKS: Operative Note 01/13: Exploratory laparotomy, extensive lysis of adhesions, small bowel resection and primary anastomosis, incisional hernia repair with mesh. EBL 400ml 01/14 (Mariam) Postoperative hypovolemic shock TREATMENT: 01/14 (Barry) aggressive fluid resuscitation being given 01/15 (Jason) Her BP is still running on the lower side and she is still requiring 2 mg levophed We will continue vancomycin and meropenem Thank you, Beverley (This form is maintained as a part of the permanent medical record) 2014 [employer]. All Rights Reserved Beverley Jarrett RN, BSN [email or web address] Office: [phone] [facility]
[2019-01-19] MEDS ORDERED: Amiodarone HCl 450 MG in Dextrose 5% in Water 250 ML IVPB SCH (17:00)
[2019-01-19] MEDS ORDERED: Amiodarone HCl 150 MG in Dextrose 5% in Water 100 ML IVPB SCH (17:00)
--- NOTE | 2019-01-19 17:34 | PRG ---
DATE OF SERVICE: 01/19/2019 SUBJECTIVE: Ms. Lepe is doing well today. She is tolerating GI soft diet without difficulty. She had a small bowel movement this morning. OBJECTIVE: Afebrile. Vital signs are stable. Her wounds are healing well. I took off her superficial wound VAC, revealing a closed incision underneath. All dressings are changed. ASSESSMENT: Doing well, status post exploratory laparotomy and small bowel resection for enterocutaneous fistula. PLAN: She needs to be more active. Physical therapy did not come by yesterday. They need to be walking around the hallway. We will decide in the next few days whether she is going to need detention or not. Job ID: [id number]
[2019-01-19] MEDS: Aspirin 81 mg Enteric Coated Tablet PO SCH (21:30)
[2019-01-19] MEDS: Atorvastatin Calcium 20 MG TAB PO SCH (21:30)
[2019-01-19] MEDS: Amitriptyline HCl 25 MG TAB PO SCH (21:30)
[2019-01-19] MEDS: Enoxaparin Sodium 40 MG/0.4 ML SYRINGE SC SCH (21:30)
[2019-01-19] MEDS: Insulin Glargine 50 UNITS in Pre-Filled Syringe 1 EACH SC SCH (21:31)
[2019-01-20] MEDS: Octreotide Acetate 100 MCG/ML VIAL SLOW IVP SCH ×3 (02:00→18:10)
[2019-01-20] MEDS: Acetaminophen 500 MG TAB PO PRN ×2 (02:09→17:52)
[2019-01-20 04:20] LABS: #Eosinphils 0.4 thou/uL (0.0-0.7); #Lymphocytes 3.8 thou/uL (1.20-3.40); #Monocytes 0.8 thou/uL (0.11-0.59); #Neutrophils 8.5 thou/uL (1.40-6.50); %Basophils 0.2 % (0.0-1.0); %Eosinophils 2.8 % (0.0-10.0); %Lymphocytes 28.2 % (21.0-51.0); %Neutrophils 62.9 % (42.0-75.0); Hemoglobin 8.6 g/dL (12.0-16.0); Mean Corpuscular HGB CONC 33.4 g/dL (32.0-36.0); Mean Corpuscular Hemoglobin 28.4 pg (27.0-31.0); Mean Corpuscular Volume 84.8 fL (78.0-98.0); Mean Platelet Volume 8.1 fL (7.4-10.4); Platelet Count 195 thou/uL (130-400); RBC Distribution Width 16.7 % (11.5-14.5); Red Blood Cell (RBC) Count 3.04 mill/uL (4.20-5.40); White Blood Cell (WBC) Count 13.4 thou/uL (4.8-10.8)
[2019-01-20 04:42] LABS: Anion Gap 13 mmol/L (10-20); BUN (Urea Nitrogen) 6 mg/dL (9.8-20.1); Calc. Creatinine Clearance 158 mL/min (70-130); Calcium 7.9 mg/dL (7.8-10.44); Carbon Dioxide 25 mmol/L (23-31); Chloride 98 mmol/L (98-107); Estimated GFR-MDRD Greater than 90; Glucose 60 mg/dL (80-115); Potassium 3.6 mmol/L (3.5-5.1); Sodium 132 mmol/L (136-145)
[2019-01-20] MEDS: Liothyronine Sodium 5 MCG TAB PO SCH (06:44)
[2019-01-20] MEDS: Levothyroxine Sodium 112 MCG TAB PO SCH (06:44)
[2019-01-20] MEDS: Levothyroxine Sodium 25 MCG TAB PO SCH (06:44)
--- NOTE | 2019-01-20 08:44 | PRG ---
DATE OF SERVICE: 01/20/2019 SUBJECTIVE: She is doing well. She had no acute complaints. OBJECTIVE: VITAL SIGNS: Temperature 97.3, pulse 71, blood pressure 100/57. HEENT: Unremarkable. NECK: No adenopathy or JVD. LUNGS: Fairly clear. CARDIAC: S1 and S2. Regular. ABDOMEN: Soft. EXTREMITIES: No edema. LABORATORY DATA: White blood cell count 13.4, hematocrit 25.8, and platelet count 195. Sodium 132, potassium 3.6, chloride 98, CO2 of 25, BUN 6, creatinine 0.6, and glucose 60. ASSESSMENT: 1. Stable post exploratory laparotomy. 2. Anemia. PLAN: She can be transferred out to telemetry. I believe her amiodarone could be switched to oral, but I will leave that up to the Cardiology group. Job ID: [id number]
[2019-01-20] MEDS: Magnesium Chloride 64 MG TAB PO SCH ×2 (09:06→21:16)
[2019-01-20] MEDS: Clopidogrel Bisulfate 75 MG TAB PO SCH (09:06)
[2019-01-20] MEDS: Famotidine 20 MG TAB PO SCH ×2 (09:06→21:17)
[2019-01-20] MEDS: PARoxetine 20 MG TAB PO SCH (09:06)
[2019-01-20] MEDS: Amiodarone 200 MG TAB PO SCH ×2 (09:06→21:18)
[2019-01-20] MEDS: Lactinex Tablet PO SCH (09:06)
[2019-01-20] MEDS: Ascorbic Acid 500 mg Chewable Tablet PO SCH (09:07)
[2019-01-20] MEDS: Ferrous Sulfate 325 MG TAB PO SCH (09:07)
--- NOTE | 2019-01-20 11:08 | PRG ---
DATE OF SERVICE: 01/20/2019 SUBJECTIVE: The patient is seen and examined at the bedside. Her abdominal discomfort improved. She is able to tolerate food. She participates in physical therapy. OBJECTIVE: VITAL SIGNS: Blood pressure is 105/63, pulse is 72, respiratory rate is 13, and O2 saturation is 100% on room air. HEENT: Head is atraumatic and normocephalic. Sclerae are nonicteric. Conjunctivae are pinkish. Oral mucosa is moist. NECK: Supple and obese. LUNGS: Diminished breath sounds at both bases with sporadic crackles. HEART: S1 and S2, regular. No S3. No S4. ABDOMEN: Obese. Incision in the midline looks good. She still has 2 drains, draining bloody fluid. NEUROLOGIC: She follows my commands. She moves her all 4 extremities. There are no any motor deficits. LABORATORY DATA: Labs showed white count of 13.4, hemoglobin of 8.6, hematocrit 25.8, platelet count is 195,000. Sodium of 132, potassium 3.6, chloride 98, CO2 of 25, creatinine 0.6, BUN of 6, and glycemia is ranging from 65 to 209. IMPRESSION: 1. Clostridium difficile colitis, status post completion of oral vancomycin course. 2. Enterocutaneous fistula, status post exploratory laparotomy, excision and lysis of adhesions, small-bowel resection and primary anastomosis, and incisional hernia repair. 3. Diabetes mellitus, type 2 with some hypoglycemia every morning. 4. Hyponatremia, improved. 5. Atrial fibrillation, paroxysmal. 6. Hypotension, somewhat better. 7. Hyperkalemia, resolved. 8. Hypothyroidism, on supplementation. 9. Postoperative hypovolemic shock, resolved. DISCUSSION: The patient is tolerating soft diet. She is switched to oral amiodarone. She remains in sinus rhythm. Her insulin dose was cut to 50 units to prevent morning hypoglycemia. She will continue on Levaquin. She will continue physical therapy and she will make decision about going home or going to the rehab. Job ID: [id number]
--- NOTE | 2019-01-20 13:04 | PDOC.CPN ---
- Subjective Date: 01/20/19 Time: 13:03 Interval history: Patient feels well today. no new cardiac concerns or complaints. Recovering from recent GI operation. now in PO amiodarone - Review of Systems General: denies: fever/chills, weight/appetite/sleep changes, night sweats, fatigue Respiratory: denies: cough, congestion, shortness of breath, exercise intolerance Cardiovascular: denies: chest pain, palpitation, edema, paroxysmal nocturnal dyspnea, orthopnea Gastrointestinal: denies: nausea, vomiting, diarrhea, constipation, abd pain, GI bleeding Musculoskeletal: denies: pain, tenderness, stiffness, swelling, arthritis/ arthralgias Neurological: denies: numbness, syncope, seizure, weakness - Objective Allergies/Adverse Reactions: Allergies Allergy/AdvReac Type Severity Reaction Status Date / Time piroxicam Allergy Unknown Verified 12/23/18 14:25 morphine AdvReac Mild Verified 12/23/18 14:25 Visit Medications: Current Medications Acetaminophen (Tylenol) 650 mg LA Q4H PRN PRN Reason: Headache/Fever or Pain Acetaminophen (Tylenol) 1,000 mg PO Q6H PRN PRN Reason: FEVER/MILD PAIN Last Admin: 01/20/19 02:09 Dose: 1,000 mg Hydrocodone Bitart/Acetaminophen ([place] 7.5/325) 1 tab PO Q6H PRN PRN Reason: Mild Pain (1-3) Last Admin: 01/18/19 09:42 Dose: 1 tab Acidophilus (Floranex) 1 tab PO DAILY [facility] Last Admin: 01/20/19 09:06 Dose: 1 tab Albuterol/Ipratropium (Duoneb) 3 ml NEB Q4H PRN PRN Reason: Wheezing Amiodarone HCl (Cordarone) 400 mg PO BID [facility] Last Admin: 01/20/19 09:06 Dose: 400 mg Amitriptyline HCl (Elavil) 25 mg PO HS [facility] Last Admin: 01/19/19 21:30 Dose: 25 mg Artificial Tears (Tears Naturale) 2 drop EA EYE PRN PRN PRN Reason: Dry Eyes Ascorbic Acid (Vitamin C) 500 mg PO DAILY [facility] Last Admin: 01/20/19 09:07 Dose: 500 mg Aspirin (Ecotrin) 81 mg PO HS [facility] Last Admin: 01/19/19 21:30 Dose: 81 mg Atorvastatin Calcium (Lipitor) 20 mg PO HS [facility] Last Admin: 01/19/19 21:30 Dose: 20 mg Bisacodyl (Dulcolax) 10 mg LA DAILYPRN PRN PRN Reason: Constipation Cholecalciferol (Vitamin D3) 2,000 units PO DAILY [facility] Last Admin: 01/20/19 09:06 Dose: 2,000 units Clopidogrel Bisulfate (Plavix) 75 mg PO 0900 [facility] Last Admin: 01/20/19 09:06 Dose: 75 mg Dextrose/Water (Dextrose 50%) 25 gm SLOW IVP PRN PRN PRN Reason: Hypoglycemia Diphenhydramine HCl (Benadryl) 25 mg IM/IV Q3H PRN PRN Reason: Itching Diphenhydramine HCl (Benadryl) 25 mg PO Q3H PRN PRN Reason: Itching Enoxaparin Sodium (Lovenox) 40 mg SC 2100 [facility] Last Admin: 01/19/19 21:30 Dose: 40 mg Famotidine (Pepcid) 20 mg PO BID [facility] Last Admin: 01/20/19 09:06 Dose: 20 mg Fentanyl (Sublimaze) 50 mcg SLOW IVP Q2H PRN PRN Reason: Breakthrough Pain Last Admin: 01/16/19 16:52 Dose: 50 mcg Ferrous Sulfate (Feosol) 650 mg PO DAILY [facility] Last Admin: 01/20/19 09:07 Dose: 650 mg Glucagon (Glucagon) 1 mg IM PRN PRN PRN Reason: Hypoglycemia Dextrose/Water (D5w) 1,000 mls @ 0 mls/hr IV .Q0M PRN PRN Reason: Hypoglycemia Insulin Glargine 50 units/ (Miscellaneous Medication) 0.5 mls @ 0 mls/hr SC [facility] Last Admin: 01/19/19 21:31 Dose: 0.5 mls Insulin Human Lispro (Humalog) 0 units SC .AGGRESSIVE SLIDING PRN PRN Reason: Aggressive Correctional Scale Last Admin: 01/17/19 12:10 Dose: 3 unit Levofloxacin (Levaquin) 500 mg PO 0600 [facility] Last Admin: 01/20/19 06:44 Dose: 500 mg Levothyroxine Sodium (Synthroid) 224 mcg PO 0600 [facility] Last Admin: 01/20/19 06:44 Dose: 224 mcg Levothyroxine Sodium (Synthroid) 50 mcg PO 0600 [facility] Last Admin: 01/20/19 06:44 Dose: 50 mcg Liothyronine Sodium (Cytomel) 5 mcg PO 0600 [facility] Last Admin: 01/20/19 06:44 Dose: 5 mcg Magnesium Chloride (Slow-Mag) 64 mg PO BID [facility] Last Admin: 01/20/19 09:06 Dose: 64 mg Naloxone HCl (Narcan) 0.2 mg IV Q5MIN PRN PRN Reason: RR <8 or pt obtun/unarousable Octreotide Acetate (Sandostatin) 100 mcg SLOW IVP 0200,1000,1800 [facility] Last Admin: 01/20/19 09:06 Dose: 100 mcg Ondansetron HCl (Zofran) 4 mg IVP Q6H PRN PRN Reason: Nausea/Vomiting Last Admin: 01/15/19 20:20 Dose: 4 mg Paroxetine HCl (Paxil) 20 mg PO DAILY [facility] Last Admin: 01/20/19 09:06 Dose: 20 mg Promethazine HCl (Phenergan) 12.5 mg IM Q4H PRN PRN Reason: Nausea/Vomiting Saccharomyces Boulardii (Florastor) 250 mg PO DAILY [facility] Sodium Chloride ([place] Nasal [place] 0.65%) 0 ml EA NARE QIDPRN PRN PRN Reason: Nasal Congestion Sodium Chloride (Flush - Normal Saline) 10 ml IVF PRN PRN PRN Reason: Saline Flush Last Admin: 01/17/19 06:16 Dose: 10 ml Throat Lozenges (Cepastat Lozenges) 1 sulaiman PO Q2H PRN PRN Reason: Sore Throat Last Admin: 01/16/19 18:10 Dose: 1 sulaiman Vital Signs & Weight: Vital Signs Temp Pulse Ox 01/20/19 11:20 97.8 F 01/20/19 07:55 98 01/20/19 07:29 97.3 F L 01/20/19 04:00 100.0 F H Admit Weight 224 lb 11.2 oz Weight 243 lb 3 oz - Physical Exam General: alert & oriented x3 HEENT: mucus membranes moist Neck: supple neck, midline trachea Cardiac: regular rate and rhythm, no murmur Lungs: clear to auscultation, normal breath sounds Neuro: grossly intact Abdomen: soft, non-tender - Labs Result Diagrams: 01/20/19 03:53 01/20/19 03:53 Troponin/CKMB Troponin I Less than 0.010 ng/mL (< 0.028) 01/14/19 05:42 - Telemetry Sinus rhythms and dysrhythmias: sinus rhythm - Assessment/Plan Assessment/Plan: 1. Recurrent atrial arrhythmias. a. History of persistent atrial fibrillation status post pulmonary venous isolation procedure x2 by Dr. Escamilla, most recently in May 2018. b. Recurrent atypical atrial flutter, clinically well suppressed with Tikosyn upon to admission. c. Currently on IV amiodarone. Hence, recurrent atrial flutter was seen perioperatively after of GI fistula repair. 2. Nonsustained ventricular wide-complex tachycardia, possibly ventricular tachycardia versus aberrancy conducted 1:1 atypical atrial flutter. 3. History of Watchman device placement with Xarelto discontinued. Currently on aspirin and Plavix only. 4. Preserved LVEF at 55% to 60%, mild MR, mild TR, mild left atrial enlargement , and diastolic dysfunction on echo 01/14/2019. 5. Enterocutaneous fistula status post exploratory laparotomy and extensive lysis of adhesions, small bowel resection and primary anastomosis, incisional hernia repair. 6. Type 2 diabetes. 7. Morbid obesity. 8. Hypovolemic shock, not resolving. 9. History of hypothyroidism. DAPT with ASA and plavix post EDWINA closure in past. Amiodarone 200mg PO BID, given the length of time the IV gtt infused.
--- NOTE | 2019-01-20 14:21 | PDOC.GSPN ---
Surgery Progress Note: Subj - Subjective Patient reports: no new complaints, pain well controlled, tolerating liquids well Narrative: s/p laparotomy & enterocutaneous fistula repair. Continues to improve. Very small BM yesterday am & pm. Walked 300+ feet with PT today. Tolerating PO intake well. No concerns. Surgery Progress Note: Obj - Vital signs Vital signs: Vital Signs - Most Recent Temp Pulse Resp BP Pulse Ox 97.8 F 72 20 105/63 100 01/20/19 11:20 01/20/19 09:32 01/15/19 15:30 01/20/19 09:32 01/20/19 09:32 - Physical Exam General: no distress, well developed, well nourished, obese Abdomen: appropriately tender Genitourinary (Female): other (Freeman catheter in place.) Wound: dressing clean,dry,intact, healing well, other (Dressings to midline incision & drain sites clean/dry/intact/without drainage. Exposed proximal midline incision well approximated & without jimi-wound erythema or fluctuance.) Surgery Progress Note: Results - Labs Result Diagrams: 01/20/19 03:53 01/20/19 03:53 Lab results: Laboratory Results - last 24 hr 01/20/19 01/20/19 01/20/19 03:53 03:53 06:50 WBC 13.4 H RBC 3.04 L Hgb 8.6 L Hct 25.8 L MCV 84.8 MCH 28.4 MCHC 33.4 RDW 16.7 H Plt Count 195 MPV 8.1 Neutrophils % 62.9 Lymphocytes % 28.2 Monocytes % 6.0 Eosinophils % 2.8 Basophils % 0.2 Neutrophils # 8.5 H Lymphocytes # 3.8 H Monocytes # 0.8 H Eosinophils # 0.4 Basophils # 0.0 Sodium 132 L Potassium 3.6 Chloride 98 Carbon Dioxide 25 Anion Gap 13 BUN 6 L Creatinine 0.60 Estimated GFR (MDRD) Greater than 90 Glucose 60 L POC Glucose 65 L Calcium 7.9 01/20/19 13:54 WBC RBC Hgb Hct MCV MCH MCHC RDW Plt Count MPV Neutrophils % Lymphocytes % Monocytes % Eosinophils % Basophils % Neutrophils # Lymphocytes # Monocytes # Eosinophils # Basophils # Sodium Potassium Chloride Carbon Dioxide Anion Gap BUN Creatinine Estimated GFR (MDRD) Glucose POC Glucose 93 Calcium Surgery Progress Note: A/P - Problem (1) Enterocutaneous fistula Current Visit: No Code(s): K63.2 - FISTULA OF INTESTINE Status: Acute - Plan Plan: s/p repair. Overall doing well, continues to improve. Wounds healing appropriately. Anticipate transfer to tele floor later today. Will continue to monitor functional status to determine d/c home vs rehab vs SNF. If continues to improve, anticpate d/c by end of week. Plan for f/u tomorrow.
[2019-01-20] MEDS: Enoxaparin Sodium 40 MG/0.4 ML SYRINGE SC SCH (21:17)
[2019-01-20] MEDS: Aspirin 81 mg Enteric Coated Tablet PO SCH (21:17)
[2019-01-20] MEDS: Atorvastatin Calcium 20 MG TAB PO SCH (21:17)
[2019-01-20] MEDS: Amitriptyline HCl 25 MG TAB PO SCH (21:18)
[2019-01-20] MEDS: Insulin Glargine 50 UNITS in Pre-Filled Syringe 1 EACH SC SCH (21:24)
[2019-01-21] MEDS: Octreotide Acetate 100 MCG/ML VIAL SLOW IVP SCH ×3 (02:53→18:27)
[2019-01-21] MEDS: Acetaminophen 500 MG TAB PO PRN (02:55)
[2019-01-21] MEDS: Levothyroxine Sodium 25 MCG TAB PO SCH (05:33)
[2019-01-21] MEDS: Liothyronine Sodium 5 MCG TAB PO SCH (05:33)
[2019-01-21] MEDS: Levothyroxine Sodium 112 MCG TAB PO SCH (05:33)
[2019-01-21] MEDS: Amiodarone 200 MG TAB PO SCH ×2 (10:04→20:22)
[2019-01-21] MEDS: Ascorbic Acid 500 mg Chewable Tablet PO SCH (10:05)
[2019-01-21] MEDS: Famotidine 20 MG TAB PO SCH ×2 (10:05→20:22)
[2019-01-21] MEDS: Ferrous Sulfate 325 MG TAB PO SCH (10:05)
[2019-01-21] MEDS: Clopidogrel Bisulfate 75 MG TAB PO SCH (10:05)
[2019-01-21] MEDS: Lactinex Tablet PO SCH (10:06)
[2019-01-21] MEDS: PARoxetine 20 MG TAB PO SCH (10:07)
[2019-01-21] MEDS: Magnesium Chloride 64 MG TAB PO SCH ×2 (10:07→20:22)
[2019-01-21] MEDS: Saccharomyces boulardii 250 MG CAP PO SCH (10:07)
--- NOTE | 2019-01-21 10:58 | PDOC.CPN ---
- Subjective Date: 01/21/19 Time: 08:00 Interval history: tolerating amiodarone well. No GI complaints. States she feel this AM and is tired. No new cardiac concerns. - Review of Systems General: denies: fever/chills, weight/appetite/sleep changes, night sweats, fatigue Respiratory: denies: cough, congestion, shortness of breath, exercise intolerance Cardiovascular: denies: chest pain, palpitation, edema, paroxysmal nocturnal dyspnea, orthopnea Gastrointestinal: denies: nausea, vomiting, diarrhea, constipation, abd pain, GI bleeding Musculoskeletal: denies: pain, tenderness, stiffness, swelling, arthritis/ arthralgias - Objective Allergies/Adverse Reactions: Allergies Allergy/AdvReac Type Severity Reaction Status Date / Time piroxicam Allergy Unknown Verified 12/23/18 14:25 morphine AdvReac Mild Verified 12/23/18 14:25 Visit Medications: Current Medications Vital Signs & Weight: Vital Signs Temp Pulse Resp BP BP Pulse Ox 01/21/19 07:50 98.6 F 75 18 119/59 L 100 01/21/19 04:00 98.2 F 73 20 108/51 L 94 L Admit Weight 224 lb 11.2 oz Weight 244 lb 7 oz - Physical Exam General: alert & oriented x3 HEENT: mucus membranes moist Neck: supple neck, no JVD/HJR Cardiac: regular rate and rhythm Lungs: clear to auscultation, normal breath sounds Neuro: grossly intact Abdomen: unremarkable, active bowel sounds - Labs Result Diagrams: 01/20/19 03:53 01/20/19 03:53 Troponin/CKMB Troponin I Less than 0.010 ng/mL (< 0.028) 01/14/19 05:42 - Telemetry Sinus rhythms and dysrhythmias: sinus rhythm - Assessment/Plan Assessment/Plan: 1. Recurrent atrial arrhythmias. a. History of persistent atrial fibrillation status post pulmonary venous isolation procedure x2 by Dr. Escamilla, most recently in May 2018. b. Recurrent atypical atrial flutter, clinically well suppressed with Tikosyn upon to admission. c. Currently on IV amiodarone. Hence, recurrent atrial flutter was seen perioperatively after of GI fistula repair. 2. Nonsustained ventricular wide-complex tachycardia, possibly ventricular tachycardia versus aberrancy conducted 1:1 atypical atrial flutter. 3. History of Watchman device placement with Xarelto discontinued. Currently on aspirin and Plavix only. 4. Preserved LVEF at 55% to 60%, mild MR, mild TR, mild left atrial enlargement , and diastolic dysfunction on echo 01/14/2019. 5. Enterocutaneous fistula status post exploratory laparotomy and extensive lysis of adhesions, small bowel resection and primary anastomosis, incisional hernia repair. 6. Type 2 diabetes. 7. Morbid obesity. 8. Hypovolemic shock, not resolving. 9. History of hypothyroidism. DAPT with ASA and plavix post EDWINA closure in past. Amiodarone 200mg PO BID, given the length of time the IV gtt infused. Continue current therapy. Amiodarone 200mg PO BID, eventually will reduce to 200mg daily.
--- NOTE | 2019-01-21 12:02 | PDOC.HOSPP ---
- Subjective Encounter Date: 01/21/19 Encounter Time: 12:03 Subjective: no abd pain , nusea - Objective Vital Signs & Weight: Vital Signs (12 hours) Temp Pulse Resp BP BP Pulse Ox 01/21/19 11:45 98.6 F 70 18 121/63 97 01/21/19 08:15 100 01/21/19 07:50 98.6 F 75 18 119/59 L 100 01/21/19 04:00 98.2 F 73 20 108/51 L 94 L Weight Admit Weight 224 lb 11.2 oz Weight 244 lb 7 oz Most Recent Monitor Data Heart Rate from ECG 91 NIBP 136/77 NIBP BP-Mean 96 Respiration from ECG 17 SpO2 100 I&O: 01/20/19 01/21/19 01/22/19 06:59 06:59 06:59 Intake Total 1855.4 1766 Output Total 2450 2665 Balance -594.6 -899 Result Diagrams: 01/20/19 03:53 01/20/19 03:53 Additional Labs: Accuchecks 01/21/19 01/21/19 01/20/19 10:55 05:31 20:30 POC Glucose 80 64 L 169 H 01/20/19 01/20/19 18:10 13:54 POC Glucose 145 H 93 Hospitalist ROS - Medication Medications: Active Medications Generic Name Dose Route Start Last Admin Trade Name Freq PRN Reason Stop Dose Admin Acetaminophen 1,000 mg 01/15/19 08:57 01/21/19 02:55 Tylenol PO 1,000 mg Q6H PRN Administration FEVER/MILD PAIN Hydrocodone Bitart/Acetaminophen 1 tab 01/16/19 09:42 01/18/19 09:42 [place] 7.5/325 PO 1 tab Q6H PRN Administration Mild Pain (1-3) Acidophilus 1 tab 12/25/18 09:00 01/21/19 10:06 Floranex PO 1 tab DAILY TRAVON Administration Amiodarone HCl 200 mg 01/20/19 21:00 01/21/19 10:04 Cordarone PO 200 mg BID TRAVON Administration Amitriptyline HCl 25 mg 01/12/19 21:00 01/20/19 21:18 Elavil PO 25 mg HS TRAVON Administration Ascorbic Acid 500 mg 12/25/18 09:00 01/21/19 10:05 Vitamin C PO 500 mg DAILY TRAVON Administration Aspirin 81 mg 12/24/18 21:00 01/20/19 21:17 Ecotrin PO 81 mg HS TRAVON Administration Atorvastatin Calcium 20 mg 12/24/18 21:00 01/20/19 21:17 Lipitor PO 20 mg HS TRAVON Administration Cholecalciferol 2,000 units 12/25/18 09:00 01/21/19 10:05 Vitamin D3 PO 2,000 units DAILY TRAVON Administration Clopidogrel Bisulfate 75 mg 12/25/18 09:00 01/21/19 10:05 Plavix PO 75 mg 0900 TRAVON Administration Enoxaparin Sodium 40 mg 12/23/18 21:00 01/20/19 21:17 Lovenox SC 40 mg 2100 TRAVON Administration Famotidine 20 mg 12/25/18 21:00 01/21/19 10:05 Pepcid PO 20 mg BID TRAVON Administration Fentanyl 50 mcg 01/14/19 10:46 01/16/19 16:52 Sublimaze SLOW IVP 50 mcg Q2H PRN Administration Breakthrough Pain Ferrous Sulfate 650 mg 12/25/18 09:00 01/21/19 10:05 Feosol PO 650 mg DAILY TRAVON Administration Insulin Glargine 50 units/ 0.5 mls @ 0 mls/hr 01/18/19 21:00 01/20/19 21:24 Miscellaneous Medication SC 0.5 mls HS TRAVON Administration Insulin Human Lispro 0 units 12/25/18 08:51 01/17/19 12:10 Humalog SC 3 unit .AGGRESSIVE SLIDING PRN Administration Aggressive Correctional Scale Levofloxacin 500 mg 01/19/19 06:00 01/21/19 05:32 Levaquin PO 500 mg 0600 TRAVON Administration Levothyroxine Sodium 224 mcg 12/24/18 06:00 01/21/19 05:33 Synthroid PO 224 mcg 0600 TRAVON Administration Levothyroxine Sodium 50 mcg 12/24/18 06:00 01/21/19 05:33 Synthroid PO 50 mcg 0600 TRAVON Administration Liothyronine Sodium 5 mcg 12/24/18 06:00 01/21/19 05:33 Cytomel PO 5 mcg 0600 TRA[facility]ON Administration Magnesium Chloride 64 mg 12/29/18 21:00 01/21/19 10:07 Slow-Mag PO 64 mg BID TRAVON Administration Octreotide Acetate 100 mcg 01/10/19 18:00 01/21/19 10:07 Sandostatin SLOW IVP 100 mcg 0200,1000,1800 TRA[facility]ON Administration Ondansetron HCl 4 mg 01/13/19 16:24 01/15/19 20:20 Zofran IVP 4 mg Q6H PRN Administration Nausea/Vomiting Paroxetine HCl 20 mg 12/24/18 09:00 01/21/19 10:07 Paxil PO 20 mg DAILY TRAVON Administration Saccharomyces Boulardii 250 mg 01/21/19 09:00 01/21/19 10:07 Florastor PO 250 mg DAILY TRAVON Administration Sodium Chloride 10 ml 01/14/19 06:47 01/17/19 06:16 Flush - Normal Saline IVF 10 ml PRN PRN Administration Saline Flush Throat Lozenges 1 sulaiman 01/11/19 07:44 01/16/19 18:10 Cepastat Lozenges PO 1 sulaiman Q2H PRN Administration Sore Throat - Exam Neck: no JVD Heart: RRR, no murmur Respiratory: CTAB Gastrointestinal: soft, non-tender, normal bowel sounds Gastrointestinal - other findings: midline and R lateral drains in place Extremities: 1+ LE edema Hosp A/P (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 OF INTESTINE Status: Acute (2) Ventricular tachycardia Code(s): I47.2 - VENTRICULAR TACHYCARDIA Status: Acute (3) Hypertension Code(s): I10 - ESSENTIAL (PRIMARY) HYPERTENSION Status: Chronic Qualifiers: Hypertension type: essential hypertension Qualified Code(s): I10 - Essential (primary) hypertension (4) Diabetes type 2, controlled Code(s): E11.9 - TYPE 2 DIABETES MELLITUS WITHOUT COMPLICATIONS Status: Chronic Qualifiers: Diabetes mellitus keno terminal operator insulin use: with custodial use (5) C. difficile colitis Code(s): A04.72 - ENTEROCOLITIS D/T CLOSTRIDIUM DIFFICILE, NOT SPCF RECUR Status: Resolved (6) SBO (small bowel obstruction) Code(s): K56.609 - UNSP INTESTNL OBST, UNSP TO PARTIAL VERSUS COMPLETE OBST Status: Acute (7) Atrial fibrillation Code(s): I48.91 - UNSPECIFIED ATRIAL FIBRILLATION Status: Chronic Qualifiers: Atrial fibrillation type: paroxysmal Qualified Code(s): I48.0 - Paroxysmal atrial fibrillation (8) Hypothyroidism Code(s): E03.9 - HYPOTHYROIDISM, UNSPECIFIED Status: Chronic Qualifiers: Hypothyroidism type: unspecified Qualified Code(s): E03.9 - Hypothyroidism , unspecified - Plan v tach, atrial fib controlled on amiodarone cont accu/ ss/ long acting insulin for DM cont current antihypertnsives monitor abd drain output
[2019-01-21 15:12] VITALS: BMI 37.1
[2019-01-21] MEDS: Atorvastatin Calcium 20 MG TAB PO SCH (20:22)
[2019-01-21] MEDS: Amitriptyline HCl 25 MG TAB PO SCH (20:22)
[2019-01-21] MEDS: Aspirin 81 mg Enteric Coated Tablet PO SCH (20:22)
[2019-01-21] MEDS: Enoxaparin Sodium 40 MG/0.4 ML SYRINGE SC SCH (20:22)
[2019-01-21] MEDS: Insulin Glargine 50 UNITS in Pre-Filled Syringe 1 EACH SC SCH (21:14)
[2019-01-22] MEDS: Octreotide Acetate 100 MCG/ML VIAL SLOW IVP SCH ×3 (00:46→18:05)
[2019-01-22] MEDS: Acetaminophen 500 MG TAB PO PRN (00:50)
[2019-01-22] MEDS: Liothyronine Sodium 5 MCG TAB PO SCH (05:36)
[2019-01-22] MEDS: Levothyroxine Sodium 112 MCG TAB PO SCH (05:36)
[2019-01-22] MEDS: Levothyroxine Sodium 25 MCG TAB PO SCH (05:36)
[2019-01-22 08:34] LABS: #Eosinphils 0.3 thou/uL (0.0-0.7); #Lymphocytes 1.8 thou/uL (1.20-3.40); #Monocytes 0.5 thou/uL (0.11-0.59); #Neutrophils 5.1 thou/uL (1.40-6.50); %Basophils 0.6 % (0.0-1.0); %Eosinophils 4.1 % (0.0-10.0); %Lymphocytes 23.1 % (21.0-51.0); %Monocytes 6.5 % (0.0-10.0); %Neutrophils 65.8 % (42.0-75.0); Hemoglobin 7.8 g/dL (12.0-16.0); Mean Corpuscular HGB CONC 32.8 g/dL (32.0-36.0); Mean Corpuscular Volume 85.2 fL (78.0-98.0); Mean Platelet Volume 7.2 fL (7.4-10.4); Platelet Count 181 thou/uL (130-400); RBC Distribution Width 16.8 % (11.5-14.5); Red Blood Cell (RBC) Count 2.77 mill/uL (4.20-5.40); White Blood Cell (WBC) Count 7.7 thou/uL (4.8-10.8)
[2019-01-22] MEDS: Ascorbic Acid 500 mg Chewable Tablet PO SCH (08:53)
[2019-01-22] MEDS: Clopidogrel Bisulfate 75 MG TAB PO SCH (08:53)
[2019-01-22] MEDS: Amiodarone 200 MG TAB PO SCH (08:53)
[2019-01-22 08:54] LABS: ALT (SGPT) 14 U/L (8-55); AST (SGOT) 13 U/L (5-34); Albumin 2.4 g/dL (3.4-4.8); Alkaline Phosphatase 122 U/L (40-110); Anion Gap 8 mmol/L (10-20); BUN (Urea Nitrogen) 5 mg/dL (9.8-20.1); Bilirubin, Total 0.6 mg/dL (0.2-1.2); Calc. Creatinine Clearance 152 mL/min (70-130); Calcium 7.8 mg/dL (7.8-10.44); Carbon Dioxide 29 mmol/L (23-31); Chloride 104 mmol/L (98-107); Estimated GFR-MDRD Greater than 90; Globulin 2.8 g/dL (2.4-3.5); Glucose 121 mg/dL (80-115); Potassium 4.1 mmol/L (3.5-5.1); Protein, Total 5.2 g/dL (6.0-8.3); Sodium 137 mmol/L (136-145)
[2019-01-22] MEDS: Famotidine 20 MG TAB PO SCH (08:54)
[2019-01-22] MEDS: Lactinex Tablet PO SCH (08:54)
[2019-01-22] MEDS: Ferrous Sulfate 325 MG TAB PO SCH (08:54)
[2019-01-22] MEDS: Magnesium Chloride 64 MG TAB PO SCH (08:54)
[2019-01-22] MEDS: Saccharomyces boulardii 250 MG CAP PO SCH (08:55)
[2019-01-22] MEDS: PARoxetine 20 MG TAB PO SCH (08:55)
--- NOTE | 2019-01-22 10:44 | PDOC.HOSPP ---
- Subjective Encounter Date: 01/22/19 Encounter Time: 10:42 Subjective: Seen and examined. Feeling good. No new problem. morbidly obese female with DM, HTN, admitted for treatmemt of lauren output enterocutaneous fistula. S/p exp lap, adhesiolysis, small bowel resection and re anastomosis as well as incisional hernia repair. Hospital course was complicated by recurrent atrial tachycardia. Now on amiodarone. - Objective Vital Signs & Weight: Vital Signs (12 hours) Temp Pulse Resp BP BP Pulse Ox 01/22/19 07:45 100 01/22/19 07:30 98.3 F 76 18 104/57 L 100 01/22/19 03:27 98.2 F 82 16 129/60 98 Weight Admit Weight 224 lb 11.2 oz Weight 244 lb 7 oz Most Recent Monitor Data Heart Rate from ECG 91 NIBP 136/77 NIBP BP-Mean 96 Respiration from ECG 17 SpO2 100 I&O: 01/21/19 01/22/19 01/23/19 06:59 06:59 06:59 Intake Total 1766 2160 Output Total 2665 140 Balance -899 2020 Result Diagrams: 01/22/19 08:27 01/22/19 08:27 Additional Labs: Accuchecks 01/22/19 01/21/19 01/21/19 05:24 20:47 16:37 POC Glucose 69 L 198 H 114 H 01/21/19 10:55 POC Glucose 80 Hospitalist ROS - Medication Medications: Active Medications Generic Name Dose Route Start Last Admin Trade Name Freq PRN Reason Stop Dose Admin Acetaminophen 1,000 mg 01/15/19 08:57 01/22/19 00:50 Tylenol PO 1,000 mg Q6H PRN Administration FEVER/MILD PAIN Hydrocodone Bitart/Acetaminophen 1 tab 01/16/19 09:42 01/18/19 09:42 [place] 7.5/325 PO 1 tab Q6H PRN Administration Mild Pain (1-3) Acidophilus 1 tab 12/25/18 09:00 01/22/19 08:54 Floranex PO 1 tab DAILY TRAVON Administration Amiodarone HCl 200 mg 01/20/19 21:00 01/22/19 08:53 Cordarone PO 200 mg BID TRAVON Administration Amitriptyline HCl 25 mg 01/12/19 21:00 01/21/19 20:22 Elavil PO 25 mg HS TRAVON Administration Ascorbic Acid 500 mg 12/25/18 09:00 01/22/19 08:53 Vitamin C PO 500 mg DAILY TRAVON Administration Aspirin 81 mg 12/24/18 21:00 01/21/19 20:22 Ecotrin PO 81 mg HS TRAVON Administration Atorvastatin Calcium 20 mg 12/24/18 21:00 01/21/19 20:22 Lipitor PO 20 mg HS TRAVON Administration Cholecalciferol 2,000 units 12/25/18 09:00 01/22/19 08:53 Vitamin D3 PO 2,000 units DAILY TRAVON Administration Clopidogrel Bisulfate 75 mg 12/25/18 09:00 01/22/19 08:53 Plavix PO 75 mg 0900 TRAVON Administration Enoxaparin Sodium 40 mg 12/23/18 21:00 01/21/19 20:22 Lovenox SC 40 mg 2100 TRAVON Administration Famotidine 20 mg 12/25/18 21:00 01/22/19 08:54 Pepcid PO 20 mg BID TRAVON Administration Fentanyl 50 mcg 01/14/19 10:46 01/16/19 16:52 Sublimaze SLOW IVP 50 mcg Q2H PRN Administration Breakthrough Pain Ferrous Sulfate 650 mg 12/25/18 09:00 01/22/19 08:54 Feosol PO 650 mg DAILY TRAVON Administration Insulin Glargine 50 units/ 0.5 mls @ 0 mls/hr 01/18/19 21:00 01/21/19 21:14 Miscellaneous Medication SC 0.5 mls HS TRAVON Administration Insulin Human Lispro 0 units 12/25/18 08:51 01/17/19 12:10 Humalog SC 3 unit .AGGRESSIVE SLIDING PRN Administration Aggressive Correctional Scale Levofloxacin 500 mg 01/19/19 06:00 01/22/19 05:36 Levaquin PO 500 mg 0600 TRAVON Administration Levothyroxine Sodium 224 mcg 12/24/18 06:00 01/22/19 05:36 Synthroid PO 224 mcg 0600 TRAVON Administration Levothyroxine Sodium 50 mcg 12/24/18 06:00 01/22/19 05:36 Synthroid PO 50 mcg 0600 TRAVON Administration Liothyronine Sodium 5 mcg 12/24/18 06:00 01/22/19 05:36 Cytomel PO 5 mcg 0600 TRAVON Administration Magnesium Chloride 64 mg 12/29/18 21:00 01/22/19 08:54 Slow-Mag PO 64 mg BID TRAVON Administration Octreotide Acetate 100 mcg 01/10/19 18:00 01/22/19 09:02 Sandostatin SLOW IVP 100 mcg 0200,1000,1800 TRA[facility] Administration Ondansetron HCl 4 mg 01/13/19 16:24 01/15/19 20:20 Zofran IVP 4 mg Q6H PRN Administration Nausea/Vomiting Paroxetine HCl 20 mg 12/24/18 09:00 01/22/19 08:55 Paxil PO 20 mg DAILY TRAVON Administration Saccharomyces Boulardii 250 mg 01/21/19 09:00 01/22/19 08:55 Florastor PO 250 mg DAILY TRAVON Administration Sodium Chloride 10 ml 01/14/19 06:47 01/17/19 06:16 Flush - Normal Saline IVF 10 ml PRN PRN Administration Saline Flush Throat Lozenges 1 sulaiman 01/11/19 07:44 01/16/19 18:10 Cepastat Lozenges PO 1 sulaiman Q2H PRN Administration Sore Throat - Exam General Appearance: awake alert General - other findings: morbidly obese Eye: anicteric sclera ENT: normocephalic atraumatic Neck: symmetric, no JVD Heart: RRR Respiratory: CTAB, no wheezes, no rales, no ronchi, normal chest expansion Gastrointestinal: soft, non-distended, normal bowel sounds Gastrointestinal - other findings: morbidly obese, surgical wound noted Extremities: no cyanosis, no edema Neurological: cranial nerve grossly intact, no focal deficits Psychiatric: normal affect, A&O x 3 Hosp A/P (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 OF INTESTINE Status: Acute (2) Shock circulatory Code(s): R57.9 - SHOCK, UNSPECIFIED Status: Acute (3) Atrial arrhythmia Code(s): I49.8 - OTHER SPECIFIED CARDIAC ARRHYTHMIAS Status: Acute (4) Chronic diastolic (congestive) heart failure Code(s): I50.32 - CHRONIC DIASTOLIC (CONGESTIVE) HEART FAILURE Status: Acute (5) DM2 (diabetes mellitus, type 2) Status: Chronic Qualifiers: Diabetes mellitus chcf insulin use: with chcf use (6) Lactic acidosis Code(s): E87.2 - ACIDOSIS Status: Acute (7) SBO (small bowel obstruction) Code(s): K56.609 - UNSP INTESTNL OBST, UNSP TO PARTIAL VERSUS COMPLETE OBST Status: Acute (8) Ventral hernia with obstruction Code(s): K43.6 - OTHER AND UNSP VENTRAL HERNIA WITH OBSTRUCTION, W/O GANGRENE Status: Acute (9) Atrial fibrillation Code(s): I48.91 - UNSPECIFIED ATRIAL FIBRILLATION Status: Chronic Qualifiers: Atrial fibrillation type: paroxysmal Qualified Code(s): I48.0 - Paroxysmal atrial fibrillation (10) Diabetes type 2, controlled Code(s): E11.9 - TYPE 2 DIABETES MELLITUS WITHOUT COMPLICATIONS Status: Chronic Qualifiers: 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 (11) Hypertension Code(s): I10 - ESSENTIAL (PRIMARY) HYPERTENSION Status: Chronic Qualifiers: Hypertension type: essential hypertension Qualified Code(s): I10 - Essential (primary) hypertension (12) Hypothyroidism Code(s): E03.9 - HYPOTHYROIDISM, UNSPECIFIED Status: Chronic Qualifiers: Hypothyroidism type: unspecified Qualified Code(s): E03.9 - Hypothyroidism , unspecified (13) Microcytic anemia Code(s): D50.9 - IRON DEFICIENCY ANEMIA, UNSPECIFIED Status: Chronic (14) Morbid obesity with BMI of 40.0-44.9, adult Code(s): E66.01 - MORBID (SEVERE) OBESITY DUE TO EXCESS CALORIES; Z68.41 - BODY MASS INDEX (BMI) 40.0-44.9, ADULT Status: Chronic (15) Physical deconditioning Code(s): R53.81 - OTHER MALAISE Status: Acute - Plan Continue current treatments. can be discharged from medical point of view. Discharge meds reconciled. discharge disposition as per primary attending. (Gen ahn)
--- NOTE | 2019-01-22 15:25 | PDOC.CPN ---
- Subjective Date: 01/22/19 Time: 15:25 Interval history: tolerating amiodarone well. No GI complaints. States she feel this AM and is tired. No new cardiac concerns. DC today - Review of Systems General: denies: fever/chills, weight/appetite/sleep changes, night sweats, fatigue Respiratory: denies: cough, congestion, shortness of breath, exercise intolerance Cardiovascular: denies: chest pain, palpitation, edema, paroxysmal nocturnal dyspnea, orthopnea Gastrointestinal: denies: nausea, vomiting, diarrhea, constipation, abd pain, GI bleeding Musculoskeletal: denies: pain, tenderness, stiffness, swelling, arthritis/ arthralgias - Objective Allergies/Adverse Reactions: Allergies Allergy/AdvReac Type Severity Reaction Status Date / Time piroxicam Allergy Unknown Verified 12/23/18 14:25 morphine AdvReac Mild Verified 12/23/18 14:25 Visit Medications: Current Medications Acetaminophen (Tylenol) 650 mg MS Q4H PRN PRN Reason: Headache/Fever or Pain Acetaminophen (Tylenol) 1,000 mg PO Q6H PRN PRN Reason: FEVER/MILD PAIN Last Admin: 01/22/19 00:50 Dose: 1,000 mg Hydrocodone Bitart/Acetaminophen ([place] 7.5/325) 1 tab PO Q6H PRN PRN Reason: Mild Pain (1-3) Last Admin: 01/18/19 09:42 Dose: 1 tab Acidophilus (Floranex) 1 tab PO DAILY [facility] Last Admin: 01/22/19 08:54 Dose: 1 tab Albuterol/Ipratropium (Duoneb) 3 ml NEB Q4H PRN PRN Reason: Wheezing Amiodarone HCl (Cordarone) 200 mg PO BID [facility] Last Admin: 01/22/19 08:53 Dose: 200 mg Amitriptyline HCl (Elavil) 25 mg PO HS [facility] Last Admin: 01/21/19 20:22 Dose: 25 mg Artificial Tears (Tears Naturale) 2 drop EA EYE PRN PRN PRN Reason: Dry Eyes Ascorbic Acid (Vitamin C) 500 mg PO DAILY [facility] Last Admin: 01/22/19 08:53 Dose: 500 mg Aspirin (Ecotrin) 81 mg PO HS [facility] Last Admin: 01/21/19 20:22 Dose: 81 mg Atorvastatin Calcium (Lipitor) 20 mg PO HS [facility] Last Admin: 01/21/19 20:22 Dose: 20 mg Bisacodyl (Dulcolax) 10 mg MS DAILYPRN PRN PRN Reason: Constipation Cholecalciferol (Vitamin D3) 2,000 units PO DAILY [facility] Last Admin: 01/22/19 08:53 Dose: 2,000 units Clopidogrel Bisulfate (Plavix) 75 mg PO 0900 [facility] Last Admin: 01/22/19 08:53 Dose: 75 mg Dextrose/Water (Dextrose 50%) 25 gm SLOW IVP PRN PRN PRN Reason: Hypoglycemia Diphenhydramine HCl (Benadryl) 25 mg IM/IV Q3H PRN PRN Reason: Itching Diphenhydramine HCl (Benadryl) 25 mg PO Q3H PRN PRN Reason: Itching Enoxaparin Sodium (Lovenox) 40 mg SC 2100 [facility] Last Admin: 01/21/19 20:22 Dose: 40 mg Famotidine (Pepcid) 20 mg PO BID [facility] Last Admin: 01/22/19 08:54 Dose: 20 mg Fentanyl (Sublimaze) 50 mcg SLOW IVP Q2H PRN PRN Reason: Breakthrough Pain Last Admin: 01/16/19 16:52 Dose: 50 mcg Ferrous Sulfate (Feosol) 650 mg PO DAILY [facility] Last Admin: 01/22/19 08:54 Dose: 650 mg Glucagon (Glucagon) 1 mg IM PRN PRN PRN Reason: Hypoglycemia Dextrose/Water (D5w) 1,000 mls @ 0 mls/hr IV .Q0M PRN PRN Reason: Hypoglycemia Insulin Glargine 50 units/ (Miscellaneous Medication) 0.5 mls @ 0 mls/hr SC [facility] Last Admin: 01/21/19 21:14 Dose: 0.5 mls Insulin Human Lispro (Humalog) 0 units SC .AGGRESSIVE SLIDING PRN PRN Reason: Aggressive Correctional Scale Last Admin: 01/17/19 12:10 Dose: 3 unit Levofloxacin (Levaquin) 500 mg PO 0600 [facility] Last Admin: 01/22/19 05:36 Dose: 500 mg Levothyroxine Sodium (Synthroid) 224 mcg PO 0600 [facility] Last Admin: 01/22/19 05:36 Dose: 224 mcg Levothyroxine Sodium (Synthroid) 50 mcg PO 0600 [facility] Last Admin: 01/22/19 05:36 Dose: 50 mcg Liothyronine Sodium (Cytomel) 5 mcg PO 0600 [facility] Last Admin: 01/22/19 05:36 Dose: 5 mcg Magnesium Chloride (Slow-Mag) 64 mg PO BID [facility] Last Admin: 01/22/19 08:54 Dose: 64 mg Naloxone HCl (Narcan) 0.2 mg IV Q5MIN PRN PRN Reason: RR <8 or pt obtun/unarousable Octreotide Acetate (Sandostatin) 100 mcg SLOW IVP 0200,1000,1800 [facility] Last Admin: 01/22/19 09:02 Dose: 100 mcg Ondansetron HCl (Zofran) 4 mg IVP Q6H PRN PRN Reason: Nausea/Vomiting Last Admin: 01/15/19 20:20 Dose: 4 mg Paroxetine HCl (Paxil) 20 mg PO DAILY [facility] Last Admin: 01/22/19 08:55 Dose: 20 mg Promethazine HCl (Phenergan) 12.5 mg IM Q4H PRN PRN Reason: Nausea/Vomiting Saccharomyces Boulardii (Florastor) 250 mg PO DAILY [facility] Last Admin: 01/22/19 08:55 Dose: 250 mg Sodium Chloride ([place] Nasal [place] 0.65%) 0 ml EA NARE QIDPRN PRN PRN Reason: Nasal Congestion Sodium Chloride (Flush - Normal Saline) 10 ml IVF PRN PRN PRN Reason: Saline Flush Last Admin: 01/17/19 06:16 Dose: 10 ml Throat Lozenges (Cepastat Lozenges) 1 sulaiman PO Q2H PRN PRN Reason: Sore Throat Last Admin: 01/16/19 18:10 Dose: 1 sulaiman Vital Signs & Weight: Vital Signs Temp Pulse Pulse Pulse Resp BP BP 01/22/19 11:50 98.5 F 72 18 01/22/19 10:40 84 83 118/60 109/56 L 01/22/19 07:45 01/22/19 07:30 98.3 F 76 18 01/22/19 03:27 98.2 F 82 16 BP BP Pulse Ox 01/22/19 11:50 110/68 100 01/22/19 10:40 01/22/19 07:45 100 01/22/19 07:30 104/57 L 100 01/22/19 03:27 129/60 98 Admit Weight 224 lb 11.2 oz Weight 244 lb 7 oz - Physical Exam General: alert & oriented x3 HEENT: mucus membranes moist Neck: supple neck, midline trachea Cardiac: regular rate and rhythm, no murmur Lungs: clear to auscultation - Labs Result Diagrams: 01/22/19 08:27 01/22/19 08:27 Troponin/CKMB Troponin I Less than 0.010 ng/mL (< 0.028) 01/14/19 05:42 - Telemetry Sinus rhythms and dysrhythmias: sinus rhythm - Assessment/Plan Assessment/Plan: 1. Recurrent atrial arrhythmias. a. History of persistent atrial fibrillation status post pulmonary venous isolation procedure x2 by Dr. Escamilla, most recently in May 2018. b. Recurrent atypical atrial flutter, clinically well suppressed with Tikosyn upon to admission. c. Currently on IV amiodarone. Hence, recurrent atrial flutter was seen perioperatively after of GI fistula repair. 2. Nonsustained ventricular wide-complex tachycardia, possibly ventricular tachycardia versus aberrancy conducted 1:1 atypical atrial flutter. 3. History of Watchman device placement with Xarelto discontinued. Currently on aspirin and Plavix only. 4. Preserved LVEF at 55% to 60%, mild MR, mild TR, mild left atrial enlargement , and diastolic dysfunction on echo 01/14/2019. 5. Enterocutaneous fistula status post exploratory laparotomy and extensive lysis of adhesions, small bowel resection and primary anastomosis, incisional hernia repair. 6. Type 2 diabetes. 7. Morbid obesity. 8. Hypovolemic shock, not resolving. 9. History of hypothyroidism. DAPT with ASA and plavix post EDWINA closure in past. Amiodarone- reduce to 200mg daily. OK for DC. 6 week follow up with [facility] requested.
[2019-01-22 16:19] VITALS: BP 117/55; TEMP 98.7
== END 2019-01-22 19:10 | DRG 907 ==
LOC: T4-A 12:56 → CCU 01-14 05:56 → IMCU/EMU 01-16 14:43 → 2NO 01-20 17:48
PROVIDERS: ADMIT Surgery; ATTEND Surgery
PROC: 0DN80ZZ Release Small Intestine, Open Approach (ICD-10-PCS; principal; 2019-01-13)
PROC: 0DT80ZZ Resection of Small Intestine, Open Approach (ICD-10-PCS; 2019-01-13)
PROC: 0WUF0JZ Supplement Abdominal Wall with Synthetic Substitute, Open Approach (ICD-10-PCS; 2019-01-13)
PROC: 30233N1 Transfusion of Nonautologous Red Blood Cells into Peripheral Vein, Percutaneous Approach (ICD-10-PCS; 2019-01-14)
PROC: 3E033XZ Introduction of Vasopressor into Peripheral Vein, Percutaneous Approach (ICD-10-PCS; 2019-01-14)
DX: T81.83XA Persistent postprocedural fistula, initial encounter (principal); T81.19XA Other postprocedural shock, initial encounter; E87.1 Hypo-osmolality and hyponatremia; A04.72 Enterocolitis due to Clostridium difficile, not specified as recurrent; E87.2 Acidosis; D62 Acute posthemorrhagic anemia; I47.2 Ventricular tachycardia; N17.9 Acute kidney failure, unspecified; K56.609 Unspecified intestinal obstruction, unspecified as to partial versus complete obstruction; I13.0 Hypertensive heart and chronic kidney disease with heart failure and stage 1 through stage 4 chronic kidney disease, or unspecified chronic kidney disease; I50.32 Chronic diastolic (congestive) heart failure; K43.6 Other and unspecified ventral hernia with obstruction, without gangrene; I48.0 Paroxysmal atrial fibrillation; E03.9 Hypothyroidism, unspecified; F41.9 Anxiety disorder, unspecified; F32.9 Major depressive disorder, single episode, unspecified; E66.9 Obesity, unspecified; E11.22 Type 2 diabetes mellitus with diabetic chronic kidney disease; N18.2 Chronic kidney disease, stage 2 (mild); E78.5 Hyperlipidemia, unspecified; D50.9 Iron deficiency anemia, unspecified; I95.9 Hypotension, unspecified; K43.2 Incisional hernia without obstruction or gangrene; K66.0 Peritoneal adhesions (postprocedural) (postinfection); R53.81 Other malaise; E11.65 Type 2 diabetes mellitus with hyperglycemia; E87.5 Hyperkalemia; Z90.49 Acquired absence of other specified parts of digestive tract; Z68.37 Body mass index [BMI] 37.0-37.9, adult; Z88.5 Allergy status to narcotic agent; Z79.4 Long term (current) use of insulin; Y83.8 Other surgical procedures as the cause of abnormal reaction of the patient, or of later complication, without mention of misadventure at the time of the procedure
CPT/HCPCS: 36415; 36416; 36430; 74019; 74177; 80048; 80053; 80069; 80202; 81001; 82010; 82533; 83605; 83735; 84100; 84484; 85025; 86850; 86900; 86901; 87040; 87086; 87149; 87324; 87449; 87493; 88307; 93005; 93010; 93306; C9113; J0131; J0282; J0694; J1170; J1650; J1815; J1885; J1940; J2185; J2250; J2354; J2405; J2704; J3010; J3370; J3475; J3490; J7050; J7070; J8499; P9016; Q4100; Q9966

== ENCOUNTER 2019-01-31 16:12 | Emergency (ER) | payer MEDICARE | END 2019-01-31 17:28 | disposition home or self-care (01) | LOC: ERS 16:12 | DX: K91.89 Other postprocedural complications and disorders of digestive system (principal); I49.9 Cardiac arrhythmia, unspecified; I48.91 Unspecified atrial fibrillation; E11.9 Type 2 diabetes mellitus without complications; E03.9 Hypothyroidism, unspecified; E78.5 Hyperlipidemia, unspecified; E78.00 Pure hypercholesterolemia, unspecified; I10 Essential (primary) hypertension; F41.9 Anxiety disorder, unspecified; F32.9 Major depressive disorder, single episode, unspecified; Z79.01 Long term (current) use of anticoagulants; Z79.82 Long term (current) use of aspirin; Z79.899 Other long term (current) drug therapy; Z79.4 Long term (current) use of insulin | CPT/HCPCS: 99283 ==

== ENCOUNTER 2019-03-03 09:14 | Outpatient (CLI) | payer MEDICARE ==
[2019-03-03] MEDS ORDERED: Sodium Chloride 0.9% 15 ML NEB ONE (11:13)
--- NOTE | 2019-03-03 17:43 | PRG ---
DATE OF SERVICE: 03/03/2019 SUBJECTIVE: Ms. Elyssa Lepe is a very pleasant 69-year-old who presents to the [facility] Center for the initiation of negative pressure therapy for a nonhealing surgical wound of the abdomen in the midline. The patient was previously seen in the Wound Center on 10/29/2018. The patient states that subsequent to her visit, she was admitted to [facility] for an enterocutaneous fistula. During the patient's hospital stay, Ms. Lepe was seen in consultation by General Surgery and treatment with negative pressure therapy and TPN initiated. The patient states that she was transferred to inpatient rehabilitation for continued treatment with the wound VAC and TPN. She states that she, however, required re-admission to [facility] and required surgery on 01/13/2019. Specifically, the patient underwent exploratory laparotomy, extensive lysis of adhesions, small-bowel resection and primary anastomosis, and incisional hernia repair with Strattice biologic mesh. The patient states that a drain placed intraoperatively was removed by Dr. Garcia at the time of a postoperative visit in his office. She states that for the nonhealing surgical wound of the abdomen in the midline, she was referred by Dr. Garcia to the Wound Center for the initiation of negative pressure therapy and dressing changes of the wound VAC here in the Wound Center. PHYSICAL EXAMINATION: VITAL SIGNS: Temperature 97.6, pulse 131, respirations 23, blood pressure 150/75. ABDOMEN: A large wound of the abdomen in the midline is present, which measures approximately 4.6 x 2.6 cm. The depth of the wound is approximately 4 cm. No purulent drainage is associated with the wound. No cellulitis of the anterior abdominal wall is appreciated. No maceration of the skin of the periwound is noted. ASSESSMENT AND PLAN: 1. Nonhealing surgical wound of abdomen in the midline as described above. Negative pressure therapy will be initiated today with dressing changes of the wound VAC here in the Wound Center. The wound will be viewed by Dr. Garcia today. I will see Ms. Lepe again in 2 weeks. 2. Hypothyroidism. 3. Obstructive sleep apnea. 4. Paroxysmal atrial fibrillation. 5. Diabetes mellitus. Accu-Cheks will be obtained at the time of the patient's clinic visits. The patient has been reminded that for optimal wound healing, her blood glucoses should remain below 150. 6. Hypertension. 7. Anemia. Job ID: [id number]
== END 2019-03-03 09:15 | disposition home or self-care (01) ==
LOC: WCC 09:14
PROVIDERS: ATTEND Family Medicine
DX: T88.8XXD Other specified complications of surgical and medical care, not elsewhere classified, subsequent encounter (principal); K63.2 Fistula of intestine
CPT/HCPCS: 97602; A4218

== ENCOUNTER 2019-03-05 11:23 | Outpatient (CLI) | payer MEDICARE ==
[2019-03-05] MEDS ORDERED: Sodium Chloride 0.9% 15 ML NEB ONE (15:11)
== END 2019-03-05 11:24 | disposition home or self-care (01) ==
LOC: WCC 11:23
PROVIDERS: ATTEND Family Medicine
DX: T81.89XD Other complications of procedures, not elsewhere classified, subsequent encounter (principal)
CPT/HCPCS: A4218

== ENCOUNTER 2019-03-08 14:57 | Outpatient (CLI) | payer MEDICARE ==
[~2019-03-08 14:57] MED LIST changes: -Heparin 1,000 UNITS/ML VIAL ONE; +Sodium Chloride 0.9% 15 ML NEB ONE
== END 2019-03-08 14:58 | disposition home or self-care (01) ==
LOC: WCC 14:57
PROVIDERS: ATTEND Family Medicine
DX: T81.89XD Other complications of procedures, not elsewhere classified, subsequent encounter (principal)
CPT/HCPCS: A4218

== ENCOUNTER 2019-03-10 14:12 | Outpatient (CLI) | payer MEDICARE ==
[2019-03-10] MEDS ORDERED: Sodium Chloride 0.9% 15 ML NEB ONE (15:41)
== END 2019-03-10 14:13 | disposition home or self-care (01) ==
LOC: WCC 14:12
PROVIDERS: ATTEND Family Medicine
DX: T81.89XD Other complications of procedures, not elsewhere classified, subsequent encounter (principal)
CPT/HCPCS: A4218

== ENCOUNTER 2019-03-15 12:05 | Outpatient (CLI) | payer MEDICARE ==
--- NOTE | 2019-03-15 12:07 | PRG ---
DATE OF SERVICE: 03/15/2019 HISTORY: Ms. Elyssa Lepe is a very pleasant 69-year-old, who presents to the Wound Center for evaluation of a nonhealing surgical wound of the abdomen in the midline. The patient was previously seen in the Wound Center on 10/29/2018. The patient stated that subsequent to her visit, she was admitted to [facility] for an enterocutaneous fistula. During the patient's hospital stay, Ms. Lepe was seen in consultation by General Surgery and treatment with negative pressure therapy and TPN initiated. The patient stated that she was transferred to inpatient rehabilitation for continued treatment with the wound VAC and TPN. She stated that she, however, required re-admission to [facility] and required surgery on 01/13/2019. Specifically, the patient underwent exploratory laparotomy, extensive lysis of adhesions, small-bowel resection, primary anastomosis, and incisional hernia repair with Strattice biologic mesh. The patient stated that a drain placed intraoperatively was removed by Dr. Garcia at the time of a postoperative visit in his office. She stated that for the nonhealing surgical wound of the abdomen in the midline, she was referred by Dr. Garcia to the Wound Center for the initiation of negative pressure therapy and dressing changes of the wound VAC here in the Wound Center. PHYSICAL EXAMINATION: VITAL SIGNS: Temperature 97.9, pulse 95, respirations 19, and blood pressure 121/66. Accu-Chek 125. ABDOMEN: A large wound of the abdomen in the midline is present, which measures approximately 3.0 x 2.5 cm. The depth of the wound is approximately 3.1 cm. No purulent drainage is associated with the wound. No cellulitis of the anterior abdominal wall is appreciated. No maceration of the skin of the periwound is noted. ASSESSMENT AND PLAN: 1. Nonhealing surgical wound of abdomen in the midline as described above. Negative pressure therapy will be continued with dressing changes of the wound VAC here in the Wound Center. The patient will be seen by Dr. Garcia in 1 week. I will see Ms. Lepe again in 2 weeks. 2. Hypothyroidism. 3. Obstructive sleep apnea. 4. Paroxysmal atrial fibrillation. 5. Diabetes mellitus. The patient's Accu-Chek in clinic today is 125. The patient has been reminded that for optimal wound healing, her blood glucoses should remain below 150. 6. Hypertension. 7. Anemia. Job ID: [id number]
[2019-03-15] MEDS ORDERED: Sodium Chloride 0.9% 15 ML NEB ONE (16:51)
== END 2019-03-15 12:06 | disposition home or self-care (01) ==
LOC: WCC 12:05
PROVIDERS: ATTEND Family Medicine
DX: T81.89XD Other complications of procedures, not elsewhere classified, subsequent encounter (principal); E03.9 Hypothyroidism, unspecified; G47.33 Obstructive sleep apnea (adult) (pediatric); I48.0 Paroxysmal atrial fibrillation; E11.9 Type 2 diabetes mellitus without complications; I10 Essential (primary) hypertension; D64.9 Anemia, unspecified
CPT/HCPCS: A4218

== ENCOUNTER 2019-03-17 14:00 | Outpatient (CLI) | payer MEDICARE | END 2019-03-17 14:01 | disposition home or self-care (01) | LOC: WCC 14:00 | PROVIDERS: ATTEND Family Medicine | DX: T81.89XD Other complications of procedures, not elsewhere classified, subsequent encounter (principal) | CPT/HCPCS: 97605 ==

== ENCOUNTER 2019-03-19 12:51 | Outpatient (CLI) | payer MEDICARE | END 2019-03-19 12:52 | disposition home or self-care (01) | LOC: WCC 12:51 | PROVIDERS: ATTEND Family Medicine | DX: T81.89XD Other complications of procedures, not elsewhere classified, subsequent encounter (principal) | CPT/HCPCS: 97605; A4218 ==

== ENCOUNTER 2019-03-22 00:08 | Observation (INO) | payer MEDICARE ==
[2019-03-22 00:36] LABS: #Basophils 0.1 thou/uL (0.0-0.2); #Eosinphils 0.2 thou/uL (0.0-0.7); #Lymphocytes 1.7 thou/uL (1.20-3.40); #Monocytes 0.5 thou/uL (0.11-0.59); #Neutrophils 6.7 thou/uL (1.40-6.50); %Basophils 0.6 % (0.0-1.0); %Eosinophils 2.6 % (0.0-10.0); %Lymphocytes 18.6 % (21.0-51.0); %Monocytes 5.4 % (0.0-10.0); %Neutrophils 72.8 % (42.0-75.0); Hemoglobin 8.1 g/dL (12.0-16.0); Mean Corpuscular HGB CONC 30.6 g/dL (32.0-36.0); Mean Corpuscular Hemoglobin 23.4 pg (27.0-31.0); Mean Corpuscular Volume 76.5 fL (78.0-98.0); Mean Platelet Volume 7.3 fL (7.4-10.4); Platelet Count 240 thou/uL (130-400); RBC Distribution Width 16.6 % (11.5-14.5); Red Blood Cell (RBC) Count 3.46 mill/uL (4.20-5.40); White Blood Cell (WBC) Count 9.3 thou/uL (4.8-10.8)
[2019-03-22 01:01] LABS: ALT (SGPT) 10 U/L (8-55); AST (SGOT) 14 U/L (5-34); Albumin 3.3 g/dL (3.4-4.8); Alkaline Phosphatase 150 U/L (40-110); Anion Gap 13 mmol/L (10-20); BUN (Urea Nitrogen) 11 mg/dL (9.8-20.1); Bilirubin, Total 0.5 mg/dL (0.2-1.2); Calc. Creatinine Clearance 0 mL/min (70-130); Calcium 8.5 mg/dL (7.8-10.44); Carbon Dioxide 22 mmol/L (23-31); Chloride 104 mmol/L (98-107); Estimated GFR-MDRD Greater than 90; Globulin 3.3 g/dL (2.4-3.5); Glucose 128 mg/dL (80-115); Protein, Total 6.6 g/dL (6.0-8.3); Sodium 135 mmol/L (136-145)
[2019-03-22 02:29] LABS: Bacteria/HPF None Seen HPF (None Seen); Bilirubin Negative (Negative); Blood, Urine Negative (Negative); Clarity Clear (Clear); Glucose, Urine (Dipstick) Normal (Negative); Leukocyte 250 Leu/uL (Negative); Nitrite Negative (Negative); Protein, Urine (Dipstick) Negative (Neg-Trace); RBC/HPF None Seen HPF (0-3); Squamous Epithelial 0-3 HPF (0-3); Urobilinogen Normal mg/dL (Less than 2)
[2019-03-22] MEDS ORDERED: Diltiazem 125 MG/25 ML ONE (03:36)
--- NOTE | 2019-03-22 04:06 | PDOC.HHP ---
Hospitalist HPI - History of Present Illness Shortness of breath History of Present Illness: 69F w/ PMH DM, arrhtyhmia, afib, hypothyroidism, hernia w/ wound van in place ( original surgery 01/2019) who presents to ED for shortness of breath and atrial fibrillation on home heart monitor. In ED: "mild hypertension but remainder of vitals within normal limts. No signs of respiratory distress. EKG with normal rate and sinus arrhythmia. Intermittent sob and wheezing for one day with orthopnea but no chest pain, fever, LE swelling or cough. Last Echo was Jan 2019 with EF 55-60%. Patient on DAPT with ASA and Plavix and is s/p Watchman in . She has had numerous abdominal surgeries this year (most recently one month ago) for enterocutaneous fistula and has wound vac that is draining appropriately. Patient feels that dyspnea is from asthma from years ago but has no home albuterol. Cardiopulmonary exam limit by body habitus but no appreciated wheezing or crackles." CTA ordered and report pending, given dilt IV and drip with improvmenet of afibto 110s, patient SOB resolved and feels better and able to come off of o2, requests wound care consult to change her wound vac batter Hospitalist ROS - Review of Systems Constitutional: denies: fever, chills Eyes: denies: vision change, redness ENT: denies: ear pain, mouth pain Respiratory: reports: shortness of breath. denies: cough, pleuritic pain Cardiovascular: denies: chest pain, light headedness Gastrointestinal: denies: nausea, hematochezia Genitourinary: denies: dysuria, frequency Musculoskeletal: denies: neck pain, foot pain Skin: reports: other (wound vac for nonunion wound). denies: rash, lesions Neurological: denies: weakness, numbness All other systems reviewed; all pertinent +/- noted in HPI/Subj Hospitalist History - Past Medical History Other Medical History: Past medical history includes pulmonary disease asthma Watchman placed 06/2018, Past medical history includes cardiac history, arrhythmia, atrial fibrillation, Past medical history includes history of diabetes, Type II, Past medical history includes endocrine disease, hypothyroidism, pt was hyperthyroid, received radiation tx, now hypo, Past medical history includes gastrointestinal disease, pancreatitis, Past medical history includes history of hyperlipidemia, high cholesterol, currently being treated, Past medical history includes history of hypertension, which has been treated, Patient is compliant. - Past Surgical History Other Surgical History: LAP band x 2 (1st removed due to MRSA), Surgical history of cholecystectomy, Surgical history of oophorectomy, Surgical history of tonsillectomy. STRANGULATED ABDOMINAL HERNIA SX 01/12/19. - Family History Family History: reports: no pertinent history - Social History Other Social History: Patient denies alcohol use, Patient denies drug use, Patient has no smoking history. - Exam General Appearance: NAD, awake alert Eye: PERRL, anicteric sclera ENT: normocephalic atraumatic, moist mucosa Neck: supple, no JVD Heart: irregular Heart - other findings: tachycardic Respiratory: CTAB, no wheezes, no rales, no ronchi Gastrointestinal: soft, non-tender, non-distended, normal bowel sounds Extremities: no cyanosis, no clubbing Skin - other findings: wound vac abdomen Neurological: cranial nerve grossly intact, no focal deficits Musculoskeletal: normal tone, normal strength Psychiatric: normal affect, normal behavior Hospitalist Results - Labs Result Diagrams: 03/22/19 00:24 03/22/19 00:24 Lab results: WBC 9.3 thou/uL (4.8-10.8) 03/22/19 00:24 Hgb 8.1 g/dL (12.0-16.0) L 03/22/19 00:24 Hct 26.5 % (36.0-47.0) L 03/22/19 00:24 MCV 76.5 fL (78.0-98.0) L 03/22/19 00:24 Plt Count 240 thou/uL (130-400) 03/22/19 00:24 Neutrophils % 72.8 % (42.0-75.0) 03/22/19 00:24 Sodium 135 mmol/L (136-145) L 03/22/19 00:24 Potassium 4.0 mmol/L (3.5-5.1) 03/22/19 00:24 Chloride 104 mmol/L (98-107) 03/22/19 00:24 Carbon Dioxide 22 mmol/L (23-31) L 03/22/19 00:24 BUN 11 mg/dL (9.8-20.1) 03/22/19 00:24 Creatinine 0.63 mg/dL (0.6-1.1) 03/22/19 00:24 Glucose 128 mg/dL (80-115) H 03/22/19 00:24 Calcium 8.5 mg/dL (7.8-10.44) 03/22/19 00:24 Total Bilirubin 0.5 mg/dL (0.2-1.2) 03/22/19 00:24 AST 14 U/L (5-34) 03/22/19 00:24 ALT 10 U/L (8-55) 03/22/19 00:24 Alkaline Phosphatase 150 U/L (40-110) H 03/22/19 00:24 Troponin I Less than 0.010 ng/mL (< 0.028) 03/22/19 00:24 B-Natriuretic Peptide 185.9 pg/mL (0-100) H 03/22/19 00:24 Serum Total Protein 6.6 g/dL (6.0-8.3) 03/22/19 00:24 Albumin 3.3 g/dL (3.4-4.8) L 03/22/19 00:24 Urine Ketones Negative mg/dL (Negative) 03/22/19 01:58 Urine Blood Negative (Negative) 03/22/19 01:58 Urine Nitrite Negative (Negative) 03/22/19 01:58 Ur Leukocyte Esterase 250 Shilpa/uL (Negative) A 03/22/19 01:58 Urine RBC None Seen HPF (0-3) 03/22/19 01:58 Urine WBC 4-6 HPF (0-3) A 03/22/19 01:58 Ur Squamous Epith Cells 0-3 HPF (0-3) 03/22/19 01:58 Urine Bacteria None Seen HPF (None Seen) 03/22/19 01:58 Hospitalist H&P A/P - Plan Plan: # community aquired pneumonia # afib w/ RVR - continue diltiazem - azithro/ceftriaxone # h/o obstructive lung disease - start steroids and shceudled + PRN nebs # hernia s/p repair w/ wound vac and delayed closure - consult wound care team
[2019-03-22 04:45] LABS: Troponin I 0.022 ng/mL (< 0.028)
[2019-03-22] MEDS ORDERED: Piperacillin/Tazobactam 3.375 GM VIAL ONE (05:47)
[2019-03-22] MEDS ORDERED: Dextrose 50% Abboject 50 ML SYRINGE SLOW IVP PRN (07:06)
[2019-03-22] MEDS ORDERED: HYDROcodone/Acetaminophen 5/325 mg Tablet PO PRN (07:06)
[2019-03-22] MEDS ORDERED: Acetaminophen 325 MG TAB PO PRN (07:06)
[2019-03-22] MEDS ORDERED: Bisacodyl 5 MG TAB PO PRN (07:06)
[2019-03-22] MEDS ORDERED: Dextrose 5% in Water 1,000 ML IV PRN (07:06)
[2019-03-22] MEDS ORDERED: Bisacodyl 10 MG SUPP PR PRN (07:06)
[2019-03-22] MEDS ORDERED: hydrALAZINE 20 MG/ML VIAL SLOW IVP PRN (07:10)
[2019-03-22] MEDS ORDERED: cloNIDine 0.1 MG TAB PO PRN (07:10)
[2019-03-22] MEDS ORDERED: Promethazine HCl 12.5 MG in Sodium Chloride 0.9% 50 ML IVPB PRN (07:10)
[2019-03-22] MEDS ORDERED: Ondansetron PF 4 MG/2 ML Vial IVP PRN (07:10)
[2019-03-22] MEDS ORDERED: Morphine 2 MG/ML SYRINGE SLOW IVP PRN (07:31)
[2019-03-22 07:40] LABS: Troponin I Less than 0.010 ng/mL (< 0.028)
--- NOTE | 2019-03-22 08:37 | RAD ---
PORTABLE CHEST: DATE: 03/22/2019. PROVIDED CLINICAL HISTORY: Dyspnea. FINDINGS: Comparison 01/27/2004. The cardiac silhouette appears enlarged. Electronic device overlies the left chest and may reflect loop recorder device. No focal consolidation, pleural fluid, or pneumothorax apparent. IMPRESSION: No evidence for an acute cardiopulmonary process. Please correlate with subsequently performed chest CT. POS: OFF
--- NOTE | 2019-03-22 08:46 | CT ---
PRELIMINARY REPORT/[facility]/EMERGENCY AFTER HOURS PROCEDURE: EXAM: CTA Chest with Intravenous Contrast CLINICAL HISTORY: Patient presents for evaluation of shortness of breath, Patient presents for evaluation of Patient re porting intermittent SOB abd orthopnea over the last day with no chest pain. States that her monitor read as Afib RVR at rate of 140 earlier tonight. HISTORIAN TECHNIQUE: Axial CTA images of the chest with intravenous contrast. MIP reconstructed images were created and re viewed. CONTRAST: With; ISO 370 100ML COMPARISON: None provided. FINDINGS: PULMONARY ARTERIES There is no intraluminal filling defect suspicious for PE. AORTA No thoracic aortic aneurysm or dissection. LUNGS Patchy opacities throughout the right middle lobe, lingula and upper lobes likely represent pneumonia . Small bilateral pleural effusions with minimal adjacent atelectasis right lung base. PLEURAL SPACES No pleural effusion. No pneumothorax. HEART AND MEDIASTINUM Coronary artery calcifications. The heart is mildly enlarged in size. LYMPH NODES No lymphadenopathy. BONES No focal osseous abnormality or acute fracture. CHEST WALL AND UPPER ABDOMEN Lap band in place. The chest wall is unremarkable. IMPRESSION: No pulmonary embolism. No thoracic aortic aneurysm or dissection. Patchy opacities throughout the right middle lobe, lingula and upper lobes likely represent pneumonia versus less likely edema. Cardiomegaly with small bilateral pleural effusions. ELECTRONICALLY SIGNED BY: Mavis Murrieta MD Mar 22, 2019 3:45:18 AM PATIENT INFORMATION COORDINATOR This report is intended for review by the ordering physician only, in accordance of law. If you recei ve this report in error, please call [facility] at [phone]. FINAL REPORT CT ANGIOGRAM OF THE CHEST: HISTORY: Dyspnea. COMPARISON: None. TECHNIQUE: CT angiogram of the chest was performed in the axial plane. Three-dimensional reformatted images are submitted for interpretation. FINDINGS: There are diffuse ground-glass opacities in the lung parenchyma. Bilateral pleural effusions, right greater than left. Incidental gastric lap band is noted. Heart is enlarged. No evidence of pulmona ry artery embolism to the level of the segmental arteries. Unremarkable aorta. IMPRESSION: This report is in agreement with the preliminary report by [facility]. No evidence of pulmonar y artery embolism to the level of the segmental arteries. Additional findings as above. POS: OFF
[2019-03-22] MEDS: cefTRIAXone\\ROCEPHIN 1 GM in Sodium Chloride 0.9% 100 ML IVPB SCH (09:30)
[2019-03-22] MEDS: Azithromycin 500 MG in Sodium Chloride 0.9% 250 ML 250 ML IVPB SCH (10:23)
[2019-03-22] MEDS: Senokot S 8.6-50 MG TAB PO SCH ×2 (10:23→20:27)
[2019-03-22] MEDS: Heparin 5,000 UNITS/ML VIAL SC SCH ×3 (10:25→20:27)
[2019-03-22] MEDS ORDERED: Iopamidol 370 76% 100 ML VIAL ONE (10:57)
[2019-03-22] MEDS ORDERED: methylPREDNISolone Sod Succ 40 MG VIAL ONE ×4 (11:19→17:46)
[2019-03-22] MEDS: methylPREDNISolone Sod Succ 40 MG VIAL IVP SCH ×3 (14:11→23:40)
[2019-03-22] MEDS ORDERED: Diltiazem HCl 125 MG, Admixture Fee 1 EACH in Sodium Chloride 0.9% 100 ML IVPB SCH (17:15)
[2019-03-22 19:14] VITALS: BMI 34.6
[2019-03-22] MEDS ORDERED: HumaLOG 300 UNITS/3 ML VIAL SC PRN (21:47)
[2019-03-23 05:16] LABS: #Lymphocytes 0.7 thou/uL (1.20-3.40); #Neutrophils 3.1 thou/uL (1.40-6.50); %Basophils 0.2 % (0.0-1.0); %Eosinophils 0.2 % (0.0-10.0); %Lymphocytes 18.3 % (21.0-51.0); %Monocytes 0.6 % (0.0-10.0); %Neutrophils 80.7 % (42.0-75.0); Hemoglobin 7.4 g/dL (12.0-16.0); Mean Corpuscular HGB CONC 30.7 g/dL (32.0-36.0); Mean Corpuscular Hemoglobin 23.6 pg (27.0-31.0); Mean Corpuscular Volume 76.8 fL (78.0-98.0); Mean Platelet Volume 7.7 fL (7.4-10.4); Platelet Count 217 thou/uL (130-400); RBC Distribution Width 16.6 % (11.5-14.5); Red Blood Cell (RBC) Count 3.15 mill/uL (4.20-5.40); White Blood Cell (WBC) Count 3.8 thou/uL (4.8-10.8)
[2019-03-23 05:41] LABS: Anion Gap 12 mmol/L (10-20); BUN (Urea Nitrogen) 13 mg/dL (9.8-20.1); Calc. Creatinine Clearance 127 mL/min (70-130); Calcium 8.9 mg/dL (7.8-10.44); Carbon Dioxide 22 mmol/L (23-31); Chloride 104 mmol/L (98-107); Estimated GFR-MDRD 85; Glucose 304 mg/dL (80-115); Magnesium 2.1 mg/dL (1.6-2.6); Potassium 4.5 mmol/L (3.5-5.1); Sodium 133 mmol/L (136-145)
[2019-03-23] MEDS: HumaLOG 300 UNITS/3 ML VIAL SC PRN ×2 (06:08→13:33)
[2019-03-23] MEDS: methylPREDNISolone Sod Succ 40 MG VIAL IVP SCH ×2 (06:09→13:34)
[2019-03-23] MEDS: cefTRIAXone\\ROCEPHIN 1 GM in Sodium Chloride 0.9% 100 ML IVPB SCH (07:38)
[2019-03-23] MEDS: Azithromycin 500 MG in Sodium Chloride 0.9% 250 ML 250 ML IVPB SCH (08:45)
[2019-03-23] MEDS: Senokot S 8.6-50 MG TAB PO SCH (09:30)
[2019-03-23] MEDS: Heparin 5,000 UNITS/ML VIAL SC SCH ×2 (09:30→17:11)
[2019-03-23 15:12] LABS: #Lymphocytes 0.7 thou/uL (1.20-3.40); #Monocytes 0.1 thou/uL (0.11-0.59); #Neutrophils 6.1 thou/uL (1.40-6.50); %Basophils 0.2 % (0.0-1.0); %Eosinophils 0.1 % (0.0-10.0); %Lymphocytes 9.6 % (21.0-51.0); %Monocytes 1.8 % (0.0-10.0); %Neutrophils 88.4 % (42.0-75.0); Hemoglobin 8.2 g/dL (12.0-16.0); Mean Corpuscular Hemoglobin 23.3 pg (27.0-31.0); Mean Corpuscular Volume 77.9 fL (78.0-98.0); Mean Platelet Volume 7.6 fL (7.4-10.4); Platelet Count 253 thou/uL (130-400); RBC Distribution Width 16.9 % (11.5-14.5); Red Blood Cell (RBC) Count 3.51 mill/uL (4.20-5.40)
[2019-03-23 15:40] LABS: Hypochromia SLIGHT = 6-15 cells (100X) (0-5/hpf); MDiff Complete? YES; Microcytosis SLIGHT = 6-15 cells (100X) (0-5/hpf); Platelet Morphology Comment Appears Adequate; Polychromasia SLIGHT = 2-3 cells (100X) (0-2/hpf)
[2019-03-23 15:56] VITALS: BP 166/78; TEMP 98.5
--- NOTE | 2019-03-23 18:31 | DIS ---
DATE OF ADMISSION: 03/22/2019 DATE OF DISCHARGE: 03/23/2019 PRIMARY CARE PROVIDER: Dr. Pavel Cosby. DISCHARGE DIAGNOSES: 1. Pneumonia. 2. Atrial fibrillation with rapid ventricular response. 3. Hyponatremia. CONDITION: Stable. I assessed Ms. Lepe on the day of discharge. She denies any chest pain or shortness of breath. Vital signs are stable. S1 and S2 are heard, regular. Lungs are clear to auscultation bilaterally. DISCHARGE MEDICATIONS: 1. Amitriptyline 25 to 50 mg at bedtime. 2. Vitamin C 500 mg daily. 3. Aspirin 81 mg at bedtime. 4. Vitamin D3 3000 units daily. 5. Plavix 75 mg daily. 6. Ferrous sulfate 135 mg daily. 7. Furosemide 20 mg daily. 8. Lantus insulin 20 units at bedtime. 9. Krill oil one capsule daily. 10. Probiotic one capsule daily. 11. Levothyroxine 137 mcg tablets, two tablets daily. 12. Levothyroxine 5 mcg daily. 13. Magnesium oxide 400 mg 2 times a day. 14. Metformin 1000 mg 2 times a day. 15. Multivitamins 1 capsule daily. 16. Paroxetine 20 mg daily. 17. Zocor 40 mg at bedtime. 18. Amiodarone 200 mg daily. 19. Augmentin 875 mg 2 times a day for 10 days. 20. Doxycycline 100 mg 2 times a day for 1 week. 21. Lactobacillus one tablet daily. 22. Artificial Tears p.r.n. 23. Humalog insulin p.r.n. HOSPITAL COURSE: Ms. Lepe is a pleasant 69-year-old lady, who was admitted to [facility] on 03/22/2019, for shortness of breath. She was found to be in atrial fibrillation with rapid ventricular response, which improved with administration of diltiazem. She also had CT scan of the chest, which ruled out pulmonary embolism, but showed patchy opacities throughout the right middle lobe, lingula, and upper lobes, likely representing pneumonia versus less likely edema. She improved with antibiotics. She is being discharged home in a stable condition. She has been advised to follow up with her primary care provider in 3 days' time. Many thanks for allowing me to participate in your patient's care. Please feel free to contact me with any questions or concerns. DISCHARGE DESTINATION: Home. LABORATORY DATA: On the day of discharge, she has sodium 133, potassium 4.5, creatinine 0.69. White count 3800, hemoglobin 7.4, and platelet count 217,000. ADDENDUM: PRIMARY CARE PROVIDER: Dr. Pavel Cosby. Ms. Lepe's TSH was low at 0.0259. She has been advised to stop her thyroid medications and to follow up with primary care provider for checking her free T4 level. Her presentation of atrial fibrillation with rapid ventricular response was most likely secondary to hyperthyroid state. Job ID: [id number]
--- NOTE | 2019-04-03 17:47 | EKG ---
Test Reason : Blood Pressure : / mmHG Vent. Rate : 098 BPM Atrial Rate : 098 BPM P-R Int : 226 ms QRS Dur : 076 ms QT Int : 364 ms P-R-T Axes : 078 -05 046 degrees QTc Int : 464 ms Sinus rhythm with sinus arrhythmia with 1st degree A-V block Anteroseptal infarct , age undetermined Abnormal ECG Confirmed by ARDEN SOSA ([id number]), book or script editor JUICE PEREZ ([id number]) on 04/03/2019 5:47:23 PM Referred By: Confirmed By:ARDEN SOSA
== END 2019-03-23 17:48 | disposition home or self-care (01) ==
LOC: ERS 00:08 → ERHOLD 04:00 → 2SW 18:39
PROVIDERS: ADMIT Internal Medicine; ATTEND Internal Medicine
DX: I48.91 Unspecified atrial fibrillation (principal); J18.9 Pneumonia, unspecified organism; E87.1 Hypo-osmolality and hyponatremia; E03.9 Hypothyroidism, unspecified; E11.9 Type 2 diabetes mellitus without complications; J45.909 Unspecified asthma, uncomplicated; E78.5 Hyperlipidemia, unspecified; E78.00 Pure hypercholesterolemia, unspecified; I10 Essential (primary) hypertension; F41.9 Anxiety disorder, unspecified; F32.9 Major depressive disorder, single episode, unspecified; Z79.02 Long term (current) use of antithrombotics/antiplatelets; Z79.4 Long term (current) use of insulin; Z79.82 Long term (current) use of aspirin; Z79.899 Other long term (current) drug therapy; Z88.5 Allergy status to narcotic agent; Z88.6 Allergy status to analgesic agent; Z98.890 Other specified postprocedural states
CPT/HCPCS: 71045; 71275; 80048; 80053; 82962 ×2; 83735; 83880; 84443; 84484 ×2; 85025 ×3; 87070; 87205; 93005; 94640 ×2; 96365; 96366 ×3; 96367; 96372 ×2; 96375; 96376 ×2; 97110; 97116; 97139 ×4; 99291; G0378 ×3; 36415; 36416; 81003; 81015; J0456; J0696; J1644; J2543; J2920; J3490; J7050; J7620; Q9967

== ENCOUNTER 2019-03-24 15:50 | Outpatient (CLI) | payer MEDICARE | END 2019-03-24 15:51 | disposition home or self-care (01) | LOC: WCC 15:50 | PROVIDERS: ATTEND Family Medicine | DX: T81.89XD Other complications of procedures, not elsewhere classified, subsequent encounter (principal) ==

== ENCOUNTER 2019-03-26 08:11 | Outpatient (CLI) | payer MEDICARE ==
[2019-03-26] MEDS ORDERED: Sodium Chloride 0.9% 15 ML NEB ONE (15:24)
== END 2019-03-26 08:12 | disposition home or self-care (01) ==
LOC: WCC 08:11
PROVIDERS: ATTEND Family Medicine
DX: T81.89XD Other complications of procedures, not elsewhere classified, subsequent encounter (principal)
CPT/HCPCS: 97605; A4218

== ENCOUNTER 2019-03-29 14:01 | Outpatient (CLI) | payer MEDICARE ==
--- NOTE | 2019-03-29 15:02 | PRG ---
DATE OF SERVICE: 03/29/2019 HISTORY: Ms. Elyssa Lepe is a very pleasant 69-year-old, who presents to the Wound Center for evaluation of a nonhealing surgical wound of the abdomen in the midline. Previously, the patient was seen in the Wound Center on 10/29/2018. 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 During the patient's hospital stay, Ms. Lepe was seen in consultation by General Surgery and treatment with negative pressure therapy and TPN initiated. The patient stated that she was transferred to inpatient rehabilitation for continued treatment with the wound VAC and TPN. She stated that she, however, required re-admission to [facility] and required surgery on 01/13/2019. Specifically, the patient underwent exploratory laparotomy, extensive lysis of adhesions, small-bowel resection, primary anastomosis, and incisional hernia repair with Strattice biologic mesh. The patient stated that a drain placed intraoperatively was removed by Dr. Garcia at the time of a postoperative visit in his office. She stated that for the nonhealing surgical wound of the abdomen in the midline, she was referred by Dr. Garcia to the Wound Center for the initiation of negative pressure therapy and dressing changes of the wound VAC here in the Wound Center. PHYSICAL EXAMINATION: VITAL SIGNS: Temperature 98.3, pulse 90, respirations 20, and blood pressure 123/92. Accu-Chek 125. ABDOMEN: A large wound of the abdomen in the midline is present, which measures approximately 3.3 x 2.0 cm. The depth of the wound is approximately 2.1 cm. No purulent drainage is associated with the wound. No cellulitis of the anterior abdominal wall is appreciated. No maceration of the skin of the periwound is noted. ASSESSMENT AND PLAN: 1. Nonhealing surgical wound of abdomen in the midline as described above. Negative pressure therapy will be continued with dressing changes of the wound VAC here in the Wound Center. 2. Hypothyroidism. 3. Obstructive sleep apnea. 4. Paroxysmal atrial fibrillation. 5. Diabetes mellitus. The patient's Accu-Chek in clinic today is 125. The patient has been reminded that for optimal wound healing, her blood glucoses should remain below 150. 6. Hypertension. 7. Anemia. Job ID: [id number]
== END 2019-03-29 14:02 | disposition home or self-care (01) ==
LOC: WCC 14:01
PROVIDERS: ATTEND Family Medicine
DX: T81.89XD Other complications of procedures, not elsewhere classified, subsequent encounter (principal); E03.9 Hypothyroidism, unspecified; G47.33 Obstructive sleep apnea (adult) (pediatric); I48.0 Paroxysmal atrial fibrillation; E11.9 Type 2 diabetes mellitus without complications; I10 Essential (primary) hypertension; D64.9 Anemia, unspecified

== ENCOUNTER 2019-03-31 14:12 | Outpatient (CLI) | payer MEDICARE ==
[2019-03-31] MEDS ORDERED: Sodium Chloride 0.9% 15 ML NEB ONE (17:05)
== END 2019-03-31 14:13 | disposition home or self-care (01) ==
LOC: WCC 14:12
PROVIDERS: ATTEND Family Medicine
DX: T81.89XD Other complications of procedures, not elsewhere classified, subsequent encounter (principal)
CPT/HCPCS: A4218